=== PATIENT | female | born 1950 | race Caucasian/White ===

== ENCOUNTER 2016-09-27 05:19 | Day surgery (SDC) | payer BC ==
[2016-09-03 08:06] VITALS: BMI 40.0
--- NOTE | 2016-09-03 08:43 | PAT Medication Instructions ---
Service Date Sep 03, 2016. Current Home Medication List Aspirin (Aspirin Ec), 81 MG PO QAM Atenolol (Tenormin), 50 MG PO QAM B-Complex W/ Folic Acid (Super B Complex Maxi), 1 TAB PO QAM Cholecalciferol (Vitamin D-3), 1 TAB PO QPM Cyanocobalamin (Vitamin B-12), 1,000 MCG PO QAM Fexofenadine Hcl (Barb *), 180 MG PO QAM Fish Oil ([place]-3), 1 CAP PO BID Insulin Aspart (Novolog Flexpen), 64-120 UNITS SQ DAILY Insulin Glargine (Lantus Solostar), 65 UNITS SQ HS Insulin Nph (Humulin-N), 50 UNITS SC HS Isosorbide Mononitrate Ext Rel (Imdur Ext Rel), 60 MG PO QAM Levothyroxine Sodium (Synthroid), 175 MCG PO QAM Lisinopril (Prinivil), 10 MG PO QAM Metformin HCL (Glucophage *), 1,000 MG PO BID Multivitamin (Multivitamin), 1 TAB PO QAM Pantoprazole (Protonix), 40 MG PO QAM Venlafaxine Ext Rel (Effexor Extended Rel *), 75 MG PO HS Medication Instructions For Your Scheduled Surgery - Hold the following medications 2 weeks prior to surgery: Fish Oil ([place]-3), 1 CAP PO BID - Hold the following medications 48 hours prior to surgery: Metformin HCL (Glucophage *), 1,000 MG PO BID - Hold the following medications the morning of surgery: B-Complex W/ Folic Acid (Super B Complex Maxi), 1 TAB PO QAM Cyanocobalamin (Vitamin B-12), 1,000 MCG PO QAM Fexofenadine Hcl (Barb *), 180 MG PO QAM Lisinopril (Prinivil), 10 MG PO QAM Multivitamin (Multivitamin), 1 TAB PO QAM Insulin Aspart (Novolog Flexpen), 64-120 UNITS SQ DAILY - Take the following medications the morning of surgery with a sip of water OTHERWISE NOTHING TO EAT OR DRINK AFTER MIDNIGHT: Aspirin (Aspirin Ec), 81 MG PO QAM Atenolol (Tenormin), 50 MG PO QAM Isosorbide Mononitrate Ext Rel (Imdur Ext Rel), 60 MG PO QAM Levothyroxine Sodium (Synthroid), 175 MCG PO QAM Pantoprazole (Protonix), 40 MG PO QAM - Take the following medications as scheduled the night before surgery: Cholecalciferol (Vitamin D-3), 1 TAB PO QPM Venlafaxine Ext Rel (Effexor Extended Rel *), 75 MG PO HS Insulin Glargine (Lantus Solostar), 65 UNITS SQ HS Insulin Nph (Humulin-N), 50 UNITS SC HS If you have any questions please call us at [phone] (Lyn Cesar PA-C ) or [phone] or [phone]
[2016-09-03 09:34] LABS: BASO % 0.4 %; BASO ABS # 0.04 K/uL (0-0.2); COMPLETE YES; EOS % 2.8 %; HEMATOCRIT 42.2 % (37-47); IG% 0.3 %; LYMPH % 29.5 %; LYMPH ABS # 2.68 K/uL (1.2-3.4); MEAN CELL VOLUME 89.8 fL (80-100); MEAN CORPUSCULAR HEMOGLOBIN 30.4 pg (25-34); MEAN CORPUSCULAR HGB CONC 33.9 g/dl (32-36); MEAN PLATELET VOLUME 10.5 fL (7.4-10.4); MONO % 6.6 %; NEUT % 60.4 %; PLATELET COUNT 173 K/uL (130-400); WHITE BLOOD COUNT 9.09 K/uL (4.8-10.8)
[2016-09-03 09:40] LABS: URINE APPEARANCE CLEAR (CLEAR); URINE BILIRUBIN NEG (NEG); URINE COLOR DK YELLOW; URINE EPITHELIAL CELL AUTO >30 /lpf (0-5); URINE NITRITE NEG (NEG); UROBILINOGEN NEG (NEG)
[2016-09-03 09:44] LABS: MANUAL MICROSCOPIC REQUIRED? NO; REVIEW REQ? NO
[2016-09-03 10:15] LABS: CALCIUM 9.2 mg/dl (8.5-10.1); CREATININE 0.85 mg/dl (0.60-1.20); POTASSIUM 4.8 mmol/L (3.5-5.1)
--- NOTE | 2016-09-20 11:09 | HISTORY & PHYSICAL EXAMINATION ---
DATE OF ADMISSION: 09/27/2016 PREOPERATIVE HISTORY AND PHYSICAL EXAMINATION SUBJECTIVE CHIEF COMPLAINT: Left wrist pain. HISTORY OF PRESENT ILLNESS: The patient is a 66-year-old female who has had left hand pain. She states that the pain has been progressively getting worse, symptoms have gone from intermittently to consistent. She describes the pain as being an electrical. 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 She would like to proceed with a carpal tunnel release. PAST MEDICAL HISTORY: Hypertension, hypercholesterolemia, stroke, coronary artery disease, insulin-dependent diabetes, hypothyroidism, osteoarthritis, obesity, kidney stones and fatty liver disease. PAST SURGICAL HISTORY: Significant for cardiac bypass, stent placement, left total knee arthroscopy, carpal tunnel release on the right hand, cataract surgery polypectomy, tubal ligation. SOCIAL HISTORY: She denies alcohol. She denies smoking or tobacco use. She denies IV drug use. She lives in a 2-lesly house. FAMILY HISTORY: She has a history of heart disease. MEDICATIONS: Metformin 1000 mg twice daily, Imdur 60 mg daily, Synthroid 175 mcg daily, Protonix 40 mg daily, lisinopril 10 mg daily, atenolol 50 mg daily, aspirin 81 mg daily, Barb, super B complex, B12, fish oil, Effexor 75 mg. ALLERGIES: CAT HAIR, GLIPIZIDE, AND BACTRIM. REVIEW OF SYSTEMS: She denies fevers, chills, headaches, weight loss, double vision, blurry vision, sore throat, hearing loss, tremors, dizziness, numbness and tingling, tired, thirsty, hot and cold intolerance, abdominal pain, nausea, vomiting, diarrhea, heartburn, chest pain, swelling into the legs or feet, joint pain, back pain, frequency go to the bathroom, pain or burning with urination, incontinence, wheezing, cough, shortness of breath, depression, thoughts of harm herself or harm others, nervousness or anxious. She is positive for stiffness and swelling into the left wrist. OBJECTIVE: GENERAL APPEARANCE: The patient is a 66-year-old female sitting in no acute distress, well dressed, well nourished. She is awake, alert and oriented. VITAL SIGNS: She is 5 foot 2 inches, 220 pounds. HEENT: Extraocular movements are intact. PERRLA. Mucosa is moist. No septal deviation. NECK: Supple with no lymphadenopathy, no JVD, no thyromegaly. HEART: regular rate and rhythm No murmurs or gallops. LUNGS: Clear to auscultation. No wheezing or rhonchi EXTREMITY: paying particular attention to her left wrist. She does have decreased range of motion with flexion, extension, ulnar and radial deviation. She does have a positive Tinel sign at the wrist. She has a positive Phalen test. NEUROLOGIC: Cranial nerves II-XII are intact. Pulses were compared bilaterally and were equal. IMPRESSION: Left carpal tunnel syndrome. PLAN: The patient is scheduled for a left carpal tunnel release. She has failed nocturnal splinting and physical therapy. She wishes to proceed with left carpal tunnel release. Risks and benefits to surgery were discussed that were included but not limited to infection, DVT, pain, stiffness, need for revision surgeries, failure to relieve all symptoms, blood vessel damage, nerve damage and anesthesia risks were all discussed and she wishes to proceed. All questions were answered to her satisfaction. FERMIN
[~2016-09-27] VITALS: Ht 157.5 cm; Wt 100.0 kg
[~2016-09-27 05:19] MED LIST: ALL180 PO; ASPI81TA28 PO; ATEN50TA8 PO; B-CO-25 PO; CHOL200027 PO; CYAN10005 PO; EFFSR75 PO; GLC500 PO; INSDGIPEN SQ; INSUINJ SC; ISOS60TA25 PO; LEVO175T PO; LISI10TA PO; MULT-506 PO; NVLGI/PEN SQ; OMEG10007 PO; PANT40TA PO
[2016-09-27] MEDS ORDERED: CYCL0.052 OP (05:42)
[2016-09-27 05:46] VITALS: BP 119/72; PULSE 76; TEMP 36.6; O2SAT 94; Ht 157.5 cm; Wt 100.0 kg
[2016-09-27] MEDS ORDERED: LACTATED RINGER'S 1000ML 1,000 ML IV SCH (06:00)
[2016-09-27] MEDS ORDERED: FENTANYL CITRATE INJ 50 MCG/1 ML 2 ML VIAL ONE (06:44)
[2016-09-27] MEDS ORDERED: MIDAZOLAM HCL 1 MG/ML 2ML VIAL ONE ×2 (06:44→07:03)
[2016-09-27] MEDS ORDERED: PROPOFOL IV EMULSION 10 MG/ML 20 ML VIAL IV ONE (06:44)
--- NOTE | 2016-09-27 06:52 | History & Physical Bridge Note ---
H&P Re-Evaluation Bridge Note: I have examined the patient, reviewed the History & Physical and in the interval since the performance of the History & Physical I have noted the following changes of clinical significance: No changes noted
[2016-09-27] MEDS ORDERED: ONDANSETRON INJ 2 MG/ML 2 ML VIAL ONE (07:08)
[2016-09-27] MEDS ORDERED: BUPIVACAINE/EPINEPHRINE 0.5% MPF 1:200,000 30 ML VIAL ONE (07:09)
--- NOTE | 2016-09-27 07:47 | [facility] Post Operative Brief Note ---
Immediate Operative Summary Operative Date Sep 27, 2016. Pre-Operative Diagnosis Left wrist carpal tunnel Post-Operative Diagnosis Same as preoperative diagnosis Procedure(s) Performed Left Wrist Carpal Tunnel Release Surgeon Dr Garcia Front Counter Clerk Surgeon(s) Audi Aceves PA-C Estimated Blood Loss min Findings above Specimens 0 Drains 0 Anesthesia local mac Complication(s) None Disposition Recovery Room / PACU
[2016-09-27] MEDS ORDERED: HYDROCODONE/ACETAMOPHEN 5/325MG TAB PO PRN (08:00)
[2016-09-27] MEDS ORDERED: IBUPROFEN 600 MG TAB PO PRN (08:00)
[2016-09-27] MEDS ORDERED: ONDANSETRON INJ 2 MG/ML 2 ML VIAL IV PRN ×2 (08:00→08:15)
[2016-09-27] MEDS ORDERED: HYDR-5688 PO (08:02)
--- NOTE | 2016-09-27 08:06 | Discharge Instructions ---
Discharge Instructions Visit Reason for Visit: Left Wrist Carpal Tunnel Syndrome Discharge Discharge Diagnosis / Problem: Left carpal tunnel release Discharge Goals Goal(s): Decrease discomfort, Improve function Activity Recommendations Activity Limitations: per Instructions/Follow-up section Anesthesia . Post Anesthesia Instructions: If you have had General Anesthesia or IV Sedation: * Do not drive today. * Resume driving when surgeon permits. * Do not make important decisions or sign legal documents today. * Call surgeon for: 1. Temperature elevations greater than 101 degrees F. 2. Uncontrollable pain. 3. Excessive bleeding. 4. Persistent nausea and vomiting. 5. Medication intolerance (nausea, vomiting or rash). * For nausea and vomiting use only clear liquids such as: tea, soda, bouillon until nausea subsides, then gradually increase diet as tolerated. * If you have any concerns or questions, call your surgeon's office. If physician is unavailable and it is an emergency, call 911 or go to the nearest emergency room. . Instructions / Follow-Up Instructions / Follow-Up ACTIVITY RECOMMENDATIONS: * Avoid lifting anything heavier than a medium water glass until your first post operative visit. SPECIAL CARE INSTRUCTIONS: * Your bandage should be left in place for 24-48 hours. Then can be changed daily. * Some drainage onto the dressing may occur. This is normal. * If the bandage feels excessively tight, you may loosen the elastic bandage. Then call the physician's office for further instructions. * If possible, keep your hand elevated above the level of your heart for the first 2 post operative days. You may use a sling if necessary. * You should move your fingers regularly (50-100 motions per hour) unless otherwise instructed. SPECIAL PRECAUTIONS: * If you notice increased drainage, fever over 101 degrees F. or severe, unremitting pain, call your physician/office at . * You may have been prescribed pain medication. If you experience nausea and/or skin rash, discontinue this medication and contact our office for an alternative medication. FOLLOW UP VISIT: FOLLOW UP IN [address] PARKER OR PA TO TO HAVE THE SUTURES REMOVED Please call [facility] to make a follow-up appointment after your surgery at . Diet Recommendations Recommended Home Diet: diabetes diet Procedures Procedures Performed: Left Wrist Carpal Tunnel Release Pending Studies Studies pending at discharge: no Medical Emergencies . Who to Call and When: Medical Emergencies: If at any time you feel your situation is an emergency, please call 911 immediately. . Non-Emergent Contact Non-Emergency issues call your: Surgeon Call Non-Emergent contact if: temperature is above 101.5, your pain is worsening, wound has increased drainage, wound has increased redness, wound has increased pain . . "Provider Documentation" section prepared by Audi Aceves.
[2016-09-27] MEDS ORDERED: ATROPINE SULFATE 0.1 MG/ML 5ML SYR IV PRN (08:15)
[2016-09-27] MEDS ORDERED: FENTANYL CITRATE INJ 50 MCG/1 ML 2 ML VIAL IV PRN (08:15)
--- NOTE | 2016-09-27 08:15 | Anesthesiology Progress Note ---
Anesthesia Post Op Note Date & Time Sep 27, 2016 at 08:14 Vital Signs Pain Intensity: 0 Vital Signs Past 12 Hours Date Time Temp Pulse Resp B/P Pulse Ox O2 Delivery O2 Flow Rate FiO2 09/27/16 08:10 36.3 66 16 125/68 97 Nasal Cannula 09/27/16 08:05 67 16 122/65 97 Nasal Cannula 09/27/16 07:55 69 16 125/63 96 Nasal Cannula 09/27/16 07:53 36.1 71 16 120/62 92 Room Air 09/27/16 05:46 36.6 76 20 119/72 94 Room Air Notes Mental Status: alert / awake / arousable, participated in evaluation Pt Amnestic to Procedure: Yes Nausea / Vomiting: adequately controlled Pain: adequately controlled Airway Patency, RR, SpO2: stable & adequate BP & HR: stable & adequate Hydration State: stable & adequate Anesthetic Complications: no major complications apparent
[2016-09-27 08:20] VITALS: BP 107/43; PULSE 63; TEMP 36.6; O2SAT 92
[2016-09-27 08:50] VITALS: BP 102/52; PULSE 63; TEMP 36.5; O2SAT 95
--- NOTE | 2016-09-28 01:29 | OPERATIVE REPORT ---
DATE OF OPERATION: 09/27/2016 PREOPERATIVE DIAGNOSIS: Left carpal tunnel syndrome. POSTOPERATIVE DIAGNOSIS: Same. PROCEDURE: Left carpal tunnel release. SURGEON: Earle Garcia MD HOME APPLIANCE TECHNICIAN: Audi Aceves PA-C, who was necessary for assistance of procedure with positioning, prepping, draping, retraction and closure. ANESTHESIA: Local MAC. SPECIMENS: None. COMPLICATIONS: None. ESTIMATED BLOOD LOSS: Minimal. INDICATIONS: The patient is a 66-year-old female with longstanding numbness and tingling in the left hand. She has failed conservative measures including nocturnal splinting. EMG confirmed left carpal tunnel syndrome. Failing conservative measures, she wished to proceed with left carpal tunnel release. Risks, benefits, and alternatives of surgery including but not limited to infection, DVT, pain, stiffness, need for revision surgery, failure to relieve all symptoms, damage to blood vessels, damage to nerves, risks of anesthesia discussed with patient and she wished to proceed. DESCRIPTION OF PROCEDURE: The patient was identified, laterality was confirmed and marked. She received preoperative antibiotic. She was transferred to the operating room, placed in the supine position, induced with general endotracheal anesthesia per anesthesia staff. A well-padded tourniquet was placed on the arm. Limb was prepped and draped in usual sterile manner with ChloraPrep. Limb was exsanguinated and tourniquet was inflated. I made a longitudinal incision centered over the radial border of the fourth ray, sharply incising through the skin utilizing Bovie electrocautery to achieve hemostasis. The incision site was anesthetized with Marcaine, dissected through the palmaris fascia. I identified the transverse carpal ligament and incised the transverse carpal ligament sharply with a knife and then completed the release distally with tenotomy scissors. I then released the remaining portion of it proximally with blunt-tipped scissors. The wound was thoroughly irrigated. Subcutaneous tissue was closed with buried 5-0 Monocryl and skin with 4-0 nylon. Sterile dressings applied and tourniquet was released. All needle and sponge counts were correct at the end of the procedure. The patient was transferred to the PACU in stable condition without apparent complication. I attest to the content of the Intraoperative Record and any orders documented therein. Any exceptio ns are noted below.
[2017-04-03] MEDS ORDERED: ACET-1222 (10:36)
[2017-04-03] MEDS ORDERED: ATOR10TA88 PO (10:36)
[2017-04-03] MEDS ORDERED: NTRGSL/4 SL (10:36)
[2017-04-04] MEDS ORDERED: BRL90 PO (13:05)
== END 2016-09-27 09:04 | disposition home or self-care (01) ==
LOC: C.ACU 05:19
PROVIDERS: ATTEND Orthopaedic Surgery
DX: G56.02 Carpal tunnel syndrome, left upper limb (principal); I10 Essential (primary) hypertension; E11.9 Type 2 diabetes mellitus without complications; Z79.4 Long term (current) use of insulin; I25.10 Atherosclerotic heart disease of native coronary artery without angina pectoris; Z79.899 Other long term (current) drug therapy; E03.9 Hypothyroidism, unspecified; E78.00 Pure hypercholesterolemia, unspecified

== ENCOUNTER → 2016-11-15 | Outpatient (CLI) | payer BC ==
[~2016-11-15] MED LIST changes: +ACET-1222; +ATOR10TA82 PO; +BRL90 PO; +CYCL0.052 OP; +HYDR-5688 PO; +NTRGSL/4 SL; +VENL75CA73 PO
--- NOTE | 2016-11-15 13:12 | MAMMOGRAPHY REPORT ---
BILATERAL DIGITAL SCREENING MAMMOGRAM WITH CAD: 11/15/2016 CLINICAL HISTORY: Routine screening. Patient has no complaints. TECHNIQUE: Current study was also evaluated with a Computer Aided Detection (CAD) system. Bilatera l CC and MLO views were obtained. COMPARISON: Comparison is made to exams dated: 11/13/2015 mammogram, 11/10/2014 mammogram, 11/08/2013 mammogram, 09/16/2011 mammogram, and 11/06/2012 mammogram - [facility]. BREAST COMPOSITION: There are scattered areas of fibroglandular density in both breasts. FINDINGS: No suspicious masses, calcifications, or areas of architectural distortion are noted in e ither breast. There has been no significant interval change compared to prior exams. IMPRESSION: ACR BI-RADS CATEGORY 1: NEGATIVE There is no mammographic evidence of malignancy. A 1 year screening mammogram is recommended. The p atient will receive written notification of the results. Approximately 10% of breast cancers are not detected with mammography. A negative mammographic repor t should not delay biopsy if a clinically suggestive mass is present. Melissa Vallejo M.D. ah/:11/15/2016 11:45:52 Regional Driver: Tamika Christian RT(R)(M)(BD), [facility] letter sent: Normal 1/2 BI-RADS Code: ACR BI-RADS Category 1: Negative
== END | disposition home or self-care (01) ==
LOC: C.MAMM 08:52
PROVIDERS: ATTEND Family Medicine
DX: Z12.31 Encounter for screening mammogram for malignant neoplasm of breast (principal)

== ENCOUNTER → 2016-11-21 | Outpatient (CLI) | payer BC ==
[~2016-11-21] MED LIST changes: +REGADENOSON 0.4 MG/5 ML SYR ONE
--- NOTE | 2016-11-21 16:10 | MYOCARDIAL PERFUSION SCAN ---
ORDERING PHYSICIAN: Dr. Miguel Grant. PCP: Dr. Jones TIME: 15:40 p.m. PROCEDURE: 1. Myocardial perfusion study performed in multiple views/images. 2. Lexiscan pharmacologic stress test. INDICATIONS: 1. Chest pain. 2. CAD status post CABG. CONSENT: Informed written consent was obtained. PROCEDURAL DETAILS: For the stress portion of the study, Lexiscan 0.4 mg was intravenously administered over 10-15 seconds followed by saline flush. This was followed by 31.1 mCi of technetium-99m Cardiolite injected intravenously at 10:45 a.m. on 11/21/2016. Thirty minutes following the injection, imaging of the heart was performed in multiple projections. For the rest portion of the study, 10.2 mCi of technetium-99m Cardiolite was injected intravenously at 7:40 a.m. on the same day. One hour following the injection, imaging of the heart was performed in the same projections. ELECTROCARDIOGRAM AND VITALS: Baseline ECG demonstrated sinus rhythm at 60 beats per minute. Lexiscan ECG demonstrated no significant ST changes. No significant pauses. No arrhythmia. There was Lexiscan-induced dyspnea and then nausea with retching. She also developed epistaxis. Symptoms quickly resolved within 1-2 minutes. Peak heart rate was 90 beats per minute representing 59% maximum predicted heart rate. Resting blood pressure was 127/67 mmHg. Maximum blood pressure was 144/65 mmHg. No chest pain. FINDINGS: Rotating raw imaging demonstrated no significant motion artifact. There was no significant lung uptake. Heart size appeared normal. Myocardial perfusion demonstrated a small area of mildly reduced uptake in the lateral wall from base to mid ventricle which was fixed in post-stress and rest imaging. There was no significant reversible defect. Wall motion was normal. Ejection fraction was 70%. IMPRESSION: 1. No significant ischemia suggestive with pharmacologic myocardial perfusion study. 2. Small base to mid lateral wall fixed defect which could suggest a small lateral infarct. With normal wall motion, it could also represent attenuation artifact. 3. Normal wall motion. 4. Normal left ventricular systolic function. Ejection fraction 70%. 5. Lexiscan-induced dyspnea and nausea. 6. Nondiagnostic Lexiscan electrocardiogram. MTDD
== END | disposition home or self-care (01) ==
LOC: C.NUCL 07:11
PROVIDERS: ATTEND Internal Medicine Interventional Cardiology
DX: R07.89 Other chest pain (principal)

== ENCOUNTER → 2017-01-07 | Outpatient (CLI) | payer BC ==
[~2017-01-07] MED LIST changes: -REGADENOSON 0.4 MG/5 ML SYR ONE
[2017-01-07 09:57] LABS: ALT/SGPT 100 U/L (12-78); BLOOD UREA NITROGEN 26 mg/dl (7-18); BUN/CREATININE RATIO 23.7 (10-20); CARBON DIOXIDE 29 mmol/L (21-32); CHLORIDE 103 mmol/L (98-107); CHOLESTEROL 270 mg/dl (0-200); GLUCOSE 118 mg/dl (70-99); POTASSIUM 4.5 mmol/L (3.5-5.1); SODIUM 139 mmol/L (136-145); TRIGLYCERIDES 159 mg/dl (0-150); VERY LOW DENSITY LIPOPROT CALC 32 mg/dl
[2017-01-07 10:00] LABS: ALB/GLOB RATIO 0.9 (0.9-2); ALKALINE PHOSPHATASE 84 U/L (45-117); AST/SGOT 69 U/L (15-37); CHOLESTEROL/HDL RATIO 4.7; HDL CHOLESTEROL 57 mg/dl; LDL CHOLESTEROL CALCULATED 181 mg/dl
[2017-01-07 10:01] LABS: CALCIUM 9.3 mg/dl (8.5-10.1)
[2017-01-07 10:28] LABS: ESTIMATED AVERAGE GLUCOSE 131 mg/dl; HA1C FLAG Normal (Normal)
== END | disposition home or self-care (01) ==
LOC: C.LAB1850 06:55
PROVIDERS: ATTEND Family Medicine
DX: E11.49 Type 2 diabetes mellitus with other diabetic neurological complication (principal); I25.10 Atherosclerotic heart disease of native coronary artery without angina pectoris; E78.00 Pure hypercholesterolemia, unspecified; E03.9 Hypothyroidism, unspecified; R74.8 Abnormal levels of other serum enzymes; I10 Essential (primary) hypertension

== ENCOUNTER → 2017-04-02 | Outpatient (CLI) | payer BC ==
[~2017-04-02] MED LIST changes: -ATOR10TA82 PO; +ATOR10TA88 PO; -HYDR-5688 PO; -VENL75CA73 PO
[2017-04-02 13:30] LABS: PROTHROMBIN TIME (PATIENT) 10.5 SECONDS (9.0-12.0)
[2017-04-02 13:32] LABS: BLOOD UREA NITROGEN 18 mg/dl (7-18); BUN/CREATININE RATIO 20.9 (10-20); CALCIUM 9.1 mg/dl (8.5-10.1); CARBON DIOXIDE 27 mmol/L (21-32); CHLORIDE 105 mmol/L (98-107); CREATININE 0.87 mg/dl (0.60-1.20); GLUCOSE 79 mg/dl (70-99); POTASSIUM 4.3 mmol/L (3.5-5.1); SODIUM 139 mmol/L (136-145)
[2017-04-02 13:36] LABS: HEMATOCRIT 43.6 % (37-47); MEAN CELL VOLUME 93.2 fL (80-100); MEAN CORPUSCULAR HEMOGLOBIN 30.6 pg (25-34); MEAN CORPUSCULAR HGB CONC 32.8 g/dl (32-36); MEAN PLATELET VOLUME 9.9 fL (7.4-10.4); PLATELET COUNT 165 K/uL (130-400); RED BLOOD COUNT 4.68 M/uL (4.2-5.4); WHITE BLOOD COUNT 7.15 K/uL (4.8-10.8)
== END | disposition home or self-care (01) ==
LOC: C.LAB1850 11:53
PROVIDERS: ATTEND Internal Medicine Interventional Cardiology
DX: Z01.810 Encounter for preprocedural cardiovascular examination (principal)

== ENCOUNTER 2017-04-03 10:48 | Observation (INO) | payer BC ==
[~2017-04-03] VITALS: Ht 157.5 cm; Wt 100.5 kg
[2017-04-03] VITALS (12 sets, daily range): BP systolic 108–150; BP diastolic 68–77; PULSE 56–68; TEMP 36.5–36.8; O2SAT 93–98; Ht 157.5 cm; Wt 100.5 kg
[~2017-04-03 10:48] MED LIST changes: -BRL90 PO
[2017-04-03] MEDS ORDERED: HEPARIN SOD (PORCINE) 1000 UNIT/ML 10 ML VIAL ONE ×3 (11:46→14:34)
[2017-04-03] MEDS ORDERED: NiCARDipine HCL INJ 2.5 MG/ML 10 ML AMP ONE ×2 (11:46→13:02)
[2017-04-03] MEDS ORDERED: FENTANYL CITRATE INJ 50 MCG/1 ML 2 ML VIAL ONE (11:47)
[2017-04-03] MEDS ORDERED: NITROGLYCERIN/D5W 100MCG/ML 20ML SYR ONE ×2 (11:47→13:03)
[2017-04-03] MEDS ORDERED: MIDAZOLAM HCL 1 MG/ML 2ML VIAL ONE ×2 (11:47→13:53)
--- NOTE | 2017-04-03 12:04 | History and Physical ---
History & Physical Date Apr 03, 2017. History of Present Illness Mrs. Ahn is a very pleasant 67-year-old woman with a history of coronary artery status post 4 vessel CABG in 1989 (CRANE to LAD known be atretic, SVG to PDA, SVG OM1 and OM2), prior stenting to the mid LAD in 2007 in the setting of unstable angina, diabetes, hypertension, dyslipidemia, hypothyroidism, and obesity who presents today for cardiac catheterization in the setting of recurrent chest pain. Patient was previously followed by Dr. Moss for her cardiovascular care and was last seen by me in July. Approximately 1 month ago had an episode of palpitations with associated chest tightness. Since that time she reports intermittent chest tightness, shortness of breath and decreased exercise tolerance with less and less activity. Reports symptoms are similar to what she had prior to her bypass many years ago. Still endorses occasional palpitations outside of the chest tightness which is similar which she has had recently over the last several years. Denies any orthopnea, PND, lower extremity edema. Denies any recent bleeding. No upcoming procedures. Prior cardiovascular studies: Stress echo (01/2016): Negative stress echo for ischemia at 78 percent max predicted heart rate. exercise for 4 minutes using a Masood protocol, achieved 7 Mets. Resting EF was 60 percent with no regional wall motion abnormalities and no significant valvular pathology Event monitor (09/2012): Showed sinus rhythm with occasional PVCs CABG 1997: CRANE to LAD (found to be atretic in 2007) SVG to PDA Sequential SVG to OM1 and OM 2 Cardiac catheterization 2007 (unstable angina) atretic CRANE to LAD Severe stenosis mid LAD (MARYLOU) Left main trunk 30-50% Dobutamine stress echocardiogram, February 2011: No evidence of ischemia by electrocardiographic or echocardiographic criteria at a suboptimal heart rate. Normal LV size and systolic function ejection fraction 60-65%. Mild left ventricular hypertrophy. Trace mitral, tricuspid, and pulmonic valve regurgitation. Patent foramen ovale Type II diastolic dysfunction May 2011 Cardiolite stress test: LAD territory infarction with mild wilmer-infarct ischemia. Ejection fraction 64%. Normal transient ischemic dilatation ratio Past Medical/Surgical History 1. Anxiety (F41.9) 2. Arteriosclerotic coronary artery disease (I25.10) 3. Asymptomatic Postmenopausal Status 4. Carpal tunnel syndrome of left wrist (G56.02) 5. History of Cath Stent Placement 6. Daytime hypersomnolence (G47.19) 7. Depression (F32.9) 8. 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 Dizziness (R42) 10. Dyspnea on exertion (R06.09) 11. Elevated liver enzymes (R74.8) 12. Elevated transaminase level (R74.0) 13. Encounter for routine pelvic examination (Z01.419) 14. Encounter for screening colonoscopy (Z12.11) 15. Epistaxis (R04.0) 16. Fatigue (R53.83) 17. Fatty (change of) liver, not elsewhere classified (K76.0) 18. Gastric ulcer (K25.9) 19. Hypercholesterolemia (E78.00) 20. Hypertension (I10) 21. Hypothyroidism (E03.9) 22. Lichen sclerosus et atrophicus (L90.0) 23. Nasal polyps (J33.9) 24. Neoplasm of uncertain behavior of skin (D48.5) 25. Obesity (E66.9) 26. Palpitations (R00.2) 27. SOB (shortness of breath) (R06.02) 28. Tachycardia (R00.0) 29. Type 2 diabetes mellitus with diabetic neuropathy (E11.40) 30. Urinary incontinence (R32) 31. Vitamin D deficiency (E55.9) Additional History Hepatic Disease: No Endocrine Disorder: Yes Kidney Disease: No (A) Hypertension: Yes Heart Disease: Yes Bleeding Tendencies: No Infectious Diseases: No (As) Allergies Coded Allergies: Nickel (Verified Allergy, Intermediate, pruritis, 09/27/16) Atorvastatin (Verified Allergy, Mild, poss rash, 09/27/16) Cat Dander (Verified Allergy, Mild, itchy eyes, 09/27/16) Sulfa Antibiotics (Verified Allergy, Mild, HIVES, 09/27/16) Dust (Verified Allergy, Unknown, ITCHY EYES RUNNY NOSE, 09/03/16) Glipizide (Verified Allergy, Unknown, ITCHY,WHEEZING, 09/27/16) Molds and Smuts (Verified Allergy, Unknown, ITCHY EYES RUNNY NOSE, 09/27/16 ) Pioglitazone (Verified Allergy, Unknown, ITCHY WHEEZING, 09/27/16) Adhesives (Verified Adverse Reaction, Unknown, SKIN IRRITATION, 09/27/16) Home Medications Scheduled Aspirin (Aspirin Ec), 81 MG PO QAM Atenolol (Tenormin), 50 MG PO QAM Atorvastatin (Lipitor), 1 TAB PO DAILY B-Complex W/ Folic Acid (Super B Complex Maxi), 1 TAB PO QAM Cholecalciferol (Vitamin D-3), 1 TAB PO QPM Cyanocobalamin (Vitamin B-12), 1,000 MCG PO QAM Cyclosporine (Ophth) (Restasis), 1 DROPS OP BID Fexofenadine Hcl (Barb *), 180 MG PO QAM Fish Oil ([place]-3), 1 CAP PO BID Insulin Aspart (Novolog Flexpen), 64-120 UNITS SQ QID Insulin Glargine (Lantus Solostar), 65 UNITS SQ HS Insulin Nph (Humulin-N), 50 UNITS SC HS Isosorbide Mononitrate Ext Rel (Imdur Ext Rel), 60 MG PO QAM Levothyroxine Sodium (Synthroid), 175 MCG PO QAM Lisinopril (Prinivil), 10 MG PO QAM Metformin HCL (Glucophage *), 1,000 MG PO BID Multivitamin (Multivitamin), 1 TAB PO QAM Nitroglycerin (Nitrostat), 1 TAB SL UD Pantoprazole (Protonix), 20 MG PO QAM Venlafaxine Ext Rel (Effexor Extended Rel *), 75 MG PO HS Scheduled PRN Acetaminophen (Acetaminophen Extra Stren), for Pain Physical Examination Addiitonal Comments: General: Comfortable, no acute distress, obese Eyes: Sclerae anicteric, extraocular movements intact HENT: Oropharynx clear mucous membranes moist Neck: Supple, no lymphadenopathy, no thyromegaly. Lungs: Clear to auscultation bilaterally, no rhonchi or wheezes Cardiac: Distant heart sounds regular rate and rhythm, no murmurs, rubs or gallops. No JVD. No peripheral edema. Extremities well perfused. Vascular: 2+ radial, 1+ femoral, DP and PT pulses. o Abdomen: Soft, nontender, nondistended positive bowel sounds. No hepatosplenomegaly Musculoskeletal: Normal gait. No joint deformities Skin: No rashes or lesions. Neuro: Cranial nerves 2-12 grossly intact, remainder exam nonfocal Psych: Alert orient x3, normal affect and mood Diagnosis Accelerating angina History of CAD s/p CABG and prior PCI with stenting ASA Classification: ASA Class III Plan of Treatment Proceed with cardiac catheterization and possible PCI
--- NOTE | 2017-04-03 12:04 | Procedure Note ---
Pre-Mod Sedation Assessment General Date of Moderate Sedation: Apr 03, 2017. Vital Signs: Vital Signs Past 12 Hours Date Time Temp Pulse Resp B/P (MAP) Pulse Ox O2 Delivery O2 Flow Rate FiO2 04/03/17 11:09 36.8 61 16 120/77 93 Room Air Review Cardiovascular: regular rate, rhythm, no edema Abdomen: normal bowel sounds, non tender Lungs: chest non-tender, lungs clear Airway Class: III Pre-Sedation Airway Assessment Oral Cavity: WNL Able to Visualize Vocal Cords: No Short Thick Neck: Yes Hx of Sleep Apnea: No Smoking Status: Never Smoker Mallampati Classification: Class III ASA Classification: Class III Procedure Planning Contraindications-for Mod Sed: None Yes Notes The planned sedation has been discussed with the patient and consent obtained. I have identified the patient, determined the appropriateness of sedation and have assessed the patient immediately prior to the procedure. All medicine(s) and interventions are by my order.
[2017-04-03] MEDS ORDERED: CLOPIDOGREL BISULFATE 300 MG TAB PO ONE (14:34)
[2017-04-03] MEDS ORDERED: TICAGRELOR 90 MG TAB PO ONE (14:49)
[2017-04-03] MEDS ORDERED: GLUCOSE 10 TABS/TUBE PO PRN (15:15)
[2017-04-03] MEDS ORDERED: GLUCOSE 40% GEL 15 GM TUBE PO PRN (15:15)
[2017-04-03] MEDS ORDERED: ONDANSETRON INJ 2 MG/ML 2 ML VIAL IV PRN (15:15)
[2017-04-03] MEDS ORDERED: DEXTROSE 50% 50 ML SYR IV PRN (15:15)
[2017-04-03] MEDS ORDERED: ACETAMINOPHEN 325 MG TAB PO PRN (15:15)
[2017-04-03] MEDS ORDERED: NITROGLYCERIN 0.4 MG SL PER TAB CHARGE SL PRN (15:15)
[2017-04-03] MEDS ORDERED: GLUCAGON FOR INJ 1 MG VIAL SQ PRN (15:15)
[2017-04-03] MEDS ORDERED: NITROGLYCERIN 0.4 MG SL PER TAB CHARGE SL SCH (15:15)
--- NOTE | 2017-04-03 15:17 | Procedure Note ---
Post-Mod Sedation Assessment General Date of Moderate Sedation Apr 03, 2017. Vital Signs: Vital Signs Past 12 Hours Date Time Temp Pulse Resp B/P (MAP) Pulse Ox O2 Delivery O2 Flow Rate FiO2 04/03/17 15:00 54 16 117/57 (77) 96 Room Air 04/03/17 14:50 54 16 104/57 (73) 96 Room Air 04/03/17 11:09 36.8 61 16 120/77 93 Room Air Review - Discharge Criteria Vital Signs Stable: Yes Alert/Oriented/Conversant: Yes Returned to Baseline Mental St: Yes Nausea Absent/Minimal: Yes Pain/Discomfort/Absent/Minimal: Yes Normal/Baseline Respirations: Yes Active Bleeding?: No Pt Received D/C Instructions: N/A Prescriptions Given: None Specific Proced. D/C Criteria Distal Pulses Present (Cardiac: Yes Groin site assessed-Card Cath: N/A Voided Prior To Discharge: N/A Discharged Patients Adult Escort/Transportation: Yes
[2017-04-03] MEDS ORDERED: IV FLUIDS COMPLETED PRN (16:30)
[2017-04-03] MEDS: SODIUM CHLORIDE 0.9% 1000ML 1,000 ML IV SCH ×2 (16:48→21:16)
[2017-04-03] MEDS ORDERED: VENLAFAXINE HCL XR 75 MG CAPXR PO SCH (21:00)
[2017-04-03] MEDS: INSULIN ASPART 100 UNITS/ML 3 ML PEN SC SCH (21:00)
[2017-04-03] MEDS ORDERED: INSULIN GLARGINE SOLOSTAR 100 UNITS/ML 3 ML PEN SQ SCH (21:00)
[2017-04-03] MEDS: OMEGA-3 (PURIFIED FISH OIL) 1 GM CAP PO SCH (21:09)
[2017-04-03] MEDS: TICAGRELOR 90 MG TAB PO SCH (22:09)
--- NOTE | 2017-04-03 23:23 | Cardiac Catheterization ---
Procedure Note Procedure Date Apr 03, 2017. Pre-Procedure Diagnosis Acute Coronary Syndrome AUC Score 7 Post-Procedure Diagnosis Severe CAD, Successful PCI, Normal Intracardiac Pressures Procedure(s) Performed Coronary Angiography, Drug Eluting Stent, Ultrasound Guided Vascular Access, Femoral Artery Angiography Leadlighter Rudy Belting And Webbing Inspector(s) Shanthi Estimated Blood Loss Medication(s) Fentanyl, Heparin, Nitroglycerin, Versed, Lidocaine 1% Ticagrelor Summary of Findings Indication: Unstable angina Access: 6Fr Right femoral artery; ultrasound guided access Catheters: JL4, JR4; EBU 3.75 Findings: LM - 20% ostial stenosis, 50-60% distal stenosis into ostial LAD LAD - 95% focal hazy proximal stenosis; widely patent mid segment stent; just after stent 95% diffuse calcified disease; diffuse moderate disease in distal LAD as wraps around apex. 2nd diagonal with mild diffuse disease. Circumflex - Occluded proximally RCA - Dominant, 70% mid segment disease, 90% diffuse mid-distal disease. Competitive flow in R-PDA SVG-PDA - Widely patent SVG-OM - Widely patent. Mild diffuse disease distal to anastomosis. Retrofills to mid circumflex. Atretic LIMIA -- PCI -- Antithrombotic therapy: Heparin, Ticagrelor Procedure: LM cannulated with EBU 3.75 guide Monomer Recovery Operator 50 wire passed across lesion into distal vessel with some difficulty. Unable to pass to apical segment. Mid and proximal lesions predilated with 2.0 and 2.5 compliant balloons Dilated mid lesion stented with 2.75 x 18 [place] MARYLOU. Noted to have residual disease immediately before stent. 2nd [place] MARYLOU (2.75 x 12) overlapped with current stent and stent from 2007 proximally. Stents post-dilated with stent balloon 3rd [place] MARYLOU 3.0 x 22 placed from distal LM across proximal LAD stenosis Stent post-dilated with 3.0 NC balloon IC vasodilators administered for spasm Post procedure STALIN 3 flow, stent well expanded with minimal residual stenosis and no apparent cardiac complications. Arterial Closure: AngioSeal Summary: 1. Severe multivessel [place] coronary artery disease - 50-60% distal LM, 95% proximal LAD, diffuse 95% mid LAD lesions - Occluded proximal circumflex - 90% mid to distal RCA stenosis 2. Patent SVG-PDA, SVG-OM. - Known atretic CRANE 3. Successful PCI of distal LM into proximal LAD with 3.0 x 22 [place] MARYLOU and mid LAD with 2 overlapping MARYLOU (2.75 x 12, 2.75 x 18 [place]). Recommendations: To PCU for continued monitoring Loaded with Ticagrelor 180 mg in labor trainer Continue dual-antiplatelet therapy with ASA/Ticagrelor for at least 1 year, possibly indefinitely Continue statin, antihypertensives, and ASCVD risk factor modification Consult cardiac Rehab Hemodynamics Rest Ao: 104/54/77 Final Ao: 92/42/61 LV: -- Recommendations PCI without planned CABG Specimens None Radiation Exposure (mGy) 7451 (Patient counseled on signs and symptoms of radiation injury) Contrast (mls) 320 Visipaque Fluids (cc crystalloids) 200 Drains None Anesthesia Moderate Procedural Complication(s) None Disposition PCU ACC Data Cardiac Status Clinical evaluation leading to the procedure CAD Presntation: Unstable angina Anginal Classification: CCS III Heart Failure: No, NYHA Class: CCS I Cardiogenic Shock w/in 24Hrs: No Cardiac Arrest w/in 24Hrs: No Imaging studies past 6 months: Yes Stress studies past 6 months: Yes Stress Echocardiogram: Yes - Negative Coronary Anatomy Dominant: Right Left Main (% Stenosis): Distal LAD (% Stenosis): Proximal, Mid (95) Circumflex (% Stenosis): Ostial (100) RCA (% Stenosis): Distal (90) Grafts - LAD (%): Ostial (atretic) Grafts - Circumflex (%): Normal Grafts - RCA (%): Normal Closure Device Percutaneous Entry Location: Femoral Closure Device: Angio-Seal Recommendations: PCI without planned CABG PCI Indication: Unstable Angina Lesion Segment Name: Proximal LAD, Mid LAD Culprit Artery: Yes Stenosis Prior to Rx (%): 95 Chronic Total Occlusion: No IVUS: No FFR: No Pre-Procedure STALIN Flow: 3 Previously Treated Lesion: No Lesion Complexity: High/C Lesion Length (mm): 25 Thrombus Present: Yes Bifurcation Lesion: No Guidewire Across Lesion: Yes Guidewire: Stenosis Post-Procedure (%): 0 Post-Procedure STALIN Flow: 3 Device(s) Deployed: Yes Intraprocedure Events Significant Dissection: No Perforation: No
[2017-04-04] VITALS (8 sets, daily range): BP systolic 112–138; BP diastolic 64–89; PULSE 60–73; TEMP 36.6–37; O2SAT 95–98
[2017-04-04] MEDS ORDERED: LEVOTHYROXINE 175 MCG TAB PO SCH (06:00)
[2017-04-04] MEDS: INSULIN ASPART 100 UNITS/ML 3 ML PEN SC SCH ×2 (07:00→11:00)
[2017-04-04 07:24] LABS: BASO % 0.3 %; BASO ABS # 0.02 K/uL (0-0.2); COMPLETE YES; EOS % 2.5 %; HEMATOCRIT 39.2 % (37-47); IG% 0.3 %; LYMPH % 24.1 %; LYMPH ABS # 1.57 K/uL (1.2-3.4); MEAN CELL VOLUME 92.5 fL (80-100); MEAN CORPUSCULAR HEMOGLOBIN 31.6 pg (25-34); MEAN CORPUSCULAR HGB CONC 34.2 g/dl (32-36); MEAN PLATELET VOLUME 9.8 fL (7.4-10.4); MONO % 9.5 %; NEUT % 63.3 %; PLATELET COUNT 121 K/uL (130-400); RED BLOOD COUNT 4.24 M/uL (4.2-5.4); WHITE BLOOD COUNT 6.52 K/uL (4.8-10.8)
[2017-04-04 07:54] LABS: BUN/CREATININE RATIO 24.5 (10-20); CALCIUM 8.4 mg/dl (8.5-10.1); CREATININE 0.77 mg/dl (0.60-1.20); POTASSIUM 4.2 mmol/L (3.5-5.1)
[2017-04-04] MEDS: OMEGA-3 (PURIFIED FISH OIL) 1 GM CAP PO SCH (07:58)
[2017-04-04] MEDS: TICAGRELOR 90 MG TAB PO SCH (08:00)
[2017-04-04] MEDS ORDERED: PANTOprazole SOD 40 MG TAB PO SCH (09:00)
[2017-04-04] MEDS ORDERED: ISOSORBIDE MONONITRATE 60 MG TABCR PO SCH (09:00)
[2017-04-04] MEDS ORDERED: MULTIVITAMIN TAB PO SCH (09:00)
[2017-04-04] MEDS ORDERED: ASPIRIN 81 MG ECTAB PO SCH (09:00)
[2017-04-04] MEDS ORDERED: FEXOFENADINE HCL 180 MG TAB PO SCH (09:00)
[2017-04-04] MEDS ORDERED: ATORVASTATIN 10 MG TAB PO SCH (09:00)
[2017-04-04] MEDS ORDERED: CYANOCOBALAMIN 500 MCG TAB (VIT B-12) PO SCH (09:00)
[2017-04-04] MEDS ORDERED: LISINOPRIL 10 MG TAB PO SCH (09:00)
[2017-04-04] MEDS ORDERED: BRL90 PO ×2 (13:05)
--- NOTE | 2017-04-04 13:08 | Discharge Instructions ---
Discharge Instructions Procedure Procedure Date: Apr 04, 2017. Reason for Visit: Sob, * To Do*. Discharge Discharge Date: Apr 04, 2017. Discharge Diagnosis: Coronary artery disease Last Recorded Wt (Kilograms): 100.500 Anesthesia Post Anesthesia Instructions: If you have had IV Sedation: * Do not drive today. * Resume driving when surgeon permits. * Do not make important decisions or sign legal documents today. * Call surgeon for: 1. Temperature elevations greater than 101 degrees F. 2. Uncontrollable pain. 3. Excessive bleeding. 4. Persistent nausea and vomiting. 5. Medication intolerance (nausea, vomiting or rash). * For nausea and vomiting use only clear liquids such as: tea, soda, bouillon until nausea subsides, then gradually increase diet as tolerated. * If you have any concerns or questions, call your surgeon's office. If physician is unavailable and it is an emergency, call 911 or go to the nearest emergency room. Instructions Activity Recommendations: limitations as noted below Recommended Home Diet: resume previous diet, diabetes diet Allergies: Coded Allergies: Nickel (Verified Allergy, Intermediate, pruritis, 09/27/16) Atorvastatin (Verified Allergy, Mild, poss rash, 09/27/16) Cat Dander (Verified Allergy, Mild, itchy eyes, 09/27/16) Sulfa Antibiotics (Verified Allergy, Mild, HIVES, 09/27/16) Dust (Verified Allergy, Unknown, ITCHY EYES RUNNY NOSE, 09/03/16) Glipizide (Verified Allergy, Unknown, ITCHY,WHEEZING, 09/27/16) Molds and Smuts (Verified Allergy, Unknown, ITCHY EYES RUNNY NOSE, 09/27/16 ) Pioglitazone (Verified Allergy, Unknown, ITCHY WHEEZING, 09/27/16) Adhesives (Verified Adverse Reaction, Unknown, SKIN IRRITATION, 09/27/16) Follow Up Additional Instructions: ACTIVITY RECOMMENDATIONS: It is common to feel weak and fatigue for a few days. * Do not drive or operate any motorized equipment for the next three days. * Limit stair usage (2 or 3 trips a day only) for the next three days. * Do not lift anything heavier than 10 pounds for the next three days. * Do not engage in vigorous exercise or any sports for the next five days. * You may shower the day after your procedure, but do not immerse the area for three days. Cleanse the site gently with soap and water. SPECIAL CARE INSTRUCTIONS: * You may replace the pressure dressing or band-aid the morning after the procedure. * After your procedure, it is normal to have a small bruise or small lump at the site. Examine your site daily for any change in the bruise or lump, redness, swelling, drainage or numbness. Notify your doctor if any change. BLEEDING: * If there is a small amount of bleeding at the site, lie down and apply firm pressure with a clean cloth for ten minutes. When the bleeding stops, lie quietly keeping the procedure limb straight for six hours. Notify your doctor as soon as possible. * If the bleeding does not stop after ten minutes or if there is a large amount of bleeding or spurting, call 911 immediately. Continue to lie down and hold firm pressure until help arrives. SKIN IRRITATION: * You may experience some redness and/or swelling in the area where radiation was administered. If any skin irritation occurs, please contact your family physician. FOLLOW UP VISIT: Keep any scheduled doctor appointments. Follow-up with: Follow-up Dr. Grant in 2-3 weeks. Follow-up lab work with BMP/CBC next week. Cami Means Recommendations: Call your doctor if: * Temperature above 101 degrees * Pain not relieved by pain medicine ordered * There is increased drainage or redness from any incision * You have any unanswered questions or concerns. Your Doctors Instructions noted above were prepared by provider Adrián Grant. Patient Signature Section: Patient Instructions Signature Page Kaylene Ahn Patient (or Guardian) Signature/Date: I have read and understand the instructions given to me by my caregivers. Caregiver/RN/Doctor Signature/Date: The above-named patient and/or guardian has received patient instructions on this date. + Original Patient Signature Page (only) stays with chart. Please make copy for patient.
--- NOTE | 2017-04-04 20:15 | DISCHARGE SUMMARY ---
PRINCIPAL DIAGNOSES: 1. Dyspnea on exertion/chest tightness. 2. Unstable angina. 3. Coronary artery disease status post prior coronary artery bypass grafting and prior percutaneous coronary intervention to left anterior descending artery. 4. Diabetes. PROCEDURES: 1. Coronary angiography. 2. PCI with 3 drug-eluting stents placed from left main into proximal LAD and 2 stents placed into mid LAD. HISTORY OF PRESENT ILLNESS: Ms. Kaylene Ahn is a very pleasant 67-year-old male with a history of coronary artery disease status post 4-vessel CABG in 1989 (CRANE to LAD) know to be atretic, SVG to PDA, SVG to OM1 and OM2, prior stenting to her mid LAD in 2007 in the setting of unstable angina, diabetes, hypertension, dyslipidemia, hypothyroidism and obesity who presented for cardiac catheterization on the day of admission with recurrent chest pain. She reported 1 month of palpitations and associated chest tightness and shortness of breath was increasing and occurring with minimal activity. She stated that the symptoms were similar which she had prior to her bypass many years ago and as a result, decision was made to proceed with cardiac catheterization. HOSPITAL COURSE: Cardiac angiography revealed a 95% focal hazy proximal stenosis in the LAD, a 50-60% distal stenosis in the left main and a diffuse 95% calcified disease in the mid LAD, circumflex was occluded proximally, RCA had 90% diffuse distal disease and compliant flow in the right PDA. Her vein graft to PDA and her vein graft to OM was widely patent and her was CRANE noted to be atretic. Decision was made to proceed with PCI of the LAD where she ended up receiving 3 total stents with 1 from her left main and a proximal LAD and 2 overlapping stents in her mid LAD. A good angiographic result was obtained. The procedure was performed via right femoral artery, which was closed with a closure device. She was admitted to the hospital telemetry unit for observation. She had no events on telemetry overnight. She had no recurrent chest pain. In the morning, her kidney function and blood counts were all stable. She was feeling well with no recurrent chest pain and thought safe for discharge. She was loaded with Brilinta in the cardiac catheterization technician and will plan to continue on aspirin and Brilinta going forward. She will follow up with cardiology clinic in 2-3 weeks. DISCHARGE MEDICATIONS: Include Brilinta 90 mg b.i.d., Tylenol, aspirin 81 mg daily, atenolol 50 mg daily, atorvastatin 10 mg daily, B complex and folic acid 1 tab daily, vitamin D3 2000 units q.p.m., vitamin B12 1000 mcg q.a.m., Restasis 0.05 drops b.i.d., fexofenadine 180 mg p.o. q.a.m., fish oil 1 tab p.o. b.i.d., insulin aspart p.r.n. q.i.d., insulin Glargine 65 units subQ at bedtime, insulin NPH 50 units subQ at bedtime, isosorbide mononitrate 60 mg q.a.m., levothyroxine 175 mcg q.a.m., lisinopril 10 mg q.a.m., multivitamin 1 tab p.o. q.a.m., nitroglycerin sublingual tablets p.r.n., Protonix 20 mg p.o. q.a.m., venlafaxine 75 mg at bedtime, metformin should be held for 48 hours postprocedure.
[2017-04-04] MEDS ORDERED: INSULIN HUMAN NPH SC SCH (21:00)
== END 2017-04-04 14:20 | disposition home or self-care (01) ==
LOC: C.CATH 10:48 → ENRESERV 13:36 → C.2T 15:15 → CANBEDREQ 17:06
PROVIDERS: ADMIT Internal Medicine Interventional Cardiology; ATTEND Internal Medicine Interventional Cardiology
DX: I25.10 Atherosclerotic heart disease of native coronary artery without angina pectoris (principal); E03.9 Hypothyroidism, unspecified; I10 Essential (primary) hypertension; F41.9 Anxiety disorder, unspecified; K76.0 Fatty (change of) liver, not elsewhere classified; E78.00 Pure hypercholesterolemia, unspecified; E66.9 Obesity, unspecified; E11.40 Type 2 diabetes mellitus with diabetic neuropathy, unspecified; E55.9 Vitamin D deficiency, unspecified; Z95.1 Presence of aortocoronary bypass graft; Z95.5 Presence of coronary angioplasty implant and graft; Z79.82 Long term (current) use of aspirin; Z79.4 Long term (current) use of insulin; Z79.899 Other long term (current) drug therapy
CPT/HCPCS: C9600; C9601

== ENCOUNTER → 2017-07-16 | Outpatient (CLI) | payer BC ==
[~2017-07-16] MED LIST changes: +ATOR10TA82 PO; -ATOR10TA88 PO; +BRL90 PO; -EFFSR75 PO; -GLC500 PO; +VENL75CA73 PO
[2017-07-16 09:49] LABS: ALT/SGPT 77 U/L (12-78); AST/SGOT 49 U/L (15-37); BLOOD UREA NITROGEN 26 mg/dl (7-18); BUN/CREATININE RATIO 31.4 (10-20); CALCIUM 9.2 mg/dl (8.5-10.1); CARBON DIOXIDE 28 mmol/L (21-32); CHLORIDE 104 mmol/L (98-107); CREATININE 0.84 mg/dl (0.60-1.20); GLUCOSE 86 mg/dl (70-99); POTASSIUM 4.5 mmol/L (3.5-5.1); SODIUM 138 mmol/L (136-145)
[2017-07-16 10:00] LABS: ALB/GLOB RATIO 0.9 (0.9-2); ALKALINE PHOSPHATASE 101 U/L (45-117); CHOLESTEROL 184 mg/dl (0-200); CHOLESTEROL/HDL RATIO 3.5; HDL CHOLESTEROL 52 mg/dl; LDL CHOLESTEROL CALCULATED 94 mg/dl; THYROID STIMULATING HORMONE 0.365 uIu/ml (0.300-4.500); TRIGLYCERIDES 191 mg/dl (0-150); VERY LOW DENSITY LIPOPROT CALC 38 mg/dl
[2017-07-16 10:01] LABS: ESTIMATED AVERAGE GLUCOSE 123 mg/dl; HA1C FLAG Normal (Normal)
== END | disposition home or self-care (01) ==
LOC: C.LAB1850 08:20
PROVIDERS: ATTEND Nurse Practitioner Family
DX: E78.00 Pure hypercholesterolemia, unspecified (principal); R74.8 Abnormal levels of other serum enzymes; E11.49 Type 2 diabetes mellitus with other diabetic neurological complication; E03.9 Hypothyroidism, unspecified

== ENCOUNTER → 2017-09-25 | Outpatient (CLI) | payer BC | END | disposition home or self-care (01) | LOC: C.LAB1850 07:45 | PROVIDERS: ATTEND Nurse Practitioner Adult Health | DX: E03.9 Hypothyroidism, unspecified (principal) ==

== ENCOUNTER → 2017-11-18 | Outpatient (CLI) | payer BC ==
--- NOTE | 2017-11-19 07:57 | MAMMOGRAPHY REPORT ---
BILATERAL DIGITAL SCREENING MAMMOGRAM TOMOSYNTHESIS WITH CAD: 11/18/2017 CLINICAL HISTORY: Routine screening. TECHNIQUE: Breast tomosynthesis in addition to standard 2D mammography was performed. Current study was also evaluated with a Computer Aided Detection (CAD) system. COMPARISON: Comparison is made to exams dated: 11/15/2016 mammogram, 11/13/2015 mammogram, 11/10/2014 m ammogram, 11/08/2013 mammogram, 11/06/2012 mammogram, and 09/16/2011 mammogram - [facility] enter. BREAST COMPOSITION: There are scattered areas of fibroglandular density in both breasts. FINDINGS: The parenchymal pattern is unchanged. No developing mass, architectural distortion or clus ter of suspicious microcalcifications is seen in either breast. IMPRESSION: ACR BI-RADS CATEGORY 2: BENIGN There is no mammographic evidence of malignancy. A 1 year screening mammogram is recommended. The pa tient will receive written notification of the results. Approximately 10% of breast cancers are not detected with mammography. A negative mammographic report should not delay biopsy if a clinically suggestive mass is present. Altagracia Patel M.D. ay/:11/18/2017 14:55:56 Director Of Home Care Hospice: Radha MARTÍNEZ(Latasha)(M), [facility] letter sent: Normal 1/2 BI-RADS Code: ACR BI-RADS Category 2: Benign
== END | disposition home or self-care (01) ==
LOC: C.MAMM 09:14
PROVIDERS: ATTEND Nurse Practitioner Family
DX: Z12.31 Encounter for screening mammogram for malignant neoplasm of breast (principal)

== ENCOUNTER → 2017-12-03 | Outpatient (CLI) | payer BC ==
[~2017-12-03] MED LIST changes: +RANO500T PO
[2017-12-03 13:15] LABS: BASO % 0.4 %; BASO ABS # 0.03 K/uL (0-0.2); EOS % 2.7 %; EOS ABS # 0.18 K/uL (0-0.5); HEMOGLOBIN 14.4 g/dL (12.0-16.0); IG# 0.03 K/uL (0.00-0.02); LYMPH % 29.4 %; LYMPH ABS # 1.98 K/uL (1.2-3.4); MEAN CELL VOLUME 93.1 fL (80-100); MEAN CORPUSCULAR HEMOGLOBIN 31.2 pg (25-34); MEAN CORPUSCULAR HGB CONC 33.5 g/dl (32-36); MEAN PLATELET VOLUME 9.9 fL (7.4-10.4); MONO % 6.1 %; MONO ABS # 0.41 K/uL (0.11-0.59); PLATELET COUNT 167 K/uL (130-400); RED CELL DISTRIBUTION WIDTH CV 13.7 % (11.5-14.5); RED CELL DISTRIBUTION WIDTH SD 46.2 fL (36.4-46.3); WHITE BLOOD COUNT 6.73 K/uL (4.8-10.8)
[2017-12-03 13:26] LABS: PTT PATIENT 23.5 SECONDS (21.0-31.0)
[2017-12-03 13:56] LABS: BLOOD UREA NITROGEN 18 mg/dl (7-18); CALCIUM 9.3 mg/dl (8.5-10.1); CARBON DIOXIDE 26 mmol/L (21-32); GLUCOSE 121 mg/dl (70-99); POTASSIUM 3.9 mmol/L (3.5-5.1); SODIUM 136 mmol/L (136-145)
[2017-12-04 07:39] LABS: HEMOGLOBIN A1C 5.9 % (4.5-5.6)
== END | disposition home or self-care (01) ==
LOC: C.LAB1850 12:11
PROVIDERS: ATTEND Internal Medicine Interventional Cardiology
DX: E11.49 Type 2 diabetes mellitus with other diabetic neurological complication (principal); F32.9 Major depressive disorder, single episode, unspecified; Z01.810 Encounter for preprocedural cardiovascular examination

== ENCOUNTER → 2017-12-05 | Day surgery (SDC) | payer BC ==
[~2017-12-05] VITALS: Ht 157.5 cm; Wt 102.0 kg
[~2017-12-05] MED LIST changes: +FENTANYL CITRATE INJ 50 MCG/1 ML 2 ML VIAL ONE; +HEPARIN SOD (PORCINE) 1000 UNIT/ML 10 ML VIAL ONE; +LIDOCAINE HCL 1% 20 ML VIAL ONE; +MIDAZOLAM HCL 1 MG/ML 2ML VIAL ONE; +NITROGLYCERIN/D5W 100MCG/ML 20ML SYR ONE; +NiCARDipine HCL INJ 2.5 MG/ML 10 ML AMP ONE
[2017-12-05 08:33] VITALS: BP 132/49; PULSE 52; TEMP 37.1; O2SAT 96; Ht 157.5 cm; Wt 102.0 kg
--- NOTE | 2017-12-05 15:31 | History and Physical ---
History & Physical Date Dec 05, 2017. History of Present Illness Mrs. Ahn is a very pleasant 67-year-old woman with a history of coronary artery status post 4 vessel CABG in 1989 (CRANE to LAD known to be atretic, SVG to PDA, SVG OM1 and OM2), and prior LAD stenting, diabetes, hypertension, dyslipidemia, hypothyroidism, and obesity who returns with progressive shortness of breath. Symptoms have been ongoing for weeks. Unable to exercise with shortness of breath and afterwards feels generalized fatigue which is new since last stents placed. Prior cardiovascular studies: Cardiac catheterization (03/2017): Right femoral; LM 50-60 percent distal into ostial LAD; LAD calcified 95 percent focal hazy proximal widely patent mid segment stent, 95 percent just after prior stent; LCX occluded proximally; RCA dominant, 70 percent mid, 90 percent diffuse mid to distal. SVG to PDA widely patent; SVG to OM widely patent mild diffuse disease distal to anastomosis. Atretic CRANE PCI from distal left main into proximal LAD, and mid LAD (3.0 x 22, 2.75 x 12, 2.75 x 18 on X drug-eluting stents) Pharmacologic SPECT (11/2016): EF 70 percent, no ischemia, small basal to mid lateral fixed defect suspect artifact Event monitor (07/2016): Sinus rhythm no appreciable events. Stress echo (01/2016): Negative stress echo for ischemia at 78 percent max predicted heart rate. exercise for 4 minutes using a Masood protocol, achieved 7 Mets. Resting EF was 60 percent with no regional wall motion abnormalities and no significant valvular pathology Event monitor (09/2012):: Showed sinus rhythm with occasional PVCs CABG 1997: CRANE to LAD (found to be atretic in 2007) SVG to PDA Sequential SVG to OM1 and OM 2 Cardiac catheterization 2007 colon (unstable angina) atretic CRANE to LAD Severe stenosis mid LAD (MARYLOU) Left main trunk 30-50% Dobutamine stress echocardiogram, February 2011: No evidence of ischemia by electrocardiographic or echocardiographic criteria at a suboptimal heart rate. Normal LV size and systolic function ejection fraction 60-65%. Mild left ventricular hypertrophy. Trace mitral, tricuspid, and pulmonic valve regurgitation. Patent foramen ovale Type II diastolic dysfunction May 2011 Cardiolite stress test: LAD territory infarction with mild wilmer-infarct ischemia. Ejection fraction 64%. Normal transient ischemic dilatation ratio Past Medical/Surgical History As discussed above Allergies Coded Allergies: Nickel (Verified Allergy, Intermediate, pruritis, 09/27/16) Atorvastatin (Verified Allergy, Mild, poss rash, 09/27/16) Cat Dander (Verified Allergy, Mild, itchy eyes, 09/27/16) Sulfa Antibiotics (Verified Allergy, Mild, HIVES, 09/27/16) Dust (Verified Allergy, Unknown, ITCHY EYES RUNNY NOSE, 09/03/16) Glipizide (Verified Allergy, Unknown, ITCHY,WHEEZING, 09/27/16) Molds and Smuts (Verified Allergy, Unknown, ITCHY EYES RUNNY NOSE, 09/27/16 ) Pioglitazone (Verified Allergy, Unknown, ITCHY WHEEZING, 09/27/16) Adhesives (Verified Adverse Reaction, Unknown, SKIN IRRITATION, 09/27/16) Home Medications Scheduled Aspirin (Aspirin Ec), 81 MG PO QAM Atenolol (Tenormin), 50 MG PO QAM Atorvastatin (Lipitor), 1 TAB PO DAILY Cholecalciferol (Vitamin D-3), 1 TAB PO QPM Cyclosporine (Ophth) (Restasis), 1 DROPS OP BID Fexofenadine Hcl (Barb *), 180 MG PO QAM Insulin Aspart (Novolog Flexpen), 64-120 UNITS SQ QID Insulin Glargine (Lantus Solostar), 65 UNITS SQ HS Insulin Nph (Humulin-N), 58 UNITS SC HS Isosorbide Mononitrate Ext Rel (Imdur Ext Rel), 60 MG PO QAM Levothyroxine Sodium (Synthroid), 175 MCG PO QAM Lisinopril (Prinivil), 10 MG PO QAM Multivitamin (Multivitamin), 1 TAB PO QAM Nitroglycerin (Nitrostat), 1 TAB SL UD Pantoprazole (Protonix), 20 MG PO QAM Ticagrelor (Brilinta), 90 MG PO BID Venlafaxine Hcl (Venlafaxine Extended Rel), 2 CAP PO DAILY Scheduled PRN Acetaminophen (Acetaminophen Extra Stren), for Pain Physical Examination Skin: warm/dry ENT: normal ENT inspection Neck: supple Respiratory/Chest: lungs clear, normal breath sounds Cardiovascular: regular rate, rhythm, no murmur Abdomen / GI: normal bowel sounds Extremities: normal inspection Neurologic/Psych: alert, oriented x 3 Diagnosis Exertional dyspnea, chest pain. ASA Classification: ASA Class III Plan of Treatment Proceed with left heart catheterization.
--- NOTE | 2017-12-05 15:32 | Pre Sedation Assessment ---
Pre Sedation Assessment General Date of Sedation: Dec 05, 2017. Vital Signs Past 12 Hours Date Time Temp Pulse Resp B/P (MAP) Pulse Ox O2 Delivery O2 Flow Rate FiO2 12/05/17 15:15 52 18 104/52 (69) 99 Room Air 12/05/17 15:00 53 18 107/50 (69) 99 Room Air 12/05/17 14:44 53 18 107/53 (71) 99 Mask 4 12/05/17 11:57 56 16 113/53 (73) 96 Room Air 12/05/17 08:33 37.1 52 16 132/49 (76) 96 Room Air Review Cardiovascular: regular rate, rhythm, no edema Lungs: chest non-tender, lungs clear Pre-Sedation Airway Assessment Smoking Status: Never Smoker Hx of Sleep Apnea: No Hx of difficult intubation: No Short Thick Neck: No Oral Cavity: Capped Teeth Mallampati Classification: Class III ASA Classification: Class III Procedure Planning Contraindications for Sedation: None Current Medications Reviewed: Yes Notes The planned sedation has been discussed with the patient. Informed Consent was obtained. I have identified the patient, determined the appropriateness of sedation and have assessed the patient immediately prior to the procedure. All medicine(s) and interventions are by my order.
--- NOTE | 2017-12-05 15:33 | Post Sedation Assessment ---
Post Sedation Assessment General Date of Sedation Dec 05, 2017. Vital Signs: Vital Signs Past 12 Hours Date Time Temp Pulse Resp B/P (MAP) Pulse Ox O2 Delivery O2 Flow Rate FiO2 12/05/17 15:15 52 18 104/52 (69) 99 Room Air 12/05/17 15:00 53 18 107/50 (69) 99 Room Air 12/05/17 14:44 53 18 107/53 (71) 99 Mask 4 12/05/17 11:57 56 16 113/53 (73) 96 Room Air 12/05/17 08:33 37.1 52 16 132/49 (76) 96 Room Air Post Procedure Recovery Score Activity: (2) Moves 4 extremities * Respiration: (2) Deep breath/cough Circulation: (2) +/-20% PreAnes Value Consciousness: (2) Fully Awake Oxygen Saturation: (1) O2 needed for >90% Post Anesthesia Score: 9 Discharge Sedation Level of Care: Fast Track Phase II Post Sedation Plan On clinical assessment, the patient appears to have tolerated the sedation without complications. Patient is recovering as anticipated. Patient will continue to be monitored by nursing and may be discharged when sedation discharge criteria are met per below protocol. Upon Completions of procedure and additional 15 minutes continue every 5 minute vital signs and the P.A.R. score; then discharge to a Phase I or Fast Track to Phase II per the following guidelines: * Discharge Patient to appropriate Phase II area if PAR is 8 or greater or return to pre- procedure baseline. The post - procedure orders will be as directed. * If PAR score is less than 8 or not return to pre-procedure baseline then patient will follow Phase I monitoring till PAR is reached for Phase II. The Phase I may be done in procedure room or may call to secure a Phase I area. * If naloxone or flumazenil are used for reversal, hold in Phase I for an additional 60 -120 minutes before discharge to Phase II. Please call the Sedation Physician to re-evaluate and complete post-note for discharge to Phase II area. Do NOT discharge from procedure sedation or Phase 1 until post- sedation evaluation note is complete by procedure /sedation MD Sedation Discharge Instructions to be given to the patient at discharge to home.
--- NOTE | 2017-12-05 15:49 | Cardiac Catheterization ---
Procedure Note Procedure Date Dec 05, 2017. Pre-Procedure Diagnosis Angina AUC Score 7 Post-Procedure Diagnosis Severe CAD, Normal Intracardiac Pressures Procedure(s) Performed Coronary Angiography, Left Heart Cath, Bypass Graft Angiography Clerical Administrative Assistant Rudy Machine Operations Supervisor(s) José Estimated Blood Loss 15 Medication(s) Fentanyl, Heparin, Nicardipine, Nitroglycerin, Versed, Lidocaine 1% Summary of Findings Indication: Progressive exertional angina Access: 6 Japanese slender right radial artery disease Catheters: Mcleod, JR4, JL 3.5, Mina all ky Findings: LM - 20-30% ostial stenosis LAD - widely patent stents from left main to mid LAD (unchanged from March 2017 ); 50-60% stenosis after 2nd diagonal than moderate disease in mid to distal LAD as wraps around apex. 2nd diagonal with mild diffuse disease. Circumflex - Occluded proximally RCA - Dominant, 70% mid segment disease, 90% diffuse mid-distal disease. Competitive flow in R-PDA SVG-PDA - Widely patent SVG-OM - Widely patent. Mild diffuse disease distal to anastomosis. Retrofills to mid circumflex. Known atretic LIMIA LVEDP - 8 Arterial Closure: TR Band Summary: 1. Severe multivessel coronary artery disease (largely unchanged from 03/2017) - Widely patent prior left main to mid LAD stents - 50-60% stenosis in small mid LAD 2. Widely patent SVG to PDA, SVG to OM2 3. Normal intracardiac filling pressure Recommendations: Optimize antianginal regimen - will consider ranexa. Evaluate non-cardiac causes of chest pain. If persistent symptoms in the future could consider further evaluation with possible stenting of mid LAD. Continued ASCVD risk factor modification Hemodynamics Rest Ao: 89/43/63 Final Ao: 95/50/69 LV: 95/8 Recommendations Medical therapy and/or Counseling Specimens None Radiation Exposure (mGy) 3778 Contrast (mls) 95 Fluids (cc crystalloids) 175 Drains None Anesthesia Moderate Procedural Complication(s) None Disposition Hot Box Spotter Holding/Recovery ACC Data Cardiac Status Clinical evaluation leading to the procedure CAD Presntation: Unstable angina Anginal Classification: CCS III Heart Failure: No, NYHA Class: CCS I Cardiogenic Shock w/in 24Hrs: No Cardiac Arrest w/in 24Hrs: No Imaging studies past 6 months: No Stress studies past 6 months: No Standard Exercise Stress Test: No Stress Echocardiogram: No Closure Device Percutaneous Entry Location: Radial Closure Device: Radial Band Recommendations: Medical therapy and/or Counseling Intraprocedure Events Significant Dissection: No Perforation: No
--- NOTE | 2017-12-05 16:00 | Discharge Instructions ---
Discharge Instructions Procedure Procedure Date: Dec 05, 2017. Reason for Visit: Shortness Of Breath ,Cad *Grant Doing*. Discharge Discharge Date: Dec 05, 2017. Discharge Diagnosis: Stable coronary artery disease Last Recorded Wt (Kilograms): 102 Anesthesia Post Anesthesia Instructions: If you have had General Anesthesia or IV Sedation: * Do not drive today. * Resume driving when surgeon permits. * Do not make important decisions or sign legal documents today. * Call surgeon for: 1. Temperature elevations greater than 101 degrees F. 2. Uncontrollable pain. 3. Excessive bleeding. 4. Persistent nausea and vomiting. 5. Medication intolerance (nausea, vomiting or rash). * For nausea and vomiting use only clear liquids such as: tea, soda, bouillon until nausea subsides, then gradually increase diet as tolerated. * If you have any concerns or questions, call your surgeon's office. If physician is unavailable and it is an emergency, call 911 or go to the nearest emergency room. Instructions Activity Recommendations: limitations as noted below Recommended Home Diet: resume previous diet, low sodium, low cholesterol Allergies: Coded Allergies: Nickel (Verified Allergy, Intermediate, pruritis, 09/27/16) Atorvastatin (Verified Allergy, Mild, poss rash, 09/27/16) Cat Dander (Verified Allergy, Mild, itchy eyes, 09/27/16) Sulfa Antibiotics (Verified Allergy, Mild, HIVES, 09/27/16) Dust (Verified Allergy, Unknown, ITCHY EYES RUNNY NOSE, 09/03/16) Glipizide (Verified Allergy, Unknown, ITCHY,WHEEZING, 09/27/16) Molds and Smuts (Verified Allergy, Unknown, ITCHY EYES RUNNY NOSE, 09/27/16 ) Pioglitazone (Verified Allergy, Unknown, ITCHY WHEEZING, 09/27/16) Adhesives (Verified Adverse Reaction, Unknown, SKIN IRRITATION, 09/27/16) Follow Up Additional Instructions: ACTIVITY RECOMMENDATIONS: Excess manipulation of the wrist should be avoided for the next 24-48 hours. * No lifting over 2 pounds (approximately a 1/2 gallon of milk) with the utilized arm for 24 hours. * No strenuous activity such as bowling or tennis for 3 days. * Keep the site of the procedure covered with a bandage for 24 hours. *You may shower the day after the procedure. Do not take a tub bath or submerge the puncture site in water for the next 3 days. *Do not operate any motorized equipment for 3 days. SPECIAL CARE INSTRUCTIONS: The site may be slightly bruised and sore following your procedure. Should any of the following occur, contact the Dr. who performed your procedure. 1. Redness/inflammation, swelling, chills, or fever, or colored drainage at procedure site within 3-7 days after your procedure. 2. Coldness, discoloration, ongoing numbness, severe pain, or swelling. Expect mild tingling of hand and tenderness at the puncture site for up to three days. If this persists beyond three days, or other symptoms develop, notify the Dr. who performed your procedure. BLEEDING: If the procedure site on your wrist begins to bleed, do not panic 1. Place 1 or 2 fingers firmly just slightly above the insertion site to stop the bleeding. You may be able to feel your pulse as you hold pressure. 2. Lift your finger after 5 minutes to see if the bleeding has stopped. 3. Once the bleeding has stopped, gently wipe the wrist area clean with a bandage. * If the bleeding from your wrist does not stop after 10 minutes, or if there is a large amount of bleeding or spurting, call 911 (do not drive yourself to the hospital). SKIN IRRITATION: * You may experience some redness and/or swelling in the area where radiation was administered. If any skin irritation occurs, please contact your family physician. FOLLOW UP VISIT: Keep any scheduled doctor appointments. Follow-up with: 3-[address] Rudy Means Recommendations: Call your doctor if: * Temperature above 101 degrees * Pain not relieved by pain medicine ordered * There is increased drainage or redness from any incision * You have any unanswered questions or concerns. Your Doctors Instructions noted above were prepared by provider Adrián Grant. Patient Signature Section: Patient Instructions Signature Page Kaylene Ahn Patient (or Guardian) Signature/Date: I have read and understand the instructions given to me by my caregivers. Caregiver/RN/Doctor Signature/Date: The above-named patient and/or guardian has received patient instructions on this date. + Original Patient Signature Page (only) stays with chart. Please make copy for patient.
[2017-12-05 16:45] VITALS: BP 98/59; PULSE 58; O2SAT 99
== END | disposition home or self-care (01) ==
LOC: C.CATH 08:22
PROVIDERS: ATTEND Internal Medicine Interventional Cardiology
DX: I25.10 Atherosclerotic heart disease of native coronary artery without angina pectoris (principal); E11.9 Type 2 diabetes mellitus without complications; I10 Essential (primary) hypertension; E78.5 Hyperlipidemia, unspecified; E03.9 Hypothyroidism, unspecified; E66.9 Obesity, unspecified; Z88.8 Allergy status to other drugs, medicaments and biological substances; Z88.2 Allergy status to sulfonamides; Z91.048 Other nonmedicinal substance allergy status; Z95.1 Presence of aortocoronary bypass graft; Z79.82 Long term (current) use of aspirin; Z79.899 Other long term (current) drug therapy; Z79.4 Long term (current) use of insulin

== ENCOUNTER → 2017-12-29 | Outpatient (CLI) | payer BC ==
[~2017-12-29] MED LIST changes: -B-CO-25 PO; -CYAN10005 PO; -FENTANYL CITRATE INJ 50 MCG/1 ML 2 ML VIAL ONE; -HEPARIN SOD (PORCINE) 1000 UNIT/ML 10 ML VIAL ONE; -LIDOCAINE HCL 1% 20 ML VIAL ONE; -MIDAZOLAM HCL 1 MG/ML 2ML VIAL ONE; -NITROGLYCERIN/D5W 100MCG/ML 20ML SYR ONE; -NiCARDipine HCL INJ 2.5 MG/ML 10 ML AMP ONE; -OMEG10007 PO
== END | disposition home or self-care (01) ==
LOC: C.LAB1850 07:45
PROVIDERS: ATTEND Nurse Practitioner Family
DX: E11.49 Type 2 diabetes mellitus with other diabetic neurological complication (principal); I25.10 Atherosclerotic heart disease of native coronary artery without angina pectoris; E78.5 Hyperlipidemia, unspecified; R74.8 Abnormal levels of other serum enzymes

== ENCOUNTER 2018-03-10 15:19 | Emergency (ER) | payer BC ==
[~2018-03-10] VITALS: Ht 157.5 cm; Wt 100.6 kg
[~2018-03-10 15:19] MED LIST changes: -ATEN50TA8 PO; -ISOS60TA25 PO
[2018-03-10 15:22] VITALS: TEMP 36.6; Ht 157.5 cm; Wt 100.6 kg
[2018-03-10] MEDS ORDERED: SODIUM CHLORIDE 0.9% 1000ML 2,000 ML IV STA (15:37)
--- NOTE | 2018-03-10 15:54 | DIAGNOSTIC IMAGING REPORT ---
CHEST ONE VIEW PORTABLE CLINICAL HISTORY: fever dyspnea COMPARISON STUDY: 08/16/2014 FINDINGS: The bones soft tissues and hemidiaphragms are normal. The cardiomediastinal silhouette is normal. The lungs are clear. The pulmonary vasculature is normal. IMPRESSION: Negative chest. The above report was generated using voice recognition software. It may contain grammatical, syntax or spelling errors. Electronically signed by: Tommy Keenan M.D. 03/10/2018 3:53 PM Dictated Date/Time: 03/10/2018 3:51 PM
[2018-03-10 15:56] LABS: BASO % 0.5 %; BASO ABS # 0.03 K/uL (0-0.2); EOS % 5.2 %; EOS ABS # 0.32 K/uL (0-0.5); HEMOGLOBIN 15.4 g/dL (12.0-16.0); IG# 0.06 K/uL (0.00-0.02); LYMPH ABS # 1.97 K/uL (1.2-3.4); MEAN CELL VOLUME 91.6 fL (80-100); MEAN CORPUSCULAR HEMOGLOBIN 31.4 pg (25-34); MEAN CORPUSCULAR HGB CONC 34.2 g/dl (32-36); MONO % 10.7 %; MONO ABS # 0.66 K/uL (0.11-0.59); NEUT % 50.6 %; NEUT ABS # 3.11 K/uL (1.4-6.5); PLATELET COUNT 157 K/uL (130-400); RED CELL DISTRIBUTION WIDTH CV 13.5 % (11.5-14.5); RED CELL DISTRIBUTION WIDTH SD 45.4 fL (36.4-46.3); WHITE BLOOD COUNT 6.15 K/uL (4.8-10.8)
[2018-03-10] MEDS ORDERED: CEFTRIAXONE SOD INJ 1 GM ADDVIAL IV STA (16:17)
[2018-03-10 16:20] LABS: ALBUMIN 3.6 gm/dl (3.4-5.0); CALCIUM 9.4 mg/dl (8.5-10.1); CREATININE 1.17 mg/dl (0.60-1.20); POTASSIUM 4.4 mmol/L (3.5-5.1); TOTAL PROTEIN 8.2 gm/dl (6.4-8.2)
[2018-03-10] MEDS ORDERED: RANO1000 PO (17:09)
[2018-03-10] MEDS ORDERED: VENL37.593 PO (17:09)
[2018-03-10] MEDS ORDERED: MULT-612 PO (17:09)
[2018-03-10] MEDS ORDERED: OMEG10007 PO (17:09)
[2018-03-10] MEDS ORDERED: LPT10 PO (17:09)
[2018-03-10] MEDS ORDERED: METF-384 PO (17:09)
[2018-03-10] MEDS ORDERED: TICA1TAB PO (17:09)
[2018-03-10] MEDS ORDERED: INSU1INJ23 SC (17:09)
[2018-03-10] MEDS ORDERED: B-CO1CAP5 PO (17:09)
[2018-03-10] MEDS ORDERED: EFFSR150 PO (17:09)
[2018-03-10] MEDS ORDERED: FEXO1TAB46 PO (17:09)
[2018-03-10] MEDS ORDERED: OPTIRAY 320 IV PRN (18:15)
--- NOTE | 2018-03-10 18:48 | DIAGNOSTIC IMAGING REPORT ---
ABDOMEN AND PELVIS CT WITH IV CONTRAST CT DOSE: 1535.84 mGy.cm HISTORY: Acute generalized abdominal pain with fever abd pain and fever TECHNIQUE: Multiaxial CT images of the abdomen and pelvis were performed following the use of intravenous contrast. A dose lowering technique was utilized adhering to the principles of ALARA. COMPARISON STUDY: CT abdomen and pelvis 06/16/2010. FINDINGS: The lung bases appear generally clear. No pneumatosis or pneumoperitoneum. Imaged inferior cardiac chambers are within the upper limits of normal coronary arterial calcifications are noted. Liver is mildly enlarged. Fatty infiltration of the liver. Spleen is mildly enlarged, 13.6 cm. Mild generalized pancreatic atrophy. Adrenal glands and gallbladder appear unremarkable. Mildly prominent nonenlarged periportal lymph nodes are likely physiologic. Patent portal vein. Mild cortical scarring and parenchymal thinning about the superior pole left kidney. Previously noted bilateral nonobstructing renal calculi are not seen on this study and likely have passed in the interval. There may be a punctate nonobstructing calculus of the interpolar left kidney on image 162 series 3. No ureteral calculi or obstructive uropathy. Mild distention of the urinary bladder. Prior hysterectomy. No adnexal mass lesions identified. Moderate calcification of the aorta. No aneurysm. The IVC is unremarkable. Mildly prominent nonenlarged gastrohepatic lymph nodes are present. There is no bowel obstruction or focal bowel wall thickening. Colonic diverticulosis without diverticulitis. Normal appendix. No ascites or mesenteric inflammatory changes. Subxiphoid ventral abdominal wall hernia is fat-containing, diastases 3.4 cm. Mild stranding and skin thickening about the lower left anterior and right lateral abdominal wall subcutaneous tissues. Bones appear to be intact. Multilevel facet arthropathy of the lower lumbar spine. Grade 1 anterolisthesis L4 on L5, likely degenerative. IMPRESSION: 1. No acute intra-abdominal or intrapelvic abnormality identified. 2. Mild colonic diverticulosis without diverticulitis. 3. Hepatosplenomegaly with hepatic steatosis. 4. Fat-containing subxiphoid ventral upper abdominal wall hernia. 5. Mild subcutaneous stranding and skin thickening about the left anterior and right lateral abdominal wall may reflect cellulitis changes. Correlate with clinical exam. Electronically signed by: Srini Brewer M.D. 03/10/2018 6:47 PM Dictated Date/Time: 03/10/2018 6:39 PM
[2018-03-10] MEDS ORDERED: CEPH500C PO (18:56)
[2018-03-10] MEDS ORDERED: ISOS60TA25 PO (19:05)
[2018-03-10] MEDS ORDERED: ATEN50TA8 PO (19:05)
[2018-03-10 19:09] VITALS: BP 141/90; PULSE 69; O2SAT 96
--- NOTE | 2018-03-10 21:41 | EMERGENCY ROOM VISIT NOTE ---
History Report prepared by Ninoibpina: Elsa Connor Under the Supervision of: Dr. Sylvester Dow D.O. First contact with patient: 15:26 Chief Complaint: ILLNESS Stated Complaint: BELLY PAIN,FEVER,SWEATS,FATIGUE,HEADACHE History of Present Illness The patient is a 67 year old female who presents to the Emergency Room with complaints of a persistent illness for the past 5 days. She states last week she experienced a headache, back pain, fatigue and intermittent abdominal pain. At the end of last week, she experienced constipation, but it has resolved and she had 1 episode of "runny" stools. She reports she has also experienced urinary symptoms including increased frequency and urgency. She admits to shortness of breath while laying down, which she states is unusual for her. She still has both her gallbladder and appendix. She has been nauseous but has not vomited. The patient denies change in vision, fevers above 100.4, chest pain, vomiting, and melena. 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 A total of 10 systems reviewed and were otherwise negative. Past Medical & Surgical Medical Problems: (1) Angina pectoris Social History Smoking Status: Never Smoker Alcohol Use: none Drug Use: none Marital Status: Housing Status: lives with family Occupation Status: retired Current/Historical Medications Scheduled Aspirin (Aspirin Ec), 81 MG PO QAM Atenolol (Tenormin), 50 MG PO QAM Atorvastatin (Lipitor), 10 MG PO HS B-Complex W/Biotin & Folic Aci (Super B-Complex), 1 CAP PO DAILY Cephalexin Monohydrate (Keflex), 500 MG PO TID Cholecalciferol (Vitamin D-3), 2,000 INTER.UNIT PO HS Cyclosporine (Ophth) (Restasis), 1 DROP OP BID Fexofenadine Hcl (Barb), 180 MG PO DAILY Fish Oil ([place]-3), 1 CAP PO BID Insulin Aspart (Novolog Flexpen), 1 DOSE SQ ACHS Insulin Glargine (Lantus Solostar), 65 UNITS SQ HS Insulin Isophane (Human) (Humulin N Kwikpen), 58 UNITS SC HS Isosorbide Mononitrate Ext Rel (Imdur Ext Rel), 60 MG PO QAM Levothyroxine Sodium (Synthroid), 175 MCG PO 6XWK Lisinopril (Prinivil), 10 MG PO QAM Metformin Hcl (Glucophage), 1,000 MG PO BID Multiple Vitamins W/ Minerals (Centrum Ultra Womens), 1 TAB PO DAILY Pantoprazole (Protonix), 40 MG PO QAM Ranolazine (Ranexa), 1,000 MG PO BID Ticagrelor (Brilinta), 90 MG PO BID Venlafaxine Hcl (Effexor Extended Rel), 150 MG PO HS Venlafaxine Hcl (Venlafaxine Extended Rel), 37.5 MG PO HS Allergies Coded Allergies: Nickel (Verified Allergy, Intermediate, pruritis, 09/27/16) Atorvastatin (Verified Allergy, Mild, poss rash, 09/27/16) Cat Dander (Verified Allergy, Mild, itchy eyes, 09/27/16) Sulfa Antibiotics (Verified Allergy, Mild, HIVES, 09/27/16) Dust (Verified Allergy, Unknown, ITCHY EYES RUNNY NOSE, 09/03/16) Glipizide (Verified Allergy, Unknown, ITCHY,WHEEZING, 09/27/16) Molds and Smuts (Verified Allergy, Unknown, ITCHY EYES RUNNY NOSE, 09/27/16 ) Pioglitazone (Verified Allergy, Unknown, ITCHY WHEEZING, 09/27/16) Adhesives (Verified Adverse Reaction, Unknown, SKIN IRRITATION, 09/27/16) Physical Exam Vital Signs Date Time Temp Pulse Resp B/P (MAP) Pulse Ox O2 Delivery O2 Flow Rate FiO2 03/10/18 19:09 69 18 141/90 96 Room Air 03/10/18 18:19 63 96 03/10/18 18:19 63 96 03/10/18 18:01 137/75 03/10/18 18:01 137/75 03/10/18 17:49 62 97 03/10/18 17:49 62 97 03/10/18 17:31 132/81 03/10/18 17:31 132/81 18 17:19 65 97 03/10/18 17:19 65 97 03/10/18 17:01 142/76 03/10/18 17:01 142/76 03/10/18 17:00 67 16 142/76 97 Room Air 03/10/18 16:49 66 19 96 03/10/18 16:49 66 19 96 18 16:31 115/68 03/10/18 16:31 115/68 03/10/18 16:19 64 19 94 03/10/18 16:19 64 19 94 03/10/18 16:13 70 03/10/18 16:01 119/65 03/10/18 16:01 119/65 03/10/18 15:59 67 14 119/65 95 Room Air 03/10/18 15:22 36.6 71 20 121/70 97 Room Air Physical Exam GENERAL: Sitting up in bed, alert, well appearing, well nourished, no distress, non-toxic EYE EXAM: normal conjunctiva. OROPHARYNX: no exudate, no erythema, lips, buccal mucosa, and tongue normal and mucous membranes are moist NECK: supple, no nuchal rigidity, no adenopathy, non-tender LUNGS: Clear to auscultation. Normal chest wall mechanics HEART: no murmurs, S1 normal and S2 normal ABDOMEN: abdomen soft, tenderness to the palpation in the RLQ, normo-active bowel sounds, no masses, no rebound or guarding. BACK: Back is symmetrical on inspection and there is no deformity, no midline tenderness, no CVA tenderness. SKIN: no rashes and no bruising UPPER EXTREMITIES: upper extremities are grossly normal. LOWER EXTREMITIES: No pitting edema. NEURO EXAM: Normal sensorium, cranial nerves II-XII grossly intact, normal speech, no gross weakness of arms, no gross weakness of legs. Gross sensation intact. Ambulates without difficulty. Medical Decision & Procedures ER Provider Diagnostic Interpretation: Radiology results as stated below per my review and the radiologist's interpretation: ABDOMEN AND PELVIS CT WITH IV CONTRAST CT DOSE: 1535.84 mGy.cm HISTORY: Acute generalized abdominal pain with fever abd pain and fever TECHNIQUE: Multiaxial CT images of the abdomen and pelvis were performed following the use of intravenous contrast. A dose lowering technique was utilized adhering to the principles of ALARA. COMPARISON STUDY: CT abdomen and pelvis 06/16/2010. FINDINGS: The lung bases appear generally clear. No pneumatosis or pneumoperitoneum. Imaged inferior cardiac chambers are within the upper limits of normal coronary arterial calcifications are noted. Liver is mildly enlarged. Fatty infiltration of the liver. Spleen is mildly enlarged, 13.6 cm. Mild generalized pancreatic atrophy. Adrenal glands and gallbladder appear unremarkable. Mildly prominent nonenlarged periportal lymph nodes are likely physiologic. Patent portal vein. Mild cortical scarring and parenchymal thinning about the superior pole left kidney. Previously noted bilateral nonobstructing renal calculi are not seen on this study and likely have passed in the interval. There may be a punctate nonobstructing calculus of the interpolar left kidney on image 162 series 3. No ureteral calculi or obstructive uropathy. Mild distention of the urinary bladder. Prior hysterectomy. No adnexal mass lesions identified. Moderate calcification of the aorta. No aneurysm. The IVC is unremarkable. Mildly prominent nonenlarged gastrohepatic lymph nodes are present. There is no bowel obstruction or focal bowel wall thickening. Colonic diverticulosis without diverticulitis. Normal appendix. No ascites or mesenteric inflammatory changes. Subxiphoid ventral abdominal wall hernia is fat-containing, diastases 3.4 cm. Mild stranding and skin thickening about the lower left anterior and right lateral abdominal wall subcutaneous tissues. Bones appear to be intact. Multilevel facet arthropathy of the lower lumbar spine. Grade 1 anterolisthesis L4 on L5, likely degenerative. IMPRESSION: 1. No acute intra-abdominal or intrapelvic abnormality identified. 2. Mild colonic diverticulosis without diverticulitis. 3. Hepatosplenomegaly with hepatic steatosis. 4. Fat-containing subxiphoid ventral upper abdominal wall hernia. 5. Mild subcutaneous stranding and skin thickening about the left anterior and right lateral abdominal wall may reflect cellulitis changes. Correlate with clinical exam. Electronically signed by: Srini Brewer M.D. 03/10/2018 6:47 PM CHEST ONE VIEW PORTABLE CLINICAL HISTORY: fever dyspnea COMPARISON STUDY: 08/16/2014 FINDINGS: The bones soft tissues and hemidiaphragms are normal. The cardiomediastinal silhouette is normal. The lungs are clear. The pulmonary vasculature is normal. IMPRESSION: Negative chest. The above report was generated using voice recognition software. It may contain grammatical, syntax or spelling errors. Electronically signed by: Tommy Keenan M.D. 03/10/2018 3:53 PM Laboratory Results 03/10/18 15:42 Red Blood Count 4.91, Mean Corpuscular Volume 91.6, Mean Corpuscular Hemoglobin 31.4, Mean Corpuscular Hemoglobin Concent 34.2, Mean Platelet Volume 10.0, Neutrophils (%) (Auto) 50.6, Lymphocytes (%) (Auto) 32.0, Monocytes (%) (Auto) 10.7, Eosinophils (%) (Auto) 5.2, Basophils (%) (Auto) 0.5, Neutrophils # (Auto ) 3.11, Lymphocytes # (Auto) 1.97, Monocytes # (Auto) 0.66, Eosinophils # (Auto ) 0.32, Basophils # (Auto) 0.03 03/10/18 15:42 Test 03/10/18 15:35 03/10/18 15:42 Urine Color DK YELLOW Urine Appearance CLOUDY (CLEAR) Urine pH 5.0 (4.5-7.5) Urine Specific [place] 1.017 (1.000-1.030) Urine Protein NEG (NEG) Urine Glucose (UA) NEG (NEG) Urine Ketones NEG (NEG) Urine Occult Blood TRACE (NEG) Urine Nitrite POS (NEG) Urine Bilirubin NEG (NEG) Urine Urobilinogen NEG (NEG) Urine Leukocyte Esterase LARGE (NEG) Urine WBC (Auto) >30 /hpf (0-5) Urine RBC (Auto) 5-10 /hpf (0-4) Urine Hyaline Casts (Auto) 1-5 /lpf (0-5) Urine Epithelial Cells (Auto) >30 /lpf (0-5) Urine Bacteria (Auto) 3+ (NEG) White Blood Count 6.15 K/uL (4.8-10.8) Red Blood Count 4.91 M/uL (4.2-5.4) Hemoglobin 15.4 g/dL (12.0-16.0) Hematocrit 45.0 % (37-47) Mean Corpuscular Volume 91.6 fL (80-100) Mean Corpuscular Hemoglobin 31.4 pg (25-34) Mean Corpuscular Hemoglobin Concent 34.2 g/dl (32-36) Platelet Count 157 K/uL (130-400) Mean Platelet Volume 10.0 fL (7.4-10.4) Neutrophils (%) (Auto) 50.6 % Lymphocytes (%) (Auto) 32.0 % Monocytes (%) (Auto) 10.7 % Eosinophils (%) (Auto) 5.2 % Basophils (%) (Auto) 0.5 % Neutrophils # (Auto) 3.11 K/uL (1.4-6.5) Lymphocytes # (Auto) 1.97 K/uL (1.2-3.4) Monocytes # (Auto) 0.66 K/uL (0.11-0.59) Eosinophils # (Auto) 0.32 K/uL (0-0.5) Basophils # (Auto) 0.03 K/uL (0-0.2) RDW Standard Deviation 45.4 fL (36.4-46.3) RDW Coefficient of Variation 13.5 % (11.5-14.5) Immature Granulocyte % (Auto) 1.0 % Immature Granulocyte # (Auto) 0.06 K/uL (0.00-0.02) Anion Gap 10.0 mmol/L (3-11) Est Creatinine Clear Calc Drug Dose 50.4 ml/min Estimated GFR () 55.1 Estimated GFR (Non- 47.5 BUN/Creatinine Ratio 20.6 (10-20) Calcium Level 9.4 mg/dl (8.5-10.1) Total Bilirubin 0.5 mg/dl (0.2-1) Direct Bilirubin 0.2 mg/dl (0-0.2) Aspartate Amino Transf (AST/SGOT) 63 U/L (15-37) Alanine Aminotransferase (ALT/SGPT) 120 U/L (12-78) Alkaline Phosphatase 90 U/L (45-117) Troponin I < 0.015 ng/ml (0-0.045) Pro-B-Type Natriuretic Peptide 90 pg/ml (0-900) Total Protein 8.2 gm/dl (6.4-8.2) Albumin 3.6 gm/dl (3.4-5.0) Lipase 120 U/L (73-393) Laboratory results per my review. Medications Administered Medications (Trade) Dose Ordered Sig/Avinash Route Start Time Stop Time Status Last Admin Dose Admin Sodium Chloride 2,000 ml @ 999 mls/hr Q2H1M STAT IV 03/10/18 15:37 03/10/18 17:37 DC 03/10/18 15:58 999 MLS/HR Ceftriaxone Sodium (Rocephin Inj) 1 gm NOW STAT IV 03/10/18 16:17 03/10/18 16:18 DC 03/10/18 16:28 1 GM ED Course ED COURSE: Vital signs were reviewed and showed normal vital signs The patients medical record was reviewed The above diagnostic studies were performed and reviewed. ED treatments and interventions as stated above. 1532: The patient was evaluated in room B2. A complete history and physical examination was performed. 1537: NSS 2000 ml @ 999 mls/hr IV. 1617: Rocephin 1 gm IV. 1850: Upon reevaluation, the patient is feeling well and ready to go home. I discussed my findings with the patient and she understands and agrees with the treatment plan. Based on the patients age, coexisting illnesses, exam and lab findings the decision to treat as an outpatient was made. The patient remained stable while under my care. The patient appeared well at the time of discharge. Medical Decision Differential diagnoses includes but is not limited to gastritis, peptic ulcer disease, GERD, gallbladder disease, pancreatitis, small bowel obstruction, acute coronary syndrome, pericarditis, ischemic bowel, irritable bowel disease, irritable bowel syndrome, appendicitis, diverticulitis, malignancy, hernia, urinary tract infection, torsion, perforation, trauma, infectious. Patient is a 67-year-old female who presents the ER referred in by PCP for possible cholecystitis. Patient admits to urinary urgency, and dysuria. Vitals are stable. She is afebrile. CBC along with BMP, LFTs and bilirubin were fairly unremarkable. She had a slight transaminitis. Troponin was negative. Lipase is normal. UA shows a clear UTI. She was given IV Rocephin. She was given fluids. CT abdomen pelvis is unremarkable. Patient was updated in regards to her findings. She was discharged with Keflex to follow with PCP as an outpatient. Discussed with Pt concerning signs and symptoms to watch out for. Pt was instructed to follow up with their PCP and discussed with the patient their option to return to the ED at anytime for persistent or worsening symptoms. The appropriate anticipatory guidance and out-patient management, including indications for return to the emergency department, were explained at length to the patient and understood. Medication Reconcilliation Current Medication List: was personally reviewed by me Blood Pressure Screening Patient's blood pressure: Normal blood pressure Blood pressure disposition: Did not require urgent referral Impression Primary Impression: UTI (urinary tract infection) Scribe Attestation The scribe's documentation has been prepared under my direction and personally reviewed by me in its entirety. I confirm that the note above accurately reflects all work, treatment, procedures, and medical decision making performed by me. Departure Information Dispostion Home / Self-Care Prescriptions Cephalexin Monohydrate (Keflex) 500 Mg Cap 500 MG PO TID for 7 Days, CAP Prov: Sylvester Dow, DO 03/10/18 Referrals Ciaran Berg III, CRNP (PCP) Patient Instructions My [facility] Problem Qualifiers Primary Impression: UTI (urinary tract infection) Urinary tract infection type: acute cystitis Hematuria presence: with hematuria Qualified Codes: N30.01 - Acute cystitis with hematuria
== END 2018-03-10 19:16 | disposition home or self-care (01) ==
LOC: C.EDB 15:21
DX: N39.0 Urinary tract infection, site not specified (principal); I20.9 Angina pectoris, unspecified; Z79.899 Other long term (current) drug therapy; Z79.82 Long term (current) use of aspirin; Z91.09 Other allergy status, other than to drugs and biological substances; Z88.8 Allergy status to other drugs, medicaments and biological substances; Z91.048 Other nonmedicinal substance allergy status; Z88.2 Allergy status to sulfonamides

== ENCOUNTER → 2018-03-20 | Outpatient (CLI) | payer BC ==
[~2018-03-20] MED LIST changes: -ACET-1222; -ALL180 PO; +ATEN50TA8 PO; -ATOR10TA82 PO; +B-CO1CAP5 PO; -BRL90 PO; +EFFSR150 PO; +FEXO1TAB46 PO; +INSU1INJ23 SC; -INSUINJ SC; +ISOS60TA25 PO; +LPT10 PO; +METF-384 PO; -MULT-506 PO; +MULT-612 PO; -NTRGSL/4 SL; +OMEG10007 PO; +RANO1000 PO; -RANO500T PO; +TICA1TAB PO; +VENL37.593 PO; -VENL75CA73 PO
[2018-03-20 12:41] LABS: ALBUMIN 3.7 gm/dl (3.4-5.0); ALKALINE PHOSPHATASE 95 U/L (45-117); ALT/SGPT 97 U/L (12-78); AST/SGOT 73 U/L (15-37); BLOOD UREA NITROGEN 22 mg/dl (7-18); CALCIUM 9.1 mg/dl (8.5-10.1); CARBON DIOXIDE 27 mmol/L (21-32); CREATININE 0.98 mg/dl (0.60-1.20); GLUCOSE 86 mg/dl (70-99); POTASSIUM 4.5 mmol/L (3.5-5.1); SODIUM 138 mmol/L (136-145); TOTAL PROTEIN 7.4 gm/dl (6.4-8.2)
== END | disposition home or self-care (01) ==
LOC: C.LAB1850 11:09
PROVIDERS: ATTEND Internal Medicine
DX: K76.0 Fatty (change of) liver, not elsewhere classified (principal)

== ENCOUNTER 2020-11-06 17:04 | Observation (INO) ==
--- NOTE | 2020-11-06 17:20 | Emergency Department Note ---
Impression & Plan Vertigo, Hyperglycemia ED Provider Note NAME: DI PERALTA AGE: 70 SEX: F : 1950 ARRIVES VIA: Ambulance INFORMANT: Patient, ED PROVIDER(S): Aakash Alcantara MD Chief Complaint: Vertigo, dizziness HPI: Patient does present with the above complaints which she states started around 2 AM last evening after getting up to use the bathroom. The patient did have difficulty with ambulation and did require holding onto the wall in order to maintain her balance. The patient states that patient was persistently dizzy throughout the day. The patient did have an episode of vomiting. The patient does have a known history of CAD does follow with Dr. Grant. The patient states that she has been compliant with her medications and denies any recent changes. Patient denies any recent neck manipulation. Patient denies fevers chills chest pains. Patient does have shortness of breath but this is chronic in nature. The patient denies any cough. The patient did not take any medications prior to arrival in the patient's symptoms have been persistent. Patient states that rest does seem to make it slightly better but that that makes it worse. ROS: See HPI for pertinent positives and negatives. A total of 10 systems were reviewed and otherwise negative. Past medical history: See below Surgical history: See below Social history: See below Physical Exam: GENERAL: Wearing glasses and a mask. NAD, non-toxic. EYE EXAM: Normal conjunctiva. PERRL, no anisocoria and EOM's grossly intact w/o pain. No obvious nystagmus noted. NECK: Supple, no nuchal rigidity, no adenopathy, non-tender. No signs of meningismus. [FROM of the neck with good chin to chest and neck extension. No stridor.] No carotid bruits auscultated. LUNGS: Clear to auscultation. Normal chest wall mechanics. HEART: NSR, no MRG. ABDOMEN: Abdomen soft, non-tender, normo-active bowel sounds, no masses, no rebound or guarding. BACK: No CVA TTP. SKIN: No rashes and no bruising. UPPER EXTREMITIES: Upper extremities are grossly normal. LOWER EXTREMITIES: Grossly normal, no edema. NEURO EXAM: A&O x3, cranial nerves II-XII grossly intact, normal speech, moves all 4 extremities on command w/o issue. [Good finger to nose, no drift, no sensory deficits.] Differential diagnoses: Benign positional vertigo, dehydration, hypovolemia, anemia, tumor, infection, hypoglycemia, electrolyte abnormalities, cardiac sources, intracerebral event, toxicologic, neurologic, as well as other pathologies. Course: Patient was seen and evaluated the bedside. Full history physical exam was performed. EKG: Indication: Dizziness Normal sinus rhythm, rate 82, normal intervals, normal axis, no ST changes or T WI. Imaging Studies: Radiology results as stated below per my review in the radiologist's interpretation: CT head/brain wo con CLINICAL HISTORY: 70 years-old Female with vertigo. Acute dizziness with vertigo TECHNIQUE: Multiple axial CT images of the head were obtained without contrast. A dose lowering technique was utilized adhering to the principles of ALARA. COMPARISON: CTA head and neck of same day FINDINGS: No acute intracranial hemorrhage, midline shift, intracranial mass, hydrocephalus, territorial ischemia or abnormal extra-axial collection. Mild age-related involutional changes. White matter hypodensities suggest chronic microvascular ischemic disease. Cerebral vascular calcifications. The calvarium is intact. The paranasal sinuses, mastoid air cells, and middle ear cavities are clear. IMPRESSION: No acute intracranial abnormality. ACT 112: Negative or not required by law. The above report was generated using voice recognition software. It may contain grammatical, syntax or spelling errors. Electronically signed by: Srini Brewer M.D. 11/06/2020 7:51 PM Dictated: 11/06/201948 Transcribed: 11/06/201948 CT angio neck with con, CT angio head w con CLINICAL HISTORY: 70 years-old Female with vertigo. Acute vertigo with strokelike symptoms COMPARISON STUDY: Head CT of same day TECHNIQUE: Following the IV administration of 1 20 mL of Optiray 320, CT angiogram of the head and neck was performed from the aortic arch to the skull apex. Images are reviewed in the axial, sagittal, and coronal planes. 3-D MIPS images are created and assessed. IV contrast was administered without complication. All measurements were calculated based on NASCET criteria. A dose lowering technique was utilized adhering to the principles of ALARA. CT DOSE: 1424.83 mGy.cm FINDINGS: The imaged opacified pulmonary artery is unremarkable. Three-vessel morphology of the thoracic aortic arch. Patency of the common and internal carotid arteries. Mild mixed plaque of the left carotid bulb and proximal left ICA. Calcified plaque of the cavernous and supraclinoid segments without high-grade stenosis. The middle and anterior cerebral arteries are patent. Dominant left vertebral artery. Atheromatous plaque results in mild luminal narrowing of the distal V2/proximal V3 segments of the left vertebral artery. Calcified plaque results in moderate narrowing of the V4 segment left vertebral artery. Diminutive right vertebral artery is likely on a developmental basis which terminates into the right PICA. Basilar and posterior cerebral arteries are patent. Cerebral venous sinuses are patent. No abnormal intracranial enhancement. No pneumothorax. Intralobular septal thickening with bronchial wall thickening suggests a component of pulmonary edema. Prior median sternotomy. Unremarkable soft tissues. Degenerative changes of the cervical spine. IMPRESSION: 1. No aneurysm, dissection, high-grade stenosis or proximal branch occlusion. 2. Dominant left vertebral artery with calcified plaque involving the V4 segment resulting in moderate luminal narrowing. ACT 112: Negative or not required by law. The above report was generated using voice recognition software. It may contain grammatical, syntax or spelling errors. Electronically signed by: Srini Brewer M.D. 11/06/2020 7:58 PM Dictated: 11/06/201950 Transcribed: 11/06/201950 Cardiac monitoring: An order was placed for continuous cardiac monitoring. The monitor shows a rate of 81 with sinus rhythm. MDM: Patient did present with vertiginous type symptoms. The patient did have blood work completed along with CTs of the head neck. The patient did have an episode of vomiting subsequently was able to take the by mouth meclizine and Tylenol. The patient did receive the IV medications. The patient has a normal white count H&H with mild thrombocytopenia at 122. Patient has elevation in blood glucose and mild elevation in AST and ALT but the patient has not had any abdominal pain. Troponin is detectable but not elevated. Urinalysis does appear possible for infection. The patient was ordered Rocephin for treatment. CT of the head and CT angiography head neck do not show any obvious concerning findings. Patient does have dominant left vert with moderate luminal narrowing but no aneurysm, dissection or high-grade stenosis or proximal branch occlusion. The patient did receive the antibiotics and subsequently the patient was trialed for ambulation. The patient was able unable to do so I do not believe the patient is safe for home. Covid test was ordered. Patient was admitted to [facility] physician group under Dr. Liao. Past Med/Surg History Medical History Anxiety CAD (coronary artery disease) S/P CABG X 4 (1998), CARDIAC STENTS X 4 TOTAL (MOST RECENT 04/2017) Carpal tunnel syndrome on both sides Depression Diabetes mellitus, type 2 IDDM Fatty liver disease, nonalcoholic History of difficult intubation left shoulder arthroscopy, RCR, distal clavicle exicision= 08/26/14= "gentle laryngoscopy with no view of cords/arytenoids, straight to glidescopy 3, ETT passed through open cords with cricoid pressure and increased angle of ETT [7.0]" Hyperlipidemia Hypertension Hypothyroidism Lichen sclerosus et atrophicus Morbid obesity Myocardial Infarction 2010 Osteoarthritis Peptic ulcer disease H/O BLEEDING ULCER (2006) Primary osteoarthritis of right knee Stable angina Stroke 2011= RESIDUAL LEFT FOOT NEUROPATHY Vulvar varicose veins Surgical History H/O elbow surgery LEFT History of adenoidectomy History of cardiac cath S/P CABG X 4 (1997), CARDIAC STENTS X 4 TOTAL (MOST RECENT x 3 04/2017) MOST RECENT CARDIAC CATH 11/2017= NO STENTS History of cataract surgery BILATERAL History of colonoscopy History of coronary artery bypass graft CABG X4 (1997) History of endoscopic sinus surgery History of esophagogastroduodenoscopy (EGD) History of hysterectomy KD W/BSO History of repair of rotator cuff (~2014) LEFT History of tooth extraction History of total knee arthroplasty (~2018) RIGHT History of total knee replacement LEFT History of tubal ligation Family History Father Myocardial infarction Coronary heart disease Brother Arthritis Hx of CABG Sister Arthritis Mother Dementia Heart disease Other Family history non-contributory Denies family history of Liver cancer Ovarian cancer Prostate cancer Crohn's disease Breast cancer Colorectal cancer Inflammatory bowel disease Social History Smoking Status: Never smoker Second Hand Exposure: No; Hx Alcohol Use: No Hx Substance Use: No Preferred Language: Cook Islander Communication Ability: Effective Visual Impairment: No Limitations Hearing Ability: Hard of Hearing Car Usher Required: No Beliefs That Will Affect Care: None marital status: Current Living Situation: Spouse current occupational status: retired Feels Safe at Home: Yes and No Is there a partner from a previous relationship who is making you feel unsafe now?: No Dental Care, Regularly: Yes Physical Activity Frequency: Does not Exercise Seatbelt Use: always Assistive Devices: None Allergies Allergies Allergy/AdvReac Type Severity Reaction Status Date / Time nickel Allergy Intermediate pruritis Verified 11/06/20 20:47 cat dander Allergy Mild itchy eyes Verified 11/06/20 20:47 Sulfa (Sulfonamide Allergy Mild HIVES Verified 11/06/20 20:47 Antibiotics) glipizide Allergy Unknown ITCHY,WHEEZ Verified 11/06/20 20:47 ING mold Allergy Unknown ITCHY EYES Verified 11/06/20 20:47 RUNNY NOSE pioglitazone Allergy Unknown ITCHY Verified 11/06/20 20:47 WHEEZING house dust Allergy Itchy Verified 11/06/20 20:47 eyes, runny nose sulfamethoxazole Allergy Itching, Verified 11/06/20 20:47 [From Bactrim] shortness of breath trimethoprim [From Bactrim] Allergy Itching, Verified 11/06/20 20:47 shortness of breath adhesive AdvReac Unknown SKIN Verified 11/06/20 20:47 IRRITATION Home Meds Home Medications Medication Instructions Recorded Confirmed aspirin [Aspirin Low Dose] 81 mg PO QAM 08/06/18 11/06/20 venlafaxine 37.5 mg PO DAILY 08/06/18 11/06/20 venlafaxine 150 mg PO DAILY 08/06/18 11/06/20 acetaminophen 500 mg tablet 1,000 mg PO Q8H PRN #60 tab 03/23/19 11/06/20 fexofenadine 180 mg tablet 180 mg PO DAILY tab 03/23/19 11/06/20 nitroglycerin 0.4 mg sublingual 0.4 mg SL Q5M PRN #25 tab 03/23/19 11/06/20 tablet cyclosporine 0.05 % eye drops 1 drops OP Q12H 03/29/19 11/06/20 melatonin 10 mg tablet 20 mg PO HS tab 07/13/19 11/06/20 [id number] acid 0.4 1 tab PO DAILY 07/13/19 11/06/20 mg-lycopene 300 mcg-lutein 250 mcg tablet cholecalciferol (vitamin D3) 50 2,000 unit PO BID cap 04/20/20 11/06/20 mcg (2,000 unit) capsule omega 4-gjr-vhu-fish oil 1,000 mg 1 cap PO BID cap 04/20/20 11/06/20 (120 mg-180 mg) capsule flaxseed oil 1,000 mg capsule 1,000 mg PO BID 08/16/20 11/06/20 insulin lispro [Humalog KwikPen 0 unit SQ TIDM 11/06/20 11/06/20 Insulin] Previous Rx's Medication Instructions Recorded B-complex with vitamin C 1 tab PO DAILY #90 tab 05/28/19 Lantus Solostar U-100 Insulin 100 55 units SQ DAILY #60 ml NS 11/23/19 unit/mL (3 mL) subcutaneous pen metoprolol tartrate 50 mg tablet 50 mg PO BID #180 tab 02/08/20 ranolazine 500 mg tablet,extended 500 mg PO BID 90 Days #180 tab 02/15/20 release,12 hr insulin NPH isoph U-100 human 100 24 units SUBCUT HS 90 Days #30 ml 03/02/20 unit/mL (3 mL) subcutaneous pen ticagrelor 90 mg tablet 90 mg PO BID #180 tab 05/22/20 levothyroxine 175 mcg tablet 175 mcg PO QAM #90 tab 05/29/20 lisinopril 10 mg tablet 10 mg PO QAM #90 tab 05/29/20 mecobalamin (vitamin B12) 1,000 1,000 mcg SUBLINGUAL DAILY #30 tab 06/02/20 mcg disintegrating tablet,sublingual metformin 1,000 mg tablet 1,000 mg PO BID #180 tab 07/24/20 pantoprazole 20 mg tablet,delayed 20 mg PO DAILY #90 tab 07/24/20 release isosorbide mononitrate 60 mg 90 mg PO DAILY #135 tab 08/17/20 tablet,extended release 24 hr atorvastatin 20 mg tablet 20 mg PO DAILY #90 tab 08/23/20 Results & Data (ED) Vital Signs Vital Signs - 24 hr 11/06/20 17:09 11/06/20 17:41 11/06/20 17:42 Temperature 37.1 C Temperature Source Oral Pulse Rate - Lying Pulse Rate - Sitting Pulse Rate - Standing Pulse Rate 88 Pulse Rate [Bilateral] 84 Pulse Rhythm [Bilateral] Regular Pulse Strength Normal Pulse Strength [Bilateral] Normal Respiratory Rate 20 Respiratory Effort / Characteristics Non-Labored Spontaneous Non-Labored Respiratory Depth Normal Normal Respiratory Pattern Regular Regular Blood Pressure - Lying Blood Pressure - Sitting Blood Pressure- Standing Blood Pressure 168/83 H Blood Pressure [Left Arm] 173/95 H Blood Pressure Mean 111 Blood Pressure Mean [Left Arm] 121 Blood Pressure Position Lying Blood Pressure Position [Left Arm] Sitting Pulse Oximetry 95 94 Oxygen Delivery Method Room Air Room Air Room Air Sepsis Recent Fever Within 48 Hours No Sepsis New/Unexplained Change in Mental Status N/A Sepsis Action Taken by Nursing No Action Required 11/06/20 17:47 11/06/20 18:13 Temperature Temperature Source Pulse Rate - Lying 87 Pulse Rate - Sitting 84 Pulse Rate - Standing 91 H Pulse Rate 81 Pulse Rate [Bilateral] Pulse Rhythm [Bilateral] Pulse Strength Pulse Strength [Bilateral] Respiratory Rate 20 Respiratory Effort / Characteristics Non-Labored Respiratory Depth Normal Respiratory Pattern Regular Blood Pressure - Lying 155/70 H Blood Pressure - Sitting 174/84 H Blood Pressure- Standing 187/105 H Blood Pressure 176/82 H Blood Pressure [Left Arm] Blood Pressure Mean 113 Blood Pressure Mean [Left Arm] Blood Pressure Position Blood Pressure Position [Left Arm] Pulse Oximetry Oxygen Delivery Method Room Air Sepsis Recent Fever Within 48 Hours No Sepsis New/Unexplained Change in Mental Status No Sepsis Action Taken by Nursing No Action Required Home Medications Current Medication List: was personally reviewed by me Laboratory Data Attestation: I reviewed the patient's lab results. Result diagrams: 11/06/20 Unknown 11/06/20 Unknown Lab Results 11/06/20 11/06/20 11/06/20 Range/Units 18:52 20:50 Unknown WBC 6.04 (4.8-10.8) K/uL RBC 4.52 (4.2-5.4) M/uL Hgb 13.8 (12.0-16.0) g/dL Hct 40.8 (37-47) % MCV 90.3 (80-100) fL MCH 30.5 (25-34) pg MCHC 33.8 (32-36) g/dL RDW Std Deviation 43.9 (36.4-46.3) fL RDW Coeff of Dani 13.4 (11.5-14.5) % Plt Count 122 L (130-400) K/uL MPV 9.8 (7.4-10.4) fL Immature Gran % (Auto) 0.5 % Neut % (Auto) 65.5 % Lymph % (Auto) 21.4 % Gulf % (Auto) 9.8 % Eos % (Auto) 2.5 % Baso % (Auto) 0.3 % Neut # (Auto) 3.96 (1.4-6.5) K/uL Lymph # (Auto) 1.29 (1.2-3.4) K/uL Gulf # (Auto) 0.59 (0.11-0.59) K/uL Eos # (Auto) 0.15 (0-0.5) K/uL Baso # (Auto) 0.02 (0-0.2) K/uL Immature Gran # (Auto) 0.03 H (0.00-0.02) K/uL PT (9.0-12.0) Seconds INR (0.9-1.1) APTT (21.0-31.0) Seconds PTT Ratio Sodium (136-145) mmol/L Potassium (3.5-5.1) mmol/L Chloride (98-107) mmol/L Carbon Dioxide (21-32) mmol/L Anion Gap (3-11) BUN (7-18) mg/dl Creatinine (0.6-1.2) mg/dl Est Cr Clr Drug Dosing ml/min Est GFR ( Amer) Est GFR (Non-Af Amer) BUN/Creatinine Ratio (10-20) Glucose (70-99) mg/dl Calcium (8.5-10.1) mg/dl Total Bilirubin (0.2-1) mg/dl AST (15-37) U/L ALT (12-78) U/L Alkaline Phosphatase (45-117) U/L Troponin I (0-0.045) ng/ml Total Protein (6.4-8.2) gm/dl Albumin (3.4-5.0) gm/dl Globulin (2.5-4.0) gm/dl Albumin/Globulin Ratio (0.9-2) Urine Color Yellow Urine Appearance Cloudy A (Clear) Urine pH 5.0 (4.5-7.5) Ur Specific Holt 1.021 (1.000-1.030) Urine Protein Negative (Negative) Urine Glucose (UA) 2+ H (Negative) Urine Ketones Negative (Negative) Urine Blood Trace H (Negative) Urine Nitrite Positive A (Negative) Urine Bilirubin Negative (Negative) Urine Urobilinogen Negative (Negative) Ur Leukocyte Esterase 2+ H (Negative) Urine WBC (Auto) >30 H (0-5) /hpf Urine RBC (Auto) 0-4 (0-4) /hpf U Hyaline Cast (Auto) 1-5 (0-5) /lpf U Epithel Cells (Auto) 10-20 H (0-5) /lpf Urine Bacteria (Auto) 4+ H (Negative) COVID-19 Eval Order CovFluRsv at [facility] 11/06/20 11/06/20 Range/Units Unknown Unknown WBC (4.8-10.8) K/uL RBC (4.2-5.4) M/uL Hgb (12.0-16.0) g/dL Hct (37-47) % MCV (80-100) fL MCH (25-34) pg MCHC (32-36) g/dL RDW Std Deviation (36.4-46.3) fL RDW Coeff of Dani (11.5-14.5) % Plt Count (130-400) K/uL MPV (7.4-10.4) fL Immature Gran % (Auto) % Neut % (Auto) % Lymph % (Auto) % Gulf % (Auto) % Eos % (Auto) % Baso % (Auto) % Neut # (Auto) (1.4-6.5) K/uL Lymph # (Auto) (1.2-3.4) K/uL Gulf # (Auto) (0.11-0.59) K/uL Eos # (Auto) (0-0.5) K/uL Baso # (Auto) (0-0.2) K/uL Immature Gran # (Auto) (0.00-0.02) K/uL PT 10.3 (9.0-12.0) Seconds INR 1.0 (0.9-1.1) APTT 21.4 (21.0-31.0) Seconds PTT Ratio 0.8 Sodium 140 (136-145) mmol/L Potassium 4.1 (3.5-5.1) mmol/L Chloride 108 H (98-107) mmol/L Carbon Dioxide 24 (21-32) mmol/L Anion Gap 8.0 (3-11) BUN 17 (7-18) mg/dl Creatinine 0.81 (0.6-1.2) mg/dl Est Cr Clr Drug Dosing 72.2 ml/min Est GFR ( Amer) 84.1 Est GFR (Non-Af Amer) 72.6 BUN/Creatinine Ratio 21.5 H (10-20) Glucose 191 H (70-99) mg/dl Calcium 8.8 (8.5-10.1) mg/dl Total Bilirubin 0.4 (0.2-1) mg/dl AST 54 H (15-37) U/L ALT 79 H (12-78) U/L Alkaline Phosphatase 101 (45-117) U/L Troponin I 0.016 (0-0.045) ng/ml Total Protein 7.5 (6.4-8.2) gm/dl Albumin 3.6 (3.4-5.0) gm/dl Globulin 3.9 (2.5-4.0) gm/dl Albumin/Globulin Ratio 0.9 (0.9-2) Urine Color Urine Appearance (Clear) Urine pH (4.5-7.5) Ur Specific Holt (1.000-1.030) Urine Protein (Negative) Urine Glucose (UA) (Negative) Urine Ketones (Negative) Urine Blood (Negative) Urine Nitrite (Negative) Urine Bilirubin (Negative) Urine Urobilinogen (Negative) Ur Leukocyte Esterase (Negative) Urine WBC (Auto) (0-5) /hpf Urine RBC (Auto) (0-4) /hpf U Hyaline Cast (Auto) (0-5) /lpf U Epithel Cells (Auto) (0-5) /lpf Urine Bacteria (Auto) (Negative) COVID-19 Eval Order Administered Medications Discontinued Medications Acetaminophen (Acetaminophen 325 Mg Tab) 650 mg PO NOW STA Stop: 11/06/20 17:43 Last Admin: 11/06/20 18:23 Dose: 650 mg Documented by: [id number] Sodium Chloride (Nss 1000ml) 1,000 mls @ 999 mls/hr IV .Q1H1M ANGELICA Stop: 11/06/20 18:45 Last Infusion: 11/06/20 19:38 Dose: 0 mls/hr Documented by: [id number] Admin: 11/06/20 18:23 Dose: 999 mls/hr Documented by: [id number] Ceftriaxone Sodium (Rocephin) 2,000 mg in 70 mls @ 140 mls/hr IV NOW STA Stop: 11/06/20 20:11 Last Infusion: 11/06/20 20:32 Dose: 0 mls/hr Documented by: [id number] Admin: 11/06/20 19:55 Dose: 140 mls/hr Documented by: [id number] Ioversol (Optiray 320 125ml) 120 ml IV ONCE ONE Stop: 11/06/20 19:40 Last Admin: 11/06/20 19:39 Dose: 120 ml Documented by: [id number] Meclizine HCl (Meclizine Hcl 25 Mg Tab) 25 mg PO NOW STA Stop: 11/06/20 17:43 Last Admin: 11/06/20 18:24 Dose: 25 mg Documented by: [id number] Prochlorperazine (Prochlorperazine 5 Mg/Ml 2 Ml Vial) 5 mg IV NOW STA Stop: 11/06/20 17:43 Last Admin: 11/06/20 18:23 Dose: 5 mg Documented by: [id number] Discharge Plan Visit Data Chief Complaint: Vertigo Stated Complaint: dizzy ED Provider: Aakash Alcantara Discharge Problem: Vertigo, Hyperglycemia Forms Stand Alone Forms: [facility] [employer] Prescriptions Prescriptions: No Action B-complex with vitamin C [Super B Complex-Vitamin C] tablet 1 tab PO DAILY Qty: 90 RF: 1 Lantus Solostar U-100 Insulin 100 unit/mL (3 mL) insulin pen 55 units SQ DAILY Qty: 60 RF: 3 metoprolol tartrate 50 mg tablet 50 mg PO BID Qty: 180 RF: 2 ranolazine [Ranexa] 500 mg tablet extended release 12 hr 500 mg PO BID 90 Days Qty: 180 RF: 3 Humulin N NPH Insulin KwikPen 100 unit/mL (3 mL) insulin pen 24 units SUBCUT HS 90 Days Qty: 30 RF: 3 Brilinta 90 mg tablet 90 mg PO BID Qty: 180 RF: 3 levothyroxine [Synthroid] 175 mcg tablet 175 mcg PO QAM Qty: 90 RF: 1 lisinopril 10 mg tablet 10 mg PO QAM Qty: 90 RF: 1 mecobalamin (vitamin B12) 1,000 mcg tablet,disintegrating 1,000 mcg sublingual DAILY Qty: 30 RF: 0 metformin 1,000 mg tablet 1,000 mg PO BID Qty: 180 RF: 1 pantoprazole 20 mg tablet,delayed release (DR/EC) 20 mg PO DAILY Qty: 90 RF: 1 isosorbide mononitrate 60 mg tablet extended release 24 hr 90 mg PO DAILY Qty: 135 RF: 1 atorvastatin 20 mg tablet 20 mg PO DAILY Qty: 90 RF: 1 Centrum Silver 0.4-300-250 mg-mcg-mcg tablet 1 tab PO DAILY RF: 0 flaxseed oil 1,000 mg capsule 1,000 mg PO BID RF: 0 acetaminophen 500 mg tablet 1,000 mg PO Q8H PRN (Reason: Pain) Qty: 60 RF: 0 fexofenadine 180 mg tablet 180 mg PO DAILY RF: 0 nitroglycerin 0.4 mg tablet, sublingual 0.4 mg SL Q5M PRN (Reason: Pain) Qty: 25 RF: 0 Restasis MultiDose 0.05 % drops 1 drops OP Q12H RF: 0 venlafaxine 37.5 mg Capsule,Extended Release 24hr 37.5 mg PO DAILY RF: 0 venlafaxine 150 mg Capsule,Extended Release 24hr 150 mg PO DAILY RF: 0 aspirin [Aspirin Low Dose] 81 mg Tablet,Delayed Release (Dr/Ec) 81 mg PO QAM RF: 0 melatonin 10 mg tablet 20 mg PO HS RF: 0 cholecalciferol (vitamin D3) [Vitamin D3] 50 mcg (2,000 unit) capsule 2,000 unit PO BID RF: 0 omega 4-cnu-myr-fish oil [Fish Oil] 1,000 mg (120 mg-180 mg) capsule 1 cap PO BID RF: 0 insulin lispro [Humalog KwikPen Insulin] 100 unit/mL insulin pen 0 unit SQ TIDM RF: 0
[2020-11-06] MEDS ORDERED: PROCHLORPERAZINE 5 MG/ML 2 ML VIAL IV STA (17:42)
[2020-11-06] MEDS ORDERED: MECLIZINE HCL 25 MG TAB PO STA (17:42)
[2020-11-06] MEDS ORDERED: ACETAMINOPHEN 325 MG TAB PO STA (17:42)
[2020-11-06] MEDS ORDERED: SODIUM CHLORIDE 0.9% 1000ML 1,000 ML IV SCH (17:45)
[2020-11-06 17:47] LABS: Basophils # (auto) 0.02 K/uL (0-0.2); Basophils % (auto) 0.3 %; Eosinophils # (auto) 0.15 K/uL (0-0.5); Eosinophils % (auto) 2.5 %; Hematocrit (blood only) 40.8 % (37-47); Hemoglobin 13.8 g/dL (12.0-16.0); Immature Granulocytes # (auto) 0.03 K/uL (0.00-0.02); Immature Granulocytes % (auto) 0.5 %; Lymphocytes # (auto) 1.29 K/uL (1.2-3.4); Lymphocytes % (auto) 21.4 %; Mean Corpuscular Hemoglobin 30.5 pg (25-34); Mean Corpuscular Hgb Conc 33.8 g/dL (32-36); Mean Corpuscular Volume 90.3 fL (80-100); Mean Platelet Volume 9.8 fL (7.4-10.4); Monocytes # (auto) 0.59 K/uL (0.11-0.59); Monocytes % (auto) 9.8 %; Neutrophils # (auto) 3.96 K/uL (1.4-6.5); Neutrophils % (auto) 65.5 %; Platelet Count 122 K/uL (130-400); RDW Coefficient of Variation 13.4 % (11.5-14.5); RDW Standard Deviation 43.9 fL (36.4-46.3); Red Blood Count 4.52 M/uL (4.2-5.4); White Blood Count 6.04 K/uL (4.8-10.8)
[2020-11-06 17:59] LABS: Partial Thromboplastin Ratio 0.8; Partial Thromboplastin Time 21.4 Seconds (21.0-31.0); Prothrombin Time 10.3 Seconds (9.0-12.0)
[2020-11-06 18:15] LABS: Albumin Level 3.6 gm/dl (3.4-5.0); BUN Creatinine Ratio 21.5 (10-20); Calcium 8.8 mg/dl (8.5-10.1); Creatinine Clr Calc Pharmacy 72.2 ml/min; Est GFR (African American) 84.1; Est GFR (Non-African American) 72.6; Potassium 4.1 mmol/L (3.5-5.1)
[2020-11-06 18:20] LABS: Albumin Globulin Ratio 0.9 (0.9-2); Bilirubin,Total 0.4 mg/dl (0.2-1); Globulin 3.9 gm/dl (2.5-4.0); Total Protein 7.5 gm/dl (6.4-8.2); Troponin I 0.016 ng/ml (0-0.045)
[2020-11-06 19:28] LABS: Appearance Urine Cloudy (Clear); Bacteria Urine Automated 4+ (Negative); Bilirubin Urine Negative (Negative); Blood Urine Trace (Negative); Color Urine Yellow; Glucose Urine UA 2+ (Negative); Ketones Urine Negative (Negative); Leukocyte Esterase Urine 2+ (Negative); Nitrite Urine Positive (Negative); Protein Urine Negative (Negative); RBC Urine Automated 0-4 /hpf (0-4); Specific Gravity Urine 1.021 (1.000-1.030); Urobilinogen Urine Negative (Negative); WBC Urine Automated >30 /hpf (0-5)
[2020-11-06] MEDS ORDERED: OPTIRAY 320 125ml IV ONE (19:39)
[2020-11-06] MEDS ORDERED: cefTRIAXone SODIUM 2,000 MG/70 ML BAG IV STA (19:42)
--- NOTE | 2020-11-06 19:52 | CT Scan Report ---
CT head/brain wo con CLINICAL HISTORY: 70 years-old Female with vertigo. Acute dizziness with vertigo TECHNIQUE: Multiple axial CT images of the head were obtained without contrast. A dose lowering tech nique was utilized adhering to the principles of ALARA. COMPARISON: CTA head and neck of same day FINDINGS: No acute intracranial hemorrhage, midline shift, intracranial mass, hydrocephalus, territorial ischem ia or abnormal extra-axial collection. Mild age-related involutional changes. White matter hypodensit ies suggest chronic microvascular ischemic disease. Cerebral vascular calcifications. The calvarium is intact. The paranasal sinuses, mastoid air cells, and middle ear cavities are clear . IMPRESSION: No acute intracranial abnormality. ACT 112: Negative or not required by law. The above report was generated using voice recognition software. It may contain grammatical, syntax o r spelling errors. Electronically signed by: Srini Brewer M.D. 11/06/2020 7:51 PM
--- NOTE | 2020-11-06 19:59 | CT Scan Report ---
CT angio neck with con, CT angio head w con CLINICAL HISTORY: 70 years-old Female with vertigo. Acute vertigo with strokelike symptoms COMPARISON STUDY: Head CT of same day TECHNIQUE: Following the IV administration of 1 20 mL of Optiray 320, CT angiogram of the head and ne ck was performed from the aortic arch to the skull apex. Images are reviewed in the axial, sagittal, and coronal planes. 3-D MIPS images are created and assessed. IV contrast was administered without co mplication. All measurements were calculated based on NASCET criteria. A dose lowering technique was utilized adhering to the principles of ALARA. CT DOSE: 1424.83 mGy.cm FINDINGS: The imaged opacified pulmonary artery is unremarkable. Three-vessel morphology of the thoracic aortic arch. Patency of the common and internal carotid arteries. Mild mixed plaque of the left carotid bul b and proximal left ICA. Calcified plaque of the cavernous and supraclinoid segments without high-gra de stenosis. The middle and anterior cerebral arteries are patent. Dominant left vertebral artery. At heromatous plaque results in mild luminal narrowing of the distal V2/proximal V3 segments of the left vertebral artery. Calcified plaque results in moderate narrowing of the V4 segment left vertebral ar yesi. Diminutive right vertebral artery is likely on a developmental basis which terminates into the right PICA. Basilar and posterior cerebral arteries are patent. Cerebral venous sinuses are patent. N o abnormal intracranial enhancement. No pneumothorax. Intralobular septal thickening with bronchial wall thickening suggests a component o f pulmonary edema. Prior median sternotomy. Unremarkable soft tissues. Degenerative changes of the ce rvical spine. IMPRESSION: 1. No aneurysm, dissection, high-grade stenosis or proximal branch occlusion. 2. Dominant left vertebral artery with calcified plaque involving the V4 segment resulting in moderat e luminal narrowing. ACT 112: Negative or not required by law. The above report was generated using voice recognition software. It may contain grammatical, syntax o r spelling errors. Electronically signed by: Srini Brewer M.D. 11/06/2020 7:58 PM
[2020-11-06] MEDS ORDERED: ONDANSETRON INJ 2 MG/ML 2 ML VIAL IV STA (21:43)
[2020-11-06 21:53] LABS: Influenza A virus by PCR Negative (Neg); Influenza B virus by PCR Negative (Neg); RSV by PCR Negative (Neg); SARS CoV2 RNA(COVID-19) InHosp NEGATIVE (Negative)
--- NOTE | 2020-11-06 22:23 | History & Physical Report ---
Date of Service November 06, 2020 Assessment & Plan (1) Refractory nausea and vomiting: Kaylene Ahn is a 70-year-old female with PMH significant for hypothyroidism, hypertension, hyperlipidemia, type 2 diabetes, GERD, anxiety; who presented to the ER this evening for concerns of persistent nausea with positional change and lightheadedness. Refractory nausea: -Likely secondary to positional vertigo with demonstrated physical exam findings as above correlated with positional change -Temporarily improved following administration of Antivert, with minimal control of nausea -CT head demonstrating no acute intracranial abnormality -CTA head and neck demonstrating no aneurysm, dissection, high-grade stenosis or occlusion; does demonstrate dominant left vertebral artery with moderate luminal narrowing due to calcified plaque -Obtain orthostatics -Antivert q6h PRN, Zofran q4h PRN Uncomplicated urinary tract infection: -Urinalysis with 4+ bacteria, 2+ leuk esterase, positive nitrites, trace blood, greater than 30 WBCs -Urine sent for culture -Previous UA in 2018 demonstrating E. coli with relative burkett sensitivity -Patient allergic to Bactrim -Started on cefdinir twice daily (total course 5 days) Type 2 diabetes: -Previously well controlled type II diabetic with last A1c (August) 6.9 -Home regimen including insulin lispro, insulin NPH, and Lantus -Elevated glucose on admission -Monitor BSG's ACHS, correct with sliding scale insulin while inpatient Hypothyroidism: -Last TSH 1.08 -Continue home levothyroxine 175 daily Hypertension: -Continue home lisinopril 10 mg daily, metoprolol 50 twice daily Hyperlipidemia: -Continue atorvastatin 20 daily Diet: Carb consistent CODE STATUS: Full code DVT prophylaxis: Deferred at this time, encourage ambulation (2) Vertigo: (3) Type 2 diabetes mellitus: (4) GERD (gastroesophageal reflux disease): (5) Anxiety: (6) Hypothyroidism: (7) Essential hypertension: (8) Mixed hyperlipidemia: History of Present Illness Primary Care Provider: Ciaran Berg III, UVALDO Kaylene Ahn is a 70-year-old female with PMH significant for hypothyroidism, hypertension, hyperlipidemia, type 2 diabetes, GERD, anxiety; who presented to the ER this evening for concerns of persistent nausea with positional change and lightheadedness. This feeling for started Friday night the patient was awoken feeling dizzy, states that she definitively did not wake up and then become dizzy she woke up dizzy. She does note that she frequently moves around when she is asleep and rolls from side to side. She most noticed the lightheadedness and room spinning, and nausea with subsequent vomiting following having to get up several times in order to the bathroom. This continued throughout the day, with more frequent bathroom trips, and the l ightheadedness frequently required her to hold onto the wall or other items in order to prevent herself from falling. Did not have any discomfort with urination, but did feel like she was going more frequently than normal. Otherwise denies chest pain, shortness breath, abdominal pain, changes in bowel movements, changes in sensation of arms or legs, changes in strength of arms or legs, or slurred speech. Did not fall throughout this time, or lose consciousness. Solely feels nauseous with changes in position, or quickly moving head from side to side. Allergies Allergy/AdvReac Type Severity Reaction Status Date / Time nickel Allergy Intermediate pruritis Verified 11/06/20 20:47 cat dander Allergy Mild itchy eyes Verified 11/06/20 20:47 Sulfa (Sulfonamide Allergy Mild HIVES Verified 11/06/20 20:47 Antibiotics) glipizide Allergy Unknown ITCHY,WHEEZ Verified 11/06/20 20:47 ING mold Allergy Unknown ITCHY EYES Verified 11/06/20 20:47 RUNNY NOSE pioglitazone Allergy Unknown ITCHY Verified 11/06/20 20:47 WHEEZING house dust Allergy Itchy Verified 11/06/20 20:47 eyes, runny nose sulfamethoxazole Allergy Itching, Verified 11/06/20 20:47 [From Bactrim] shortness of breath trimethoprim [From Bactrim] Allergy Itching, Verified 11/06/20 20:47 shortness of breath adhesive AdvReac Unknown SKIN Verified 11/06/20 20:47 IRRITATION Home Medications Medication Instructions Recorded Confirmed Type aspirin [Aspirin Low Dose] 81 mg PO QAM 08/06/18 11/06/20 History venlafaxine 37.5 mg PO DAILY 08/06/18 11/06/20 History venlafaxine 150 mg PO DAILY 08/06/18 11/06/20 History acetaminophen 500 mg tablet 1,000 mg PO Q8H PRN #60 tab 03/23/19 11/06/20 History fexofenadine 180 mg tablet 180 mg PO DAILY tab 03/23/19 11/06/20 History nitroglycerin 0.4 mg sublingual 0.4 mg SL Q5M PRN #25 tab 03/23/19 11/06/20 History tablet cyclosporine 0.05 % eye drops 1 drops OP Q12H 03/29/19 11/06/20 History B-complex with vitamin C 1 tab PO DAILY #90 tab 05/28/19 11/06/20 Rx melatonin 10 mg tablet 20 mg PO HS tab 07/13/19 11/06/20 History nwypbjsu-gsv-vuapp acid 0.4 1 tab PO DAILY 07/13/19 11/06/20 History mg-lycopene 300 mcg-lutein 250 mcg tablet Lantus Solostar U-100 Insulin 100 55 units SQ DAILY #60 ml NS 11/23/19 11/06/20 Rx unit/mL (3 mL) subcutaneous pen metoprolol tartrate 50 mg tablet 50 mg PO BID #180 tab 02/08/20 11/06/20 Rx ranolazine 500 mg tablet,extended 500 mg PO BID 90 Days #180 tab 02/15/20 11/06/20 Rx release,12 hr insulin NPH isoph U-100 human 100 24 units SUBCUT HS 90 Days #30 ml 03/02/20 11/06/20 Rx unit/mL (3 mL) subcutaneous pen cholecalciferol (vitamin D3) 50 2,000 unit PO BID cap 04/20/20 11/06/20 History mcg (2,000 unit) capsule omega 3-tns-mup-fish oil 1,000 mg 1 cap PO BID cap 04/20/20 11/06/20 History (120 mg-180 mg) capsule ticagrelor 90 mg tablet 90 mg PO BID #180 tab 05/22/20 11/06/20 Rx levothyroxine 175 mcg tablet 175 mcg PO QAM #90 tab 05/29/20 11/06/20 Rx lisinopril 10 mg tablet 10 mg PO QAM #90 tab 05/29/20 11/06/20 Rx mecobalamin (vitamin B12) 1,000 1,000 mcg SUBLINGUAL DAILY #30 tab 06/02/20 11/06/20 Rx mcg disintegrating tablet,sublingual metformin 1,000 mg tablet 1,000 mg PO BID #180 tab 07/24/20 11/06/20 Rx pantoprazole 20 mg tablet,delayed 20 mg PO DAILY #90 tab 07/24/20 11/06/20 Rx release flaxseed oil 1,000 mg capsule 1,000 mg PO BID 08/16/20 11/06/20 History isosorbide mononitrate 60 mg 90 mg PO DAILY #135 tab 08/17/20 11/06/20 Rx tablet,extended release 24 hr atorvastatin 20 mg tablet 20 mg PO DAILY #90 tab 08/23/20 11/06/20 Rx insulin lispro [Humalog KwikPen 0 unit SQ TIDM 11/06/20 11/06/20 History Insulin] Past Med/Surg History Medical History Anxiety CAD (coronary artery disease) S/P CABG X 4 (1998), CARDIAC STENTS X 4 TOTAL (MOST RECENT 04/2017) Carpal tunnel syndrome on both sides Depression Diabetes mellitus, type 2 IDDM Fatty liver disease, nonalcoholic History of difficult intubation left shoulder arthroscopy, RCR, distal clavicle exicision= 08/26/14= "gentle laryngoscopy with no view of cords/arytenoids, straight to glidescopy 3, ETT passed through open cords with cricoid pressure and increased angle of ETT [7.0]" Hyperlipidemia Hypertension Hypothyroidism Lichen sclerosus et atrophicus Morbid obesity Myocardial Infarction 2010 Osteoarthritis Peptic ulcer disease H/O BLEEDING ULCER (2006) Primary osteoarthritis of right knee Stable angina Stroke 2011= RESIDUAL LEFT FOOT NEUROPATHY Vulvar varicose veins Surgical History H/O elbow surgery LEFT History of adenoidectomy History of cardiac cath S/P CABG X 4 (1997), CARDIAC STENTS X 4 TOTAL (MOST RECENT x 3 04/2017) MOST RECENT CARDIAC CATH 11/2017= NO STENTS History of cataract surgery BILATERAL History of colonoscopy History of coronary artery bypass graft CABG X4 (1997) History of endoscopic sinus surgery History of esophagogastroduodenoscopy (EGD) History of hysterectomy KD W/BSO History of repair of rotator cuff (~2014) LEFT History of tooth extraction History of total knee arthroplasty (~2019) RIGHT History of total knee replacement LEFT History of tubal ligation Family History Father Myocardial infarction Coronary heart disease Brother Arthritis Hx of CABG Sister Arthritis Mother Dementia Heart disease Other Family history non-contributory Denies family history of Liver cancer Ovarian cancer Prostate cancer Crohn's disease Breast cancer Colorectal cancer Inflammatory bowel disease Social History Smoking Status: Never smoker Second Hand Exposure: No; Hx Alcohol Use: Yes Alcohol type: hard liquor Hx Substance Use: No Preferred Language: Macedonian Communication Ability: Effective Visual Impairment: No Limitations Hearing Ability: Hard of Hearing Cable Driller Required: No Beliefs That Will Affect Care: None marital status: Current Living Situation: Spouse current occupational status: retired Feels Safe at Home: Yes and No Is there a partner from a previous relationship who is making you feel unsafe now?: No Dental Care, Regularly: Yes Physical Activity Frequency: Does not Exercise Seatbelt Use: always Assistive Devices: Glasses Review of Systems Review of Systems: All systems reviewed & are unremarkable except as noted in HPI & below Physical Exam Constitutional: WD/WN, vitals as above Eyes: PERRL, conjunctivae normal, anicteric sclerae ENMT: external ear and nose normal, oropharynx normal Respiratory: normal respiratory effort, lungs clear to auscultation Au scultation: no crackles, no rales, no rhonchi and no wheezes Cardiovascular: RRR, no murmur, no edema Gastrointestinal (Abdomen): normal bowel sounds, soft, nontender, no hepatosplenomegaly Skin: no rashes, warm and dry Neurologic: PERRL, EOMI, accommodation nl, no face palsy, no dysarthria Nystagmus noted with position change from supine to seated, with diplopia and nausea Psychiatric: Orientation: alert and oriented x 3 Lymphatic: no cervical or axillary lymphadenopathy Results & Data Results & Data ([facility]) Vital Signs (Past 12 Hours) Vital Signs Temp Pulse Pulse Resp BP BP Pulse Ox 11/06/20 17:47 81 20 176/82 H 11/06/20 17:41 84 173/95 H 94 11/06/20 17:09 37.1 C 88 20 168/83 H 95 Laboratory Results 11/06/20 11/06/20 11/06/20 Range/Units Unknown Unknown Unknown WBC 6.04 (4.8-10.8) K/uL RBC 4.52 (4.2-5.4) M/uL Hgb 13.8 (12.0-16.0) g/dL Hct 40.8 (37-47) % MCV 90.3 (80-100) fL MCH 30.5 (25-34) pg MCHC 33.8 (32-36) g/dL RDW Std Deviation 43.9 (36.4-46.3) fL RDW Coeff of Dani 13.4 (11.5-14.5) % Plt Count 122 L (130-400) K/uL MPV 9.8 (7.4-10.4) fL Immature Gran % (Auto) 0.5 % Neut % (Auto) 65.5 % Lymph % (Auto) 21.4 % Kendall % (Auto) 9.8 % Eos % (Auto) 2.5 % Baso % (Auto) 0.3 % Neut # (Auto) 3.96 (1.4-6.5) K/uL Lymph # (Auto) 1.29 (1.2-3.4) K/uL Kendall # (Auto) 0.59 (0.11-0.59) K/uL Eos # (Auto) 0.15 (0-0.5) K/uL Baso # (Auto) 0.02 (0-0.2) K/uL Immature Gran # (Auto) 0.03 H (0.00-0.02) K/uL PT 10.3 (9.0-12.0) Seconds INR 1.0 (0.9-1.1) APTT 21.4 (21.0-31.0) Seconds PTT Ratio 0.8 Sodium 140 (136-145) mmol/L Potassium 4.1 (3.5-5.1) mmol/L Chloride 108 H (98-107) mmol/L Carbon Dioxide 24 (21-32) mmol/L Anion Gap 8.0 (3-11) BUN 17 (7-18) mg/dl Creatinine 0.81 (0.6-1.2) mg/dl Est Cr Clr Drug Dosing 72.2 ml/min Est GFR ( Amer) 84.1 Est GFR (Non-Af Amer) 72.6 BUN/Creatinine Ratio 21.5 H (10-20) Glucose 191 H (70-99) mg/dl Calcium 8.8 (8.5-10.1) mg/dl Total Bilirubin 0.4 (0.2-1) mg/dl AST 54 H (15-37) U/L ALT 79 H (12-78) U/L Alkaline Phosphatase 101 (45-117) U/L Troponin I 0.016 (0-0.045) ng/ml Total Protein 7.5 (6.4-8.2) gm/dl Albumin 3.6 (3.4-5.0) gm/dl Globulin 3.9 (2.5-4.0) gm/dl Albumin/Globulin Ratio 0.9 (0.9-2) Urine Color Urine Appearance (Clear) Urine pH (4.5-7.5) Ur Specific [place]enton (1.000-1.030) Urine Protein (Negative) Urine Glucose (UA) (Negative) Urine Ketones (Negative) Urine Blood (Negative) Urine Nitrite (Negative) Urine Bilirubin (Negative) Urine Urobilinogen (Negative) Ur Leukocyte Esterase (Negative) Urine WBC (Auto) (0-5) /hpf Urine RBC (Auto) (0-4) /hpf U Hyaline Cast (Auto) (0-5) /lpf U Epithel Cells (Auto) (0-5) /lpf Urine Bacteria (Auto) (Negative) COVID-19 Eval Order SARS-CoV-2 (PCR) (Negative) Influenza Type A (PCR) (Neg) Influenza Type B (PCR) (Neg) RSV (RT-PCR) (Neg) 11/06/20 11/06/20 11/06/20 Range/Units 20:50 20:50 18:52 WBC (4.8-10.8) K/uL RBC (4.2-5.4) M/uL Hgb (12.0-16.0) g/dL Hct (37-47) % MCV (80-100) fL MCH (25-34) pg MCHC (32-36) g/dL RDW Std Deviation (36.4-46.3) fL RDW Coeff of Dani (11.5-14.5) % Plt Count (130-400) K/uL MPV (7.4-10.4) fL Immature Gran % (Auto) % Neut % (Auto) % Lymph % (Auto) % Kendall % (Auto) % Eos % (Auto) % Baso % (Auto) % Neut # (Auto) (1.4-6.5) K/uL Lymph # (Auto) (1.2-3.4) K/uL Kendall # (Auto) (0.11-0.59) K/uL Eos # (Auto) (0-0.5) K/uL Baso # (Auto) (0-0.2) K/uL Immature Gran # (Auto) (0.00-0.02) K/uL PT (9.0-12.0) Seconds INR (0.9-1.1) APTT (21.0-31.0) Seconds PTT Ratio Sodium (136-145) mmol/L Potassium (3.5-5.1) mmol/L Chloride (98-107) mmol/L Carbon Dioxide (21-32) mmol/L Anion Gap (3-11) BUN (7-18) mg/dl Creatinine (0.6-1.2) mg/dl Est Cr Clr Drug Dosing ml/min Est GFR ( Amer) Est GFR (Non-Af Amer) BUN/Creatinine Ratio (10-20) Glucose (70-99) mg/dl Calcium (8.5-10.1) mg/dl Total Bilirubin (0.2-1) mg/dl AST (15-37) U/L ALT (12-78) U/L Alkaline Phosphatase (45-117) U/L Troponin I (0-0.045) ng/ml Total Protein (6.4-8.2) gm/dl Albumin (3.4-5.0) gm/dl Globulin (2.5-4.0) gm/dl Albumin/Globulin Ratio (0.9-2) Urine Color Yellow Urine Appearance Cloudy A (Clear) Urine pH 5.0 (4.5-7.5) Ur Specific [place] 1.021 (1.000-1.030) Urine Protein Negative (Negative) Urine Glucose (UA) 2+ H (Negative) Urine Ketones Negative (Negative) Urine Blood Trace H (Negative) Urine Nitrite Positive A (Negative) Urine Bilirubin Negative (Negative) Urine Urobilinogen Negative (Negative) Ur Leukocyte Esterase 2+ H (Negative) Urine WBC (Auto) >30 H (0-5) /hpf Urine RBC (Auto) 0-4 (0-4) /hpf U Hyaline Cast (Auto) 1-5 (0-5) /lpf U Epithel Cells (Auto) 10-20 H (0-5) /lpf Urine Bacteria (Auto) 4+ H (Negative) COVID-19 Eval Order CovFluRsv at [facility] SARS-CoV-2 (PCR) NEGATIVE (Negative) Influenza Type A (PCR) Negative (Neg) Influenza Type B (PCR) Negative (Neg) RSV (RT-PCR) Negative (Neg) Supervising Physician Co-Signing Physician Notes Attending addendum: I have physically seen this patient, have supervised the medical residents activities, and agree with the H&P unless as otherwise noted. Assessment and Plan: Intractable nausea and vomiting- CT head without acute event CTA head and neck with moderate luminal narrowing of left vertebral artery This is been an intermittent issue for patient over the past several years Symptomatic treatment with Antivert every 6 hours as needed, and Zofran 4 mg IV every 6 hours as needed. Symptoms may be aggravated by physiologic stress of urinary tract infection Urinary tract infection- Follow urine culture and sensitivity Starting antibiotics as noted Diabetes mellitus- Continue home regimen Placed on Accu-Cheks before meals and at bedtime with NovoLog coverage per scale Remaining orders and notations as noted Resident Activity Tracking Resident Involvement: Resident Care Provided Care Provided: Adult Hospital Medicine
[2020-11-06] MEDS ORDERED: NITROGLYCERIN SL 0.4 MG/TAB TAB SL PRN (23:22)
[2020-11-06] MEDS ORDERED: ONDANSETRON INJ 2 MG/ML 2 ML VIAL IV PRN (23:22)
[2020-11-06] MEDS ORDERED: MAGNESIUM HYDROXIDE SUSP 30 ML UDC PO PRN (23:22)
[2020-11-06] MEDS ORDERED: GLUCAGON FOR INJ 1 MG VIAL SQ PRN (23:22)
[2020-11-06] MEDS ORDERED: POLYETHYLENE (MIRALAX) 17 GM PACK PO PRN (23:22)
[2020-11-06] MEDS ORDERED: CARBOHYDRATES FOR HYPOGLYCEMIA PO PRN (23:22)
[2020-11-06] MEDS ORDERED: GLUCOSE 10 TABS/TUBE PO PRN (23:22)
[2020-11-06] MEDS ORDERED: ALUMINUM/MAGNESIUM SUSP 30 ML UDC PO PRN (23:22)
[2020-11-06] MEDS ORDERED: DEXTROSE 50% 50 ML SYRINGE IV PRN (23:22)
[2020-11-06] MEDS ORDERED: GLUCOSE 40% GEL 15 GM TUBE PO PRN (23:22)
[2020-11-07] MEDS ORDERED: ACETAMINOPHEN 500 MG TAB PO PRN (00:29)
[2020-11-07] MEDS: INSULIN ASPART 100 UNITS/ML 3 ML PEN SC SCH ×5 (02:56→20:55)
[2020-11-07] MEDS: CEFDINIR 300 MG CAP PO SCH ×3 (02:56→20:54)
[2020-11-07] MEDS: LEVOTHYROXINE SODIUM 175 MCG TABLET PO SCH (07:01)
[2020-11-07] MEDS: ASPIRIN 81 MG ECTAB PO SCH (07:46)
[2020-11-07] MEDS: ATORVASTATIN 20 MG TAB PO SCH (07:46)
[2020-11-07] MEDS: FEXOFENADINE HCL 180 MG TAB PO SCH (07:46)
[2020-11-07] MEDS: lisinopril 10 MG TAB PO SCH (07:47)
[2020-11-07] MEDS: ISOSORBIDE MONO EXTENDED REL 30 MG TABCR PO SCH (07:47)
[2020-11-07] MEDS: TICAGRELOR 90 MG TAB PO SCH ×2 (07:48→20:55)
[2020-11-07] MEDS: VENLAFAXINE HCL XR 150 MG CAPXR PO SCH (07:48)
[2020-11-07] MEDS: VENLAFAXINE HCL XR 37.5 MG CAPXR PO SCH (07:48)
[2020-11-07] MEDS: METOPROLOL TARTRATE 50 MG TAB PO SCH ×2 (07:49→20:54)
[2020-11-07] MEDS: PANTOprazole 40 MG TAB PO SCH (07:49)
[2020-11-07] MEDS: RANOLAZINE 500 MG ER TAB PO SCH ×2 (07:49→20:54)
[2020-11-07] MEDS: MECLIZINE HCL 25 MG TAB PO PRN (09:04)
[2020-11-07] MEDS ORDERED: GADOBUTROL 65ML VIAL IV ONE (09:44)
--- NOTE | 2020-11-07 10:02 | Magnetic Resonance Report ---
MR brain wo/w con HISTORY: 70 years-old Female persistent vertigo,r/o CVA acute vertigo with nausea, vomiting acute st rokelike symptoms COMPARISON: CT head, CTA head and neck 11/06/2020, brain MRI 12/25/2011. TECHNIQUE: Multiplanar multisequence MRI of the brain was obtained both with and without the use of 1 0.5 mL Gadavist FINDINGS: The test desk operator localizer images demonstrate no gross extracranial abnormality. There is no restricted diff usion to suggest acute or subacute infarct. 3 mm pineal gland cyst. Hemosiderin within the right mahamed etal lobe near the vertex from chronic intraparenchymal hemorrhage. There is no acute intracranial he morrhage, midline shift, abnormal extra-axial collection, hydrocephalus or intracranial mass. Age-rel ated involutional changes. Mild to moderate T2/FLAIR hyperintensities about the white matter suggest chronic microvascular ischemic disease. There is no abnormal intra-axial or extra-axial enhancement. The cerebral venous sinuses and major arterial flow voids are patent. Trace mastoid effusions. Minima l mucosal thickening of the paranasal sinuses. Prior bilateral lens repair. Skull and orbits are unre markable. IMPRESSION: 1. No acute intracranial abnormality, specifically there is no acute or subacute infarct. 2. Age-related involutional changes with chronic microvascular ischemic disease. 3. No abnormal enhancement. 4. Hemosiderin within the right parietal lobe near the vertex from prior intraparenchymal hemorrhage ACT 112: Negative or not required by law. The above report was generated using voice recognition software. It may contain grammatical, syntax o r spelling errors. Electronically signed by: Srini Brewer M.D. 11/07/2020 10:01 AM
--- NOTE | 2020-11-07 13:26 | Neurology Consultation ---
Date of Consultation November 07, 2020 Assessment & Plan (1) Vertigo: Kaylene Ahn is a 70 yo woman w/ PMH of DM c/b neuropathy, HTN, HLD, depression/anxiety, hypothyroidism, CAD s/p CABG, RUDOLPH with nocturnal hypoxemia, fatty liver disease, obesity and vitamin D deficiency who p/t [facility] with acute onset of vertigo and N/V. # Acute onset vertigo: no stroke noted on MRI brain. Symptoms most c/w BPPV vs migrainous vertigo as it was a/w a headache similar to the migraines that she has had in the past. - recommend PT evaluation for Caroline-Halpike and teaching the Eppley maneuver - would likely benefit from outpatient vestibular rehab - ok to use meclizine prn as this has been helpful for her - no need for neurology f/u as symptoms not related to a stroke, vertebrobasilar insufficiency nor TIA-like in description - continue stroke prevention with PCP (A1c<7, LDL<70, BP<130/80) Thank you reason for consult. Plan of care discussed with primary team. Please call or text with questions. 60 minutes was spent [id number] with patient, with more than 50% spent on counseling/coordination of care/charting/review of records. (2) Refractory nausea and vomiting: (3) Gait abnormality: History of Present Illness Attending Physician: Alyx Venegas MD History of Present Illness Kaylene Ahn is a 70 yo woman w/ PMH of DM c/b neuropathy, HTN, HLD, depression/anxiety, hypothyroidism, CAD s/p CABG, RUDOLPH with nocturnal hypoxemia, fatty liver disease, obesity and vitamin D deficiency who p/t [facility] with acute onset of vertigo and N/V. 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 In the ED, she was afebrile, BP 168/83, HR 88, RR 20, satting 95% on room air. Labs notable for WBC 6.04, Hb 13.8, Plts low at 122, electrolytes within normal, Cr 0.81, glucose 191, UA + for UTI, LFTs mildly elevated, troponin negative, TSH WNL, COVID negative. Imaging independently reviewed. CTH showed no hemorrhage, ? old left cerebellar stroke, +chronic infarct in the right insular region. 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 MRI brain showed no acute infarct, no cerebellar lesions, mild to moderate SVID with noted dilated perivascular spaces in bilateral basal ganglia, and ? right parietal hemosiderin deposition vs slow flow. On examination, she reports that she was in her normal state of health till 11/06 2 AM when she woke up after having acute onset of dizziness. She describes dizziness as a sensation of imbalance as well as lightheadedness with a component of room spinning. This was associated with nausea/vomiting, gait imbalance and intermittent visual symptoms. She also had a mild bifrontal and occipital headache that occurred around the same time. She tried to wait it out for several hours before presenting to the ED for further evaluation. Reports today that most symptoms are improved and have responded well to meclizine as needed, but she still has mild dizziness and nausea from time to time. Reports that symptoms are not clearly positional but does feel that turning her head to the left can aggravate the dizziness, as well as quick head turns or body movements. Patient Features: Admission NIHSS: 2 (for ataxia) Admission Modified Golden Scale: 1 Time patient last seen well: Wake up stroke: Yes Intubation status: Not intubated Stroke Risk Factors: Hypertension: Y Hyperlipidemia: Y Atrial Fib: N Tobacco: N Diabetes: Y Taking NOAC or warfarin: N Allergies Allergy/AdvReac Type Severity Reaction Status Date / Time nickel Allergy Intermediate pruritis Verified 11/06/20 20:47 cat dander Allergy Mild itchy eyes Verified 11/06/20 20:47 Sulfa (Sulfonamide Allergy Mild HIVES Verified 11/06/20 20:47 Antibiotics) glipizide Allergy Unknown ITCHY,WHEEZ Verified 11/06/20 20:47 ING mold Allergy Unknown ITCHY EYES Verified 11/06/20 20:47 RUNNY NOSE pioglitazone Allergy Unknown ITCHY Verified 11/06/20 20:47 WHEEZING house dust Allergy Itchy Verified 11/06/20 20:47 eyes, runny nose sulfamethoxazole Allergy Itching, Verified 11/06/20 20:47 [From Bactrim] shortness of breath trimethoprim [From Bactrim] Allergy Itching, Verified 11/06/20 20:47 shortness of breath adhesive AdvReac Unknown SKIN Verified 11/06/20 20:47 IRRITATION Home Medications Medication Instructions Recorded Confirmed Type aspirin [Aspirin Low Dose] 81 mg PO QAM 08/06/18 11/06/20 History venlafaxine 37.5 mg PO DAILY 08/06/18 11/06/20 History venlafaxine 150 mg PO DAILY 08/06/18 11/06/20 History acetaminophen 500 mg tablet 1,000 mg PO Q8H PRN #60 tab 03/23/19 11/06/20 History fexofenadine 180 mg tablet 180 mg PO DAILY tab 03/23/19 11/06/20 History nitroglycerin 0.4 mg sublingual 0.4 mg SL Q5M PRN #25 tab 03/23/19 11/06/20 History tablet cyclosporine 0.05 % eye drops 1 drops OP Q12H 03/29/19 11/06/20 History B-complex with vitamin C 1 tab PO DAILY #90 tab 05/28/19 11/06/20 Rx melatonin 10 mg tablet 20 mg PO HS tab 07/13/19 11/06/20 History uaqopdrp-xmm-cruiu acid 0.4 1 tab PO DAILY 07/13/19 11/06/20 History mg-lycopene 300 mcg-lutein 250 mcg tablet Lantus Solostar U-100 Insulin 100 55 units SQ DAILY #60 ml NS 11/23/19 11/06/20 Rx unit/mL (3 mL) subcutaneous pen metoprolol tartrate 50 mg tablet 50 mg PO BID #180 tab 02/08/20 11/06/20 Rx ranolazine 500 mg tablet,extended 500 mg PO BID 90 Days #180 tab 02/15/20 11/06/20 Rx release,12 hr insulin NPH isoph U-100 human 100 24 units SUBCUT HS 90 Days #30 ml 03/02/20 11/06/20 Rx unit/mL (3 mL) subcutaneous pen cholecalciferol (vitamin D3) 50 2,000 unit PO BID cap 04/20/20 11/06/20 History mcg (2,000 unit) capsule omega 2-ggx-qcj-fish oil 1,000 mg 1 cap PO BID cap 04/20/20 11/06/20 History (120 mg-180 mg) capsule ticagrelor 90 mg tablet 90 mg PO BID #180 tab 05/22/20 11/06/20 Rx levothyroxine 175 mcg tablet 175 mcg PO QAM #90 tab 05/29/20 11/06/20 Rx lisinopril 10 mg tablet 10 mg PO QAM #90 tab 05/29/20 11/06/20 Rx mecobalamin (vitamin B12) 1,000 1,000 mcg SUBLINGUAL DAILY #30 tab 06/02/20 11/06/20 Rx mcg disintegrating tablet,sublingual metformin 1,000 mg tablet 1,000 mg PO BID #180 tab 07/24/20 11/06/20 Rx pantoprazole 20 mg tablet,delayed 20 mg PO DAILY #90 tab 07/24/20 11/06/20 Rx release flaxseed oil 1,000 mg capsule 1,000 mg PO BID 08/16/20 11/06/20 History isosorbide mononitrate 60 mg 90 mg PO DAILY #135 tab 08/17/20 11/06/20 Rx tablet,extended release 24 hr atorvastatin 20 mg tablet 20 mg PO DAILY #90 tab 08/23/20 11/06/20 Rx insulin lispro [Humalog KwikPen 0 unit SQ TIDM 11/06/20 11/06/20 History Insulin] Patient History Medical History Anxiety CAD (coronary artery disease) S/P CABG X 4 (1998), CARDIAC STENTS X 4 TOTAL (MOST RECENT 04/2017) Carpal tunnel syndrome on both sides Depression Diabetes mellitus, type 2 IDDM Fatty liver disease, nonalcoholic History of difficult intubation left shoulder arthroscopy, RCR, distal clavicle exicision= 08/26/14= "gentle laryngoscopy with no view of cords/arytenoids, straight to glidescopy 3, ETT passed through open cords with cricoid pressure and increased angle of ETT [7.0]" Hyperlipidemia Hypertension Hypothyroidism Lichen sclerosus et atrophicus Morbid obesity Myocardial Infarction 2010 Osteoarthritis Peptic ulcer disease H/O BLEEDING ULCER (2006) Primary osteoarthritis of right knee Stable angina Stroke 2011= RESIDUAL LEFT FOOT NEUROPATHY Vulvar varicose veins Surgical History H/O elbow surgery LEFT History of adenoidectomy History of cardiac cath S/P CABG X 4 (1997), CARDIAC STENTS X 4 TOTAL (MOST RECENT x 3 04/2017) MOST RECENT CARDIAC CATH 11/2017= NO STENTS History of cataract surgery BILATERAL History of colonoscopy History of coronary artery bypass graft CABG X4 (1997) History of endoscopic sinus surgery History of esophagogastroduodenoscopy (EGD) History of hysterectomy KD W/BSO History of repair of rotator cuff (~2014) LEFT History of tooth extraction History of total knee arthroplasty (~2018) RIGHT History of total knee replacement LEFT History of tubal ligation Family History Father Myocardial infarction Coronary heart disease Brother Arthritis Hx of CABG Sister Arthritis Mother Dementia Heart disease Other Family history non-contributory Denies family history of Liver cancer Ovarian cancer Prostate cancer Crohn's disease Breast cancer Colorectal cancer Inflammatory bowel disease Social History Smoking Status: Never smoker Second Hand Exposure: No; Hx Alcohol Use: Yes Alcohol type: hard liquor Hx Substance Use: No Preferred Language: Togolese Communication Ability: Effective Visual Impairment: No Limitations Hearing Ability: Hard of Hearing Skull Splitter Required: No Beliefs That Will Affect Care: None marital status: Current Living Situation: Spouse current occupational status: retired Feels Safe at Home: Yes and No Is there a partner from a previous relationship who is making you feel unsafe now?: No Dental Care, Regularly: Yes Physical Activity Frequency: Does not Exercise Seatbelt Use: always Assistive Devices: Glasses Review of Systems Review of Systems: 14 point review of systems completed and negative except as in HPI. Exam (Neuro) Physical Exam: General Exam: GEN: NAD, sitting down in examination bed. HEENT: No conjunctival injection, no rhinorrhea. CV: RRR on monitor, no significant edema. PULM: Nonlabored respirations on room air. Neuro Exam: MS: Awake and Alert. Oriented to person, place, and date. Speech fluent and appropriate without dysarthria or paraphasic errors. Language intact including naming, comprehension, repetition. Cognition and memory grossly intact. Attention intact. No neglect. CN: Visual clifton full, + blink to threat bilaterally. No extinction to double simultaneous stimuli. Unable to visualize fundi on fundoscopic exam. PERRLA OU. EOMI without significant nystagmus. Facial sensation intact to LT. Facial muscles full and symmetric. Hearing intact to conversation. Shoulder shrug normal. Tongue midline. MOTOR: Normal bulk and tone. No pronator drift. BUE strength 5/5 at deltoids, biceps, triceps, wrist flexors and extensors, and finger flexors bilaterally. BLE strength 5/5 at iliopsoas, hamstrings, quadriceps, tibialis anterior, and gastrocnemius bilaterally. REFLEXES: Trace at biceps, triceps, brachioradialis, absent patella, and absent Achilles bilaterally. Flexor plantar responses bilaterally. SENSORY: Intact to LT/vibration throughout, no extinction to double simultaneous stimuli. COORDINATION: No dysmetria or ataxia on [id number]-iv-nhho bilaterally. Normal René bilaterally. GAIT: Deferred due to physical status. NIH STROKE SCALE 1A. Level of Consciousness (0-3) = 0 1B. LOC Questions (0-2) = 0 1C. LOC Commands (0-2) = 0 2. Best Horizontal Gaze (0-2) = 0 3. Visual Clifton (0-3) = 0 4. Facial Palsy (0-3) = 0 5. Motor Arm Right (0-4) = 0 Left (0-4) = 0 6. Motor Leg Right (0-4) = 0 Left (0-4) = 0 7. Limb Ataxia (0-2) = 0 8. Sensory (0-2) = 0 9. Best Language (0-3) = 0 10. Dysarthria (0-2) = 0 11. Extinction and Inattention (0-2) = 0 NIHSS TOTAL = 0 Results & Data ([facility]) Vital Signs (Past 12 Hours) Vital Signs Temp Pulse Pulse Pulse Resp BP BP 11/07/20 11:33 36.5 C 62 18 120/62 11/07/20 07:30 94 H 11/07/20 07:28 36.7 C 86 18 124/85 11/07/20 02:51 36.7 C 91 H 19 147/72 H Pulse Ox 11/07/20 11:33 97 11/07/20 07:30 11/07/20 07:28 96 11/07/20 02:51 97 PG Care Time/CCT Total # of Minutes Spent Total Time Spent with Patient: Total time spent is greater than 50% in coordination of care (as documented) at patient's floor/unit and/or counseling patient: Coding Level of Care Code 49633 Office/Outpt Visit, New Diagnoses Vertigo R42 Refractory nausea and vomiting R11.2 Gait abnormality R26.9
--- NOTE | 2020-11-07 14:24 | Electrocardiogram Report ---
Test Reason : Blood Pressure : / mmHG Vent. Rate : 082 BPM Atrial Rate : 082 BPM P-R Int : 186 ms QRS Dur : 082 ms QT Int : 392 ms P-R-T Axes : 042 050 054 degrees QTc Int : 457 ms Poor data quality, interpretation may be adversely affected Normal sinus rhythm When compared with ECG of 05-DEC-2017 09:31, Vent. rate has increased BY 30 BPM Confirmed by Miguel Byrd ([id number]) on 11/07/2020 2:24:38 PM Referred By: Ciaran Berg Confirmed By:Nba Byrd
--- NOTE | 2020-11-07 20:22 | Hospitalist Progress Note ---
Date of Service November 07, 2020 Assessment & Plan (1) Vertigo: Kaylene Ahn is a 70-year-old female with PMH significant for CAD status post CABG, RUDOLPH, hypothyroidism, hypertension, hyperlipidemia, type 2 diabetes, GERD, anxiety/depression who presented for concerns of persistent nausea with positional change and lightheadedness. -Had a CT of the head and CT angiogram of the head neck in the ER as part of a stroke work-up -CT head demonstrating no acute intracranial abnormality -CTA head and neck demonstrating no aneurysm, dissection, high-grade stenosis or occlusion; does demonstrate dominant left vertebral artery with moderate luminal narrowing due to calcified plaque MRI of the brain today without acute stroke Appreciate neurology consultation-symptoms most consistent with BPPV versus migrainous vertigo as she has a history of migraines prior to menopause -Awaiting PT evaluation for Sherif maneuver teaching -Could benefit from outpatient vestibular rehab -Continue to use meclizine as needed as this has been quite helpful -This is not related to stroke, vertebrobasilar insufficiency or TIA -She will continue to stay overnight until symptoms are better improved and seen by PT -Sinus bradycardia on the monitor (2) Refractory nausea and vomiting: As above, related to vertigo Improved with meclizine (3) UTI (urinary tract infection): Uncomplicated urinary tract infection: -Urinalysis with 4+ bacteria, 2+ leuk esterase, positive nitrites, trace blood, greater than 30 WBCs -She was symptomatic with this prior to admission -Urine sent for culture-pending -Previous UA in 2018 demonstrating E. coli with relative burkett sensitivity -Patient allergic to Bactrim -Started on cefdinir twice daily (total course 5 days)-symptoms already improving (4) Fatty liver disease, nonalcoholic: AST and ALT are mildly elevated chronically Seen by GI in the past and encouraged alcohol cessation and weight loss Okay to continue statin (5) Type 2 diabetes mellitus: -Previously well controlled type II diabetic with last A1c (August) 6.9 -Home regimen including insulin lispro, insulin NPH, and Lantus -Elevated glucose on admission -Monitor BSG's ACHS, correct with sliding scale insulin while inpatient (6) Moderate obstructive sleep apnea: Will order CPAP at 11 cm H2O nightly (7) Vitamin D deficiency: Continue home vitamin D on discharge (8) GERD (gastroesophageal reflux disease): continue PPI (9) Anxiety: Continue venlafaxine (10) Depression: Continue venlafaxine (11) Obesity: BMI 43.1 Needs weight loss counseling (12) Hypothyroidism: -Last TSH 1.08 -Continue home levothyroxine 175 daily (13) Mixed hyperlipidemia: -Continue atorvastatin 20 daily (14) Essential hypertension: Blood pressures are controlled -Continue home lisinopril 10 mg daily, metoprolol 50 twice daily, isosorbide (15) Coronary artery disease: no acute issues, troponin neg x 1, ECG without ischemic changes acutely - (16) DVT prophylaxis: Diet: Carb consistent CODE STATUS: Full code DVT prophylaxis: Deferred at this time, encourage ambulation Dispo-continued stay but likely dc to home tomorrow Admission and Anticipated Discharge Date Admission Date: November 06, 2020 Subjective Patient reports feeling much improved today, but is still having dizziness especially with looking to the left. She was able to eat today and is not vomiting. The meclizine is helping a lot. She still has not been seen by physical therapy or learned any Sherif maneuvers and would like to do that prior to discharge. She denies any further headache, no chest pain or shortness of breath, no abdominal pains. Otherwise feeling well. She does report that she was having some UTI symptoms but that has now improved. Telemetry with sinus bradycardia with rates in the 50s with some brief sinus tachycardia overnight in the low 100s. Review of Systems Review of Systems: All systems reviewed & are unremarkable except as noted in HPI & below Physical Exam Constitutional: WD/WN, vitals as above Eyes: PERRL, conjunctivae normal, anicteric sclerae EOM intact bilaterally; no nystagmus ENMT: external ear and nose normal, oropharynx normal Neck: trachea midline, no thyromegaly Respiratory: normal respiratory effort, lungs clear to auscultation Cardiovascular: RRR, no murmur, no edema Chest (Breasts): Chest: normal inspection of chest Gastrointestinal (Abdomen): normal bowel sounds, soft, nontender, no hepatosplenomegaly Musculoskeletal: Extremities: extremities normal to inspection; no cyanosis and no clubbing Skin: no rashes, warm and dry Neurologic: PERRL, EOMI, accommodation nl, no face palsy, no dysarthria CN's II-XI intact bilaterally, moves all extremities and awake; no focal motor deficits Psychiatric: A+Ox3, euthymic affect Lymphatic: no lymphedema Results & Data Results & Data ([facility]) Vital Signs (Past 12 Hours) Vital Signs Temp Pulse Pulse Resp BP Pulse Ox 11/07/20 19:52 36.8 C 74 18 118/66 96 11/07/20 16:00 63 11/07/20 15:26 36.4 C L 63 18 132/68 95 11/07/20 11:33 36.5 C 62 18 120/62 97 Laboratory Results 11/07/20 11/07/20 11/07/20 Range/Units 16:43 11:48 07:33 POC Glucose 216 H 258 H 176 H (70-99) mg/dl Troponin I (0-0.045) ng/ml COVID-19 Eval Order SARS-CoV-2 (PCR) (Negative) Influenza Type A (PCR) (Neg) Influenza Type B (PCR) (Neg) RSV (RT-PCR) (Neg) 11/07/20 11/06/20 11/06/20 Range/Units 02:54 23:39 20:50 POC Glucose 147 H (70-99) mg/dl Troponin I 0.022 (0-0.045) ng/ml COVID-19 Eval Order SARS-CoV-2 (PCR) NEGATIVE (Negative) Influenza Type A (PCR) Negative (Neg) Influenza Type B (PCR) Negative (Neg) RSV (RT-PCR) Negative (Neg) 11/06/20 Range/Units 20:50 POC Glucose (70-99) mg/dl Troponin I (0-0.045) ng/ml COVID-19 Eval Order CovFluRsv at [facility] SARS-CoV-2 (PCR) (Negative) Influenza Type A (PCR) (Neg) Influenza Type B (PCR) (Neg) RSV (RT-PCR) (Neg) Diagnostic Findings MR brain wo/w con HISTORY: 70 years-old Female persistent vertigo,r/o CVA acute vertigo with nausea, vomiting acute strokelike symptoms COMPARISON: CT head, CTA head and neck 11/06/2020, brain MRI 12/25/2011. TECHNIQUE: Multiplanar multisequence MRI of the brain was obtained both with and without the use of 10.5 mL Gadavist FINDINGS: The receiving associate localizer images demonstrate no gross extracranial abnormality. There is no restricted diffusion to suggest acute or subacute infarct. 3 mm pineal gland cyst. Hemosiderin within the right parietal lobe near the vertex from chronic intraparenchymal hemorrhage. There is no acute intracranial hemorrhage, midline shift, abnormal extra-axial collection, hydrocephalus or intracranial mass. Age-related involutional changes. Mild to moderate T2/FLAIR hyperintensities about the white matter suggest chronic microvascular ischemic disease. There is no abnormal intra-axial or extra-axial enhancement. The cerebral venous sinuses and major arterial flow voids are patent. Trace mastoid effusions. Minimal mucosal thickening of the paranasal sinuses. Prior bilateral lens repair. Skull and orbits are unremarkable. IMPRESSION: 1. No acute intracranial abnormality, specifically there is no acute or subacute infarct. 2. Age-related involutional changes with chronic microvascular ischemic disease. 3. No abnormal enhancement. 4. Hemosiderin within the right parietal lobe near the vertex from prior intraparenchymal hemorrhage PG Care Time/CCT Total # of Minutes Spent Total Time Spent with Patient: Total time spent is greater than 50% in coordi nation of care (as documented) at patient's floor/unit and/or counseling patient: Coding Level of Care Code 57321 Subseq Obs Care Lvl 3 Diagnoses Vertigo R42 Refractory nausea and vomiting R11.2 UTI (urinary tract infection) N39.0 Fatty liver disease, nonalcoholic K76.0 Type 2 diabetes mellitus E11.9 Moderate obstructive sleep apnea G47.33 Vitamin D deficiency E55.9 GERD (gastroesophageal reflux disease) K21.9 Anxiety F41.9 Depression F32.9 Obesity E66.9 Hypothyroidism E03.9 Mixed hyperlipidemia E78.2 Essential hypertension I10 Coronary artery disease I25.10 DVT prophylaxis Z29.9
--- NOTE | 2020-11-07 22:22 | Billing Data ---
Date of Service November 07, 2020 Coding Level of Care Code 17527 OBS Care - Level 3
[2020-11-08] MEDS: LEVOTHYROXINE SODIUM 175 MCG TABLET PO SCH (06:25)
[2020-11-08] MEDS: PANTOprazole 40 MG TAB PO SCH (08:28)
[2020-11-08] MEDS: MECLIZINE HCL 25 MG TAB PO PRN (08:28)
[2020-11-08] MEDS: ATORVASTATIN 20 MG TAB PO SCH (08:28)
[2020-11-08] MEDS: CEFDINIR 300 MG CAP PO SCH (08:28)
[2020-11-08] MEDS: VENLAFAXINE HCL XR 150 MG CAPXR PO SCH (08:28)
[2020-11-08] MEDS: ASPIRIN 81 MG ECTAB PO SCH (08:28)
[2020-11-08] MEDS: VENLAFAXINE HCL XR 37.5 MG CAPXR PO SCH (08:28)
[2020-11-08] MEDS: lisinopril 10 MG TAB PO SCH (08:28)
[2020-11-08] MEDS: ISOSORBIDE MONO EXTENDED REL 30 MG TABCR PO SCH (08:28)
[2020-11-08] MEDS: FEXOFENADINE HCL 180 MG TAB PO SCH (08:28)
[2020-11-08] MEDS: METOPROLOL TARTRATE 50 MG TAB PO SCH (08:28)
[2020-11-08] MEDS: TICAGRELOR 90 MG TAB PO SCH (08:28)
[2020-11-08] MEDS: INSULIN ASPART 100 UNITS/ML 3 ML PEN SC SCH ×2 (08:28→11:49)
[2020-11-08] MEDS: RANOLAZINE 500 MG ER TAB PO SCH (08:28)
--- NOTE | 2020-11-08 11:16 | Discharge Summary ---
Date of Service November 08, 2020 Admission HPI Per Admitting Provider Kaylene Ahn is a 70-year-old female with PMH significant for hypothyroidism, hypertension, hyperlipidemia, type 2 diabetes, GERD, anxiety; who presented to the ER this evening for concerns of persistent nausea with positional change and lightheadedness. This feeling for started Friday night the patient was awoken feeling dizzy, states that she definitively did not wake up and then become dizzy she woke up dizzy. She does note that she frequently moves around when she is asleep and rolls from side to side. She most noticed the lightheadedness and room spinning, and nausea with subsequent vomiting following having to get up several times in order to the bathroom. This continued throughout the day, with more frequent bathroom trips, and the lightheadedness frequently required her to hold onto the wall or other items in order to prevent herself from falling. Did not have any discomfort with urination, but did feel like she was going more frequently than normal. Otherwise denies chest pain, shortness breath, abdominal pain, changes in bowel movements, changes in sensation of arms or legs, changes in strength of arms or legs, or slurred speech. Did not fall throughout this time, or lose consci ousness. Solely feels nauseous with changes in position, or quickly moving head from side to side. Principal Diagnosis BPPV, UTI Discharge Exam Constitutional WD/WN, vitals as above Eyes + anicteric sclerae and EOM intact bilaterally; no nystagmus Neck trachea midline, no thyromegaly Respiratory normal respiratory effort, lungs clear to auscultation Cardiovascular RRR, no murmur, no edema Musculoskeletal Extremities: extremities normal to inspection; no cyanosis and no clubbing Skin no rashes, warm and dry Neurologic moves all extremities and awake; no focal motor deficits Psychiatric A+Ox3, euthymic affect Lymphatic no lymphedema Discharge Data Allergies Allergy/AdvReac Type Severity Reaction Status Date / Time nickel Allergy Intermediate pruritis Verified 11/06/20 20:47 cat dander Allergy Mild itchy eyes Verified 11/06/20 20:47 Sulfa (Sulfonamide Allergy Mild HIVES Verified 11/06/20 20:47 Antibiotics) glipizide Allergy Unknown ITCHY,WHEEZ Verified 11/06/20 20:47 ING mold Allergy Unknown ITCHY EYES Verified 11/06/20 20:47 RUNNY NOSE pioglitazone Allergy Unknown ITCHY Verified 11/06/20 20:47 WHEEZING house dust Allergy Itchy Verified 11/06/20 20:47 eyes, runny nose sulfamethoxazole Allergy Itching, Verified 11/06/20 20:47 [From Bactrim] shortness of breath trimethoprim [From Bactrim] Allergy Itching, Verified 11/06/20 20:47 shortness of breath adhesive AdvReac Unknown SKIN Verified 11/06/20 20:47 IRRITATION Consultations 11/06/20 21:09 ED Decision to Admit Stat 11/07/20 08:23 Consult Neurology Routine Ordered Studies 11/06/20 17:42 CT angio head w con Stat CT angio neck with con Stat CT head/brain wo con Stat 11/07/20 08:23 MR brain wo/w con Urgent Hospital Course (1) Vertigo: Kaylene Ahn is a 70-year-old female with PMH significant for CAD status post CABG, RUDOLPH, hypothyroidism, hypertension, hyperlipidemia, type 2 diabetes, GERD, anxiety/depression who presented for concerns of persistent nausea with positional change and lightheadedness. -Had a CT of the head and CT angiogram of the head neck in the ER as part of a stroke work-up -CT head demonstrating no acute intracranial abnormality -CTA head and neck demonstrating no aneurysm, dissection, high-grade stenosis or occlusion; does demonstrate dominant left vertebral artery with moderate luminal narrowing due to calcified plaque MRI of the brain without acute stroke Appreciate neurology consultation-symptoms most consistent with BPPV versus migrainous vertigo as she has a history of migraines prior to menopause -appreciate PT evaluation for Sherif maneuver teaching-she will continue this at home -Could benefit from outpatient vestibular rehab if not improving -Continue to use meclizine as needed as this has been quite helpful -This is not related to stroke, vertebrobasilar insufficiency or TIA -Sinus bradycardia on the monitor Stable for dc to home, instructed to use a walker at home until vertigo resolved, no driving (2) Refractory nausea and vomiting: As above, related to vertigo/BPPV Improved with meclizine tolerating reg diet by time of discharge Sherif maneuver's taught by PT (3) Type 2 diabetes mellitus: -Previously well controlled type II diabetic with last A1c (August) 6.9 -Home regimen including insulin lispro, insulin NPH, and Lantus -Elevated glucose on admission -Monitor BSG's ACHS, correct with sliding scale insulin while inpatient with hyperglycemia here as long acting insulins and metformin were held due to N/V and dye load--> can resule all these upon discharge (4) GERD (gastroesophageal reflux disease): continue PPI (5) Anxiety: Continue venlafaxine (6) Hypothyroidism: -Last TSH 1.08 -Continue home levothyroxine 175 daily (7) Essential hypertension: Blood pressures are controlled -Continue home lisinopril 10 mg daily, metoprolol 50 twice daily, isosorbide (8) Mixed hyperlipidemia: -Continue atorvastatin 20 daily Dispo-stable for dc to home Total Time Total Time Spent Total Time Spent (In Minutes): 35 min Total Time Includes: Examination of the Patient, Discharge Planning, Medication Reconciliation and Communication With Other Providers (PT) Discharge Plan Discharge Items Patient Disposition: Home - Self-Care Reason For Visit: REFRACTORY NAUSEA Discharge Diagnosis: Vertigo (BPPV), UTI Condition on Discharge: Good Activity: As commented below Lifting: Gradually increase as tolerated Bathing: No limitations Exercise/Sports: Gradually increase as tolerated Exercise Comment: with walker for assistance until vertigo resolved Driving/Machine Use: No driving until vertigo is resolved Non-emergency contact: Primary Care Provider Call non-emergency contact if: you have any medication questions Follow-up/Referrals: Ciaran Berg III, CRNP [Primary Care Provider] - 11/16/20 9:20 am Diet: Carb Consistent or DM2 and Heart Healthy Addtl Attending Provider Instructions: You were admitted for vertigo and had improvement with taking meclizine and doing Sherif maneuvers. You can continue both of these at home until the vertigo is resolved. You had a workup for stroke which was negative. You were also found to have a UTI and should finish out 1 more day of antibiotics for this. The final urine culture was still pending at the time of discharge; you will be contacted if a bacteria grows out that is resistant to the antibiotic you are on. Please follow up with your PCP as scheduled for you. It was a pleasure taking care of you, Dr. Alyx Venegas Pending Studies at Discharge: Yes Stand-Alone Forms: My [facility] Medications and DC Order Prescriptions: New meclizine 25 mg Tablet 25 mg PO Q6H PRN (Reason: dizziness) Qty: 20 RF: 0 cefdinir 300 mg Capsule 300 mg PO BID Qty: 2 RF: 0 Continued B-complex with vitamin C [Super B Complex-Vitamin C] tablet 1 tab PO DAILY Qty: 90 RF: 1 Lantus Solostar U-100 Insulin 100 unit/mL (3 mL) insulin pen 55 units SQ DAILY Qty: 60 RF: 3 metoprolol tartrate 50 mg tablet 50 mg PO BID Qty: 180 RF: 2 ranolazine [Ranexa] 500 mg tablet extended release 12 hr 500 mg PO BID 90 Days Qty: 180 RF: 3 Humulin N NPH Insulin KwikPen 100 unit/mL (3 mL) insulin pen 24 units SUBCUT HS 90 Days Qty: 30 RF: 3 Brilinta 90 mg tablet 90 mg PO BID Qty: 180 RF: 3 levothyroxine [Synthroid] 175 mcg tablet 175 mcg PO QAM Qty: 90 RF: 1 lisinopril 10 mg tablet 10 mg PO QAM Qty: 90 RF: 1 mecobalamin (vitamin B12) 1,000 mcg tablet,disintegrating 1,000 mcg sublingual DAILY Qty: 30 RF: 0 metformin 1,000 mg tablet 1,000 mg PO BID Qty: 180 RF: 1 pantoprazole 20 mg tablet,delayed release (DR/EC) 20 mg PO DAILY Qty: 90 RF: 1 isosorbide mononitrate 60 mg tablet extended release 24 hr 90 mg PO DAILY Qty: 135 RF: 1 atorvastatin 20 mg tablet 20 mg PO DAILY Qty: 90 RF: 1 Centrum Silver 0.4-300-250 mg-mcg-mcg tablet 1 tab PO DAILY RF: 0 flaxseed oil 1,000 mg capsule 1,000 mg PO BID RF: 0 acetaminophen 500 mg tablet 1,000 mg PO Q8H PRN (Reason: Pain) Qty: 60 RF: 0 fexofenadine 180 mg tablet 180 mg PO DAILY RF: 0 nitroglycerin 0.4 mg tablet, sublingual 0.4 mg SL Q5M PRN (Reason: Pain) Qty: 25 RF: 0 Restasis MultiDose 0.05 % drops 1 drops OP Q12H RF: 0 venlafaxine 37.5 mg Capsule,Extended Release 24hr 37.5 mg PO DAILY RF: 0 venlafaxine 150 mg Capsule,Extended Release 24hr 150 mg PO DAILY RF: 0 aspirin [Aspirin Low Dose] 81 mg Tablet,Delayed Release (Dr/Ec) 81 mg PO QAM RF: 0 melatonin 10 mg tablet 20 mg PO HS RF: 0 cholecalciferol (vitamin D3) [Vitamin D3] 50 mcg (2,000 unit) capsule 2,000 unit PO BID RF: 0 omega 7-vvr-[id number]-fish oil [Fish Oil] 1,000 mg (120 mg-180 mg) capsule 1 cap PO BID RF: 0 insulin lispro [Humalog KwikPen Insulin] 100 unit/mL insulin pen 0 unit SQ TIDM RF: 0 Discharge Orders: Discharge Order (Routine); Ordered 11/08/20 Ordered By: Alyx Venegas Admission Data Admit Date/Time: 11/06/20 22:02 Attending Provider: Alyx Venegas Admit Provider: Chuy Proctor Primary Care Provider: Ciaran Berg III Other Providers: Victor Hugo Jansen Christina R. Coding Level of Care Code 29676 OBS Care - Discharge Diagnoses Vertigo R42 Refractory nausea and vomiting R11.2 Type 2 diabetes mellitus E11.9 GERD (gastroesophageal reflux disease) K21.9 Anxiety F41.9 Hypothyroidism E03.9 Essential hypertension I10 Mixed hyperlipidemia E78.2
--- NOTE | 2020-11-21 09:00 | Coding Query ---
A supporting diagnosis is required for the test/procedure performed on this patient in order for us to be reimbursed by the patient's insurance. Please provide a supporting diagnosis for the following test/procedure listed below next to the test name along with your signature. *If there is no additional diagnosis for this patient that would support the following test/procedure please document that below next to the test/procedure. Test(s)/Procedure(s) that require a supporting diagnosis: CANALITH REPOSITIONING PROC DIAGNOSIS:____BPPV Provider Signature: ____Alyx Venegas M.D. Date: ___11/21/20____ Thank you Bhavana [facility] Health Information Management Once completed, please kindly fax back to [phone] For questions please call [phone] [facility]ER[facility]
== END 2020-11-08 13:29 | disposition home or self-care (01) ==
LOC: ED 17:04 → 2W 17:04 → SUATTDRO 22:02 → 2W 11-07 00:13

== ENCOUNTER 2022-07-14 21:53 | Observation (INO) ==
[2022-07-14 22:44] LABS: Basophils # (auto) 0.06 K/uL (0-0.2); Basophils % (auto) 0.9 %; Eosinophils # (auto) 0.16 K/uL (0-0.50); Eosinophils % (auto) 2.5 %; Hematocrit (blood only) 33.3 % (34.1-44.9); Immature Granulocytes # (auto) 0.04 K/uL (0.00-0.02); Immature Granulocytes % (auto) 0.6 %; Lymphocytes # (auto) 1.89 K/uL (1.2-3.4); Lymphocytes % (auto) 29.9 %; Mean Corpuscular Hemoglobin 22.5 pg (25.0-34.0); Mean Platelet Volume 10.4 fL (9.4-12.3); Monocytes # (auto) 0.44 K/uL (0.24-0.82); Neutrophils # (auto) 3.73 K/uL (1.4-6.5); Neutrophils % (auto) 59.1 %; Platelet Count 168 K/uL (130-400); RDW Coefficient of Variation 17.3 % (11.5-14.5); RDW Standard Deviation 46.8 fL (36.4-46.3); Red Blood Count 4.44 M/uL (3.93-5.22); White Blood Count 6.32 K/ul (4.8-10.8)
[2022-07-14 22:56] LABS: Partial Thromboplastin Ratio 0.8; Partial Thromboplastin Time 22.5 Seconds (21.0-31.0); Prothrombin Time 10.6 Seconds (9.0-12.0)
[2022-07-14 23:09] LABS: Albumin Globulin Ratio 1.4 (0.9-2); Albumin Level 4.1 gm/dl (3.4-5.0); BUN Creatinine Ratio 26.7 (10-20); Bilirubin,Total 0.4 mg/dl (0.2-1.0); Calcium 9.3 mg/dl (8.5-10.1); Creatinine Clr Calc Pharmacy 62.1 ml/min; Potassium 3.6 mmol/L (3.5-5.1); Total Protein 7.1 gm/dl (6.0-8.3)
--- NOTE | 2022-07-14 23:43 | Emergency Department Note ---
History of Present Illness General Chief complaint: Chest Pain Stated complaint: CHEST PAIN/SHORT OF BREATH Time Seen by Provider: 07/14/22 22:45 History of Present Illness 72-year-old female presents to the ED with a chief complaint of chest discomfort. The patient states that she has a history of CAD. She states for the past month she has occasionally had some shortness of breath which is not unusual for her but she is also had some pressure in her left chest and going down the arm. She talked to Dr. Grant and there was some adjustments made in her medications but she was told that if her symptoms were to come back, she were to take nitroglycerin and if it did not improve to call 911. She states th at this occurred tonight around 8 PM. She had some chest discomfort which did not resolved after 2 nitroglycerin. She subsequently called 911. The patient states that she is her symptoms were an aching in the chest and she was also diaphoretic. The patient had some associated shortness of breath. She states that EMS gave her some baby aspirin and oxygen and her symptoms are now gone. She is not having any chest pains or shortness of breath at this time. Home Medications Medication Instructions Recorded Confirmed Type aspirin 81 mg tablet,delayed 81 mg PO QAM 08/06/18 07/03/22 History release (Alexandre Low Dose Aspirin) venlafaxine 150 mg 150 mg PO DAILY 08/06/18 07/03/22 History capsule,extended release 24 hr fexofenadine 180 mg tablet 180 mg PO DAILY 03/23/19 07/03/22 History nitroglycerin 0.4 mg sublingual 0.4 mg sublingual Q5M PRN Pain #25 03/23/19 07/03/22 History tablet tabs cyclosporine 0.05 % eye drops 1 drops ophthalmic (eye) Q12H 03/29/19 07/03/22 History (Restasis MultiDose) B-complex with vitamin C (Super B 1 tab PO DAILY #90 tabs 05/28/19 07/03/22 Rx Complex-Vitamin C tablet) melatonin 10 mg tablet 20 mg PO HS 07/13/19 07/03/22 History gdlzvwlq-xya-pprcr acid 0.4 1 tab PO DAILY 07/13/19 07/03/22 History mg-lycopene 300 mcg-lutein 250 mcg tablet (Centrum Silver) cholecalciferol (vitamin D3) 50 2,000 unit PO BID 04/20/20 07/03/22 History mcg (2,000 unit) capsule (Vitamin D3) omega 6-jel-cly-fish oil 1,000 mg 1 cap PO BID 04/20/20 07/03/22 History (120 mg-180 mg) capsule (Fish Oil) flaxseed oil 1,000 mg capsule 1,000 mg PO BID 08/16/20 07/03/22 History mecobalamin (vitamin B12) 1,000 500 mcg sublingual DAILY 03/08/21 07/03/22 History mcg disintegrating tablet,sublingual venlafaxine 37.5 mg 75 mg PO DAILY 03/08/21 07/03/22 History capsule,extended release 24 hr blood-glucose meter,continuous 03/29/21 07/03/22 History (Dexcom G6 Hypertrichologist misc) blood-glucose sensor (Dexcom G6 03/29/21 07/03/22 History Sensor device) blood-glucose transmitter (Dexcom 03/29/21 07/03/22 History G6 Transmitter device) pen needle, diabetic 31 gauge x 03/29/21 07/03/22 History 10/31" (BD Ultra-Fine Mini Pen Needle) blood sugar diagnostic (OneTouch #100 ea 05/08/21 07/03/22 Rx Ultra Test strips) lorazepam 0.5 mg tablet (Ativan) 0.5 mg PO DAILY PRN 08/01/21 07/03/22 History empagliflozin 10 mg tablet 10 mg PO QAM #90 tabs 08/14/21 07/03/22 Rx (Jardiance) Lantus Solostar U-100 Insulin 100 55 unit (0.55 mL) subcut DAILY #60 11/14/21 07/03/22 Rx unit/mL (3 mL) subcutaneous pen mL (insulin glargine) atorvastatin 20 mg tablet 20 mg PO DAILY #90 tabs 03/01/22 07/03/22 Rx isosorbide mononitrate 60 mg 90 mg PO DAILY #135 tabs 03/01/22 07/03/22 Rx tablet,extended release 24 hr clobetasol 0.05 % topical ointment 1 applic topical BID 2 weeks #30 04/02/22 07/03/22 Rx grams pantoprazole 40 mg tablet,delayed 40 mg PO DAILY #90 tabs 04/03/22 07/03/22 Rx release metoprolol tartrate 50 mg tablet 50 mg PO BID #180 tabs 04/10/22 07/03/22 Rx levothyroxine 175 mcg tablet 175 mcg PO QAM #90 tabs 05/09/22 07/03/22 Rx (Synthroid) ranolazine 500 mg tablet,extended 500 mg PO BID 90 days #180 tabs 05/09/22 07/03/22 Rx release,12 hr (Ranexa) ticagrelor 90 mg tablet (Brilinta) 90 mg PO BID #180 tabs 05/09/22 07/03/22 Rx blood sugar diagnostic #100 ea 05/10/22 07/03/22 Rx insulin NPH isoph U-100 human 100 24 unit (0.24 mL) subcut HS 90 06/03/22 07/03/22 Rx unit/mL (3 mL) subcutaneous pen days #30 mL (Humulin N NPH U-100 Insulin KwikPen) insulin lispro 200 unit/mL (3 mL) See Rx Instructions subcut 06/03/22 07/03/22 Rx subcutaneous pen (Humalog KwikPen .COMPLEX #72 mL U-200 Insulin) amlodipine 5 mg tablet 5 mg PO DAILY #30 tabs 06/20/22 07/03/22 Rx metformin 1,000 mg tablet 1,000 mg PO BID #180 tabs 06/27/22 07/03/22 Rx Allergies Allergy/AdvReac Type Severity Reaction Status Date / Time nickel Allergy Intermediate pruritis Verified 07/03/22 10:11 cat dander Allergy Mild itchy eyes Verified 07/03/22 10:11 Sulfa (Sulfonamide Allergy Mild HIVES Verified 07/03/22 10:11 Antibiotics) glipizide Allergy Unknown ITCHY,WHEEZ Verified 07/03/22 10:11 ING mold Allergy Unknown ITCHY EYES Verified 07/03/22 10:11 RUNNY NOSE pioglitazone Allergy Unknown ITCHY Verified 07/03/22 10:11 WHEEZING house dust Allergy Itchy Verified 07/03/22 10:11 eyes, runny nose sulfamethoxazole Allergy Itching, Verified 07/03/22 10:11 [From Bactrim] shortness of breath trimethoprim [From Bactrim] Allergy Itching, Verified 07/03/22 10:11 shortness of breath adhesive AdvReac Unknown SKIN Verified 07/03/22 10:11 IRRITATION Past Med/Surg History Medical History Anxiety CAD (coronary artery disease) S/P CABG X 4 (1998), CARDIAC STENTS X 4 TOTAL (MOST RECENT 04/2017) Carpal tunnel syndrome on both sides Depression Diabetes mellitus, type 2 IDDM Fatty liver disease, nonalcoholic History of difficult intubation left shoulder arthroscopy, RCR, distal clavicle exicision= 08/26/14= "gentle laryngoscopy with no view of cords/arytenoids, straight to glidescopy 3, ETT passed through open cords with cricoid pressure and increased angle of ETT [7.0]" Hyperlipidemia Hypertension Hypothyroidism Lichen sclerosus et atrophicus Morbid obesity Myocardial Infarction 2010 Osteoarthritis Peptic ulcer disease H/O BLEEDING ULCER (2006) Primary osteoarthritis of right knee Stable angina Stroke 2011= RESIDUAL LEFT FOOT NEUROPATHY Vulvar varicose veins Surgical History H/O elbow surgery LEFT History of adenoidectomy History of cardiac cath S/P CABG X 4 (1997), CARDIAC STENTS X 4 TOTAL (MOST RECENT x 3 04/2017) MOST RECENT CARDIAC CATH 11/2017= NO STENTS History of cataract surgery BILATERAL History of colonoscopy History of coronary artery bypass graft CABG X4 (1997) History of endoscopic sinus surgery History of esophagogastroduodenoscopy (EGD) History of hysterectomy KD W/BSO History of repair of rotator cuff (~2014) LEFT History of tooth extraction History of total knee arthroplasty (~2018) RIGHT History of total knee replacement LEFT History of tubal ligation Family History Father Myocardial infarction Coronary heart disease Brother Arthritis Hx of CABG Sister Arthritis Mother Dementia Heart disease Other Family history non-contributory Denies family history of Liver cancer Ovarian cancer Prostate cancer Crohn's disease Breast cancer Colorectal cancer Inflammatory bowel disease Social History Smoking Status: Never smoker Second Hand Exposure: No; Hx Alcohol Use: Yes Alcohol type: hard liquor Alcohol Intake Frequency: 2-3 x/Week Hx Substance Use: No Preferred Language: Wolof Communication Ability: Effective Visual Impairment: No Limitations Hearing Ability: Hard of Hearing Heating Technician Required: No Beliefs That Will Affect Care: None marital status: Current Living Situation: Spouse current occupational status: retired Feels Safe at Home: Yes Childhood Exposure to Second-Hand Smoke: Yes Dental Care, Regularly: Yes Physical Activity Frequency: 1-2 Times per Week Seatbelt Use: always Sunscreen Use: Yes Assistive Devices: Glasses and Walker Review of Systems A total of 10 systems reviewed and were otherwise negative Physical Exam Vital Signs Vital Signs - 24 hr 07/14/22 21:59 07/14/22 22:03 Temperature 36.6 C Temperature Source Oral Pulse Rate 94 H Pulse Rate [Apical] 94 H Respiratory Rate 22 15 Respiratory Effort / Characteristics Non-Labored Spontaneous Non-Labored Spontaneous Respiratory Depth Normal Normal Respiratory Pattern Regular Regular Blood Pressure [Right Arm] 139/77 Blood Pressure Mean [Right Arm] 97 Pulse Oximetry 96 96 Oxygen Delivery Method Room Air Room Air Sepsis Recent Fever Within 48 Hours No Sepsis New/Unexplained Change in Mental Status No Sepsis Action Taken by Nursing No Action Required CONSTITUTIONAL/VITAL SIGNS: Reviewed / noted above. GENERAL: Non-toxic in appearance. INTEGUMENTARY: Warm, dry, and [place]. HEAD: Normocephalic. EYES: without scleral icterus or trauma. ENT/OROPHARYNX: clear and moist. RESPIRATORY: Clear to auscultation bilaterally. No increased work of breathing. CARDIOVASCULAR: Regular rate and rhythm. GI/ABDOMEN: Soft and nontender. No organomegaly or pulsatile mass. EXTREMITIES: Warm and well perfused. NEUROLOGICAL: Intact without focal deficits. PSYCHIATRIC: normal affect. MUSCULOSKELETAL: Normally developed with good muscle tone. TRIAGE NURSING DOCUMENTATION REVIEWED. Medical Decision Making Differential Diagnosis The differential that was considered includes acute myocardial infarction, acute coronary syndrome, myocarditis, pericarditis, pericardial effusions /tamponade, esophageal perforation, thoracic aortic dissection, pulmonary embolism, pneumonia, pneumothorax, pancreatitis, shingles, acute cholecystitis, perforated abdominal viscus. Medical Records Attestation: I reviewed the patient's medical records. Home Medications Current Medication List: was personally reviewed by me Laboratory Data Attestation: I reviewed the patient's lab results. Result diagrams: 07/14/22 22:09 07/14/22 22:09 Lab Results 11/27/22 11/27/22 11/27/22 Range/Units 22:09 22:09 22:09 WBC 6.32 (4.8-10.8) K/ul RBC 4.44 (3.93-5.22) M/uL Hgb 10.0 L (12.0-16.0) g/dl Hct 33.3 L (34.1-44.9) % MCV 75.0 L (80.0-100.0) fL MCH 22.5 L (25.0-34.0) pg MCHC 30.0 L (32.0-36.0) g/dL RDW Std Deviation 46.8 H (36.4-46.3) fL RDW Coeff of Dani 17.3 H (11.5-14.5) % Plt Count 168 (130-400) K/uL MPV 10.4 (9.4-12.3) fL Immature Gran % (Auto) 0.6 % Neut % (Auto) 59.1 % Lymph % (Auto) 29.9 % [place] % (Auto) 7.0 % Eos % (Auto) 2.5 % Baso % (Auto) 0.9 % Neut # (Auto) 3.73 (1.4-6.5) K/uL Lymph # (Auto) 1.89 (1.2-3.4) K/uL [place] # (Auto) 0.44 (0.24-0.82) K/uL Eos # (Auto) 0.16 (0-0.50) K/uL Baso # (Auto) 0.06 (0-0.2) K/uL Immature Gran # (Auto) 0.04 H (0.00-0.02) K/uL PT 10.6 (9.0-12.0) Seconds INR 1.0 (0.9-1.1) APTT 22.5 (21.0-31.0) Seconds PTT Ratio 0.8 Sodium 138 (136-145) mmol/L Potassium 3.6 (3.5-5.1) mmol/L Chloride 105 (98-107) mmol/L Carbon Dioxide 22 (21-32) mmol/L Anion Gap 11 (3-11) BUN 24 H (6-23) mg/dl Creatinine 0.90 (0.6-1.2) mg/dl Est Cr Clr Drug Dosing 62.1 ml/min Est GFR ( Amer) 73.0 ml/min Est GFR (Non-Af Amer) 63.0 ml/min BUN/Creatinine Ratio 26.7 H (10-20) Glucose 199 H (70-99(Fasting)) mg/dl Calcium 9.3 (8.5-10.1) mg/dl Total Bilirubin 0.4 (0.2-1.0) mg/dl AST 46 H (13-39) U/L ALT 42 (7-52) U/L Alkaline Phosphatase 98 (34-104) U/L Troponin I High Sens 79.0 H* (0-14) pg/ml Total Protein 7.1 (6.0-8.3) gm/dl Albumin 4.1 (3.4-5.0) gm/dl Globulin 3.0 (2.5-4.0) gm/dl Albumin/Globulin Ratio 1.4 (0.9-2) Imaging Data My Impression: Chest x-ray: Per my interpretation shows no acute disease. No pneumonia or pneumothorax. ECG Data Attestation: I personally reviewed and interpreted this ECG as follows: Additional Comments: Twelve-lead EKG: Per my interpretation shows a normal sinus rhythm at a rate of 94. Some ST depressions in the lateral leads. No acute ST elevations. No PVCs. Normal QTC. MDM Narrative 72-year-old female presents with a chief complaint of chest discomfort as detailed above. She is currently not having any chest pains while in the ED. Her troponin is mildly elevated at 79. EKG did not show any acute ischemic changes. CBC and chemistry panel was unremarkable and a chest x-ray was negative for acute disease. Because of her symptoms and elevated troponin and history, she will be seen by the hospitalist for further evaluation and care. Impression & Plan Chest pain, Elevated troponin Discharge Plan Visit Data Chief Complaint: Chest Pain Stated Complaint: CHEST PAIN/SHORT OF BREATH ED Provider: Colt Jones Discharge Problem: Chest pain, Elevated troponin Patient Disposition: Being Evaluated by Hospitalist Forms Stand Alone Forms: My [facility] Prescriptions Prescriptions: No Action B-complex with vitamin C [Super B Complex-Vitamin C] tablet 1 tab PO DAILY Qty: 90 1RF (DME) OneTouch Ultra Test Strip See Rx Instructions .Route Qty: 100 0RF Rx Instructions: Test blood sugars 4 times a day Jardiance 10 mg tablet 10 mg PO QAM Qty: 90 3RF Lantus Solostar U-100 Insulin 100 unit/mL (3 mL) insulin pen 55 unit SQ DAILY Qty: 60 3RF atorvastatin 20 mg tablet 20 mg PO DAILY Qty: 90 1RF isosorbide mononitrate 60 mg tablet extended release 24 hr 90 mg PO DAILY Qty: 135 3RF pantoprazole 40 mg tablet,delayed release (DR/EC) 40 mg PO DAILY Qty: 90 3RF metoprolol tartrate 50 mg tablet 50 mg PO BID Qty: 180 2RF levothyroxine [Synthroid] 175 mcg tablet 175 mcg PO QAM Qty: 90 1RF ranolazine [Ranexa] 500 mg tablet extended release 12 hr 500 mg PO BID 90 Days Qty: 180 3RF Brilinta 90 mg tablet 90 mg PO BID Qty: 180 3RF (DME) blood sugar diagnostic Strip See Rx Instructions .ROUTE .MEDSUPPLY Qty: 100 3RF Rx Instructions: testing 4 X daily; to use to calibrate GCM & when out of GCM supplies Humalog KwikPen Insulin 200 unit/mL (3 mL) insulin pen See Rx Instructions subcut .COMPLEX Qty: 72 5RF Rx Instructions: 140-160 subcut daily; Humulin N NPH Insulin KwikPen 100 unit/mL (3 mL) insulin pen 24 unit SUBCUT HS 90 Days Qty: 30 3RF Rx Instructions: Inject 24 units at bed time metformin 1,000 mg tablet 1,000 mg PO BID Qty: 180 1RF Centrum Silver 0.4-300-250 mg-mcg-mcg tablet 1 tab PO DAILY (DME) pen needle, diabetic [BD Ultra-Fine Mini Pen Needle] 31 gauge x 3/16" needle See Rx Instructions .Route Rx Instructions: Inject insulin four times daily (DME) Dexcom G6 Sensor Device See Rx Instructions .Route Rx Instructions: As directed (DME) Dexcom G6 Hypertrichologist Misc See Rx Instructions .Route Rx Instructions: As directed (DME) Dexcom G6 Transmitter Device See Rx Instructions .Route Rx Instructions: As directed flaxseed oil 1,000 mg capsule 1,000 mg PO BID Rx Instructions: administer with meals clobetasol 0.05 % ointment 1 applic topical BID 14 Days Qty: 30 2RF lorazepam [Ativan] 0.5 mg tablet 0.5 mg PO DAILY PRN mecobalamin (vitamin B12) 1,000 mcg tablet,disintegrating 500 mcg sublingual DAILY Rx Instructions: place tablet under tongue and allow to dissolve for at least30 secs before swallowing fexofenadine 180 mg tablet 180 mg PO DAILY nitroglycerin 0.4 mg tablet, sublingual 0.4 mg SL Q5M PRN (Reason: Pain) Qty: 25 Restasis MultiDose 0.05 % drops 1 drops OP Q12H amlodipine 5 mg tablet 5 mg PO DAILY Qty: 30 6RF venlafaxine 150 mg Capsule,Extended Release 24hr 150 mg PO DAILY Rx Instructions: FOR A TOTAL DOSE OF 187.5MG HS aspirin [Alexandre Low Dose Aspirin] 81 mg Tablet,Delayed Release (Dr/Ec) 81 mg PO QAM melatonin 10 mg tablet 20 mg PO HS cholecalciferol (vitamin D3) [Vitamin D3] 50 mcg (2,000 unit) capsule 2,000 unit PO BID omega 9-crj-nnt-fish oil [Fish Oil] 1,000 mg (120 mg-180 mg) capsule 1 cap PO BID venlafaxine 37.5 mg capsule,extended release 24hr 75 mg PO DAILY Rx Instructions: FOR A TOTAL DOSE OF 187.5MG Referrals Referrals: Ciaran Berg III, CRNP [Primary Care Provider] -
--- NOTE | 2022-07-15 00:48 | History & Physical Report ---
Date of Service July 15, 2022 Assessment & Plan (1) Elevated troponin: Plan: Chest pain/elevated troponin/NSTEMI/CAD/hypertension/status post CABG x4/post complex PCI to distal LM proximal-mid LAD with 3 drug-eluting stents 2017/post PCI mid to distal LAD 2-2019/Class CCS Class angina on 3 antianginals- The patient will be admitted to telemetry for serial cardiac enzymes, serial EKG's, cardiac rhythm monitoring and a 2-D echocardiogram with Dopplers. Troponin 79.0 upon admission, with repeat ordered Chest x-ray without acute findings She did recently have the addition of amlodipine 5 mg p.o. daily to her regimen by Dr. Grant on 06/20/2022. Continue all medications: Amlodipine, aspirin, isosorbide mononitrate, metoprolol tartrate, nitroglycerin sublingual as needed, ranolazine, ticagrelor. Consult her sewing inspector Dr. Miguel Grant If patient develops recurrent symptoms overnight, will start her on heparin drip (2) GERD (gastroesophageal reflux disease): Plan: Continue pantoprazole 40 mg daily (3) Fatty liver disease, nonalcoholic: Plan: AST 46 Follow serially (4) History of cardiac cath: (5) Moderate obstructive sleep apnea: Plan: CPAP adjust as needed (6) Anxiety with depression: Plan: Continue lorazepam, melatonin, venlafaxine (7) Controlled type 2 diabetes mellitus, with long-term current use of insulin: Plan: Hold metformin Continue usual dosing of Lantus and Humulin N, and empagliflozin Placed on Accu-Cheks with NovoLog SSI coverage (8) Hypothyroidism: Plan: Continue levothyroxine 175 mcg every morning (9) Mixed hyperlipidemia: Plan: Continue atorvastatin 20 mg daily, flaxseed oil (10) Essential hypertension: (11) Coronary artery disease: (12) Chest pain: (13) NSTEMI (non-ST elevated myocardial infarction): History of Present Illness Chief Complaint: The patient presents to the emergency department at the direction of a standing order from Dr. Miguel Grant, after having developed chest pain unresponsive to 2 sublingual nitroglycerins Primary Care Provider: Ciaran Berg III, UVALDO The patient is a 72-year-old female with a past medical history including GERD, carotid stenosis, BPPV, UTI, NAFLD, sensory polyneuropathy, moderate RUDOLPH on CPAP, diabetes mellitus type 2 with long-term use of insulin, GERD, anxiety with depression, hypothyroidism, mixed hyperlipidemia, CAD, osteoarthritis, status post CABG x4, status post complex PCI to distal LM/proximal-mid LAD with 3 drug-eluting stents 2016, post PCI mid to distal LAD 09/2019, and CCS class III angina on 3 antianginals. She has been told by Dr. Grant that if she develops recurrent chest pain that she is to take her sublingual nitroglycerin and if not relieved, she used to come to the emergency department, which she has done this evening. She received aspirin and oxygen in route by EMS, and at the time I am seeing her in the ED her symptoms have been resolved without further intervention. She does also report intermittently worsening lower extremity edema over the past week, primarily previously involved just the left lower extremity where vein harvesting was performed, and now intermittently involves the right lower extremity as well Allergies Allergy/AdvReac Type Severity Reaction Status Date / Time nickel Allergy Intermediate pruritis Verified 07/03/22 10:11 cat dander Allergy Mild itchy eyes Verified 07/03/22 10:11 Sulfa (Sulfonamide Allergy Mild HIVES Verified 07/03/22 10:11 Antibiotics) glipizide Allergy Unknown ITCHY,WHEEZ Verified 07/03/22 10:11 ING mold Allergy Unknown ITCHY EYES Verified 07/03/22 10:11 RUNNY NOSE pioglitazone Allergy Unknown ITCHY Verified 07/03/22 10:11 WHEEZING house dust Allergy Itchy Verified 07/03/22 10:11 eyes, runny nose sulfamethoxazole Allergy Itching, Verified 07/03/22 10:11 [From Bactrim] shortness of breath trimethoprim [From Bactrim] Allergy Itching, Verified 07/03/22 10:11 shortness of breath adhesive AdvReac Unknown SKIN Verified 07/03/22 10:11 IRRITATION Home Medications Medication Instructions Recorded Confirmed Type aspirin 81 mg tablet,delayed 81 mg PO QAM 08/06/18 07/14/22 History release (Alexandre Low Dose Aspirin) venlafaxine 150 mg 150 mg PO DAILY 08/06/18 07/14/22 History capsule,extended release 24 hr fexofenadine 180 mg tablet 180 mg PO DAILY 03/23/19 07/14/22 History nitroglycerin 0.4 mg sublingual 0.4 mg sublingual Q5M PRN Pain #25 03/23/19 07/14/22 History tablet tabs cyclosporine 0.05 % eye drops 1 drops ophthalmic (eye) Q12H 03/29/19 07/14/22 History (Restasis MultiDose) B-complex with vitamin C (Super B 1 tab PO DAILY #90 tabs 05/28/19 07/14/22 Rx Complex-Vitamin C tablet) melatonin 10 mg tablet 20 mg PO HS 07/13/19 07/14/22 History pzgcltqo-nbq-lyonc acid 0.4 1 tab PO DAILY 07/13/19 07/14/22 History mg-lycopene 300 mcg-lutein 250 mcg tablet (Centrum Silver) cholecalciferol (vitamin D3) 50 2,000 unit PO BID 04/20/20 07/14/22 History mcg (2,000 unit) capsule (Vitamin D3) omega 2-diu-gzm-fish oil 1,000 mg 1 cap PO BID 04/20/20 07/14/22 History (120 mg-180 mg) capsule (Fish Oil) flaxseed oil 1,000 mg capsule 1,000 mg PO BID 08/16/20 07/14/22 History mecobalamin (vitamin B12) 1,000 500 mcg sublingual DAILY 03/08/21 07/14/22 Hi story mcg disintegrating tablet,sublingual venlafaxine 37.5 mg 75 mg PO DAILY 03/08/21 07/14/22 History capsule,extended release 24 hr blood-glucose meter,continuous 03/29/21 07/14/22 History (Dexcom G6 [employer] misc) blood-glucose sensor (Dexcom G6 03/29/21 07/14/22 History Sensor device) blood-glucose transmitter (Dexcom 03/29/21 07/14/22 History G6 Transmitter device) pen needle, diabetic 31 gauge x 03/29/21 07/14/22 History 3/16" (BD Ultra-Fine Mini Pen Needle) blood sugar diagnostic (OneTouch #100 ea 05/08/21 07/14/22 Rx Ultra Test strips) lorazepam 0.5 mg tablet (Ativan) 0.5 mg PO DAILY PRN Anxiety 08/01/21 07/14/22 History empagliflozin 10 mg tablet 10 mg PO QAM #90 tabs 08/14/21 07/14/22 Rx (Jardiance) Lantus Solostar U-100 Insulin 100 55 unit (0.55 mL) subcut DAILY #60 11/14/21 07/14/22 Rx unit/mL (3 mL) subcutaneous pen mL (insulin glargine) atorvastatin 20 mg tablet 20 mg PO DAILY #90 tabs 03/01/22 07/14/22 Rx isosorbide mononitrate 60 mg 90 mg PO DAILY #135 tabs 03/01/22 07/14/22 Rx tablet,extended release 24 hr clobetasol 0.05 % topical ointment 1 applic topical BID 2 weeks #30 04/02/22 07/14/22 Rx grams pantoprazole 40 mg tablet,delayed 40 mg PO DAILY #90 tabs 04/03/22 07/14/22 Rx release metoprolol tartrate 50 mg tablet 50 mg PO BID #180 tabs 04/10/22 07/14/22 Rx levothyroxine 175 mcg tablet 175 mcg PO QAM #90 tabs 05/09/22 07/14/22 Rx (Synthroid) ranolazine 500 mg tablet,extended 500 mg PO BID 90 days #180 tabs 05/09/22 07/14/22 Rx release,12 hr (Ranexa) ticagrelor 90 mg tablet (Brilinta) 90 mg PO BID #180 tabs 05/09/22 07/14/22 Rx blood sugar diagnostic #100 ea 05/10/22 07/14/22 Rx insulin NPH isoph U-100 human 100 24 unit (0.24 mL) subcut HS 90 06/03/22 07/14/22 Rx unit/mL (3 mL) subcutaneous pen days #30 mL (Humulin N NPH U-100 Insulin KwikPen) insulin lispro 200 unit/mL (3 mL) See Rx Instructions subcut 06/03/22 07/14/22 Rx subcutaneous pen (Humalog KwikPen .COMPLEX #72 mL U-200 Insulin) amlodipine 5 mg tablet 5 mg PO DAILY #30 tabs 06/20/22 07/14/22 Rx metformin 1,000 mg tablet 1,000 mg PO BID #180 tabs 06/27/22 07/14/22 Rx Past Med/Surg History Medical History (Updated 07/15/22 @ 03:44 by Victor Hugo Jansen MD) Anxiety Anxiety with depression CAD (coronary artery disease) S/P CABG X 4 (1998), CARDIAC STENTS X 4 TOTAL (MOST RECENT 04/2017) Carpal tunnel syndrome on both sides Depression Diabetes mellitus, type 2 IDDM Fatty liver disease, nonalcoholic History of difficult intubation left shoulder arthroscopy, RCR, distal clavicle exicision= 08/26/14= "gentle laryngoscopy with no view of cords/arytenoids, straight to glidescopy 3, ETT passed through open cords with cricoid pressure and increased angle of ETT [7.0]" Hyperlipidemia Hypertension Hypothyroidism Lichen sclerosus et atrophicus Morbid obesity Myocardial Infarction 2010 Osteoarthritis Peptic ulcer disease H/O BLEEDING ULCER (2006) Primary osteoarthritis of right knee Stable angina Stroke 2011= RESIDUAL LEFT FOOT NEUROPATHY Vulvar varicose veins Surgical History H/O elbow surgery LEFT History of adenoidectomy History of cardiac cath S/P CABG X 4 (1997), CARDIAC STENTS X 4 TOTAL (MOST RECENT x 3 04/2017) MOST RECENT CARDIAC CATH 11/2017= NO STENTS History of cataract surgery BILATERAL History of colonoscopy History of coronary artery bypass graft CABG X4 (1997) History of endoscopic sinus surgery History of esophagogastroduodenoscopy (EGD) History of hysterectomy KD W/BSO History of repair of rotator cuff (~2014) LEFT History of tooth extraction History of total knee arthroplasty (~2018) RIGHT History of total knee replacement LEFT History of tubal ligation Family History Father Myocardial infarction Coronary heart disease Brother Arthritis Hx of CABG Sister Arthritis Mother Dementia Heart disease Other Family history non-contributory Denies family history of Liver cancer Ovarian cancer Prostate cancer Crohn's disease Breast cancer Colorectal cancer Inflammatory bowel disease Social History Smoking Status: Never smoker Second Hand Exposure: No; Hx Alcohol Use: Yes Alcohol type: hard liquor Alcohol Intake Frequency: 2-3 x/Week Hx Substance Use: No Preferred Language: Upper Sorbian Communication Ability: Effective Visual Impairment: No Limitations Hearing Ability: Hard of Hearing Mop Handle Assembler Required: No Beliefs That Will Affect Care: None marital status: Current Living Situation: Spouse current occupational status: retired Feels Safe at Home: Yes Childhood Exposure to Second-Hand Smoke: Yes Dental Care, Regularly: Yes Physical Activity Frequency: 1-2 Times per Week Seatbelt Use: always Sunscreen Use: Yes Assistive Devices: Glasses and Walker Review of Systems Review of Systems: The patient denies palpitations, cough, sore throat, fevers, chills, sweats, nausea, vomiting, diarrhea , constipation, abdominal pain, pelvic pain, blood in urine or stool, dysuria, urinary frequency or urgency, lightheadedness, dizziness, headache, memory loss, loss of consciousness, rash, abnormal bruis ing or bleeding, imbalance, focal or generalized weakness, numbness or tingling in arms or legs, generalized arthralgias or myalgias, back or neck pain, or night sweats. The review of systems is otherwise negative other than for that already noted above, and at least 10 systems have been reviewed. Physical Exam Physical Exam: The patient is awake, alert and oriented 3, well developed and well nourished, normocephalic and atraumatic, lying in bed and in no acute distress. HEENT--PERRL, EOMI, mucous membranes and oropharynx normal. Neck--supple. No JVD. No bruits. Thyroid normal, trachea midline, no adenopathy. Heart--normal S1 and S2. No murmurs, rubs or gallops. Lungs--clear bilaterally, no respiratory distress, no accessory muscle use. Abdomen--normal bowel sounds and soft. Nontender. Nondistended. Obese. Extremities--no cyanosis or clubbing. Trace bilateral pretibial pitting edema. Left lower vein harvesting scar. there are good distal pulses b/l. Dermatologic--normal skin turgor, normal color, no abnormal lymph nodes, no rash. Neurologic--cranial nerves II through XII grossly intact. Rheumatologic--normal range of motion. Psychiatric--normal affect. Results & Data Results & Data ([facility]) Vital Signs (Past 12 Hours) Vital Signs Temp Pulse Pulse Resp BP Pulse Ox O2 Del Method 07/14/22 22:03 36.6 C 94 H 15 139/77 96 Room Air 07/14/22 21:59 94 H 22 96 Room Air Laboratory Results Laboratory Results WBC 6.32 K/ul (4.8-10.8) 07/14/22 22:09 RBC 4.44 M/uL (3.93-5.22) 07/14/22 22:09 Hgb 10.0 g/dl (12.0-16.0) L 07/14/22 22:09 Hct 33.3 % (34.1-44.9) L 07/14/22 22:09 MCV 75.0 fL (80.0-100.0) L 07/14/22 22:09 MCH 22.5 pg (25.0-34.0) L 07/14/22 22:09 MCHC 30.0 g/dL (32.0-36.0) L 07/14/22 22:09 RDW Std Deviation 46.8 fL (36.4-46.3) H 07/14/22: RDW Coeff of Dani 17.3 % (11.5-14.5) H 07/14/22 22:09 Plt Count 168 K/uL (130-400) 07/14/22 22:09 MPV 10.4 fL (9.4-12.3) 07/14/22 22:09 Immature Gran % (Auto) 0.6 % 07/14/22 22:09 Neut % (Auto) 59.1 % 07/14/22 22:09 Lymph % (Auto) 29.9 % 07/14/22 22:09 [place] % (Auto) 7.0 % 07/14/22 22:09 Eos % (Auto) 2.5 % 07/14/22 22:09 Baso % (Auto) 0.9 % 07/14/22 22:09 Neut # (Auto) 3.73 K/uL (1.4-6.5) 07/14/22 22: Lymph # (Auto) 1.89 K/uL (1.2-3.4) 07/14/22 22:09 [place] # (Auto) 0.44 K/uL (0.24-0.82) 07/14/22 22:09 Eos # (Auto) 0.16 K/uL (0-0.50) 07/14/22 22:09 Baso # (Auto) 0.06 K/uL (0-0.2) 07/14/22 22:09 Immature Gran # (Auto) 0.04 K/uL (0.00-0.02) H 07/14/22 22:09 PT 10.6 Seconds (9.0-12.0) 07/14/22 22:09 INR 1.0 (0.9-1.1) 07/14/22 22:09 APTT 22.5 Seconds (21.0-31.0) 07/14/22 22:09 PTT Ratio 0.8 07/14/22 22:09 Sodium 138 mmol/L (136-145) 07/14/22 22:09 Potassium 3.6 mmol/L (3.5-5.1) 07/14/22 22:09 Chloride 105 mmol/L (98-107) 07/14/22 22:09 Carbon Dioxide 22 mmol/L (21-32) 07/14/22 22:09 Anion Gap 11 (3-11) 07/14/22 22:09 BUN 24 mg/dl (6-23) H 07/14/22 22:09 Creatinine 0.90 mg/dl (0.6-1.2) 07/14/22 22:09 Est Cr Clr Drug Dosing 62.1 ml/min 07/14/22 22:09 Est GFR ( Amer) 73.0 ml/min 07/14/22 22:09 Est GFR (Non-Af Amer) 63.0 ml/min 07/14/22 22:09 BUN/Creatinine Ratio 26.7 (10-20) H 07/14/22 22:09 Glucose 199 mg/dl (70-99(Fasting)) H 07/14/22 22:09 Calcium 9.3 mg/dl (8.5-10.1) 07/14/22 22:09 Total Bilirubin 0.4 mg/dl (0.2-1.0) 07/14/22 22:09 AST 46 U/L (13-39) H 07/14/22 22:09 ALT 42 U/L (7-52) 07/14/22 22:09 Alkaline Phosphatase 98 U/L (34-104) 07/14/22 22:09 Troponin I High Sens 79.0 pg/ml (0-14) H* 07/14/22 22:09 Total Protein 7.1 gm/dl (6.0-8.3) 07/14/22 22:09 Albumin 4.1 gm/dl (3.4-5.0) 07/14/22 22:09 Globulin 3.0 gm/dl (2.5-4.0) 07/14/22 22:09 Albumin/Globulin Ratio 1.4 (0.9-2) 07/14/22 22:09 SARS-CoV-2, RNA, NAAT NEGATIVE (NEGATIVE) 07/14/22 22:12 Code Status & VTE Plan Code Status Full code VTE Prophylaxis Plan VTE Prophylaxis will be ordered: Yes
--- NOTE | 2022-07-15 03:58 | Billing Data ---
Date of Service July 15, 2022 Coding Level of Care Code 48240 Initial Inpt Care Lvl 3
[2022-07-15] MEDS ORDERED: GLUCOSE 10 TAB/TUBE PO PRN (05:21)
[2022-07-15] MEDS ORDERED: LORazepam 0.5 MG TAB PO PRN (05:21)
[2022-07-15] MEDS ORDERED: MoRPHine SULFATE 2 MG/ML CARP IV PRN (05:21)
[2022-07-15] MEDS ORDERED: CARBOHYDRATES FOR HYPOGLYCEMIA PO PRN (05:21)
[2022-07-15] MEDS ORDERED: GLUCAGON FOR INJ 1 MG VIAL SQ PRN (05:21)
[2022-07-15] MEDS ORDERED: GLUCOSE 40% GEL 15 GM TUBE PO PRN (05:21)
[2022-07-15] MEDS ORDERED: DEXTROSE 50% 50 ML SYRINGE IV PRN (05:21)
[2022-07-15] MEDS ORDERED: NITROGLYCERIN SL 0.4 MG/TAB TAB SL PRN (05:21)
[2022-07-15] MEDS ORDERED: ONDANSETRON INJ 2 MG/ML 2 ML VIAL IV PRN (05:21)
[2022-07-15] MEDS ORDERED: ACETAMINOPHEN 325 MG TAB PO PRN (05:21)
[2022-07-15] MEDS ORDERED: MELATONIN 3 MG TAB PO PRN (05:49)
[2022-07-15] MEDS ORDERED: LEVOTHYROXINE SODIUM 175 MCG TABLET PO SCH (06:30)
[2022-07-15] MEDS ORDERED: INSULIN ASPART PER UNIT SC SCH (07:30)
[2022-07-15] MEDS ORDERED: OMEGA-3 (PURIFIED FISH OIL) 1 GM CAP PO SCH (09:00)
[2022-07-15] MEDS ORDERED: TICAGRELOR 90 MG TAB PO SCH (09:00)
[2022-07-15] MEDS ORDERED: CYANOCOBALAMIN (B-12) 500 MCG TABLET PO SCH (09:00)
[2022-07-15] MEDS ORDERED: VENLAFAXINE HCL XR 150 MG CAPXR PO SCH (09:00)
[2022-07-15] MEDS ORDERED: VITAMIN B COMPLEX TAB PO SCH (09:00)
[2022-07-15] MEDS ORDERED: CEROVITE ADV FORMULA TAB PO SCH (09:00)
[2022-07-15] MEDS ORDERED: VENLAFAXINE HCL XR 75 MG CAPXR PO SCH (09:00)
[2022-07-15] MEDS ORDERED: ATORVASTATIN 20 MG TAB PO SCH (09:00)
[2022-07-15] MEDS ORDERED: LANTUS PER UNIT CHARGE SQ SCH (09:00)
[2022-07-15] MEDS ORDERED: CHOLECALCIFEROL 1,000 UNITS 25 MCG TAB PO SCH (09:00)
[2022-07-15] MEDS ORDERED: CLOBETASOL PROPIONATE 0.05% OINT 15 GM TUBE EXT SCH (09:00)
[2022-07-15] MEDS ORDERED: ISOSORBIDE MONO EXTENDED REL 30 MG TABCR PO SCH (09:00)
[2022-07-15] MEDS ORDERED: ASPIRIN 81 MG ECTAB PO SCH (09:00)
[2022-07-15] MEDS ORDERED: NON-FORMULARY MEDICATION (Flaxseed Oil 1,000 mg capsule) PO SCH (09:00)
[2022-07-15] MEDS ORDERED: FEXOFENADINE HCL 180 MG TAB PO SCH (09:00)
[2022-07-15] MEDS ORDERED: amLODIPine BESYLATE 5 MG TAB PO SCH (09:00)
[2022-07-15] MEDS ORDERED: PANTOprazole 40 MG TAB PO SCH (09:00)
[2022-07-15] MEDS: METOPROLOL TARTRATE 50 MG TAB PO SCH ×2 (09:03→09:21)
[2022-07-15] MEDS: RANOLAZINE 500 MG ER TAB PO SCH ×2 (09:03→09:21)
--- NOTE | 2022-07-15 10:12 | XRay Report ---
SINGLE VIEW CHEST CLINICAL HISTORY: Atypical chest pain. FINDINGS: An AP, portable, upright chest radiograph is compared to study dated 01/22/2022. The patient is status post midline sternotomy. The heart is enlarged noting atherosclerotic calcification of the thoracic aorta. There is pulmonary vascular congestion. Chronic interstitial thickening is similar to previous. Scarring/atelectasis is noted at the lung bases. The lungs and pleural spaces are otherwis e clear. No pneumothorax is seen. The skeletal structures are osteopenic. The bony thorax is grossly intact. IMPRESSION: Cardiomegaly with pulmonary vascular congestion. ACT 112: Negative or not required by law. Electronically signed by: Juventino Inman M.D. 07/15/2022 10:11 AM
[2022-07-15] MEDS ORDERED: HEPARIN (PORCINE) 1000 UNIT/ML 10 ML (CATH LAB USE ONLY) ONE (10:42)
[2022-07-15] MEDS ORDERED: niCARdipine HCL INJ 2.5 MG/ML 10 ML AMP ONE (10:42)
[2022-07-15] MEDS ORDERED: NITROGLYCERIN/D5W 100MCG/ML 20ML SYR ONE (10:43)
[2022-07-15] MEDS ORDERED: MIDAZOLAM HCL 1 MG/ML 2ML VIAL ONE (10:44)
[2022-07-15] MEDS ORDERED: fentaNYL citrate 100 MCG/2 ML VIAL ONE (10:44)
--- NOTE | 2022-07-15 10:49 | Electrocardiogram Report ---
Test Reason : Blood Pressure : / mmHG Vent. Rate : 094 BPM Atrial Rate : 094 BPM P-R Int : 168 ms QRS Dur : 098 ms QT Int : 388 ms P-R-T Axes : 024 045 072 degrees QTc Int : 485 ms Normal sinus rhythm Nonspecific ST and T wave abnormality Abnormal ECG When compared with ECG of 06-NOV-2020 17:25, No significant change was found Confirmed by Miguel Byrd ([id number]) on 07/15/2022 10:49:44 AM Referred By: REFERRED SELF Confirmed By:Nba Byrd
--- NOTE | 2022-07-15 11:41 | XCELERA ---
[id number] \\[id number]}___[id number]
--- NOTE | 2022-07-15 12:06 | Pre Anesthesia Assessment ---
Date of Service July 15, 2022 Pre Sedation Assessment Vital Signs Temp Pulse Pulse Resp BP BP Pulse Ox 07/15/22 12:00 69 20 107/47 L 91 07/15/22 11:45 71 20 99/45 L 92 07/15/22 05:00 75 24 153/71 H 97 07/15/22 04:00 83 19 126/51 L 95 07/15/22 03:00 80 17 141/73 H 94 07/15/22 05:21 81 98 07/15/22 02:10 83 18 121/50 L 07/14/22 22:03 36.6 C 94 H 15 139/77 96 07/14/22 21:59 94 H 22 96 O2 Del Method 07/15/22 12:00 Room Air 07/15/22 11:45 Room Air 07/15/22 05:00 07/15/22 04:00 07/15/22 03:00 07/15/22 05:21 Room Air 07/15/22 02:10 07/14/22 22:03 Room Air 07/14/22 21:59 Room Air Pre-Sedation Airway Assessment Smoking Status: Never smoker Hx Sleep Apnea: Yes Hx Difficult Intubation: No Short, Thick Neck: No Thyromental Distance: > or= 3.5 Finger Breadths Oral Cavity: + WNL Mallampati Class: IV ASA: ASA4 NPO Status Date of Last Intake of Fluids: 07/15/22 Time of Last Intake of Fluids: 08:00 Last Oral Intake of Fluids Comment: sip with meds Date of Last Intake of Solid Food: 07/14/22 Time of Last Intake of Solid Foods: 18:30 Notes The planned sedation has been discussed with the patient. Informed Consent was obtained. I have identified the patient, determined the appropriateness of sedation and have assessed the patient immediately prior to the procedure. All medicine(s) and interventions are by my order.
[2022-07-15] MEDS ORDERED: Heparin IV Adult Wt-Based Standard *NO* Bolus Protocol IV STA (12:07)
--- NOTE | 2022-07-15 12:07 | Operative Report ---
PG Post Operative Report Pre & Post Diagnosis Operation Date: 07/15/22 10:30 <No data on this case meets the specified criteria> I identified the patient and participated in the time-out.: Yes Procedure Operation Date: 07/15/22 10:30 Actual Procedures p Cineradiography w/Routine Exam - Giancarlo Diop MD, PhD s Cath, Cors with Grafts (no LV) - Giancarlo Diop MD, PhD s Injection / Imaging Aorta - Giancarlo Diop MD, PhD Surgeon Giancarlo Diop MD, PhD I attest to the content of the Intraoperative Record and any orders documented therein. Any exceptions are noted below.
--- NOTE | 2022-07-15 12:10 | Post Anesthesia Assessment ---
Date of Service July 15, 2022 Post Sedation Assessment Vital Signs Temp Pulse Pulse Resp BP BP Pulse Ox 07/15/22 12:00 69 20 107/47 L 91 07/15/22 11:45 71 20 99/45 L 92 07/15/22 05:00 75 24 153/71 H 97 07/15/22 04:00 83 19 126/51 L 95 07/15/22 03:00 80 17 141/73 H 94 07/15/22 05:21 81 98 07/15/22 02:10 83 18 121/50 L 07/14/22 22:03 36.6 C 94 H 15 139/77 96 07/14/22 21:59 94 H 22 96 O2 Del Method 07/15/22 12:00 Room Air 07/15/22 11:45 Room Air 07/15/22 05:00 07/15/22 04:00 07/15/22 03:00 07/15/22 05:21 Room Air 07/15/22 02:10 07/14/22 22:03 Room Air 07/14/22 21:59 Room Air Recovery Score Activity: Moves 4 extremities Respiration: Deep Breath/Cough Circulation: +/-20% PreAnes Value Consciousness: Fully Awake Oxygen Saturation: > 92% On Room Air Post Anesthesia Score: 10 Discharge Sedation Level of Care: Phase I Post Sedation Plan On clinical assessment, the patient appears to have tolerated the sedation without complications. Patient is recovering as anticipated. Patient will continue to be monitored by nursing and may be discharged when se dation discharge criteria are met per below protocol. Upon Completions of procedure up to 15 minutes continue every 5 minute vital signs and the P.A.R. score; then discharge to a Phase I or Fast Track to Phase II per the following guidelines: * Discharge Patient to appropriate Phase II area if PAR is 8 or greater or return to pre- procedure baseline. The post - procedure orders will be as directed. * If PAR score is less than 8 or not return to pre-procedure baseline then patient will follow Phase I monitoring till PAR is reached for Phase II. The Phase I may be done in procedure room or may call to secure a Phase I area. * If naloxone or flumazenil are used for reversal, hold in Phase I for continued monitoring from when last reversal dose was given for a minimum of 60 minutes or longer pending the nurse and/or physician discretion of patient condition before discharge to Phase II. Please call the Sedation Physician to re-evaluate and complete post-note for discharge to Phase II area. Do NOT discharge from procedure sedation or Phase 1 until post- sedation evaluation note is complete by procedure /sedation MD Sedation Discharge Instructions to be given to the patient at discharge to home. [facility] [place] Procedure Codes (Charges) Indication for Procedure Indication for procedure: NSTEMI Sedation/Anesthesia Procedure 1: Sedation/Anesthesia: 05861 Mod Sedation by the same physician;Init15 Min Child Age 5 & Up (15 mins (total 29 min)) Total Sedation Time (minutes): 29 Procedure 2: Sedation/Anesthesia: 75775 Mod Sedation by the same physician; Ea [id number] Minutes (additional 14 min (total 29 min))
[2022-07-15] MEDS ORDERED: Heparin IV Adult Wt-Based Standard *NO* Bolus Protocol IV SCH (12:30)
--- NOTE | 2022-07-15 12:39 | Cardiac Catheterization ---
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 Cardiac Status Clinical evaluation leading to the procedure CAD Presenation: Non STEMI Anginal Classification: CCS III Heart Failure: No Cardiogenic Shock within 24 Hours: No Cardiac Arrest within 24 Hours: No Imaging Studies Past 6 Months: No Coronary Anatomy Dominant: Right Left Main (% Stenosis): Ostial (99%) LAD (% Stenosis): Proximal (Stent patent), Mid (Stent patent) and Distal (50% in-stent restenosis) D1 (% Stenosis): Ostial (Subtotal occlusion) D2 (% Stenosis): Ostial (Subtotal occlusion) Circumflex (% Stenosis): Ostial (100% chronic total occlusion) OM2 (% Stenosis): Normal (Mild disease) RCA (% Stenosis): Proximal (100% chronic total occlusion) R PDA (% Stenosis): Normal (Mild disease) R PL1 (% Stenosis): Normal (Mild disease) Grafts - LAD (%): Normal (Known to be occluded) Grafts - Circumflex (%): Normal (Widely patent to OM 2. Graft to OM 1 unable to be identified) Grafts - RCA (%): Normal (Widely patent) Aortography Aortic Regurgitation: Mildly dilated ascending Diagnostic Physicians Name: Giancarlo Diop MD, PhD Closure Device Percutaneous Entry Location: Radial Closure Device: Radial Band Recommendations: Medical Therapy and/or Counseling and PCI without planned CABG Intraprocedure Events Significant Disection: No Perforation: No Cardiac Cath Procedure Full Procedure Date July 15, 2022 Pre-Procedure Diagnosis Pre-Procedure Diagnosis: Non STEMI AUC Score AUC Score: 7 Post-Procedure Diagnosis Post-Procedure Diagnosis: Severe CAD Procedure(s) Performed Procedure(s) Performed: Coronary Angiography, Aortography and Bypass Graft Angiography [employer] Information Clerk Giancarlo Diop MD, PhD Estimated Blood Loss Estimated Blood Loss: 10 ml Medication(s) Medication(s): Fentanyl, Heparin, Lidocaine 1%, Nicardipine, Nitroglycerin and Versed Summary of Findings Brief description: Patient was brought to the cardiac catheterization suite where she was shaved and prepped in a sterile fashion. Sedated using IV Versed and fentanyl. Soft tissues of the right wrist were anesthetized using 2 mL of 1% Xylocaine. The right radial artery was accessed with a modified Seldinger technique and a 6 Thai radial artery glide sheath was placed. Patient was provided anticoagulation with IV heparin and antispasmodics including nicardipine and nitroglycerin. All catheters were advanced and exchanged over a 0.035 J-tip wire. Left coronary angiography in orthogonal views with a 5 Thai JL 4 diagnostic catheter followed by a JL 3.5 diagnostic catheter to better evaluate the left main. Right coronary angiography in orthogonal views with a 5 Thai JR4 diagnostic catheter. Vein graft angiography was performed with a 5 Thai multipurpose 1 and a 5 Thai JR4 diagnostic catheter. Supravalvular aortography was performed with a 5 Thai pigtail catheter. All catheters were removed. Radial artery sheath was removed. Hemostasis was obtained using a TR band. Patient remained hemodynamically stable and asymptomatic. She was returned to the recovery area. Supravalvular aortography, coronary and bypass graft angiography findings: LMT: Large-caliber vessel bifurcating into LAD and left circumflex. There is an ostial calcified stenosis of 99%. LAD: Large caliber and transapical. There is extensive stenting of the proximal through the mid to early distal vessel. Diffuse mild in-stent restenosis with up to 40 to 50% in-stent restenosis in the distal segment. There also appears to be 2 long medium caliber diagonal branches which are subtotally occluded. LCx: This is 100% occluded at the ostium. RCA: This is 100% occluded proximally CRANE to LAD: This is known to be atretic and was not visualized. SVG to OM 2: Large caliber patent graft. Distal anastomosis on the proximal [place] vessel is widely patent. There is antegrade flow down to branches of the [place] vessel which show mild diffuse disease. There is also retrograde flow back into the AV groove circumflex which fills to the apparent mid vessel and down the distal AV groove vessel to a small posterolateral branch. SVG to PDA: Large caliber widely patent graft. Distal anastomosis on the proximal PDA. Fills the [place] vessel antegrade and this is seen to be medium caliber providing right to left collateralization. There is also retrograde flow into the distal RCA and into a large branching posterolateral. There is no more than mild disease in these segments. The mid RCA is severely diseased. Supravalvular aortography mild ascending aortic dilatation. [place] of the RCA, left main, and 2 of the 3 vein grafts are identified. Ostium of the third vein graft (SVG to OM1) is not identified. Summary: 1. Severe [place] vessel coronary disease. New finding of severe ostial left main disease. 2. 2 out of 3 SVG bypass grafts remain widely patent. Grafts and [place] vessels supplied by these grafts are angiographically unchanged. 3. CRANE to LAD known to be atretic/occluded. SVG to OM1 appears to be occluded. This has not previously been visualized at this institution and likely has been occluded for 14+ years. We do not have operative report to determine if this is a separate SVG or was a jump graft. 4. We are recommending transfer to tertiary center regarding high risk PCI radha christian redo bypass. To be evaluated by CT surgery and interventional cardiology. Hemodynamics Rest Ao:: 89/57 mmHg, mean 79 mmHg Final Ao: 102/53 mmHg, mean 75 mmHg LV: Not performed Recommendations Recommendations: Medical Therapy and/or Counseling and PCI without planned CABG Radiation Exposure (mGy) 2007 mGy, fluoroscopy time 10.4 minutes Contrast (mls) 167 Anesthesia 1 mg IV Versed, 25 mcg IV fentanyl Procedural Complication(s) None Disposition PCU I attest to the content of the Intraoperative Record and any orders documented therein. Any exceptions are noted below. [facility] [place] Procedure Codes Cardiac Catheterization Procedure 1: Cardiovascular Cath Procedures: 48626 Coronaries and Grafts/IM (venous & atrial) & RHC Procedure 2: Cardiovascular Cath Procedures: 37116 Supravalvular Aortography (Injection during Cardiac Cath) Therapeutic Services & Ancillary Procedure 2: Cardiovascular Tx and Anc Procedures: 84157 Ultrasonic Guidance Vascular Access Moderate Sedation Procedure 1: Sedation/Anesthesia: 43207 Mod Sedation by the same physician;Init15 Min Child Age 5 & Up (15 min (total 29 min)) Procedure 2: Sedation/Anesthesia: 87670 Mod Sedation by the same physician; Ea [id number] Minutes (14 min (total 29 min)) PG Care Time/CCT Total # of Minutes Spent Total Time Spent with Patient: Total time spent is greater than 50% in coordination of care (as documented) at patient's floor/unit and/or counseling patient:
--- NOTE | 2022-07-15 12:47 | Cardiology Consultation ---
Date of Consultation July 15, 2022 Assessment & Plan (1) NSTEMI (non-ST elevated myocardial infarction): 2 out of 3 vein grafts patent. Third graft likely occluded long-term. Occluded/atretic CRANE to LAD. She has a new finding of severe ostial left main disease with calcification. Plan referral to tertiary center for heart team evaluation. Likely PCI a better option than CABG but that will be left to their discretion. In the meantime, she will be placed on heparin drip. Hold antiplatelet therapy. Because she presented with ACS do not believe discharge home and outpatient evaluation is appropriate. We will optimize her guideline directed medical therapy including low-dose aspirin, high intensity statin therapy, beta-panchito, plus or minus SAMREEN inhibitor/ARB. (2) Mixed hyperlipidemia: High risk (coronary disease, PAD, and diabetes). High intensity statin therapy with aggressive LDL reduction is recommended. Previously intolerant to statin but she has been tolerating a atorvastatin 20 mg daily as of late. Would continue this. (3) Essential hypertension: Blood pressure is adequately controlled. Continue current regimen. Plan Requesting transfer to [facility]. Awaiting acceptance. History of Present Illness Reason for Consultation: Chest pain, non-ST elevation [place] Attending Physician: Rupali Douglass, DO History of Present Illness 72-year-old diabetic female with a longstanding history of coronary disease including four-vessel coronary artery bypass grafting in 1997 (performed at ), multiple subsequent PCI's and catheterizations. The LAD has had extensive stenting secondary to an atretic/occluded CRANE to LAD bypass graft. She follows with Dr. Miguel Grant for her cardiac issues. She has been experiencing refractory/progressive class III angina with exertion. She has been on multiple antianginals without significant relief as of late. She is under significant emotional and personal physical stress as she cares for her severely debilitated . Because her chest pain recurred she came to the emergency department where her cardiac troponin was found to be elevated. After discussion with both myself and Dr. Grant she decided to proceed with cardiac catheterization plus or minus PCI as indicated. Of note, patient has had negative stress tests in the past. Patient states that she does not have the chest discomfort at rest. She has longstanding dyspnea on exertion. Denies syncope, near syncope, orthopnea, PND, racing heartbeat, palpitations, or edema. She was taken to the cardiac catheterization suite today where she underwent radial approach angiography of the vein grafts and [place] coronaries. This revealed severe ostial left main disease. There was no angiographic change in her other vessels which include chronic total occlusion of the circumflex, chronic total occlusion of the RCA, known occlusion of the CRANE graft, patent SVG to OM 2, patent SVG to PDA, and patent LAD stents with in-stent restenosis of the distal segment approximately 50%. I discussed the findings with the patient and suggested tertiary center referral to evaluate by "heart team" regarding optimal revascularization strategy (PCI of left main versus redo bypass). Allergies Allergy/AdvReac Type Severity Reaction Status Date / Time nickel Allergy Intermediate pruritis Verified 07/03/22 10:11 cat dander Allergy Mild itchy eyes Verified 07/03/22 10:11 Sulfa (Sulfonamide Allergy Mild HIVES Verified 07/03/22 10:11 Antibiotics) glipizide Allergy Unknown ITCHY,WHEEZ Verified 07/03/22 10:11 ING mold Allergy Unknown ITCHY EYES Verified 07/03/22 10:11 RUNNY NOSE pioglitazone Allergy Unknown ITCHY Verified 07/03/22 10:11 WHEEZING house dust Allergy Itchy Verified 07/03/22 10:11 eyes, runny nose sulfamethoxazole Allergy Itching, Verified 07/03/22 10:11 [From Bactrim] shortness of breath trimethoprim [From Bactrim] Allergy Itching, Verified 07/03/22 10:11 shortness of breath adhesive AdvReac Unknown SKIN Verified 07/03/22 10:11 IRRITATION Home Medications Medication Instructions Recorded Confirmed Type aspirin 81 mg tablet,delayed 81 mg PO QAM 08/06/18 07/14/22 History release (Alexandre Low Dose Aspirin) venlafaxine 150 mg 150 mg PO DAILY 08/06/18 07/14/22 History capsule,extended release 24 hr fexofenadine 180 mg tablet 180 mg PO DAILY 03/23/19 07/14/22 History nitroglycerin 0.4 mg sublingual 0.4 mg sublingual Q5M PRN Pain #25 03/23/19 07/14/22 History tablet tabs cyclosporine 0.05 % eye drops 1 drops ophthalmic (eye) Q12H 03/29/19 07/14/22 History (Restasis MultiDose) B-complex with vitamin C (Super B 1 tab PO DAILY #90 tabs 05/28/19 07/14/22 Rx Complex-Vitamin C tablet) melatonin 10 mg tablet 20 mg PO HS 07/13/19 07/14/22 History hcruvlpb-mdp-mevjy acid 0.4 1 tab PO DAILY 07/13/19 07/14/22 History mg-lycopene 300 mcg-lutein 250 mcg tablet (Centrum Silver) cholecalciferol (vitamin D3) 50 2,000 unit PO BID 04/20/20 07/14/22 History mcg (2,000 unit) capsule (Vitamin D3) omega 6-nls-nea-fish oil 1,000 mg 1 cap PO BID 04/20/20 07/14/22 History (120 mg-180 mg) capsule (Fish Oil) flaxseed oil 1,000 mg capsule 1,000 mg PO BID 08/16/20 07/14/22 History mecobalamin (vitamin B12) 1,000 500 mcg sublingual DAILY 03/08/21 07/14/22 History mcg disintegrating tablet,sublingual venlafaxine 37.5 mg 75 mg PO DAILY 03/08/21 07/14/22 History capsule,extended release 24 hr blood-glucose meter,continuous 03/29/21 07/14/22 History (Dexcom G6 Top Stitcher misc) blood-glucose sensor (Dexcom G6 03/29/21 07/14/22 History Sensor device) blood-glucose transmitter (Dexcom 03/29/21 07/14/22 History G6 Transmitter device) pen needle, diabetic 31 gauge x 03/29/21 07/14/22 History 3/16" (BD Ultra-Fine Mini Pen Needle) blood sugar diagnostic (OneTouch #100 ea 05/08/21 07/14/22 Rx Ultra Test strips) lorazepam 0.5 mg tablet (Ativan) 0.5 mg PO DAILY PRN Anxiety 08/01/21 07/14/22 History empagliflozin 10 mg tablet 10 mg PO QAM #90 tabs 08/14/21 07/14/22 Rx (Jardiance) Lantus Solostar U-100 Insulin 100 55 unit (0.55 mL) subcut DAILY #60 11/14/21 07/14/22 Rx unit/mL (3 mL) subcutaneous pen mL (insulin glargine) atorvastatin 20 mg tablet 20 mg PO DAILY #90 tabs 03/01/22 07/14/22 Rx isosorbide mononitrate 60 mg 90 mg PO DAILY #135 tabs 03/01/22 07/14/22 Rx tablet,extended release 24 hr clobetasol 0.05 % topical ointment 1 applic topical BID 2 weeks #30 04/02/22 07/14/22 Rx grams pantoprazole 40 mg tablet,delayed 40 mg PO DAILY #90 tabs 04/03/22 07/14/22 Rx release metoprolol tartrate 50 mg tablet 50 mg PO BID #180 tabs 04/10/22 07/14/22 Rx levothyroxine 175 mcg tablet 175 mcg PO QAM #90 tabs 05/09/22 07/14/22 Rx (Synthroid) ranolazine 500 mg tablet,extended 500 mg PO BID 90 days #180 tabs 05/09/22 07/14/22 Rx release,12 hr (Ranexa) ticagrelor 90 mg tablet (Brilinta) 90 mg PO BID #180 tabs 05/09/22 07/14/22 Rx blood sugar diagnostic #100 ea 05/10/22 07/14/22 Rx insulin NPH isoph U-100 human 100 24 unit (0.24 mL) subcut HS 90 06/03/22 07/14/22 Rx unit/mL (3 mL) subcutaneous pen days #30 mL (Humulin N NPH U-100 Insulin KwikPen) insulin lispro 200 unit/mL (3 mL) See Rx Instructions subcut 06/03/22 07/14/22 Rx subcutaneous pen (Humalog KwikPen .COMPLEX #72 mL U-200 Insulin) amlodipine 5 mg tablet 5 mg PO DAILY #30 tabs 06/20/22 07/14/22 Rx metformin 1,000 mg tablet 1,000 mg PO BID #180 tabs 06/27/22 07/14/22 Rx Patient History Medical History Anxiety Anxiety with depression CAD (coronary artery disease) S/P CABG X 4 (1998), CARDIAC STENTS X 4 TOTAL (MOST RECENT 04/2017) Carpal tunnel syndrome on both sides Depression Diabetes mellitus, type 2 IDDM Fatty liver disease, nonalcoholic History of difficult intubation left shoulder arthroscopy, RCR, distal clavicle exicision= 1/9/15= "gentle laryngoscopy with no view of cords/arytenoids, straight to glidescopy 3, ETT passed through open cords with cricoid pressure and increased angle of ETT [ 7.0]" Hyperlipidemia Hypertension Hypothyroidism Lichen sclerosus et atrophicus Morbid obesity Myocardial Infarction 2011 Osteoarthritis Peptic ulcer disease H/O BLEEDING ULCER (2006) Primary osteoarthritis of right knee Stable angina Stroke 2011= RESIDUAL LEFT FOOT NEUROPATHY Vulvar varicose veins Surgical History H/O elbow surgery LEFT History of adenoidectomy History of cardiac cath S/P CABG X 4 (1997), CARDIAC STENTS X 4 TOTAL (MOST RECENT x 3 04/2017) MOST RECENT CARDIAC CATH 11/2017= NO STENTS History of cataract surgery BILATERAL History of colonoscopy History of coronary artery bypass graft CABG X4 (1997) History of endoscopic sinus surgery History of esophagogastroduodenoscopy (EGD) History of hysterectomy KD W/BSO History of repair of rotator cuff (~2014) LEFT History of tooth extraction History of total knee arthroplasty (~2018) RIGHT History of total knee replacement LEFT History of tubal ligation Family History Father Myocardial infarction Coronary heart disease Brother Arthritis Hx of CABG Sister Arthritis Mother Dementia Heart disease Other Family history non-contributory Denies family history of Liver cancer Ovarian cancer Prostate cancer Crohn's disease Breast cancer Colorectal cancer Inflammatory bowel disease Social History Smoking Status: Never smoker Second Hand Exposure: No; Hx Alcohol Use: Yes Alcohol type: hard liquor Alcohol Intake Frequency: 2-3 x/Week Hx Substance Use: No Preferred Language: Uzbek Communication Ability: Effective Visual Impairment: No Limitations Hearing Ability: Hard of Hearing Mutton Puncher Required: No Beliefs That Will Affect Care: None marital status: Current Living Situation: Spouse current occupational status: retired Feels Safe at Home: Yes Childhood Exposure to Second-Hand Smoke: Yes Dental Care, Regularly: Yes Physical Activity Frequency: 1-2 Times per Week Seatbelt Use: always Sunscreen Use: Yes Assistive Devices: Glasses and Walker Review of Systems Review of Systems: Groin infection treated with topical. The remainder of her 12 point review of systems is negative except as per HPI. Physical Exam Constitutional: WD/WN, vitals as above (Morbidly obese) Eyes: PERRL, conjunctivae normal, anicteric sclerae ENMT: external ear and nose normal, oropharynx normal Neck: No JVD Respiratory: normal respiratory effort, lungs clear to auscultation (No wheezing, rhonchi, or rales.) Cardiovascular: Regular rate and rhythm. S4 gallop. No murmur. 2+ peripheral pulses. No edema Gastrointestinal (Abdomen): normal bowel sounds, soft, nontender, no hepatosplenomegaly Musculoskeletal: no cyanosis or clubbing, extremities motor strength 5/5 Neurologic: Cognition is intact. Speech is fluent. No focal deficits. No tremor. Psychiatric: A+Ox3, euthymic affect Results & Data ([facility]) Vital Signs (Past 12 Hours) Vital Signs Pulse Pulse Resp BP BP Pulse Ox O2 Del Method 07/15/22 12:30 67 20 126/66 91 Room Air 07/15/22 12:15 66 20 119/58 L 90 Room Air 07/15/22 12:00 69 20 107/47 L 91 Room Air 07/15/22 11:45 71 20 99/45 L 92 Room Air 07/15/22 05:00 75 24 153/71 H 97 07/15/22 04:00 83 19 126/51 L 95 07/15/22 03:00 80 17 141/73 H 94 07/15/22 05:21 81 98 Room Air 07/15/22 02:10 83 18 121/50 L PG Care Time/CCT Total # of Minutes Spent Total Time Spent with Patient: Total time spent is greater than 50% in coordination of care (as documented) at patient's floor/unit and/or counseling patient: [place] [address] Inpt Consult Level 5 Patient Type New Diagnoses NSTEMI (non-ST elevated myocardial infarction) I21.4 Mixed hyperlipidemia E78.2 Essential hypertension I10
--- NOTE | 2022-07-15 14:23 | Discharge Summary ---
Discharge Summary Date of Service July 15, 2022 Admission HPI Per Admitting Provider The patient is a 72-year-old female with a past medical history including GERD, carotid stenosis, BPPV, UTI, NAFLD, sensory polyneuropathy, moderate RUDOLPH on CPAP, diabetes mellitus type 2 with long-term use of insulin, GERD, anxiety with depression, hypothyroidism, mixed hyperlipidemia, CAD, osteoarthritis, status post CABG x4, status post complex PCI to distal LM/proximal-mid LAD with 3 drug- eluting stents 2016, post PCI mid to distal LAD 09/2019, and CCS class III angina on 3 antianginals. She has been told by Dr. Grant that if she develops recurrent chest pain that she is to take her sublingual nitroglycerin and if not relieved, she used to come to the emergency department, which she has done this evening. She received aspirin and oxygen in route by EMS, and at the time I am seeing her in the ED her symptoms have been resolved without further intervention. She does also report intermittently worsening lower extremity edema over the past week, primarily previously involved just the left lower extremity where vein harvesting was performed, and now intermittently involves the right lower extremity as well Admission Exam Per Admitting Provider The patient is awake, alert and oriented 3, well developed and well nourished, normocephalic and atraumatic, lying in bed and in no acute distress. HEENT--PERRL, EOMI, mucous membranes and oropharynx normal. Neck--supple. No JVD. No bruits. Thyroid normal, trachea midline, no adenopathy. Heart--normal S1 and S2. No murmurs, rubs or gallops. Lungs--clear bilaterally, no respiratory distress, no accessory muscle use. Abdomen--normal bowel sounds and soft. Nontender. Nondistended. Obese. Extremities--no cyanosis or clubbing. Trace bilateral pretibial pitting edema. Left lower vein harvesting scar. there are good distal pulses b/l. Dermatologic--normal skin turgor, normal color, no abnormal lymph nodes, no rash. Neurologic--cranial nerves II through XII grossly intact. Rheumatologic--normal range of motion. Psychiatric--normal affect. Principal Dx & Hospital Course #1 = Principal Diagnosis (1) NSTEMI (non-ST elevated myocardial infarction): Chest pain/elevated troponin/NSTEMI/CAD/hypertension/status post CABG x4/post complex PCI to distal LM proximal-mid LAD with 3 drug-eluting stents 2017/post PCI mid to distal LAD 2-2019/Class CCS Class angina on 3 antianginals. Troponin 79 -> 520 -> 670. Catheterization performed today by Dr. Diop, with 2 out of 3 vein grafts patent, and third graft likely occluded long-term. Occluded/atretic CRANE to LAD. She has a new finding of severe ostial left main disease with ca lcification. Tertiary center [facility] contacted for heart team evaluation of PCI vs. CABG in complicated patient due to occluded vein grafts, new occlusion of ostial LM disease. Discharged on heparin drip. Will need optimization with low-dose aspirin, high intensity statin therapy, beta-panchito, plus or minus SAMREEN inhibitor/ARB. (2) Elevated troponin: see above (3) GERD (gastroesophageal reflux disease): Continue pantoprazole 40 mg daily (4) Fatty liver disease, nonalcoholic: AST 46. Follow up outpatient. No abdominal pain. (5) Moderate obstructive sleep apnea: Home CPAP. (6) Anxiety with depression: Continue lorazepam, melatonin, venlafaxine. (7) Controlled type 2 diabetes mellitus, with long-term current use of insulin: Resume home medications on discharge. (8) Hypothyroidism: Continue levothyroxine 175 mcg every morning. (9) Mixed hyperlipidemia: Continue atorvastatin 20 mg daily. (10) Essential hypertension: amlodipine, metoprolol, isosorbide mononitrate. (11) Coronary artery disease: see above. Plan Transfer to [facility] 07/15 Discharge Exam Constitutional WD/WN, vitals as above no acute distress Respiratory normal respiratory effort, lungs clear to auscultation Cardiovascular RRR, no murmur, no edema Psychiatric A+Ox3, euthymic affect Updated Medication List Medication Instructions Recorded Confirmed Type aspirin 81 mg tablet,delayed 81 mg PO QAM 08/06/18 07/14/22 History release (Alexandre Low Dose Aspirin) venlafaxine 150 mg 150 mg PO DAILY 08/06/18 07/14/22 History capsule,extended release 24 hr fexofenadine 180 mg tablet 180 mg PO DAILY 03/23/19 07/14/22 History nitroglycerin 0.4 mg sublingual 0.4 mg sublingual Q5M PRN Pain #25 03/23/19 History tablet tabs cyclosporine 0.05 % eye drops 1 drops ophthalmic (eye) Q12H 03/29/19 07/14/22 History (Restasis MultiDose) B-complex with vitamin C (Super B 1 tab PO DAILY #90 tabs 05/28/19 07/14/22 Rx Complex-Vitamin C tablet) melatonin 10 mg tablet 20 mg PO HS 07/13/19 07/14/22 History eupgvpce-lvk-jzwol acid 0.4 1 tab PO DAILY 07/13/19 07/14/22 History mg-lycopene 300 mcg-lutein 250 mcg tablet (Centrum Silver) cholecalciferol (vitamin D3) 50 2,000 unit PO BID 04/20/20 07/14/22 History mcg (2,000 unit) capsule (Vitamin D3) omega 1-kro-zgz-fish oil 1,000 mg 1 cap PO BID 04/20/20 07/14/22 History (120 mg-180 mg) capsule (Fish Oil) flaxseed oil 1,000 mg capsule 1,000 mg PO BID 08/16/20 07/14/22 History mecobalamin (vitamin B12) 1,000 500 mcg sublingual DAILY 03/08/21 07/14/22 History mcg disintegrating tablet,sublingual venlafaxine 37.5 mg 75 mg PO DAILY 03/08/21 07/14/22 History capsule,extended release 24 hr blood-glucose meter,continuous 03/29/21 07/14/22 History (Dexcom G6 [employer] misc) blood-glucose sensor (Dexcom G6 03/29/21 07/14/22 History Sensor device) blood-glucose transmitter (Dexcom 03/29/21 07/14/22 History G6 Transmitter device) pen needle, diabetic 31 gauge x 03/29/21 07/14/22 History 3/16" (BD Ultra-Fine Mini Pen Needle) blood sugar diagnostic (OneTouch #100 ea 05/08/21 07/14/22 Rx Ultra Test strips) lorazepam 0.5 mg tablet (Ativan) 0.5 mg PO DAILY PRN Anxiety 08/01/21 07/14/22 History empagliflozin 10 mg tablet 10 mg PO QAM #90 tabs 08/14/21 07/14/22 Rx (Jardiance) Lantus Solostar U-100 Insulin 100 55 unit (0.55 mL) subcut DAILY #60 11/14/21 07/14/22 Rx unit/mL (3 mL) subcutaneous pen mL (insulin glargine) atorvastatin 20 mg tablet 20 mg PO DAILY #90 tabs 03/01/22 07/14/22 Rx isosorbide mononitrate 60 mg 90 mg PO DAILY #135 tabs 03/01/22 07/14/22 Rx tablet,extended release 24 hr clobetasol 0.05 % topical ointment 1 applic topical BID 2 weeks #30 04/02/22 07/14/22 Rx grams pantoprazole 40 mg tablet,delayed 40 mg PO DAILY #90 tabs 04/03/22 07/14/22 Rx release metoprolol tartrate 50 mg tablet 50 mg PO BID #180 tabs 04/10/22 07/14/22 Rx levothyroxine 175 mcg tablet 175 mcg PO QAM #90 tabs 05/09/22 07/14/22 Rx (Synthroid) ranolazine 500 mg tablet,extended 500 mg PO BID 90 days #180 tabs 05/09/22 07/14/22 Rx release,12 hr (Ranexa) ticagrelor 90 mg tablet (Brilinta) 90 mg PO BID #180 tabs 05/09/22 07/14/22 Rx blood sugar diagnostic #100 ea 05/10/22 07/14/22 Rx insulin NPH isoph U-100 human 100 24 unit (0.24 mL) subcut HS 90 06/03/22 07/14/22 Rx unit/mL (3 mL) subcutaneous pen days #30 mL (Humulin N NPH U-100 Insulin KwikPen) insulin lispro 200 unit/mL (3 mL) See Rx Instructions subcut 06/03/22 07/14/22 Rx subcutaneous pen (Humalog KwikPen .COMPLEX #72 mL U-200 Insulin) amlodipine 5 mg tablet 5 mg PO DAILY #30 tabs 06/20/22 07/14/22 Rx metformin 1,000 mg tablet 1,000 mg PO BID #180 tabs 06/27/22 07/14/22 Rx Hospital Stay Data Consultations 07/14/22 23:37 ED Decision to Admit Stat 07/15/22 05:21 Consult Cardiology Routine Procedures Performed Operation Date: 07/15/22 10:30 Actual Procedures p Cineradiography w/Routine Exam - Giancarlo Diop MD, PhD s Cath, Cors with Grafts (no LV) - Giancarlo Diop MD, PhD s Injection / Imaging Aorta - Giancarlo Diop MD, PhD Diagnostic Imagining Performed 07/15/22 09:44 CL Cath Imgs for PACS use only Stat Discharge Instructions Given to Patient (Per Discharging Provider) Troponin 79 -> 520 -> 670. Catheterization performed today by Dr. Diop, with 2 out of 3 vein grafts patent. Third graft likely occluded long-term. Occluded/atretic CRANE to LAD. She has a new finding of severe ostial left main disease with calcification. Plan referral to tertiary center for heart team evaluation. Likely PCI a better option than CABG but that will be left to their discretion. In the meantime, she will be placed on heparin drip. Hold antiplatelet therapy. Will need optimization of low-dose aspirin, high intensity statin therapy, beta-panchito, plus or minus SAMREEN inhibitor/ARB. Total Time Total Time Spent Total Time Spent (In Minutes): 45 minutes Coding Level of Care Code D/C DAY MANAGEMENT >30 MINS Diagnoses NSTEMI (non-ST elevated myocardial infarction) I21.4 Elevated troponin R77.8 GERD (gastroesophageal reflux disease) K21.9 Fatty liver disease, nonalcoholic K76.0 Moderate obstructive sleep apnea G47.33 Anxiety with depression F41.8 Controlled type 2 diabetes mellitus, with long-term current use of insulin E11.9; Z79.4 Hypothyroidism E03.9 Mixed hyperlipidemia E78.2 Essential hypertension I10 Coronary artery disease I25.10
[2022-07-15] MEDS ORDERED: HEPARIN SODIUM/DEXTROSE 25,000 UNITS/500 ML BAG IV SCH (14:30)
[2022-07-15] MEDS ORDERED: INSULIN HUMAN NPH SC SCH (21:00)
== END 2022-07-15 17:14 | disposition short-term general hospital (02) | DRG 282 ==
LOC: ED 21:53 → INTOOBSV 07-15 00:48 → EDINP 07-15 00:48 → SUATTDRO 07-15 00:48 → EDINP 07-15 10:46
PROC: CLB.CCG (2022-07-15 10:30)
PROC: CLB.IPA (2022-07-15 10:30)

== ENCOUNTER 2023-08-08 14:12 | Inpatient (IN) ==
--- NOTE | 2023-08-08 16:00 | XRay Report ---
XR knee RT 1 or 2V routine CLINICAL HISTORY: INJURY TECHNIQUE: 2 views of the right knee were obtained. Comparison: Comparison is made to 09/25/2018 FINDINGS: There is no evidence of an acute fracture. Patient is status post total knee arthroplasty. No perihar dware lucency or hardware fracture is seen. No joint effusion is seen. No soft tissue abnormality is seen. IMPRESSION: No evidence of acute osseous injury. ACT 112: Negative or not required by law. Electronically signed by: Rafat Rey M.D. 08/08/2023 3:59 PM
--- NOTE | 2023-08-08 16:01 | XRay Report ---
XR foot LT 2V CLINICAL HISTORY: Injury with left foot pain. COMPARISON STUDY: None. FINDINGS: Nondisplaced fracture through the posterior calcaneus. Soft tissue swelling within the hind foot and midfoot. There is a tiny plantar heel spur. Soft tissue swelling within the ankle with a sma ll fracture at the tip of the distal fibula. The bones are osteopenic. There is a distracted fracture at the base of the fifth metatarsal. This demonstrates up to 4 mm of distraction. The fracture exten ds to the tarsometatarsal joint. No dislocation within the left ankle. The distal tibia is intact. IMPRESSION: 1. Nondisplaced fracture at the posterior calcaneus. 2. Distracted fracture at the lateral base of the fifth metatarsal. 3. Small fracture at the distal fibula. ACT 112: Negative or not required by law. Electronically signed by: Austin Burger M.D. 08/08/2023 4:00 PM
--- NOTE | 2023-08-08 16:01 | XRay Report ---
XR ankle LT 2V CLINICAL HISTORY: Left ankle pain following injury. COMPARISON: Left foot radiographs January 30, 2021. FINDINGS: There is no ankle mortise widening. Note is made of subtle cortical irregularity and lucenc y within the lateral aspect of the fibular tip consistent with a minimally displaced fracture. Latera l ankle soft tissue swelling is present. No acute fracture of the distal left tibia is present. There is a acute nondisplaced fracture of the posterior superior aspect of the calcaneus. There is also an acute slightly distracted fracture of the base of the left fifth metatarsal. IMPRESSION: 1. Acute nondisplaced fracture of the posterior superior calcaneus. 2. Acute slightly distracted fracture of the base of the left fifth metatarsal. 3. Acute minimally displaced fracture of the fibular tip. Lateral ankle soft tissue swelling. No ankl e mortise widening. ACT 112: Negative or not required by law. Electronically signed by: Alessandro Magaña M.D. 08/08/2023 3:59 PM
--- NOTE | 2023-08-08 16:17 | Emergency Department Note ---
Impression & Plan Calcaneal fracture ADMIT ED Provider Note HPI: History obtained from patient. The patient is a 73-year-old female who presents emergency department chief complaint of L ankle pain. Patient states earlier today she had a mechanical fall when she was pivoting on the carpet in her home and felt an acute pain in her left ankle. Patient fell to the ground on her right knee. Patient has full range of motion of the right knee without any evidence of acute traumatic injuries on my exam. Patient does have some swelling and limited range of motion secondary to pain in the left ankle on arrival, no evidence of any open wounds or lacerations. ROS: - Per HPI Differential Diagnosis: Right ankle sprain, right ankle fracture, ankle dislocation, foot fracture, amongst other potential pathologies. *Outpatient medications and allergy history reviewed. PE: General: Alert HEENT: Normocephalic, trachea midline Eyes: Extraocular eye movement is intact, no scleral erythema Pulmonary: Clear to auscultation bilaterally, no wheezing Cardio: Regular rate and rhythm GI: Abdomen is soft to palpation : No suprapubic tenderness MSK: Moderate swelling towards the left aspect of the left ankle over the lateral malleoli without any open wounds or lacerations, there is a palpable dorsalis pedis pulse in the left lower extremity without any cyanosis or discoloration distally in the left foot, range of motion is limited at the left ankle secondary to pain Skin: No evidence of rash Neuro: Alert, no focal deficits Psychiatric: Cooperative INDEPENDENT 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 There are multiple fractures including a calcaneal fracture of the left foot, distal fibula fracture, and fifth metatarsal fracture. I did discuss the patient's imaging findings and mechanism of injury with on-call podiatry, Dr. Ronquillo, who did review the patient's x-ray imaging and also consulted with the patient at the bedside. This consultation, recommendation was made by Dr. Ronquillo for admission for operative intervention for the calcaneal fracture. Given this, IV was established and lab work is obtained, screening EKG was obtained and per my interpretation shows normal sinus rhythm without any ischemic changes or arrhythmia. Chest x-ray does not show any evidence of acute disease per my interpretation. Lab work does show some anemia that is worse than baseline with hemoglobin 8.9, platelet count is slightly reduced as well at 128, white blood cell count is within normal limits. CMP does not show any critical findings, no evidence of DAISY, there is a mild transaminitis that is nonspecific. Patient denies any abdominal pain. This does appear to be chronic in nature. [facility] and the patient was placed for admission in stable condition. Consultants/Discussions held with other healthcare providers: -Podiatry, Dr. Ronquillo -Hospitalist, Dr. Jansen Disposition discussion held by myself with: -Patient Diagnosis: 1. Calcaneal fracture, acute, left-sided, nondisplaced 2. Distal fibula fracture, acute 3. Fifth metatarsal fracture, acute 4. Mechanical fall, acute 5. Anemia, acute on chronic 6. Transaminitis, chronic 7. Thrombocytopenia, acute Disposition: ADMIT Tommy Curry, DO Emergency Medicine Past Med/Surg History Medical History Anxiety Anxiety with depression CAD (coronary artery disease) Carpal tunnel syndrome on both sides Depression Diabetes mellitus, type 2 Elevated troponin Fatty liver disease, nonalcoholic History of difficult intubation Hyperlipidemia Hypertension Hypothyroidism Lichen sclerosus et atrophicus Morbid obesity Myocardial Infarction Osteoarthritis Peptic ulcer disease Primary osteoarthritis of right knee Stable angina Stroke Type 2 diabetes mellitus Vulvar varicose veins Surgical History H/O elbow surgery History of adenoidectomy History of cataract surgery History of colonoscopy History of coronary artery bypass graft History of endoscopic sinus surgery History of esophagogastroduodenoscopy (EGD) History of hysterectomy History of intravascular stent placement History of repair of rotator cuff (~2014) History of tooth extraction History of total knee arthroplasty (~2019) History of total knee replacement History of tubal ligation Family History Father Myocardial infarction Coronary heart disease Brother Arthritis Hx of CABG Sister Arthritis Mother Dementia Heart disease Other Family history non-contributory Denies family history of Liver cancer Ovarian cancer Prostate cancer Crohn's disease Breast cancer Colorectal cancer Inflammatory bowel disease Social History Smoking Status: Never smoker Second Hand Exposure: No; Do You Dip or Chew Tobacco: No; Hx Alcohol Use: Yes (drinks wine, gin and tonic, martini's) Alcohol type: wine, hard liquor and other Alcohol Intake Frequency: 4 or More x per/Week Alcohol Intake Frequency Comment: 3-4X a week Hx Substance Use: No Preferred Language: Albanian Communication Ability: Effective Visual Impairment: No Limitations Hearing Ability: Hard of Hearing Management Professional Required: No Beliefs That Will Affect Care: None marital status: Current Living Situation: Spouse current occupational status: retired current occupation: retired Feels Safe at Home: Yes Childhood Exposure to Second-Hand Smoke: Yes Diet: regular Dental Care, Regularly: Yes Physical Activity Frequency: Daily Seatbelt Use: always Sunscreen Use: Yes Assistive Devices: Glasses and Walker Allergies Allergies Allergy/AdvReac Type Severity Reaction Status Date / Time nickel Allergy Intermediate pruritis Verified 07/30/23 07:50 cat dander Allergy Mild itchy eyes Verified 07/30/23 07:50 Sulfa (Sulfonamide Allergy Mild HIVES Verified 07/30/23 07:50 Antibiotics) glipizide Allergy Unknown ITCHY,WHEEZ Verified 07/30/23 07:50 ING mold Allergy Unknown ITCHY EYES Verified 07/30/23 07:50 RUNNY NOSE pioglitazone Allergy Unknown ITCHY Verified 07/30/23 07:50 WHEEZING house dust Allergy Itchy Verified 07/30/23 07:50 eyes, runny nose sulfamethoxazole Allergy Itching, Verified 07/30/23 07:50 [From Bactrim] shortness of breath trimethoprim [From Bactrim] Allergy Itching, Verified 07/30/23 07:50 shortness of breath adhesive AdvReac Unknown SKIN Verified 07/30/23 07:50 IRRITATION Home Meds Home Medications Medication Instructions Recorded Confirmed aspirin 81 mg tablet,delayed 81 mg PO QAM 08/06/18 08/08/23 release (Alexandre Low Dose Aspirin) venlafaxine 150 mg 150 mg PO DAILY 08/06/18 08/08/23 capsule,extended release 24 hr fexofenadine 180 mg tablet 180 mg PO DAILY 03/23/19 08/08/23 nitroglycerin 0.4 mg sublingual 0.4 mg sublingual Q5M PRN Pain #25 03/23/19 08/08/23 tablet tabs cyclosporine 0.05 % eye drops 1 drops ophthalmic (eye) Q12H 03/29/19 08/08/23 (Restasis MultiDose) melatonin 10 mg tablet 20 mg PO HS 07/13/19 08/08/23 mbzqvknf-vqi-wwnad acid 0.4 1 tab PO DAILY 07/13/19 08/08/23 mg-lycopene 300 mcg-lutein 250 mcg tablet (Centrum Silver) cholecalciferol (vitamin D3) 50 2,000 unit PO BID 04/20/20 08/08/23 mcg (2,000 unit) capsule (Vitamin D3) omega 8-izj-vlu-fish oil 1,000 mg 1 cap PO BID 04/20/20 08/08/23 (120 mg-180 mg) capsule (Fish Oil) flaxseed oil 1,000 mg capsule 1,000 mg PO BID 08/16/20 08/08/23 mecobalamin (vitamin B12) 1,000 500 mcg sublingual DAILY 03/08/21 08/08/23 mcg disintegrating tablet,sublingual venlafaxine 37.5 mg 75 mg PO DAILY 03/08/21 08/08/23 capsule,extended release 24 hr blood-glucose meter,continuous 03/29/21 07/30/23 (ZeePearl G6 Athletic Turf Worker) blood-glucose transmitter (Dexcom 03/29/21 07/30/23 G6 Transmitter device) lorazepam 0.5 mg tablet (Ativan) 0.5 mg PO DAILY PRN Anxiety 08/01/21 08/08/23 lisinopril 10 mg tablet 10 mg PO DAILY 07/22/22 08/08/23 loratadine 10 mg tablet 10 mg PO DAILY 07/22/22 08/08/23 blood-glucose sensor (ZeePearl G6 08/27/22 07/30/23 Sensor device) blood sugar diagnostic (OneTouch 11/14/22 07/30/23 Ultra Test strips) Previous Rx's Medication Instructions Recorded B-complex with vitamin C (Super B 1 tab PO DAILY #90 tabs 05/28/19 Complex-Vitamin C tablet) insulin NPH isoph U-100 human 100 24 unit (0.24 mL) subcut HS 90 06/03/22 unit/mL (3 mL) subcutaneous pen days #30 mL (Humulin N NPH U-100 Insulin KwikPen) meclizine 25 mg tablet 25 mg PO Q6H PRN dizziness #20 tabs 08/16/22 empagliflozin 25 mg tablet 25 mg PO DAILY #90 tabs 11/22/22 (Jardiance) Lantus Solostar U-100 Insulin 100 55 unit (0.55 mL) subcut DAILY #60 11/25/22 unit/mL (3 mL) subcutaneous pen mL (insulin glargine) levothyroxine 150 mcg tablet 150 mcg PO QAM #90 tabs 11/25/22 pen needle, diabetic 31 gauge x #300 ea 01/16/23 3/16" (BD Ultra-Fine Mini Pen Needle) montelukast 10 mg tablet 10 mg PO QPM #90 tabs 01/30/23 (Singulair) metoprolol tartrate 25 mg tablet 25 mg PO BID #180 tabs 03/11/23 clindamycin phosphate 1 % topical 1 applic topical DAILY #60 grams 04/29/23 gel clobetasol 0.05 % topical ointment 1 applic topical BID 2 weeks #30 05/09/23 grams pantoprazole 40 mg tablet,delayed 40 mg PO DAILY #90 tabs 06/16/23 release ranolazine 500 mg tablet,extended 500 mg PO BID 90 days #180 tabs 06/16/23 release,12 hr ticagrelor 90 mg tablet (Brilinta) 90 mg PO BID #180 tabs 06/16/23 metformin 1,000 mg tablet 1,000 mg PO BID #180 tabs 07/07/23 insulin lispro 200 unit/mL (3 mL) See Rx Instructions subcut 07/16/23 subcutaneous pen (Humalog KwikPen .COMPLEX #72 mL U-200 Insulin) amlodipine 5 mg tablet 5 mg PO DAILY #90 tabs 07/21/23 atorvastatin 80 mg tablet 80 mg PO DAILY #90 tabs 07/21/23 Results & Data (ED) Vital Signs Vital Signs - 24 hr 08/08/23 14:20 08/08/23 14:20 08/08/23 18:15 Temperature 36.0 C L 36.0 C L Temperature Source Oral Oral Pulse Rate 78 Pulse Rate [Apical] 78 85 Respiratory Rate 18 18 18 Respiratory Effort / Characteristics Non-Labored Spontaneous Non-Labored Spontaneous Non-Labored Spontaneous Respiratory Depth Normal Normal Normal Respiratory Pattern Regular Regular Blood Pressure 131/60 Blood Pressure [Right Arm] 131/60 139/59 L Blood Pressure Mean 83 Blood Pressure Mean [Right Arm] 83 85 Blood Pressure Position Lying Blood Pressure Position [Right Arm] Lying Sitting Pulse Oximetry 99 99 95 Oxygen Delivery Method Room Air Room Air Room Air Sepsis Recent Fever Within 48 Hours No Sepsis New/Unexplained Change in Mental Status No Sepsis Action Taken by Nursing No Action Required 08/08/23 18:16 08/08/23 18:24 08/08/23 20:00 Temperature Temperature Source Pulse Rate 85 88 Pulse Rate [Apical] 87 Respiratory Rate 18 18 Respiratory Effort / Characteristics Respiratory Depth Normal Respiratory Pattern Blood Pressure Blood Pressure [Right Arm] 175/79 H Blood Pressure Mean Blood Pressure Mean [Right Arm] 111 Blood Pressure Position Blood Pressure Position [Right Arm] Semi-fowlers Pulse Oximetry 95 94 Oxygen Delivery Method Room Air Room Air Sepsis Recent Fever Within 48 Hours Sepsis New/Unexplained Change in Mental Status Sepsis Action Taken by Nursing Laboratory Data 08/08/23 17:36 08/08/23 17:36 Lab Results 08/08/23 Range/Units 17:36 WBC 6.38 (4.8-10.8) K/ul RBC 4.63 (4.20-5.40) M/uL Hgb 8.9 L (12.0-16.0) g/dl Hct 32.2 L (37.0-47.0) % MCV 69.5 L (80.0-100.0) fL MCH 19.2 L (25.0-34.0) pg MCHC 27.6 L (32.0-36.0) g/dL RDW Std Deviation 49.9 H (36.4-46.3) fL RDW Coeff of Dani 20.3 H (11.5-14.5) % Plt Count 120 L (130-400) K/uL MPV 10.2 (9.4-12.4) fL Immature Gran % (Auto) 0.3 % Neut % (Auto) 58.5 % Lymph % (Auto) 25.5 % [place] % (Auto) 9.9 % Eos % (Auto) 4.9 % Baso % (Auto) 0.9 % Neut # (Auto) 3.73 (1.40-6.50) K/uL Lymph # (Auto) 1.63 (1.20-3.40) K/uL [place] # (Auto) 0.63 H (0.11-0.59) K/uL Eos # (Auto) 0.31 (0.00-0.50) K/uL Baso # (Auto) 0.06 (0.00-0.20) K/uL Immature Gran # (Auto) 0.02 (0.01-0.20) K/uL Polychromasia 1+ Hypochromasia Present Anisocytosis Present Microcytosis Present PT 10.9 (9.0-12.0) Seconds INR 1.0 (0.9-1.1) Sodium 136 (136-145) mmol/L Potassium 3.8 (3.5-5.1) mmol/L Chloride 103 (98-107) mmol/L Carbon Dioxide 24 (21-32) mmol/L Anion Gap 9 (3-11) BUN 19 (6-23) mg/dl Creatinine 0.76 (0.6-1.2) mg/dl Est Cr Clr Drug Dosing 73.7 ml/min Est GFR ( Amer) 88.9 ml/min Est GFR (Non-Af Amer) 76.7 ml/min BUN/Creatinine Ratio 25.0 H (10-20) Glucose 143 H (70-99(Fasting)) mg/dl Calcium 9.2 (8.6-10.3) mg/dl Total Bilirubin 0.8 (0.2-1.0) mg/dl AST 85 H (13-39) U/L ALT 65 H (7-52) U/L Alkaline Phosphatase 132 H (34-104) U/L Total Protein 7.8 (6.0-8.3) gm/dl Albumin 4.0 (3.4-5.0) gm/dl Globulin 3.8 (2.5-4.0) gm/dl Albumin/Globulin Ratio 1.1 (0.9-2) Blood Type B Positive Antibody Screen NEGATIVE Administered Medications Discontinued Medications Metoprolol Succinate (Metoprolol Succ 25mg Ext Rel Tab) 25 mg PO ONE ONE Stop: 08/08/23 20:01 Last Admin: 08/08/23 20:39 Dose: 25 mg Documented By: LCD Imaging Data Radiologist's Impression: Ankle X-Ray 08/08/23 14:36 XR ankle LT 2V CLINICAL HISTORY: Left ankle pain following injury. COMPARISON: Left foot radiographs January 30, 2021. FINDINGS: There is no ankle mortise widening. Note is made of subtle cortical irregularity and lucency within the lateral aspect of the fibular tip consistent with a minimally displaced fracture. Lateral ankle soft tissue swelling is present. No acute fracture of the distal left tibia is present. There is a acute nondisplaced fracture of the posterior superior aspect of the calcaneus. There is also an acute slightly distracted fracture of the base of the left fifth metatarsal. IMPRESSION: 1. Acute nondisplaced fracture of the posterior superior calcaneus. 2. Acute slightly distracted fracture of the base of the left fifth metatarsal. 3. Acute minimally displaced fracture of the fibular tip. Lateral ankle soft tissue swelling. No ankle mortise widening. ACT 112: Negative or not required by law. Electronically signed by: Alessandro Magaña M.D. 08/08/2023 3:59 PM Foot X-Ray 08/08/23 14:36 XR foot LT 2V CLINICAL HISTORY: Injury with left foot pain. COMPARISON STUDY: None. FINDINGS: Nondisplaced fracture through the posterior calcaneus. Soft tissue swelling within the hindfoot and midfoot. There is a tiny plantar heel spur. Soft tissue swelling within the ankle with a small fracture at the tip of the distal fibula. The bones are osteopenic. There is a distracted fracture at the base of the fifth metatarsal. This demonstrates up to 4 mm of distraction. The fracture extends to the tarsometatarsal joint. No dislocation within the left ankle. The distal tibia is intact. IMPRESSION: 1. Nondisplaced fracture at the posterior calcaneus. 2. Distracted fracture at the lateral base of the fifth metatarsal. 3. Small fracture at the distal fibula. ACT 112: Negative or not required by law. Electronically signed by: Austin Burger M.D. 08/08/2023 4:00 PM Knee X-Ray 08/08/23 14:36 XR knee RT 1 or 2V routine CLINICAL HISTORY: INJURY TECHNIQUE: 2 views of the right knee were obtained. Comparison: Comparison is made to 09/25/2018 FINDINGS: There is no evidence of an acute fracture. Patient is status post total knee arthroplasty. No perihardware lucency or hardware fracture is seen. No joint effusion is seen. No soft tissue abnormality is seen. IMPRESSION: No evidence of acute osseous injury. ACT 112: Negative or not required by law. Electronically signed by: Rafat Rey M.D. 08/08/2023 3:[address] 08/08/23 17:23 CT tib/fib LT wo con, CT foot LT wo con CLINICAL HISTORY: Eval fracture pattern TECHNIQUE: Multidetector row helical CT of the left tibia and fibula and left foot was performed without intravenous contrast. Coronal and sagittal reformations were obtained. Automated dose lowering techniques and/or adjustment according to patient size were utilized for this examination. CT DOSE: 374.44 mGy.cm Comparison: Comparison is made to ankle radiograph 08/08/2023 FINDINGS: There is a minimally comminuted fracture of the tip of the fibula, well below the tibiofibular syndesmosis. There is a fracture of the posterior superior calcaneus and a mildly distracted fracture of the fifth metatarsal base. There is a bony fragment in the lateral inferior calcaneus which may represent an avulsion fracture. Degenerative changes in the joints. The Lisfranc joints are intact. Soft tissue swelling is seen. IMPRESSION: 1. Mildly distracted fracture of the left fifth metatarsal. 2. Posterior superior calcaneal fracture. There may be a tiny avulsion fracture from the lateral aspect of the calcaneus. 3. Liver a tip fracture. ACT 112: Negative or not required by law. Electronically signed by: Rafat Rey M.D. 08/08/2023 7:[address] 08/08/23 17:23 CT tib/fib LT wo con, CT foot LT wo con CLINICAL HISTORY: Eval fracture pattern TECHNIQUE: Multidetector row helical CT of the left tibia and fibula and left foot was performed without intravenous contrast. Coronal and sagittal reformations were obtained. Automated dose lowering techniques and/or adjustment according to patient size were utilized for this examination. CT DOSE: 374.44 mGy.cm Comparison: Comparison is made to ankle radiograph 08/08/2023 FINDINGS: There is a minimally comminuted fracture of the tip of the fibula, well below the tibiofibular syndesmosis. There is a fracture of the posterior superior calcaneus and a mildly distracted fracture of the fifth metatarsal base. There is a bony fragment in the lateral inferior calcaneus which may represent an avulsion fracture. Degenerative changes in the joints. The Lisfranc joints are intact. Soft tissue swelling is seen. IMPRESSION: 1. Mildly distracted fracture of the left fifth metatarsal. 2. Posterior superior calcaneal fracture. There may be a tiny avulsion fracture from the lateral aspect of the calcaneus. 3. Liver a tip fracture. ACT 112: Negative or not required by law. Electronically signed by: Rafat Rey M.D. 08/08/2023 7:29 PM Chest X-Ray 08/08/23 17:24 XR chest 1V portable CLINICAL HISTORY: clearance TECHNIQUE: Single frontal radiograph of the chest was obtained. Comparison: Comparison is made to chest radiograph 07/14/2022 FINDINGS: Median sternotomy wires are unchanged. Cardiomegaly is noted. The lungs are clear. No evidence of pleural effusion or pneumothorax. IMPRESSION: No acute chest disease. ACT 112: Negative or not required by law. Electronically signed by: Rafat Rey M.D. 08/08/2023 6:05 PM Discharge Plan Visit Data Chief Complaint: Fall ED Provider: Tommy Curry Discharge Problem: Calcaneal fracture Patient Disposition: Admitted As Inpatient Discharge Instructions Interventions: ED Discharge Assessment Last Done: 08/08/23 20:55 Forms Stand Alone Forms: [facility] Prescriptions Prescriptions: No Action B-complex with vitamin C [Super B Complex-Vitamin C] tablet 1 tab PO DAILY Qty: 90 1RF Humulin N NPH Insulin KwikPen 100 unit/mL (3 mL) insulin pen 24 unit SUBCUT HS 90 Days Qty: 30 3RF Rx Instructions: Inject 24 units at bed time meclizine 25 mg tablet 25 mg PO Q6H PRN (Reason: dizziness) Qty: 20 0RF (DME) Dexcom G6 Sensor Device See Rx Instructions .Route Rx Instructions: Change sensor every 10 days Lot# [id number] Exp. 11/16/2023 Jardiance 25 mg tablet 25 mg PO DAILY Qty: 90 3RF levothyroxine 150 mcg tablet 150 mcg PO QAM Qty: 90 3RF insulin glargine [Lantus Solostar U-100 Insulin] 100 unit/mL (3 mL) insulin pen 55 unit SQ DAILY Qty: 60 3RF (DME) pen needle, diabetic [BD Ultra-Fine Mini Pen Needle] 31 gauge x 3/16" needle See Rx Instructions .Route Qty: 300 3RF Rx Instructions: Inject insulin three times daily metoprolol tartrate 25 mg tablet 25 mg PO BID Qty: 180 3RF clindamycin phosphate 1 % gel 1 applic topical DAILY Qty: 60 2RF clobetasol 0.05 % ointment 1 applic topical BID 14 Days Qty: 30 0RF pantoprazole 40 mg tablet,delayed release (DR/EC) 40 mg PO DAILY Qty: 90 3RF ranolazine 500 mg tablet extended release 12 hr 500 mg PO BID 90 Days Qty: 180 3RF Brilinta 90 mg tablet 90 mg PO BID Qty: 180 3RF metformin 1,000 mg tablet 1,000 mg PO BID Qty: 180 1RF Humalog KwikPen Insulin 200 unit/mL (3 mL) insulin pen See Rx Instructions subcut .COMPLEX Qty: 72 5RF Rx Instructions: 140-160 subcut daily amlodipine 5 mg tablet 5 mg PO DAILY Qty: 90 3RF atorvastatin 80 mg tablet 80 mg PO DAILY Qty: 90 3RF Centrum Silver 0.4-300-250 mg-mcg-mcg tablet 1 tab PO DAILY (DME) Dexcom G6 Athletic Turf Worker Misc See Rx Instructions .Route Rx Instructions: As directed (DME) Dexcom G6 Transmitter Device See Rx Instructions .Route Rx Instructions: As directed flaxseed oil 1,000 mg capsule 1,000 mg PO BID Rx Instructions: administer with meals lorazepam [Ativan] 0.5 mg tablet 0.5 mg PO DAILY PRN (Reason: Anxiety) mecobalamin (vitamin B12) 1,000 mcg tablet,disintegrating 500 mcg sublingual DAILY Rx Instructions: place tablet under tongue and allow to dissolve for at least30 secs before swallowing lisinopril 10 mg tablet 10 mg PO DAILY loratadine 10 mg tablet 10 mg PO DAILY montelukast [Singulair] 10 mg tablet 10 mg PO QPM Qty: 90 3RF fexofenadine 180 mg tablet 180 mg PO DAILY nitroglycerin 0.4 mg tablet, sublingual 0.4 mg SL Q5M PRN (Reason: Pain) Qty: 25 Restasis MultiDose 0.05 % drops 1 drops OP Q12H (DME) OneTouch Ultra Test Strip See Rx Instructions .Route Rx Instructions: Test blood sugar once daily PRN- Has Dexcom venlafaxine 150 mg Capsule,Extended Release 24hr 150 mg PO DAILY Rx Instructions: FOR A TOTAL DOSE OF 187.5MG HS aspirin [Alexandre Low Dose Aspirin] 81 mg Tablet,Delayed Release (Dr/Ec) 81 mg PO QAM melatonin 10 mg tablet 20 mg PO HS cholecalciferol (vitamin D3) [Vitamin D3] 50 mcg (2,000 unit) capsule 2,000 unit PO BID omega 1-tnl-zub-fish oil [Fish Oil] 1,000 mg (120 mg-180 mg) capsule 1 cap PO BID venlafaxine 37.5 mg capsule,extended release 24hr 75 mg PO DAILY Rx Instructions: FOR A TOTAL DOSE OF 187.5MG Referrals Referrals: Ciaran Berg III, CRNP [Primary Care Provider] - Discharge Problem: Calcaneal fracture Qualifiers: Encounter type: initial encounter Calcaneus location: unspecified portion of calcaneus Fracture type: closed Fracture alignment: nondisplaced Laterality: l eft Qualified Code(s): S92.002A - Unspecified fracture of left calcaneus, initial encounter for closed fracture
[2023-08-08 17:54] LABS: Hematocrit (blood only) 32.2 % (37.0-47.0); Hemoglobin 8.9 g/dl (12.0-16.0); Mean Corpuscular Hemoglobin 19.2 pg (25.0-34.0); Mean Corpuscular Hgb Conc 27.6 g/dL (32.0-36.0); Mean Corpuscular Volume 69.5 fL (80.0-100.0); Mean Platelet Volume 10.2 fL (9.4-12.4); Platelet Count 120 K/uL (130-400); RDW Coefficient of Variation 20.3 % (11.5-14.5); RDW Standard Deviation 49.9 fL (36.4-46.3); Red Blood Count 4.63 M/uL (4.20-5.40); White Blood Count 6.38 K/ul (4.8-10.8)
[2023-08-08 18:05] LABS: Albumin Globulin Ratio 1.1 (0.9-2); Bilirubin,Total 0.8 mg/dl (0.2-1.0); Calcium 9.2 mg/dl (8.6-10.3); Creatinine Clr Calc Pharmacy 73.7 ml/min; Est GFR (African American) 88.9 ml/min; Est GFR (Non-African American) 76.7 ml/min; Globulin 3.8 gm/dl (2.5-4.0); Potassium 3.8 mmol/L (3.5-5.1); Total Protein 7.8 gm/dl (6.0-8.3)
--- NOTE | 2023-08-08 18:07 | XRay Report ---
XR chest 1V portable CLINICAL HISTORY: clearance TECHNIQUE: Single frontal radiograph of the chest was obtained. Comparison: Comparison is made to chest radiograph 07/14/2022 FINDINGS: Median sternotomy wires are unchanged. Cardiomegaly is noted. The lungs are clear. No evidence of ple ural effusion or pneumothorax. IMPRESSION: No acute chest disease. ACT 112: Negative or not required by law. Electronically signed by: Rafat Rey M.D. 08/08/2023 6:05 PM
[2023-08-08 18:13] LABS: Prothrombin Time 10.9 Seconds (9.0-12.0)
[2023-08-08 18:17] LABS: Anisocytosis Present; Basophils # (auto) 0.06 K/uL (0.00-0.20); Basophils % (auto) 0.9 %; Eosinophils # (auto) 0.31 K/uL (0.00-0.50); Eosinophils % (auto) 4.9 %; Hypochromasia Present; Immature Granulocytes # (auto) 0.02 K/uL (0.01-0.20); Immature Granulocytes % (auto) 0.3 %; Lymphocytes # (auto) 1.63 K/uL (1.20-3.40); Lymphocytes % (auto) 25.5 %; Microcytosis Present; Monocytes # (auto) 0.63 K/uL (0.11-0.59); Monocytes % (auto) 9.9 %; Neutrophils # (auto) 3.73 K/uL (1.40-6.50); Neutrophils % (auto) 58.5 %; Polychromasia 1+
--- NOTE | 2023-08-08 18:50 | History & Physical Report ---
Date of Service August 08, 2023 Assessment & Plan (1) Fall: Plan: Patient sustained a mechanical ground-level fall at her home on 08/08 Left foot/ankle x-ray revealed a nondisplaced fracture of the posterior superior calcaneus, as well as fracture of the fifth metatarsal and fibular tip Plan is to go to the OR with Dr. Ronquillo at 0900 on 08/09 Hgb 8.9 on arrival; follow a.m. CBC Patient reports she is not in pain when she keeps the feet still; declines pain medicine at the time of admission Acetaminophen 650 mg p.o. q4h as needed for pain A.m. CBC, BMP (2) Type 2 diabetes mellitus: Plan: Last A1c 7.0% on 02/19/2023 Hold metformin, Jardiance Patient reports that she is on Lantus 55u and NPH 24u at night Recommend Lantus 20u twice daily while inpatient SSI; target BSG range 110-140mg/dL, CF 20, carb ratio 7 T2DM diet; n.p.o. at midnight BSG [facility] Pharmacy glycemic consult Adjust regimen as needed AM A1c (3) Essential hypertension: Plan: Hold a.m. metoprolol on 08/09 prior to OR, then restart in the p.m. Hold lisinopril x 1 day Hold amlodipine x 1 day (4) Coronary artery disease: Plan: Patient has extensive history of multiple stents placed She is on both aspirin daily and Brilinta twice daily; last taken the morning of 08/08 Hold prior to OR Per podiatry, cardiology consulted, and is amenable to seeing patient prior to procedure (5) Hypothyroidism: Plan: Continue levothyroxine (6) BPPV (benign paroxysmal positional vertigo): Plan: Continue meclizine as needed (7) Anxiety with depression: Plan: Continue venlafaxine (8) GERD (gastroesophageal reflux disease): Plan: Continue pantoprazole Plan Disposition: Admit to [facility] telemetry Full code T2DM diet (n.p.o. at midnight) VTE PPx: Hold chemical DVT PPx for now, then add on postop History of Present Illness Chief Complaint: Fall Primary Care Provider: Ciaran Berg III, UVALDO Kaylene is a pleasant 73-year-old female with PMH of T2DM, CAD, hypertension, hypothyroidism, depression, anxiety, GERD, RUDOLPH, BPPV, OA, NSTEMI, and mixed urge and stress incontinence. She presented after sustaining a mechanical fall at home on 08/08. No dizziness prior to fall. No LOC. No head strike. She reportedly twisted, and felt something give out, but fell to the ground. Her left ankle started swelling immediately. When she got up she noticed that her right knee was very sore. She did not hear a "pop". The pain was 8/10 at its worst in the left ankle, but she reports no pain when she holds it still. Patient declines pain medicine at time of admission. Left foot/ankle x-ray on arrival revealed a nondisplaced fracture of the posterior superior calcaneus, as well as the left fifth metatarsal and fibular tip. The plan is for the patient to go to the OR with Dr. Ronqiullo on 08/09 at 0900. Of note, patient is on aspirin and Brilinta for her 7-8 heart stents. She reports that she took her medications this morning, including insulin, aspirin, and Brilinta. 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 No at home oxygen use. No sick contacts. She reports that she fell in the [place] at age 45 and broke her left ankle in the past; she also broke her left ankle as a child. Patient charlie ls are stable at time of admission. ROS: Patient endorses SALGADO, occasional MACARIO, nausea, and left heel pain with movement. Patient denies fever, chills, night-sweats, SOB at rest, CP, pleuritic CP, vomi ting, and diarrhea. Allergies Allergy/AdvReac Type Severity Reaction Status Date / Time nickel Allergy Intermediate pruritis Verified 07/30/23 07:50 cat dander Allergy Mild itchy eyes Verified 07/30/23 07:50 Sulfa (Sulfonamide Allergy Mild HIVES Verified 07/30/23 07:50 Antibiotics) glipizide Allergy Unknown ITCHY,WHEEZ Verified 07/30/23 07:50 ING mold Allergy Unknown ITCHY EYES Verified 07/30/23 07:50 RUNNY NOSE pioglitazone Allergy Unknown ITCHY Verified 07/30/23 07:50 WHEEZING house dust Allergy Itchy Verified 07/30/23 07:50 eyes, runny nose sulfamethoxazole Allergy Itching, Verified 07/30/23 07:50 [From Bactrim] shortness of breath trimethoprim [From Bactrim] Allergy Itching, Verified 07/30/23 07:50 shortness of breath adhesive AdvReac Unknown SKIN Verified 07/30/23 07:50 IRRITATION Home Medications Medication Instructions Recorded Confirmed Type aspirin 81 mg tablet,delayed 81 mg PO QAM 08/06/18 08/08/23 History release (Alexandre Low Dose Aspirin) venlafaxine 150 mg 150 mg PO DAILY 08/06/18 08/08/23 History capsule,extended release 24 hr fexofenadine 180 mg tablet 180 mg PO DAILY 03/23/19 08/08/23 History nitroglycerin 0.4 mg sublingual 0.4 mg sublingual Q5M PRN Pain #25 03/23/19 08/08/23 History tablet tabs cyclosporine 0.05 % eye drops 1 drops ophthalmic (eye) Q12H 03/29/19 08/08/23 History (Restasis MultiDose) B-complex with vitamin C (Super B 1 tab PO DAILY #90 tabs 05/28/19 08/08/23 Rx Complex-Vitamin C tablet) melatonin 10 mg tablet 20 mg PO HS 07/13/19 08/08/23 History nrpxoqqv-[id number]-mdpfq acid 0.4 1 tab PO DAILY 07/13/19 08/08/23 History mg-lycopene 300 mcg-lutein 250 mcg tablet (Centrum Silver) cholecalciferol (vitamin D3) 50 2,000 unit PO BID 04/20/20 08/08/23 History mcg (2,000 unit) capsule (Vitamin D3) omega 6-ale-ruc-fish oil 1,000 mg 1 cap PO BID 04/20/20 08/08/23 History (120 mg-180 mg) capsule (Fish Oil) flaxseed oil 1,000 mg capsule 1,000 mg PO BID 08/16/20 08/08/23 History mecobalamin (vitamin B12) 1,000 500 mcg sublingual DAILY 03/08/21 08/08/23 History mcg disintegrating tablet,sublingual venlafaxine 37.5 mg 75 mg PO DAILY 03/08/21 08/08/23 History capsule,extended release 24 hr blood-glucose meter,continuous 03/29/21 07/30/23 History (Dexcom G6 Oxygen Furnace Operator) blood-glucose transmitter (Dexcom 03/29/21 07/30/23 History G6 Transmitter device) lorazepam 0.5 mg tablet (Ativan) 0.5 mg PO DAILY PRN Anxiety 08/01/21 08/08/23 History insulin NPH isoph U-100 human 100 24 unit (0.24 mL) subcut HS 90 06/03/22 08/08/23 Rx unit/mL (3 mL) subcutaneous pen days #30 mL (Humulin N NPH U-100 Insulin KwikPen) lisinopril 10 mg tablet 10 mg PO DAILY 07/22/22 08/08/23 History loratadine 10 mg tablet 10 mg PO DAILY 07/22/22 08/08/23 History meclizine 25 mg tablet 25 mg PO Q6H PRN dizziness #20 tabs 08/16/22 08/08/23 Rx blood-glucose sensor (Dexcom G6 08/27/22 07/30/23 History Sensor device) blood sugar diagnostic (Oneuch 11/14/22 07/30/23 History Ultra Test strips) empagliflozin 25 mg tablet 25 mg PO DAILY #90 tabs 11/22/22 08/08/23 Rx (Jardiance) Lantus Solostar U-100 Insulin 100 55 unit (0.55 mL) subcut DAILY #60 11/25/22 08/08/23 Rx unit/mL (3 mL) subcutaneous pen mL (insulin glargine) levothyroxine 150 mcg tablet 150 mcg PO QAM #90 tabs 11/25/22 08/08/23 Rx pen needle, diabetic 31 gauge x #300 ea 01/16/23 07/30/23 Rx 3/16" (BD Ultra-Fine Mini Pen Needle) montelukast 10 mg tablet 10 mg PO QPM #90 tabs 01/30/23 08/08/23 Rx (Singulair) metoprolol tartrate 25 mg tablet 25 mg PO BID #180 tabs 03/11/23 08/08/23 Rx clindamycin phosphate 1 % topical 1 applic topical DAILY #60 grams 04/29/23 08/08/23 Rx gel clobetasol 0.05 % topical ointment 1 applic topical BID 2 weeks #30 05/09/23 08/08/23 Rx grams pantoprazole 40 mg tablet,delayed 40 mg PO DAILY #90 tabs 06/16/23 08/08/23 Rx release ranolazine 500 mg tablet,extended 500 mg PO BID 90 days #180 tabs 06/16/23 08/08/23 Rx release,12 hr ticagrelor 90 mg tablet (Brilinta) 90 mg PO BID #180 tabs 06/16/23 08/08/23 Rx metformin 1,000 mg tablet 1,000 mg PO BID #180 tabs 07/07/23 08/08/23 Rx insulin lispro 200 unit/mL (3 mL) See Rx Instructions subcut 07/16/23 08/08/23 Rx subcutaneous pen (Humalog KwikPen .COMPLEX #72 mL U-200 Insulin) amlodipine 5 mg tablet 5 mg PO DAILY #90 tabs 07/21/23 08/08/23 Rx atorvastatin 80 mg tablet 80 mg PO DAILY #90 tabs 07/21/23 08/08/23 Rx Past Med/Surg History Medical History Anxiety with depression Elevated troponin Lichen sclerosus et atrophicus Vulvar varicose veins Fatty liver disease, nonalcoholic Type 2 diabetes mellitus Carpal tunnel syndrome on both sides Primary osteoarthritis of right knee Morbid obesity History of difficult intubation left shoulder arthroscopy, RCR, distal clavicle exicision= 08/26/14= "gentle laryngoscopy with no view of cords/arytenoids, straight to glidescopy 3, ETT passed through open cords with cricoid pressure and increased angle of ETT [ 7.0]" Osteoarthritis Peptic ulcer disease H/O BLEEDING ULCER (2006) Hypothyroidism Diabetes mellitus, type 2 IDDM Anxiety Depression Stroke 2011= RESIDUAL LEFT FOOT NEUROPATHY Myocardial Infarction 2010 Stable angina Hyperlipidemia Hypertension CAD (coronary artery disease) S/P CABG X 4 (1998), CARDIAC STENTS X 4 TOTAL (MOST RECENT 04/2017) Surgical History History of intravascular stent placement done with Urvashi 07/18/2022, coronary stent, Xience History of tubal ligation History of total knee arthroplasty (~2018) RIGHT History of tooth extraction History of hysterectomy KD W/BSO History of repair of rotator cuff (~2014) LEFT H/O elbow surgery LEFT History of total knee replacement LEFT History of colonoscopy History of esophagogastroduodenoscopy (EGD) History of cataract surgery BILATERAL History of endoscopic sinus surgery History of adenoidectomy History of coronary artery bypass graft CABG X4 (1997) Family History Father Myocardial infarction Coronary heart disease Brother Arthritis Hx of CABG Sister Arthritis Mother Dementia Heart disease Other Family history non-contributory Denies family history of Liver cancer Ovarian cancer Prostate cancer Crohn's disease Breast cancer Colorectal cancer Inflammatory bowel disease Social History Smoking Status: Never smoker Second Hand Exposure: No; Do You Dip or Chew Tobacco: No; Hx Alcohol Use: Yes (drinks wine, gin and tonic, martini's) Alcohol type: wine and hard liquor Alcohol Intake Frequency: 4 or More x per/Week Alcohol Intake Frequency Comment: 3-4X a week Hx Substance Use: Yes Last Used Substance: Days (ago) Substance Use Type Other:: CHG gummies for anxiety Preferred Language: Slovak Communication Ability: Effective Visual Impairment: No Limitations Hearing Ability: Hard of Hearing Stereoplotter Operator Required: No Beliefs That Will Affect Care: None marital status: Current Living Situation: Spouse current occupational status: retired current occupation: retired Other Information That Helps Us Care for You: No Feels Safe at Home: Yes Safety Concerns: Feels Safe At This Time Childhood Exposure to Second-Hand Smoke: Yes Diet: regular Dental Care, Regularly: Yes Physical Activity Frequency: Daily Seatbelt Use: always Sunscreen Use: Yes Assistive Devices: CPAP, Walker and Wheelchair Review of Systems Review of Systems: See HPI above Physical Exam Physical Exam: General: no acute distress; pleasant affect; non-toxic appearing; well- nourished; cooperative; SpO2 95% on RA HEENT: normocephalic, atraumatic; no scleral icterus; PERRLA w/ EOMs intact; moist mucus membrane; vision and hearing grossly intact Neck: supple; no JVD; no lymphadenopathy; trachea midline Skin: warm, dry without signs of tenting; no cyanosis; no rashes, bruising, lesions, or erythema noted CV: chest wall NTP; RRR; S1/S2 normal; no murmurs/rubs/gallops; pulses intact and symmetric at radial, DP, and PT Lungs: no acute respiratory distress; symmetrical chest wall expansion; clear breath sounds across all lung carter w/o adventitious sounds; no wheezing ABD: Soft, NTP; BS present; no rebound/guarding; no ascites; no distention; negative CVA tenderness MSK: no tics or fasciculations; no edema noted in the LEs b/l LEs: Pain with bending right knee; left lateral malleolus is swollen, purple; she endorses pain with attempts to bend left ankle; however, she notes that sensation is intact in the feet bilaterally Neuro: A&Ox3; normal mood and affect; fluent speech; CN2-12 intact; no focal deficits; sensation grossly intact Results & Data Results & Data Vital Signs (Past 12 Hours) Vital Signs Temp Pulse Pulse Resp BP BP Pulse Ox 08/08/23 18:24 88 08/08/23 18:16 85 18 95 08/08/23 18:15 85 18 139/59 L 95 08/08/23 14:20 36.0 C L 78 18 131/60 99 08/08/23 14:20 36.0 C L 78 18 131/60 99 O2 Del Method 08/08/23 18:24 08/08/23 18:16 Room Air 08/08/23 18:15 Room Air 08/08/23 14:20 Room Air 08/08/23 14:20 Room Air Laboratory Results Abnormal lab results 08/08/23 Range/Units 17:36 Hgb 8.9 L (12.0-16.0) g/dl Hct 32.2 L (37.0-47.0) % MCV 69.5 L (80.0-100.0) fL MCH 19.2 L (25.0-34.0) pg MCHC 27.6 L (32.0-36.0) g/dL RDW Std Deviation 49.9 H (36.4-46.3) fL RDW Coeff of Dani 20.3 H (11.5-14.5) % Plt Count 120 L (130-400) K/uL Graves # (Auto) 0.63 H (0.11-0.59) K/uL BUN/Creatinine Ratio 25.0 H (10-20) Glucose 143 H (70-99(Fasting)) mg/dl AST 85 H (13-39) U/L ALT 65 H (7-52) U/L Alkaline Phosphatase 132 H (34-104) U/L Diagnostic Findings Ankle X-Ray 08/08/23 14:36 XR ankle LT 2V CLINICAL HISTORY: Left ankle pain following injury. COMPARISON: Left foot radiographs January 30, 2021. FINDINGS: There is no ankle mortise widening. Note is made of subtle cortical irregularity and lucency within the lateral aspect of the fibular tip consistent with a minimally displaced fracture. Lateral ankle soft tissue swelling is present. No acute fracture of the distal left tibia is present. There is a acute nondisplaced fracture of the posterior superior aspect of the calcaneus. There is also an acute slightly distracted fracture of the base of the left fifth metatarsal. IMPRESSION: 1. Acute nondisplaced fracture of the posterior superior calcaneus. 2. Acute slightly distracted fracture of the base of the left fifth metatarsal. 3. Acute minimally displaced fracture of the fibular tip. Lateral ankle soft tissue swelling. No ankle mortise widening. ACT 112: Negative or not required by law. Electronically signed by: Alessandro Magaña M.D. 08/08/2023 3:59 PM Foot X-Ray 08/08/23 14:36 XR foot LT 2V CLINICAL HISTORY: Injury with left foot pain. COMPARISON STUDY: None. FINDINGS: Nondisplaced fracture through the posterior calcaneus. Soft tissue swelling within the hindfoot and midfoot. There is a tiny plantar heel spur. Soft tissue swelling within the ankle with a small fracture at the tip of the distal fibula. The bones are osteopenic. There is a distracted fracture at the base of the fifth metatarsal. This demonstrates up to 4 mm of distraction. The fracture extends to the tarsometatarsal joint. No dislocation within the left ankle. The distal tibia is intact. IMPRESSION: 1. Nondisplaced fracture at the posterior calcaneus. 2. Distracted fracture at the lateral base of the fifth metatarsal. 3. Small fracture at the distal fibula. ACT 112: Negative or not required by law. Electronically signed by: Austin Burger M.D. 08/08/2023 4:00 PM Knee X-Ray 08/08/23 14:36 XR knee RT 1 or 2V routine CLINICAL HISTORY: INJURY TECHNIQUE: 2 views of the right knee were obtained. Comparison: Comparison is made to 09/25/2018 FINDINGS: There is no evidence of an acute fracture. Patient is status post total knee arthroplasty. No perihardware lucency or hardware fracture is seen. No joint effusion is seen. No soft tissue abnormality is seen. IMPRESSION: No evidence of acute osseous injury. ACT 112: Negative or not required by law. Electronically signed by: Rafat Rey M.D. 08/08/2023 3:59 PM Chest X-Ray 08/08/23 17:24 XR chest 1V portable CLINICAL HISTORY: clearance TECHNIQUE: Single frontal radiograph of the chest was obtained. Comparison: Comparison is made to chest radiograph 07/14/2022 FINDINGS: Median sternotomy wires are unchanged. Cardiomegaly is noted. The lungs are clear. No evidence of pleural effusion or pneumothorax. IMPRESSION: No acute chest disease. ACT 112: Negative or not required by law. Electronically signed by: Rafat Rey M.D. 08/08/2023 6:05 PM Code Status & VTE Plan Code Status Full code VTE Prophylaxis Plan VTE Prophylaxis will be ordered: No Supervising Physician Co-Signing Physician Notes Attending addendum: I have physically seen this patient, have supervised the GREGORIO's activities, and agree with the H&P unless as otherwise noted. Assessment and Plan: Left ankle/foot multiple fractures status post mechanical fall- Nondisplaced fracture of the posterior superior calcaneus, fracture of fifth MTP, and fibula tip Nonweightbearing ED has already consulted Dr. Ronquillo for surgical repair scheduled for 9:00 on 08/09 N.p.o. after midnight Acetaminophen 650 mg by mouth every 4 hours as needed for mild pain or fever Patient reports no more significant pain then as long as she keeps relatively still Diabetes mellitus, well-controlled- Hold metformin and Jardiance for now Glargine dosing reduction as noted with sliding scale insulin coverage Check hemoglobin A1c CAD/hypertension- Continue metoprolol, including in the a.m. prior to OR Hold lisinopril and amlodipine Hold aspirin and Brilinta until after the OR Remaining orders and notations as noted PG Care Time/CCT Total # of Minutes Spent Total Time Spent with Patient: Total time spent is greater than 50% in coordination of care (as documented) at patient's floor/unit and/or counseling patient: Coding [place] [address] INT INP/OBS CARE MIN Patient Type Established Medical Decision Making Moderate Complexity Diagnoses Fall W19.XXXA Type 2 diabetes mellitus E11.9 Essential hypertension I10 Coronary artery disease I25.10 Hypothyroidism E03.9 BPPV (benign paroxysmal positional vertigo) H81.10 Anxiety with depression F41.8 GERD (gastroesophageal reflux disease) K21.9
--- NOTE | 2023-08-08 19:32 | CT Scan Report ---
CT tib/fib LT wo con, CT foot LT wo con CLINICAL HISTORY: Eval fracture pattern TECHNIQUE: Multidetector row helical CT of the left tibia and fibula and left foot was performed with out intravenous contrast. Coronal and sagittal reformations were obtained. Automated dose lowering te chniques and/or adjustment according to patient size were utilized for this examination. CT DOSE: 374.44 mGy.cm Comparison: Comparison is made to ankle radiograph 08/08/2023 FINDINGS: There is a minimally comminuted fracture of the tip of the fibula, well below the tibiofibular syndes mosis. There is a fracture of the posterior superior calcaneus and a mildly distracted fracture of th e fifth metatarsal base. There is a bony fragment in the lateral inferior calcaneus which may represe nt an avulsion fracture. Degenerative changes in the joints. The Lisfranc joints are intact. Soft tis lupis swelling is seen. IMPRESSION: 1. Mildly distracted fracture of the left fifth metatarsal. 2. Posterior superior calcaneal fracture. There may be a tiny avulsion fracture from the lateral asp ect of the calcaneus. 3. Liver a tip fracture. ACT 112: Negative or not required by law. Electronically signed by: Rafat Rey M.D. 08/08/2023 7:29 PM
[2023-08-08] MEDS ORDERED: METOPROLOL SUCC 25MG EXT REL TAB PO ONE (20:00)
--- NOTE | 2023-08-08 20:59 | Orthopedic Consultation ---
Date of Consultation August 08, 2023 Assessment & Plan (1) Calcaneal fracture: Patient seen, evaluated, and treated. Reviewed plain film and CT images and findings. Tongue type fracture pattern of calcaneus does require fixation. 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 Patient admit to medicine and plan for surgical care 08/09/23 9am. Cardiology consult placed for review prior to anesthesia. Thank you for allowing me to participate in the care of this Patient. (2) Foot fracture, left: (3) Fall: (4) Type 2 diabetes mellitus: History of Present Illness History of Present Illness Patient is a 73-year-old female seen at [facility] in room B07 for left foot and ankle fractures. Patient has a past medical history significant for type II diabetes, CAD, hypertension, hypothyroidism, depression, anxiety, GERD, RUDOLPH, BPPV, OA, NSTEMI, and mixed urge and stress incontinence. Patient presented to [facility] ED after fall while at her home earlier today. Patient denies head trauma. She notes right and left foot pain and right knee pain. The pain was 8/10 at its worst in the left ankle. She relates history of lower extremity neuropathy and currently rates pain as minimal. Plain film and CT show left distal fibula fracture, tongue type calcaneal fracture, and fifth metatarsal base fracture. Patient is on aspirin and Brilinta status post 7-8 heart stents. 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 Due to calcaneal fracture Patient would benefit greatly from ORIF. Allergies Allergy/AdvReac Type Severity Reaction Status Date / Time nickel Allergy Intermediate pruritis Verified 07/30/23 07:50 cat dander Allergy Mild itchy eyes Verified 07/30/23 07:50 Sulfa (Sulfonamide Allergy Mild HIVES Verified 07/30/23 07:50 Antibiotics) glipizide Allergy Unknown ITCHY,WHEEZ Verified 07/30/23 07:50 ING mold Allergy Unknown ITCHY EYES Verified 07/30/23 07:50 RUNNY NOSE pioglitazone Allergy Unknown ITCHY Verified 07/30/23 07:50 WHEEZING house dust Allergy Itchy Verified 07/30/23 07:50 eyes, runny nose sulfamethoxazole Allergy Itching, Verified 07/30/23 07:50 [From Bactrim] shortness of breath trimethoprim [From Bactrim] Allergy Itching, Verified 07/30/23 07:50 shortness of breath adhesive AdvReac Unknown SKIN Verified 07/30/23 07:50 IRRITATION Home Medications Medication Instructions Recorded Confirmed Type aspirin 81 mg tablet,delayed 81 mg PO QAM 08/06/18 08/08/23 History release (Alexandre Low Dose Aspirin) venlafaxine 150 mg 150 mg PO DAILY 08/06/18 08/08/23 History capsule,extended release 24 hr fexofenadine 180 mg tablet 180 mg PO DAILY 03/23/19 08/08/23 History nitroglycerin 0.4 mg sublingual 0.4 mg sublingual Q5M PRN Pain #25 03/23/19 08/08/23 History tablet tabs cyclosporine 0.05 % eye drops 1 drops ophthalmic (eye) Q12H 03/29/19 08/08/23 History (Restasis MultiDose) B-complex with vitamin C (Super B 1 tab PO DAILY #90 tabs 05/28/19 08/08/23 Rx Complex-Vitamin C tablet) melatonin 10 mg tablet 20 mg PO HS 07/13/19 08/08/23 History qzwtektq-tsa-fcukm acid 0.4 1 tab PO DAILY 07/13/19 08/08/23 History mg-lycopene 300 mcg-lutein 250 mcg tablet (Centrum Silver) cholecalciferol (vitamin D3) 50 2,000 unit PO BID 04/20/20 08/08/23 History mcg (2,000 unit) capsule (Vitamin D3) omega 1-hvz-dkf-fish oil 1,000 mg 1 cap PO BID 04/20/20 08/08/23 History (120 mg-180 mg) capsule (Fish Oil) flaxseed oil 1,000 mg capsule 1,000 mg PO BID 08/16/20 08/08/23 History mecobalamin (vitamin B12) 1,000 500 mcg sublingual DAILY 03/08/21 08/08/23 History mcg disintegrating tablet,sublingual venlafaxine 37.5 mg 75 mg PO DAILY 03/08/21 08/08/23 History capsule,extended release 24 hr blood-glucose meter,continuous 03/29/21 07/30/23 History (Dexcom G6 Immigration Paralegal) blood-glucose transmitter (Dexcom 03/29/21 07/30/23 History G6 Transmitter device) lorazepam 0.5 mg tablet (Ativan) 0.5 mg PO DAILY PRN Anxiety 08/01/21 08/08/23 History insulin NPH isoph U-100 human 100 24 unit (0.24 mL) subcut HS 90 06/03/22 08/08/23 Rx unit/mL (3 mL) subcutaneous pen days #30 mL (Humulin N NPH U-100 Insulin KwikPen) lisinopril 10 mg tablet 10 mg PO DAILY 07/22/22 08/08/23 History loratadine 10 mg tablet 10 mg PO DAILY 07/22/22 08/08/23 History meclizine 25 mg tablet 25 mg PO Q6H PRN dizziness #20 tabs 08/16/22 08/08/23 Rx blood-glucose sensor (Dexcom G6 08/27/22 07/30/23 History Sensor device) blood sugar diagnostic (OneTouch 11/14/22 07/30/23 History Ultra Test strips) empagliflozin 25 mg tablet 25 mg PO DAILY #90 tabs 11/22/22 08/08/23 Rx (Jardiance) Lantus Solostar U-100 Insulin 100 55 unit (0.55 mL) subcut DAILY #60 11/25/22 08/08/23 Rx unit/mL (3 mL) subcutaneous pen mL (insulin glargine) levothyroxine 150 mcg tablet 150 mcg PO QAM #90 tabs 11/25/22 08/08/23 Rx pen needle, diabetic 31 gauge x #300 ea 01/16/23 07/30/23 Rx 3/16" (BD Ultra-Fine Mini Pen Needle) montelukast 10 mg tablet 10 mg PO QPM #90 tabs 01/30/23 08/08/23 Rx (Singulair) metoprolol tartrate 25 mg tablet 25 mg PO BID #180 tabs 03/11/23 08/08/23 Rx clindamycin phosphate 1 % topical 1 applic topical DAILY #60 grams 04/29/23 08/08/23 Rx gel clobetasol 0.05 % topical ointment 1 applic topical BID 2 weeks #30 05/09/23 08/08/23 Rx grams pantoprazole 40 mg tablet,delayed 40 mg PO DAILY #90 tabs 06/16/23 08/08/23 Rx release ranolazine 500 mg tablet,extended 500 mg PO BID 90 days #180 tabs 06/16/23 08/08/23 Rx release,12 hr ticagrelor 90 mg tablet (Brilinta) 90 mg PO BID #180 tabs 06/16/23 08/08/23 Rx metformin 1,000 mg tablet 1,000 mg PO BID #180 tabs 07/07/23 08/08/23 Rx insulin lispro 200 unit/mL (3 mL) See Rx Instructions subcut 07/16/23 08/08/23 Rx subcutaneous pen (Humalog KwikPen .COMPLEX #72 mL U-200 Insulin) amlodipine 5 mg tablet 5 mg PO DAILY #90 tabs 07/21/23 08/08/23 Rx atorvastatin 80 mg tablet 80 mg PO DAILY #90 tabs 07/21/23 08/08/23 Rx Patient History Medical History Anxiety with depression Elevated troponin Lichen sclerosus et atrophicus Vulvar varicose veins Fatty liver disease, nonalcoholic Type 2 diabetes mellitus Carpal tunnel syndrome on both sides Primary osteoarthritis of right knee Morbid obesity History of difficult intubation left shoulder arthroscopy, RCR, distal clavicle exicision= 08/26/14= "gentle laryngoscopy with no view of cords/arytenoids, straight to glidescopy 3, ETT passed through open cords with cricoid pressure and increased angle of ETT [7.0]" Osteoarthritis Peptic ulcer disease H/O BLEEDING ULCER (2006) Hypothyroidism Diabetes mellitus, type 2 IDDM Anxiety Depression Stroke 2011= RESIDUAL LEFT FOOT NEUROPATHY Myocardial Infarction 2010 Stable angina Hyperlipidemia Hypertension CAD (coronary artery disease) S/P CABG X 4 (1998), CARDIAC STENTS X 4 TOTAL (MOST RECENT 04/2017) Surgical History History of intravascular stent placement done with Urvashi 07/18/2022, coronary stent, Xience History of tubal ligation History of total knee arthroplasty (~2018) RIGHT History of tooth extraction History of hysterectomy KD W/BSO History of repair of rotator cuff (~2014) LEFT H/O elbow surgery LEFT History of total knee replacement LEFT History of colonoscopy History of esophagogastroduodenoscopy (EGD) History of cataract surgery BILATERAL History of endoscopic sinus surgery History of adenoidectomy History of coronary artery bypass graft CABG X4 (1997) Family History Father Myocardial infarction Coronary heart disease Brother Arthritis Hx of CABG Sister Arthritis Mother Dementia Heart disease Other Family history non-contributory Denies family history of Liver cancer Ovarian cancer Prostate cancer Crohn's disease Breast cancer Colorectal cancer Inflammatory bowel disease Social History Smoking Status: Never smoker Second Hand Exposure: No; Do You Dip or Chew Tobacco: No; Hx Alcohol Use: Yes (drinks wine, gin and tonic, martini's) Alcohol type: wine, hard liquor and other Alcohol Intake Frequency: 4 or More x per/Week Alcohol Intake Frequency Comment: 3-4X a week Hx Substance Use: No Preferred Language: Yi Communication Ability: Effective Visual Impairment: No Limitations Hearing Ability: Hard of Hearing 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 Required: No Beliefs That Will Affect Care: None marital status: Current Living Situation: Spouse current occupational status: retired current occupation: retired Feels Safe at Home: Yes Childhood Exposure to Second-Hand Smoke: Yes Diet: regular Dental Care, Regularly: Yes Physical Activity Frequency: Daily Seatbelt Use: always Sunscreen Use: Yes Assistive Devices: Glasses and Walker Review of Systems Review of Systems: All systems reviewed & are unremarkable except as noted in HPI & below Physical Exam Constitutional: cooperative and comfortable Eyes: normal visual carter by confrontation Neck: normal visual inspection Respiratory: normal respiratory effort Cardiovascular: Rate/Rhythm: regular rate and regular rhythm Musculoskeletal: Extremities: extremities normal to inspection Ankle: + ecchymosis (Left foot and ankle) Diffuse left foot and ankle pain on palpation. Mild tenderness to right foot and right knee. Skin: There are no open lesions. No signs of infection. Neurologic: moves all extremities (Decreased epicritic sensation) Psychiatric: Orientation: alert and oriented x 3 Results & Data Vital Signs (Past 12 Hours) Vital Signs Temp Pulse Pulse Resp BP BP Pulse Ox 08/08/23 20:00 87 18 175/79 H 94 08/08/23 18:24 88 08/08/23 18:16 85 18 95 08/08/23 18:15 85 18 139/59 L 95 08/08/23 14:20 36.0 C L 78 18 131/60 99 08/08/23 14:20 36.0 C L 78 18 131/60 99 O2 Del Method 08/08/23 20:00 Room Air 08/08/23 18:24 08/08/23 18:16 Room Air 08/08/23 18:15 Room Air 08/08/23 14:20 Room Air 08/08/23 14:20 Room Air Diagnostic Findings [place], [place] [phone] CT Scan Report Patient: DI PERALTA I Admit Date: 08/08/23 MR#: [id number] Address1: [address] [place] [address] Acct ID:[id number] Address2: Date: 1950 [facility] Zip: [place] [address] Age: 73 Location: ED Sex: F Room/Bed: Att Phy: Diagnosis: FALL Kanika Phy: Ciaran Berg, III, UVALDO Service Date: 08/08/23 [facility] Phy: Interpreting Phy: Rafat Rey MDAdmit Phy: Ordering Phy: Tommy Curry DO cc: ~ CT tib/fib LT wo con, CT foot LT wo con CLINICAL HISTORY: Eval fracture pattern TECHNIQUE: Multidetector row helical CT of the left tibia and fibula and left foot was performed without intravenous contrast. Coronal and sagittal reformations were obtained. Automated dose lowering techniques and/or adjustment according to patient size were utilized for this examination. CT DOSE: 374.44 mGy.cm Comparison: Comparison is made to ankle radiograph 08/08/2023 FINDINGS: There is a minimally comminuted fracture of the tip of the fibula, well below the tibiofibular syndesmosis. There is a fracture of the posterior superior calcaneus and a mildly distracted fracture of the fifth metatarsal base. There is a bony fragment in the lateral inferior calcaneus which may represent an avulsion fracture. Degenerative changes in the joints. The Lisfranc joints are intact. Soft tissue swelling is seen. IMPRESSION: 1. Mildly distracted fracture of the left fifth metatarsal. 2. Posterior superior calcaneal fracture. There may be a tiny avulsion fracture from the lateral aspect of the calcaneus. 3. Liver a tip fracture. ACT 112: Negative or not required by law. Electronically signed by: Rafat Rey M.D. 08/08/2023 7:29 PM Dictated: 08/08/231904 Transcribed: 08/08/231904 (1) Calcaneal fracture Calcaneus location: unspecified portion of calcaneus Encounter type: initial encounter Fracture alignment: nondisplaced Fracture type: closed Laterality: left Qualified Code(s): S92.002A - Unspecified fracture of left calcaneus, initial encounter for closed fracture
[2023-08-08] MEDS ORDERED: CARBOHYDRATES FOR HYPOGLYCEMIA PO PRN (21:17)
[2023-08-08] MEDS ORDERED: GLUCOSE 10 TAB/TUBE PO PRN (21:17)
[2023-08-08] MEDS ORDERED: INSULIN ASPART PER UNIT CHARGE SC SCH (21:17)
[2023-08-08] MEDS ORDERED: GLUCAGON FOR INJ 1 MG VIAL SQ PRN (21:17)
[2023-08-08] MEDS ORDERED: MECLIZINE HCL 25 MG TAB PO PRN (21:17)
[2023-08-08] MEDS ORDERED: NITROGLYCERIN SL 0.4 MG/TAB TAB SL PRN (21:17)
[2023-08-08] MEDS ORDERED: PHARMACY GLYCEMIC MGMT CONSULT PRN (21:17)
[2023-08-08] MEDS ORDERED: LANTUS PER UNIT CHARGE SQ SCH (21:17)
[2023-08-08] MEDS ORDERED: DEXTROSE 50% 50 ML SYRINGE IV PRN (21:17)
[2023-08-08] MEDS ORDERED: GLUCOSE 40% GEL 15 GM TUBE PO PRN (21:17)
[2023-08-08] MEDS ORDERED: LANTUS PER UNIT CHARGE SC ONE (22:00)
[2023-08-08] MEDS: CLOBETASOL PROPIONATE 0.05% OINT 15 GM TUBE EXT SCH (22:19)
[2023-08-08] MEDS: MELATONIN 3 MG TAB PO SCH (22:20)
[2023-08-08] MEDS: RANOLAZINE 500 MG ER TAB PO SCH (22:20)
[2023-08-08] MEDS: MONTELUKAST SODIUM 10 MG TABLET PO SCH (22:20)
[2023-08-08] MEDS: INSULIN ASPART PER UNIT CHARGE SC SCH (23:48)
[2023-08-09] MEDS ORDERED: INSULIN ASPART PER UNIT CHARGE SC SCH (03:00)
[2023-08-09] MEDS: LEVOTHYROXINE SODIUM 150 MCG TABLET PO SCH (06:09)
[2023-08-09] MEDS: INSULIN ASPART PER UNIT CHARGE SC SCH ×5 (06:10→20:38)
--- NOTE | 2023-08-09 07:52 | Hospitalist Progress Note ---
Date of Service August 09, 2023 Assessment & Plan (1) Foot fracture, left: Plan: POD #0 Nonweightbearing to left foot Pain generally controlled Further management per Dr. Ronquillo Will order tramadol 50 mg p.o. for pain 2 through 5/10 and oxycodone 5 mg p.o. for pain 6-10/10 as needed Currently patient has been using Tylenol and this seems to be effective Consider premedication prior to physical therapy tomorrow (2) Calcaneal fracture: Plan: Secondary to mechanical fall Operative repair today Further management per Dr. Ronquillo below (3) Fall: Plan: Mechanical fall No arrhythmias on telemetry PT/OT evaluation (4) Venous insufficiency of both lower extremities: Plan: SCDs as tolerated to the right leg. No SCDs to left leg as she has cast in place Continue aspirin 81 mg p.o. daily (5) Type 2 diabetes mellitus: Plan: Continue Lantus with sliding scale insulin Patient did receive some steroids and this may put sugar up. Currently sugars well-controlled (6) Nocturnal hypoxemia: Plan: Supplemental oxygen as needed (7) GERD (gastroesophageal reflux disease): Plan: Continue pantoprazole (8) Obesity: Plan: Secondary to excess calories and activity BMI 40.3 kg/m Patient encouraged to discuss with primary care physician regarding weight loss plan (9) Coronary artery disease: Plan: No chest pain or tightness. Continue home medications including metoprolol, aspirin Continue to monitor on telemetry Plan Patient would like to be discharged home. Consult case management for assistance with discharge planning PT/OT evaluations prior to discharge Admission and Anticipated Discharge Date Admission Date: August 08, 2023 Subjective Attending: Dr. Barnhart This is a 73-year-old female that was admitted yesterday for fall and nondisplaced fracture of the posterior superior calcaneus as well as a fracture of the fifth metatarsal and fibular tip. Patient was seen by Dr. Ronquillo and it is anticipated that she will go for open reduction and internal fixation on 08/09/2023. Patient was noted to have anemia on admission with a hemoglobin of 8.6. This has improved slightly to 8.9 g/Orlin today without transfusion. Antoinette montelongo does have CAD and is on aspirin and Brilinta for 7-8 heart stents. She also is diabetic and is on insulin and receives dialysis. Hemoglobin A1c was 7% on 02/19/2023. Currently metformin and Jardiance is on hold. Patient seen at bedside. She is very pleasant and in good spirits. Pain is generally controlled. Postoperative recovery going well. Patient is nonweightbearing on the left foot. Requests case management assistance and recommendations for nursing care at home for her recovery. Patient reiterates mechanical fall at home. No other concerns or acute complaints Review of Systems Review of Systems: A total of 10 systems was reviewed and is negative other than as listed in the HPI Physical Exam Physical Exam: GENERAL : No acute distress EYES: No icterus, gaze conjugate NOSE: No evidence of epistaxis MOUTH: No lesions or candidiasis NECK: Supple LUNGS: CTA B/L, no wheezes, rales or rhonchi HEART: Regular, rate controlled ABDOMEN: Soft, NT, ND, BS Present EXTREMITIES: Left foot with cast and dressing. Pedal pulses intact. Capillary refill to left toes < 2 seconds NEURO: A&OX3 Results & Data Results & Data Vital Signs (Past 12 Hours) Vital Signs Temp Pulse Pulse Pulse Resp BP BP 08/09/23 07:32 36.4 C L 86 18 147/73 H 08/09/23 05:08 36.6 C 89 20 115/61 08/09/23 01:24 37.3 C 90 20 159/70 H 08/09/23 01:02 89 08/08/23 21:50 08/08/23 21:50 36.6 C 94 H 15 171/79 H 08/08/23 21:48 36.6 C 94 H 16 171/79 H 08/08/23 20:00 87 18 175/79 H Pulse Ox O2 Del Method 08/09/23 07:32 97 Room Air 08/09/23 05:08 95 Room Air 08/09/23 01:24 96 Room Air 08/09/23 01:02 08/08/23 21:50 Room Air 08/08/23 21:50 96 Room Air 08/08/23 21:48 96 Room Air 08/08/23 20:00 94 Room Air Laboratory Results Abnormal lab results 08/08/23 08/08/23 Range/Units 17:36 21:35 Hgb 8.9 L (12.0-16.0) g/dl Hct 32.2 L (37.0-47.0) % MCV 69.5 L (80.0-100.0) fL MCH 19.2 L (25.0-34.0) pg MCHC 27.6 L (32.0-36.0) g/dL RDW Std Deviation 49.9 H (36.4-46.3) fL RDW Coeff of Dani 20.3 H (11.5-14.5) % Plt Count 120 L (130-400) K/uL Turner # (Auto) 0.63 H (0.11-0.59) K/uL BUN/Creatinine Ratio 25.0 H (10-20) Glucose 143 H (70-99(Fasting)) mg/dl POC Glucose 172 H (70-99) mg/dl AST 85 H (13-39) U/L ALT 65 H (7-52) U/L Alkaline Phosphatase 132 H (34-104) U/L PG Care Time/CCT Total # of Minutes Spent Total Time Spent with Patient: Total time spent is greater than 50% in coordination of care (as documented) at patient's floor/unit and/or counseling patient: 30 minutes [id number] with patient plus chart review and discussion with attending physician Coding Level of Care Code 67533 SUB INP/OBS CARE 2/35MIN Diagnoses Foot fracture, left S92.902A Calcaneal fracture S92.002A Calcaneus location: unspecified portion of calcaneus Encounter type: initial encounter Fracture alignment: nondisplaced Fracture type: closed Laterality: left Fall W19.XXXA Venous insufficiency of both lower extremities I87.2 Type 2 diabetes mellitus E11.9 Nocturnal hypoxemia G47.34 GERD (gastroesophageal reflux disease) K21.9 Obesity E66.9 Coronary artery disease I25.10 Time Spent (min) 40 (2) Calcaneal fracture Calcaneus location: unspecified portion of calcaneus Encounter type: initial encounter Fracture alignment: nondisplaced Fracture type: closed Laterality: left Qualified Code(s): S92.002A - Unspecified fracture of left calcaneus, initial encounter for closed fracture
[2023-08-09 08:24] LABS: BUN Creatinine Ratio 21.1 (10-20); Calcium 8.9 mg/dl (8.6-10.3); Creatinine Clr Calc Pharmacy 70.7 ml/min; Est GFR (African American) 88.9 ml/min; Est GFR (Non-African American) 76.7 ml/min
--- NOTE | 2023-08-09 08:35 | Anesthesiology Consultation ---
Date of Service August 09, 2023 Assessment & Plan Chart Review Chart Review: Acceptable Risk for Surgery and Patient NOT seen in Pre Admission Testing Consults Requested none ASA ASA3 Proposed Anesthesia Anesthesia Type: General Risk / Benefits Reviewed With: PT / POA / Parent / Guardian, Accepts Plan and Informed Consent Obtained History Surgery Operation Date: 08/09/23 09:00 Proposed Procedures p Open Reduction Internal Fixation Foot - Silviano Ronquillo, DPM, MS Height/Weight Height: 5 ft 2 in Weight: 100 kg Allergies Allergy/AdvReac Type Severity Reaction Status Date / Time nickel Allergy Intermediate pruritis Verified 07/30/23 07:50 cat dander Allergy Mild itchy eyes Verified 07/30/23 07:50 Sulfa (Sulfonamide Allergy Mild HIVES Verified 07/30/23 07:50 Antibiotics) glipizide Allergy Unknown ITCHY,WHEEZ Verified 07/30/23 07:50 ING mold Allergy Unknown ITCHY EYES Verified 07/30/23 07:50 RUNNY NOSE pioglitazone Allergy Unknown ITCHY Verified 07/30/23 07:50 WHEEZING house dust Allergy Itchy Verified 07/30/23 07:50 eyes, runny nose sulfamethoxazole Allergy Itching, Verified 07/30/23 07:50 [From Bactrim] shortness of breath trimethoprim [From Bactrim] Allergy Itching, Verified 07/30/23 07:50 shortness of breath adhesive AdvReac Unknown SKIN Verified 07/30/23 07:50 IRRITATION Medications Home Medications Medication Instructions Recorded Confirmed Last Taken aspirin 81 mg tablet,delayed 81 mg PO QAM 08/06/18 08/08/23 08/04/19 release (Alexandre Low Dose Aspirin) venlafaxine 150 mg 150 mg PO DAILY 08/06/18 08/08/23 09/24/18 19:45 capsule,extended release 24 hr fexofenadine 180 mg tablet 180 mg PO DAILY 03/23/19 08/08/23 Unknown nitroglycerin 0.4 mg sublingual 0.4 mg sublingual Q5M PRN Pain #25 03/23/19 08/08/23 Unknown tablet tabs cyclosporine 0.05 % eye drops 1 drops ophthalmic (eye) Q12H 03/29/19 08/08/23 08/04/19 (Restasis MultiDose) B-complex with vitamin C (Super B 1 tab PO DAILY #90 tabs 05/28/19 08/08/23 Unknown Complex-Vitamin C tablet) melatonin 10 mg tablet 20 mg PO HS 07/13/19 08/08/23 Unknown mvqhebiy-fik-uvgsq acid 0.4 1 tab PO DAILY 07/13/19 08/08/23 Unknown mg-lycopene 300 mcg-lutein 250 mcg tablet (Centrum Silver) cholecalciferol (vitamin D3) 50 2,000 unit PO BID 04/20/20 08/08/23 Unknown mcg (2,000 unit) capsule (Vitamin D3) omega 5-rco-mlk-fish oil 1,000 mg 1 cap PO BID 04/20/20 08/08/23 Unknown (120 mg-180 mg) capsule (Fish Oil) flaxseed oil 1,000 mg capsule 1,000 mg PO BID 08/16/20 08/08/23 Unknown mecobalamin (vitamin B12) 1,000 500 mcg sublingual DAILY 03/08/21 08/08/23 Unknown mcg disintegrating tablet,sublingual venlafaxine 37.5 mg 75 mg PO DAILY 03/08/21 08/08/23 Unknown capsule,extended release 24 hr blood-glucose meter,continuous 03/29/21 07/30/23 Unknown ([place] G6 Nurse Clinician) blood-glucose transmitter (Dexcom 03/29/21 07/30/23 Unknown G6 Transmitter device) lorazepam 0.5 mg tablet (Ativan) 0.5 mg PO DAILY PRN Anxiety 08/01/21 08/08/23 Unknown insulin NPH isoph U-100 human 100 24 unit (0.24 mL) subcut HS 90 06/03/22 08/08/23 Unknown unit/mL (3 mL) subcutaneous pen days #30 mL (Humulin N NPH U-100 Insulin KwikPen) lisinopril 10 mg tablet 10 mg PO DAILY 07/22/22 08/08/23 Unknown loratadine 10 mg tablet 10 mg PO DAILY 07/22/22 08/08/23 Unknown meclizine 25 mg tablet 25 mg PO Q6H PRN dizziness #20 tabs 08/16/22 08/08/23 Unknown blood-glucose sensor (Dexcom G6 08/27/22 07/30/23 Unknown Sensor device) blood sugar diagnostic (OneTouch 11/14/22 07/30/23 Unknown Ultra Test strips) empagliflozin 25 mg tablet 25 mg PO DAILY #90 tabs 04/07/23 12/22/23 Unknown (Jardiance) Lantus Solostar U-100 Insulin 100 55 unit (0.55 mL) subcut DAILY #60 11/25/22 08/08/23 Unknown unit/mL (3 mL) subcutaneous pen mL (insulin glargine) levothyroxine 150 mcg tablet 150 mcg PO QAM #90 tabs 11/25/22 08/08/23 Unknown pen needle, diabetic 31 gauge x #300 ea 01/16/23 07/30/23 Unknown 3/16" (BD Ultra-Fine Mini Pen Needle) montelukast 10 mg tablet 10 mg PO QPM #90 tabs 01/30/23 08/08/23 Unknown (Singulair) metoprolol tartrate 25 mg tablet 25 mg PO BID #180 tabs 03/11/23 08/08/23 Unknown clindamycin phosphate 1 % topical 1 applic topical DAILY #60 grams 04/29/23 08/08/23 Unknown gel clobetasol 0.05 % topical ointment 1 applic topical BID 2 weeks #30 05/09/23 08/08/23 Unknown grams pantoprazole 40 mg tablet,delayed 40 mg PO DAILY #90 tabs 06/16/23 08/08/23 Unknown release ranolazine 500 mg tablet,extended 500 mg PO BID 90 days #180 tabs 06/16/23 08/08/23 Unknown release,12 hr ticagrelor 90 mg tablet (Brilinta) 90 mg PO BID #180 tabs 06/16/23 08/08/23 Unknown metformin 1,000 mg tablet 1,000 mg PO BID #180 tabs 07/07/23 08/08/23 Unknown insulin lispro 200 unit/mL (3 mL) See Rx Instructions subcut 07/16/23 08/08/23 Unknown subcutaneous pen (Humalog KwikPen .COMPLEX #72 mL U-200 Insulin) amlodipine 5 mg tablet 5 mg PO DAILY #90 tabs 07/21/23 08/08/23 Unknown atorvastatin 80 mg tablet 80 mg PO DAILY #90 tabs 07/21/23 08/08/23 Unknown Active Medications Generic Name Dose Route Start Last Admin Trade Name Freq PRN Reason Stop Dose Admin Atorvastatin Calcium 80 mg 08/09/23 09:00 08/09/23 08:51 Atorvastatin 40 Mg Tab PO 09/08/23 08:59 80 mg DAILY ANGELICA Administration Clobetasol Propionate 1 appln 08/08/23 21:17 08/09/23 08:52 Clobetasol Propionate 0.05% Oint 15 Gm Tube EXT 09/07/23 21:16 1 appln BID ANGELICA Administration Fexofenadine HCl 180 mg 08/09/23 09:00 08/09/23 08:51 Fexofenadine Hcl 180 Mg Tab PO 09/08/23 08:59 180 mg DAILY ANGELICA Administration Insulin Aspart 0 units 08/09/23 00:00 08/09/23 06:10 Insulin Aspart Per Unit Charge SC 09/08/23 00:00 Not Given Q6 ANGELICA Insulin Glargine 10 units 08/09/23 09:00 08/09/23 08:51 Lantus Per Unit Charge SC 09/08/23 08:59 10 units BID ANGELICA Administration Protocol Levothyroxine Sodium 150 mcg 08/09/23 06:30 08/09/23 06:09 Levothyroxine Sodium 150 Mcg Tablet PO 09/08/23 06:29 150 mcg TODAY@0630 ANGELICA Administration Loratadine 10 mg 08/09/23 09:00 08/09/23 08:51 Loratadine 10 Mg Tab PO 09/08/23 08:59 10 mg DAILY ANGELICA Administration Melatonin 9 mg 08/08/23 21:40 08/08/23 22:20 Melatonin 3 Mg Tab PO 09/07/23 21:39 9 mg HS ANGELICA Administration Miscellaneous 1 each 08/09/23 00:00 08/09/23 08:52 Clindamycin Phosphate 1 % Gel- Order Awaiting Action N/A 09/08/23 00:00 Not Given QS ANGELICA Montelukast Sodium 10 mg 08/08/23 21:17 08/08/23 22:20 Montelukast Sodium 10 Mg Tablet PO 09/07/23 21:16 10 mg QPM ANGELICA Administration Pantoprazole Sodium 40 mg 08/09/23 09:00 08/09/23 08:51 Pantoprazole 40 Mg Tab PO 09/08/23 08:59 40 mg DAILY ANGELICA Administration Ranolazine 500 mg 08/08/23 21:45 08/09/23 08:51 Ranolazine 500 Mg Er Tab PO 09/07/23 21:44 500 mg BID ANGELICA Administration Venlafaxine HCl 37.5 mg 08/09/23 09:00 08/09/23 08:51 Venlafaxine Hcl Xr 37.5 Mg Capxr PO 09/08/23 08:59 37.5 mg DAILY ANGELICA Administration Venlafaxine HCl 150 mg 08/09/23 09:00 08/09/23 08:51 Venlafaxine Hcl Xr 150 Mg Capxr PO 09/08/23 08:59 150 mg DAILY ANGELICA Administration NPO Date Last Intake of Fluids: 08/08/23 Date Last Intake of Solids: 08/08/23 Past Medical History Medical History Anxiety with depression Elevated troponin Lichen sclerosus et atrophicus Vulvar varicose veins Fatty liver disease, nonalcoholic Type 2 diabetes mellitus Carpal tunnel syndrome on both sides Primary osteoarthritis of right knee Morbid obesity History of difficult intubation left shoulder arthroscopy, RCR, distal clavicle exicision= 08/26/14= "gentle laryngoscopy with no view of cords/arytenoids, straight to glidescopy 3, ETT passed through open cords with cricoid pressure and increased angle of ETT [7.0]" Osteoarthritis Peptic ulcer disease H/O BLEEDING ULCER (2006) Hypothyroidism Diabetes mellitus, type 2 IDDM Anxiety Depression Stroke 2011= RESIDUAL LEFT FOOT NEUROPATHY Myocardial Infarction 2010 Stable angina Hyperlipidemia Hypertension CAD (coronary artery disease) S/P CABG X 4 (1998), CARDIAC STENTS X 4 TOTAL (MOST RECENT 04/2017) Exercise / Class Metabolic Activity II 4-5 Yardwork/Stairs/Walk up hill Past Family History Family History Father Myocardial infarction Coronary heart disease Brother Arthritis Hx of CABG Sister Arthritis Mother Dementia Heart disease Other Family history non-contributory Denies family history of Liver cancer Ovarian cancer Prostate cancer Crohn's disease Breast cancer Colorectal cancer Inflammatory bowel disease Past Surgical History Surgical History History of intravascular stent placement done with [place] 07/18/2022, coronary stent, Xience History of tubal ligation History of total knee arthroplasty (~2019) RIGHT History of tooth extraction History of hysterectomy KD W/BSO History of repair of rotator cuff (~2014) LEFT H/O elbow surgery LEFT History of total knee replacement LEFT History of colonoscopy History of esophagogastroduodenoscopy (EGD) History of cataract surgery BILATERAL History of endoscopic sinus surgery History of adenoidectomy History of coronary artery bypass graft CABG X4 (1997) Past Anesthesia History No Hx of Anesthesia Complications and No Family Hx of Anesthesia Complications History of PONV No Hx of PONV and No Hx of Motion Sickness Social History Smoking Status: Never smoker Do You Dip or Chew Tobacco: No Hx Alcohol Use: Yes (drinks wine, gin and tonic, martini's) Alcohol type: wine and hard liquor alcohol intake frequency: a few times a week Hx Substance Use: Yes substance use type: other Substance Use Type Other:: CHG gummies for anxiety Last Used Substance: Days (ago) Review of Systems ROS Unobtainable: All systems reviewed & are unremarkable except as noted in HPI & below Physical Exam Vital Signs Last Vital Signs Temp 36.4 C L 08/09/23 07:32 Pulse 88 08/09/23 09:35 Resp 18 08/09/23 07:32 BP 147/73 H 08/09/23 07:32 Pulse Ox 97 08/09/23 07:32 O2 Del Method Room Air 08/09/23 07:32 Constitutional no acute distress ENMT Mouth: no TMJ abnormality Thyromental Distance: > or= 3.5 Finger Breadths Mallampati Class: III Neck normal visual inspection and trachea midline; neck extension not limited Respiratory normal respiratory effort Auscultation: lungs clear to auscultation bilaterally Cardiovascular Rate/Rhythm: regular rate and regular rhythm Heart Sounds: no murmur Musculoskeletal Spine: normal cervical ROM Extremities: full ROM of extremities Neurologic moves all extremities Psychiatric Orientation: alert and oriented x 3 Testing Laboratory Results 08/09/23 07:23 08/09/23 07:23 PT 10.9 Seconds (9.0-12.0) 08/08/23 17:36 INR 1.0 (0.9-1.1) 08/08/23 17:36 Hemoglobin A1c 6.8 % (4.5-5.6) H 08/09/23 07:23 Blood Type B Positive 08/08/23 17:36 Antibody Screen NEGATIVE 08/08/23 17:36 08/08/23 21:35 POC Glucose 172 H Electrocardiogram Date: 08/08/23 Findings: + NSR @; no AFIB @ Chest X-Ray Date: 08/08/23 Findings: + NAD Echocardiogram Date: 04/15/23 EF: 55-60 LV Function: normal grade II diastolic dysfunction Cardiac Catheterization Date: 07/18/22 Location: PCI to left main
[2023-08-09 08:47] LABS: Anisocytosis Present; Basophils # (auto) 0.05 K/uL (0.00-0.20); Basophils % (auto) 0.8 %; Eosinophils # (auto) 0.24 K/uL (0.00-0.50); Eosinophils % (auto) 3.7 %; Hemoglobin 8.7 g/dl (12.0-16.0); Hypochromasia Present; Immature Granulocytes # (auto) 0.03 K/uL (0.01-0.20); Immature Granulocytes % (auto) 0.5 %; Lymphocytes # (auto) 1.22 K/uL (1.20-3.40); Mean Corpuscular Hemoglobin 18.9 pg (25.0-34.0); Mean Corpuscular Hgb Conc 27.2 g/dL (32.0-36.0); Mean Corpuscular Volume 69.6 fL (80.0-100.0); Mean Platelet Volume 10.3 fL (9.4-12.4); Microcytosis Present; Monocytes % (auto) 12.5 %; Neutrophils # (auto) 4.08 K/uL (1.40-6.50); Neutrophils % (auto) 63.5 %; Ovalocytes 1+; Platelet Count 117 K/uL (130-400); Polychromasia 1+; RDW Coefficient of Variation 20.5 % (11.5-14.5); Tear Drop Cells 1+; White Blood Count 6.42 K/ul (4.8-10.8)
[2023-08-09] MEDS ORDERED: DEXAMETHASONE SOD INJ 4 MG/ML VIAL ONE (08:48)
[2023-08-09] MEDS ORDERED: LIDOCAINE 2% 2 ML VIAL/AMP(20MG/ML) INFIL ONE (08:48)
[2023-08-09] MEDS ORDERED: ONDANSETRON INJ 2 MG/ML 2 ML VIAL ONE (08:48)
[2023-08-09] MEDS ORDERED: PROPOFOL IV EMULSION 10 MG/ML 20 ML VIAL IV ONE (08:48)
[2023-08-09] MEDS ORDERED: ROCURONIUM BROMIDE 10 MG/ML 5 ML VIAL IV ONE ×2 (08:48→11:32)
[2023-08-09] MEDS ORDERED: fentaNYL citrate PF 100 MCG/2 ML VIAL ONE ×2 (08:49→10:56)
[2023-08-09] MEDS: VENLAFAXINE HCL XR 150 MG CAPXR PO SCH (08:51)
[2023-08-09] MEDS: ATORVASTATIN 40 MG TAB PO SCH (08:51)
[2023-08-09] MEDS: RANOLAZINE 500 MG ER TAB PO SCH ×2 (08:51→20:41)
[2023-08-09] MEDS: LORATADINE 10 MG TAB PO SCH (08:51)
[2023-08-09] MEDS: VENLAFAXINE HCL XR 37.5 MG CAPXR PO SCH (08:51)
[2023-08-09] MEDS: PANTOprazole 40 MG TAB PO SCH (08:51)
[2023-08-09] MEDS: FEXOFENADINE HCL 180 MG TAB PO SCH (08:51)
[2023-08-09] MEDS: CLOBETASOL PROPIONATE 0.05% OINT 15 GM TUBE EXT SCH ×2 (08:52→20:40)
[2023-08-09] MEDS ORDERED: LANTUS PER UNIT CHARGE SC SCH (09:00)
[2023-08-09] MEDS ORDERED: ePHEDrine sulfate 50 MG/ML AMP IV PRN (09:22)
[2023-08-09] MEDS ORDERED: ONDANSETRON INJ 2 MG/ML 2 ML VIAL IV PRN (09:22)
[2023-08-09] MEDS ORDERED: fentaNYL citrate PF 100 MCG/2 ML VIAL IV PRN (09:22)
[2023-08-09] MEDS ORDERED: ATROPINE SULFATE 0.1 MG/ML 10ML SYR IV PRN (09:22)
--- NOTE | 2023-08-09 09:24 | Cardiology Consultation ---
Date of Consultation August 09, 2023 Assessment & Plan (1) Fall: (2) Coronary artery disease: Plan 1. Fall: It sounds as though her fall was clearly mechanical, she remembers that vividly and it does not sound like an arrhythmia. Her rhythm has been stable throughout her time on telemetry. 2. Coronary disease: She does have significant known coronary artery disease, she has not had a catheterization or stress test for some time but does not have symptoms to suggest angina. She does have dyspnea on exertion which she feels that is not an anginal equivalent and she does have other reasons to have that. She has been undergoing cardiac rehab and apparently doing well with that. I think therefore that there is nothing acute related to her coronary disease. At this point I do not think we should perform any further evaluation prior to surgery. History of Present Illness Reason for Consultation: Fall, preoperative visit Attending Physician: Paul Barnhart MD History of Present Illness This is a 73-year-old woman with a complex medical history which includes diabetes mellitus, dyslipidemia, hypertension and coronary artery disease. Her coronary artery disease is notable for bypass surgery in 1989 as well as multiple stents subsequently. Most recently in June 2022 she had left main stenosis and was transferred to [facility] where PCI was performed July 18, 2022. At that time her left ventricle showed normal ejection fraction of 55 to 60% with mild mitral regurgitation mild left ventricular hypertrophy. This was repeated April 15, 2023 with similar findings. I believe that is the last echocardiogram that she has had. She was last seen in our office April 24, 2023. She presents now with a mechanical fall and has left ankle and foot fractures. She is planned for surgery this morning. Her electrocardiogram on presentation shows sinus rhythm with a possible old septal infarct but nothing acute. Her laboratory studies are notable for anemia with a hemoglobin in the mid 8 range, her electrolytes are unr markable including her creatinine. Liver function tests were elevated on presentation but have been. I do not believe a troponin has been done. On discussing this presenting event with her it sounds as though it was clearly tripping over a rug and not related to an arrhythmia. She denies symptoms of palpitations, lightheadedness or dizziness either related to this episode or at other times. She has been fairly active, both taking care of her and involved in cardiac rehab, and although she has significant but stable dyspnea on exertion (which could be due to obesity and deconditioning) she has not had exertional chest discomfort and the symptoms are not worsening. She has no orthopnea or PND. Allergies Allergy/AdvReac Type Severity Reaction Status Date / Time nickel Allergy Intermediate pruritis Verified 07/30/23 07:50 cat dander Allergy Mild itchy eyes Verified 07/30/23 07:50 Sulfa (Sulfonamide Allergy Mild HIVES Verified 07/30/23 07:50 Antibiotics) glipizide Allergy Unknown ITCHY,WHEEZ Verified 07/30/23 07:50 ING mold Allergy Unknown ITCHY EYES Verified 07/30/23 07:50 RUNNY NOSE pioglitazone Allergy Unknown ITCHY Verified 07/30/23 07:50 WHEEZING house dust Allergy Itchy Verified 07/30/23 07:50 eyes, runny nose sulfamethoxazole Allergy Itching, Verified 07/30/23 07:50 [From Bactrim] shortness of breath trimethoprim [From Bactrim] Allergy Itching, Verified 07/30/23 07:50 shortness of breath adhesive AdvReac Unknown SKIN Verified 07/30/23 07:50 IRRITATION Home Medications Medication Instructions Recorded Confirmed Type aspirin 81 mg tablet,delayed 81 mg PO QAM 08/06/18 08/08/23 History release (Alexandre Low Dose Aspirin) venlafaxine 150 mg 150 mg PO DAILY 08/06/18 08/08/23 History capsule,extended release 24 hr fexofenadine 180 mg tablet 180 mg PO DAILY 03/23/19 08/08/23 History nitroglycerin 0.4 mg sublingual 0.4 mg sublingual Q5M PRN Pain #25 03/23/19 08/08/23 History tablet tabs cyclosporine 0.05 % eye drops 1 drops ophthalmic (eye) Q12H 03/29/19 08/08/23 History (Restasis MultiDose) B-complex with vitamin C (Super B 1 tab PO DAILY #90 tabs 05/28/19 08/08/23 Rx Complex-Vitamin C tablet) melatonin 10 mg tablet 20 mg PO HS 07/13/19 08/08/23 History opgayswn-lrp-folef acid 0.4 1 tab PO DAILY 07/13/19 08/08/23 History mg-lycopene 300 mcg-lutein 250 mcg tablet (Centrum Silver) cholecalciferol (vitamin D3) 50 2,000 unit PO BID 04/20/20 08/08/23 History mcg (2,000 unit) capsule (Vitamin D3) omega 4-cmz-ehz-fish oil 1,000 mg 1 cap PO BID 04/20/20 08/08/23 History (120 mg-180 mg) capsule (Fish Oil) flaxseed oil 1,000 mg capsule 1,000 mg PO BID 08/16/20 08/08/23 History mecobalamin (vitamin B12) 1,000 500 mcg sublingual DAILY 03/08/21 08/08/23 History mcg disintegrating tablet,sublingual venlafaxine 37.5 mg 75 mg PO DAILY 03/08/21 08/08/23 History capsule,extended release 24 hr blood-glucose meter,continuous 03/29/21 07/30/23 History (Dexcom G6 Statistical Modeler) blood-glucose transmitter (Dexcom 03/29/21 07/30/23 History G6 Transmitter device) lorazepam 0.5 mg tablet (Ativan) 0.5 mg PO DAILY PRN Anxiety 08/01/21 08/08/23 History insulin NPH isoph U-100 human 100 24 unit (0.24 mL) subcut HS 90 06/03/22 08/08/23 Rx unit/mL (3 mL) subcutaneous pen days #30 mL (Humulin N NPH U-100 Insulin KwikPen) lisinopril 10 mg tablet 10 mg PO DAILY 07/22/22 08/08/23 History loratadine 10 mg tablet 10 mg PO DAILY 07/22/22 08/08/23 History meclizine 25 mg tablet 25 mg PO Q6H PRN dizziness #20 tabs 08/16/22 08/08/23 Rx blood-glucose sensor (Dexcom G6 08/27/22 07/30/23 History Sensor device) blood sugar diagnostic (OneTouch 11/14/22 07/30/23 History Ultra Test strips) empagliflozin 25 mg tablet 25 mg PO DAILY #90 tabs 11/22/22 08/08/23 Rx (Jardiance) Lantus Solostar U-100 Insulin 100 55 unit (0.55 mL) subcut DAILY #60 11/25/22 08/08/23 Rx unit/mL (3 mL) subcutaneous pen mL (insulin glargine) levothyroxine 150 mcg tablet 150 mcg PO QAM #90 tabs 11/25/22 08/08/23 Rx pen needle, diabetic 31 gauge x #300 ea 01/16/23 07/30/23 Rx 10/31" (BD Ultra-Fine Mini Pen Needle) montelukast 10 mg tablet 10 mg PO QPM #90 tabs 01/30/23 08/08/23 Rx (Singulair) metoprolol tartrate 25 mg tablet 25 mg PO BID #180 tabs 03/11/23 08/08/23 Rx clindamycin phosphate 1 % topical 1 applic topical DAILY #60 grams 04/29/23 08/08/23 Rx gel clobetasol 0.05 % topical ointment 1 applic topical BID 2 weeks #30 05/09/23 08/08/23 Rx grams pantoprazole 40 mg tablet,delayed 40 mg PO DAILY #90 tabs 06/16/23 08/08/23 Rx release ranolazine 500 mg tablet,extended 500 mg PO BID 90 days #180 tabs 06/16/23 08/08/23 Rx release,12 hr ticagrelor 90 mg tablet (Brilinta) 90 mg PO BID #180 tabs 06/16/23 08/08/23 Rx metformin 1,000 mg tablet 1,000 mg PO BID #180 tabs 07/07/23 08/08/23 Rx insulin lispro 200 unit/mL (3 mL) See Rx Instructions subcut 07/16/23 08/08/23 Rx subcutaneous pen (Humalog KwikPen .COMPLEX #72 mL U-200 Insulin) amlodipine 5 mg tablet 5 mg PO DAILY #90 tabs 07/21/23 08/08/23 Rx atorvastatin 80 mg tablet 80 mg PO DAILY #90 tabs 07/21/23 08/08/23 Rx Patient History Medical History Anxiety with depression Elevated troponin Lichen sclerosus et atrophicus Vulvar varicose veins Fatty liver disease, nonalcoholic Type 2 diabetes mellitus Carpal tunnel syndrome on both sides Primary osteoarthritis of right knee Morbid obesity History of difficult intubation left shoulder arthroscopy, RCR, distal clavicle exicision= 08/26/14= "gentle laryngoscopy with no view of cords/arytenoids, straight to glidescopy 3, ETT passed through open cords with cricoid pressure and increased angle of ETT [7.0]" Osteoarthritis Peptic ulcer disease H/O BLEEDING ULCER (2006) Hypothyroidism Diabetes mellitus, type 2 IDDM Anxiety Depression Stroke 2011= RESIDUAL LEFT FOOT NEUROPATHY Myocardial Infarction 2010 Stable angina Hyperlipidemia Hypertension CAD (coronary artery disease) S/P CABG X 4 (1998), CARDIAC STENTS X 4 TOTAL (MOST RECENT 04/2017) Surgical History History of intravascular stent placement done with [facility] 07/18/2022, coronary stent, Xience History of tubal ligation History of total knee arthroplasty (~2018) RIGHT History of tooth extraction History of hysterectomy KD W/BSO History of repair of rotator cuff (~2014) LEFT H/O elbow surgery LEFT History of total knee replacement LEFT History of colonoscopy History of esophagogastroduodenoscopy (EGD) History of cataract surgery BILATERAL History of endoscopic sinus surgery History of adenoidectomy History of coronary artery bypass graft CABG X4 (1997) Family History Father Myocardial infarction Coronary heart disease Brother Arthritis Hx of CABG Sister Arthritis Mother Dementia Heart disease Other Family history non-contributory Denies family history of Liver cancer Ovarian cancer Prostate cancer Crohn's disease Breast cancer Colorectal cancer Inflammatory bowel disease Social History Smoking Status: Never smoker Second Hand Exposure: No; Do You Dip or Chew Tobacco: No; Hx Alcohol Use: Yes (drinks wine, gin and tonic, martini's) Alcohol type: wine and hard liquor Alcohol Intake Frequency: 4 or More x per/Week Alcohol Intake Frequency Comment: 3-4X a week Hx Substance Use: Yes Last Used Substance: Days (ago) Substance Use Type Other:: CHG gummies for anxiety Preferred Language: Turkmen Communication Ability: Effective Visual Impairment: No Limitations Hearing Ability: Hard of Hearing Medical Instructor Required: No Beliefs That Will Affect Care: None marital status: Current Living Situation: Spouse current occupational status: retired current occupation: retired Other Information That Helps Us Care for You: No Feels Safe at Home: Yes Safety Concerns: Feels Safe At This Time Childhood Exposure to Second-Hand Smoke: Yes Diet: regular Dental Care, Regularly: Yes Physical Activity Frequency: Daily Seatbelt Use: always Sunscreen Use: Yes Assistive Devices: CPAP, Glasses and Walker Review of Systems Review of Systems: All systems reviewed & are unremarkable except as noted in HPI & below Physical Exam Physical Exam: Constitutional: Alert, cooperative and in no distress. She is sitting in bed. HEENT: Unremarkable Neck: No jugular venous distention, carotid pulses are normal and equal bilaterally without bruits. Pulmonary: Clear to auscultation bilaterally. Cardiac: Regular rhythm with no murmur, gallop or rub. Abdomen: Soft, nontender with normal bowel sounds. Extremities: No edema. I did not examine her fractured foot. Neurologic: No focal findings. Gait was not tested. Skin: No rash, ecchymoses or petechiae. Results & Data Vital Signs (Past 12 Hours) Vital Signs Temp Pulse Pulse Pulse Resp BP BP 08/09/23 07:32 36.4 C L 86 18 147/73 H 08/09/23 05:08 36.6 C 89 20 115/61 08/09/23 01:24 37.3 C 90 20 159/70 H 08/09/23 01:02 89 08/08/23 21:50 08/08/23 21:50 36.6 C 94 H 15 171/79 H 08/08/23 21:48 36.6 C 94 H 16 171/79 H Pulse Ox O2 Del Method 08/09/23 07:32 97 Room Air 08/09/23 05:08 95 Room Air 08/09/23 01:24 96 Room Air 08/09/23 01:02 08/08/23 21:50 Room Air 08/08/23 21:50 96 Room Air 08/08/23 21:48 96 Room Air Laboratory Results Cardiac Enzymes 08/08/23 Range/Units 17:36 AST 85 H (13-39) U/L Coagulation 08/08/23 Range/Units 17:36 PT 10.9 (9.0-12.0) Seconds CBC 08/08/23 08/09/23 Range/Units 17:36 07:23 WBC 6.38 6.42 (4.8-10.8) K/ul RBC 4.63 4.60 (4.20-5.40) M/uL Hgb 8.9 L 8.7 L (12.0-16.0) g/dl Hct 32.2 L 32.0 L (37.0-47.0) % Plt Count 120 L 117 L (130-400) K/uL Neut # (Auto) 3.73 4.08 (1.40-6.50) K/uL Lymph # (Auto) 1.63 1.22 (1.20-3.40) K/uL [place] # (Auto) 0.63 H 0.80 H (0.11-0.59) K/uL Eos # (Auto) 0.31 0.24 (0.00-0.50) K/uL Baso # (Auto) 0.06 0.05 (0.00-0.20) K/uL Comprehensive Metabolic Panel 08/08/23 08/09/23 Range/Units 17:36 07:23 Sodium 136 139 (136-145) mmol/L Potassium 3.8 4.0 (3.5-5.1) mmol/L Chloride 103 106 (98-107) mmol/L Carbon Dioxide 24 24 (21-32) mmol/L BUN 19 16 (6-23) mg/dl Creatinine 0.76 0.76 (0.6-1.2) mg/dl Glucose 143 H 141 H (70-99(Fasting)) mg/dl Calcium 9.2 8.9 (8.6-10.3) mg/dl AST 85 H (13-39) U/L ALT 65 H (7-52) U/L Alkaline Phosphatase 132 H (34-104) U/L Total Protein 7.8 (6.0-8.3) gm/dl Albumin 4.0 (3.4-5.0) gm/dl Intake and Output 08/08/23 08/09/23 08/09/23 22:59 06:59 14:59 Other: Other Intake Source npo # Unmeasured Voids 1 Weight 106.3 kg 100 kg 100 kg Weight Measurement Method Built in Bedscale Built in Bedscale Patient Weight 08/10/23 06:59 Weight 100 kg Diagnostic Findings Telemetry: Sinus rhythm, no significant arrhythmia. PG Care Time/CCT Total # of Minutes Spent Total Time Spent with Patient: Total time spent is greater than 50% in coordination of care (as documented) at patient's floor/unit and/or counseling patient: Coding Level of Care Code 48517 INT INP/OBS CARE MIN Diagnoses Fall, initial encounter W19.XXXA Encounter type: initial encounter Coronary artery disease involving autologous artery coronary bypass graft without angina pectoris I25.810 Coronary Disease-Associated Artery/Lesion type: bypass graft, autologous artery Associated angina: without angina (1) Fall Encounter type: initial encounter Qualified Code(s): W19.XXXA - Unspecified fall, initial encounter (2) Coronary artery disease Coronary Disease-Associated Artery/Lesion type: bypass graft, autologous artery Associated angina: without angina Qualified Code(s): I25.810 - Atherosclerosis of coronary artery bypass graft(s) without angina pectoris
[2023-08-09 09:32] LABS: Estimated Average Glucose 148 mg/dl; Hemoglobin A1C 6.8 % (4.5-5.6)
--- NOTE | 2023-08-09 10:04 | History & Physical Bridge Note ---
Date of Service August 09, 2023 History & Physical Bridge Note I have examined the patient, reviewed the History & Physical and in the interval since the performance of the History & Physical I have noted the following changes of clinical significance: no changes noted
[2023-08-09] MEDS ORDERED: LIDOCAINE 1%/EPINEPHRINE 1:100,000 20 ML VIAL ONE (10:13)
[2023-08-09] MEDS ORDERED: ceFAZolin 330 MG/ML 1 GM VIAL ONE (10:56)
[2023-08-09] MEDS ORDERED: SUGAMMADEX SODIUM 200 MG/2 ML VIAL IV ONE ×2 (11:14→11:32)
[2023-08-09] MEDS ORDERED: ceFAZolin 2000MG 2,000 MG/15 ML SYR IV ONE (12:07)
--- NOTE | 2023-08-09 12:20 | Fluoroscopy Report ---
FL foot LT 2V CLINICAL HISTORY: Left calcaneal internal fixation. COMPARISON STUDY: Left ankle radiographs and CT of the left foot August 08, 2023. FLUOROSCOPY TIME: 23 seconds. FLUOROSCOPIC IMAGES: 1 FINDINGS: Fluoroscopy was provided during internal fixation of the left calcaneal and left fifth meta tarsal fractures. Fracture alignment appears anatomic. Hardware is intact. No unexpected radiopaque f oreign bodies are present. IMPRESSION: Fluoroscopy provided during internal fixation of the left calcaneal and left fifth metat arsal fractures. ACT 112: Negative or not required by law. Electronically signed by: Alessandro Magaña M.D. 08/09/2023 12:19 PM
--- NOTE | 2023-08-09 12:21 | Post Operative Brief Note ---
Immediate Post Op Note v1 Date of Surgery August 09, 2023 Pre & Post Diagnosis Operation Date: 08/09/23 09:00 <No data on this case meets the specified criteria> I identified the patient and participated in the time-out.: Yes Procedure Operation Date: 08/09/23 09:00 <No data on this case meets the specified criteria> Surgeon Silviano Ronquillo, CLOTILDE, MS Delicatessen Store Manager None Estimated Blood Loss 2 Findings Consistent with Post-Op Diagnosis Consistent with pre operative diagnosis
[2023-08-09] MEDS ORDERED: LANTUS PER UNIT CHARGE SC ONE (13:00)
--- NOTE | 2023-08-09 13:31 | Pharmacy Report ---
Pharmacy Glycemic Short Note 2 - Date of Service August 09, 2023 - Glycemic Short BSG Results (Last 24 hours): 08/08/23 08/08/23 08/09/23 17:36 21:35 07:23 Glucose 143 H 141 H POC Glucose 172 H 08/09/23 12:27 Glucose POC Glucose 198 H OUTPATIENT ANTIDIABETIC REGIMEN: * Lantus 55 units daily * NPH 24 units HS * HumaLog 140-160 units/day * Empagliflozin 25mg PO daily * Metformin 1000mg PO BID ASSESSMENT: * 73 yo female, type 2 DM, s/p fall, foot surgery w/ Dr Ronquillo today. On very high doses of insulin at home, currently NPO today. * Using lower doses of insulin at this time - will increase as diet resumes. PLAN FOR INPATIENT GLYCEMIC CONTROL: * Hold outpatient oral diabetes medications * Basal insulin * Lantus 10 units SQ this AM, then 10 units this afternoon, followed by 10-30 units BID starting HS based on BSG * Bolus insulin * NovoLog per scale ACHS or Q6hrs while NPO * Goal Range: Low 110 mg/dL - High 140 mg/dL * Correction Factor: 10 mg/dL/unit * Nutritional / Prandial insulin per carb ratio of 1 unit per 3 grams CHO consumed
[2023-08-09] MEDS ORDERED: Nursing to Pharmacy Communication SCH (14:30)
[2023-08-09] MEDS: ACETAMINOPHEN 325 MG TAB PO PRN (17:18)
--- NOTE | 2023-08-09 17:41 | Operative Report ---
Post Operative Report Pre & Post Diagnosis Operation Date: 08/09/23 09:00 Pre-Op Diagnosis: Left Calcaneal Fracture Post-Op Diagnosis: Left Calcaneal Fracture I identified the patient and participated in the time-out.: Yes Procedure Operation Date: 08/09/23 09:00 Actual Procedures p Open Reduction Internal Fixation Left Calcaneus and Left Fifth Metatarsal(Le ft) - Silviano Ronquillo DPM, MS Surgeon Silviano Ronquillo DPM, MS Ict Teacher None Estimated Blood Loss 2 Findings Consistent with Post-Op Diagnosis Consistent with pre operative diagnosis Specimens None Description of Procedure History of present illness: Patient is a 73-year-old female who was seen for left distal fibula fracture, left calcaneus fracture, and left fifth metatarsal fracture.Patient requests surgical care and denies conservative treatment. Discussed conservative immobilization versus ORIF. Patient denies conservative immobilization. Patient chooses open reduction internal fixation for left calcaneus and fifth metatarsal fracture.Discussed procedure in detail as well as postoperative recovery.All potential risks, benefits, complications, alternatives, rehab, potential for incomplete relief of symptoms, need for further surgery, DVT, PE, , persistent pain, swelling, scarring, weakness, neurovascular, wound complications and potential for amputations were discussed with patient. Unwanted outcomes such as, but not limited to were reviewed including under correction, overcorrection, return of deformity, infection.All questions were answered.Patient has decided to proceed with procedure as indicated. Preoperative diagnosis: 1.) Left calcaneus fracture 2.) Left foot metatarsal fracture Postoperative diagnosis: Same Name of operation: 1.) Open reduction internal fixation left calcaneus 2.) Open reduction internal fixation left calcaneus fracture Surgeon: Dr. Ronquillo Ict Teacher: None Anesthesia: General Estimated blood loss: 2 ml Procedure in detail: Under mild sedation the patient was brought in the operating room placed on the operating table in supine position.She was then converted to prone. A Pneumatic calf tourniquet was then placed about the patient's left ankle.Following sedation, local anesthesia was obtained about the left ankle utilizing 1% lidocaine 1:200,000 with Epinephrine.The foot and ankle was then prepped, scrubbed, and draped, in the usual aseptic manner.An Esmarch bandage utilized examining the patient's left foot and ankle and the pneumatic calf tourniquet was inflated. At this time utilizing a sharp, sterile, 15 blade, an incision was placed over the posterior aspect of the patient's left calcaneus. The incision was deepened through subcutaneous tissue using sharp blunt dissection. Care was taken to identify and retract all vital neurovascular structures bleeders.All bleeders were ligated as necessary.At this time the posterior prominence of the calcaneus was located and utilizing standard AO principles two K- wires were placed posterior proximal to the posterior distal aspect of the calcaneus perpendicular to the fracture pattern. Intraoperative mini C arm was utilized to evaluate the correction.At this time a 48 and 50 mm 5.5 mm Synthes screw was placed across the fracture site.C-arm was again utilized to visualize correction and placement of hardware.The remaining K wires were removed without incident. Next utilizing a sharp, sterile, 15 blade, an incision was placed over the lateral aspect of the patient's left fifth metatarsal base. The incision was deepened through subcutaneous tissue using sharp blunt dissection. Care was taken to identify and retract all vital neurovascular structures bleeders.All bleeders were ligated as necessary.At this time the fifth metatarsal prominence was located and utilizing standard AO principles a K- wire was placed down the intramedullary canal of the left fifth metatarsal.Intraoperative C arm was utilized to evaluate the correction.At this time a 4.0mm Synthes mm screw was placed across the fracture site.C-arm was again utilized to visualize co rrection and placement of hardware.The remaining K wire was removed without incident. Copious amounts of sterile normal saline was utilized to flush the wound.The deep structures were coapted utilizing 3-0 PDS and the skin was reapproximated coapted utilizing horizontal suture technique with 3-0 nylon.Upon completion of the procedure the incision was dressed with Adaptic followed by sterile compressive dressing consisting of 4 x 4's and Luis.The pneumatic calf tourniquet was deflated and a prompt hyperemic response was noted to all digits of the left foot. A posterior splint, Rio wrap were then applied. Patient tolerated procedure and anesthesia well.Patient was transferred to recovery room with vital signs stable and vascular status intact all toes of the left foot. Following a period ofPostoperative monitoring the patient will be re-admitted to the floor resuming all preoperative orders.Contact Dr. Ronquillo for all postoperative care if any problems arise. I attest to the content of the Intraoperative Record and any orders documented therein. Any exceptions are noted below.
[2023-08-09] MEDS ORDERED: traMADol HCL 50 MG TABLET PO PRN (19:44)
[2023-08-09] MEDS ORDERED: oxyCODONE HCL IR 5 MG TAB (IMMEDIATE RELEASE) PO PRN (19:44)
[2023-08-09] MEDS: LANTUS PER UNIT CHARGE SC SCH (20:39)
[2023-08-09] MEDS: MONTELUKAST SODIUM 10 MG TABLET PO SCH (20:40)
[2023-08-09] MEDS: METOPROLOL TARTRATE 25 MG TAB PO SCH (20:40)
[2023-08-09] MEDS: MELATONIN 3 MG TAB PO SCH (20:40)
[2023-08-10] MEDS: LEVOTHYROXINE SODIUM 150 MCG TABLET PO SCH (05:45)
[2023-08-10 07:30] LABS: BUN Creatinine Ratio 24.4 (10-20); Calcium 8.8 mg/dl (8.6-10.3); Creatinine Clr Calc Pharmacy 68.8 ml/min; Est GFR (African American) 86.2 ml/min; Est GFR (Non-African American) 74.4 ml/min; Potassium 4.3 mmol/L (3.5-5.1)
[2023-08-10 07:40] LABS: Hematocrit (blood only) 30.1 % (37.0-47.0); Hemoglobin 8.1 g/dl (12.0-16.0); Mean Corpuscular Hemoglobin 18.8 pg (25.0-34.0); Mean Corpuscular Hgb Conc 26.9 g/dL (32.0-36.0); Mean Corpuscular Volume 69.8 fL (80.0-100.0); Mean Platelet Volume 9.8 fL (9.4-12.4); Platelet Count 146 K/uL (130-400); RDW Coefficient of Variation 20.4 % (11.5-14.5); RDW Standard Deviation 50.8 fL (36.4-46.3); Red Blood Count 4.31 M/uL (4.20-5.40); White Blood Count 6.99 K/ul (4.8-10.8)
[2023-08-10 07:41] LABS: Anisocytosis Present; Basophils # (auto) 0.03 K/uL (0.00-0.20); Basophils % (auto) 0.4 %; Eosinophils # (auto) 0.11 K/uL (0.00-0.50); Eosinophils % (auto) 1.6 %; Hypochromasia Present; Immature Granulocytes # (auto) 0.04 K/uL (0.01-0.20); Immature Granulocytes % (auto) 0.6 %; Lymphocytes # (auto) 1.67 K/uL (1.20-3.40); Lymphocytes % (auto) 23.9 %; Microcytosis Present; Monocytes % (auto) 14.3 %; Neutrophils # (auto) 4.14 K/uL (1.40-6.50); Neutrophils % (auto) 59.2 %; Tear Drop Cells 1+
[2023-08-10] MEDS: amLODIPine BESYLATE 5 MG TAB PO SCH (08:27)
[2023-08-10] MEDS: VENLAFAXINE HCL XR 37.5 MG CAPXR PO SCH (08:27)
[2023-08-10] MEDS: METOPROLOL TARTRATE 25 MG TAB PO SCH ×2 (08:27→20:12)
[2023-08-10] MEDS: PANTOprazole 40 MG TAB PO SCH (08:27)
[2023-08-10] MEDS: LORATADINE 10 MG TAB PO SCH (08:27)
[2023-08-10] MEDS: ATORVASTATIN 40 MG TAB PO SCH (08:27)
[2023-08-10] MEDS: CLOBETASOL PROPIONATE 0.05% OINT 15 GM TUBE EXT SCH ×2 (08:27→20:11)
[2023-08-10] MEDS: RANOLAZINE 500 MG ER TAB PO SCH ×2 (08:27→20:13)
[2023-08-10] MEDS: FEXOFENADINE HCL 180 MG TAB PO SCH (08:28)
[2023-08-10] MEDS: VENLAFAXINE HCL XR 150 MG CAPXR PO SCH (08:28)
[2023-08-10] MEDS: INSULIN ASPART PER UNIT CHARGE SC SCH ×4 (09:14→20:31)
[2023-08-10] MEDS: LANTUS PER UNIT CHARGE SC SCH ×2 (09:14→20:33)
--- NOTE | 2023-08-10 09:26 | Electrocardiogram Report ---
Test Reason : Blood Pressure : / mmHG Vent. Rate : 082 BPM Atrial Rate : 082 BPM P-R Int : 166 ms QRS Dur : 078 ms QT Int : 426 ms P-R-T Axes : 070 064 097 degrees QTc Int : 497 ms Poor data quality, interpretation may be adversely affected Normal sinus rhythm Normal ECG When compared with ECG of 14-JUL-2022 22:01, Nonspecific T wave abnormality, worse in Lateral leads Confirmed by Afshin Kan ([id number]) on 08/10/2023 9:25:27 AM Referred By: REFERRED SELF Confirmed By:Afshin Kan
--- NOTE | 2023-08-10 09:56 | XRay Report ---
XR foot RT min 3V routine CLINICAL HISTORY: S/P fall. Increased pain. Rx of left ft with fall. Right foot pain. COMPARISON STUDY: None. FINDINGS: Small plantar heel spur. Soft tissues are unremarkable. No fracture or dislocation. The Lis franc joint is intact. [id number]-[id number]-[id number] degenerative changes within the right foot most pronounced at the first MTP joint. IMPRESSION: No fracture or dislocation within the right foot. ACT 112: Negative or not required by law. Electronically signed by: Austin Burger M.D. 08/10/2023 9:54 AM
--- NOTE | 2023-08-10 13:02 | Orthopedic Progress Note ---
Date of Service August 10, 2023 Assessment & Plan (1) Calcaneal fracture: Plan: Patient seen and evaluated in 287-2. Patient status post Day #1 ORIF left foot. Patient worked with PT this am. Concern over Patient's ability to manage non weight bearing instructions to left lower extremity. Patient currently working with casework manager Yee who I did speak with about placement in SNF. Thank you for allowing me to participate in the care of this Patient. (2) Foot fracture, left: (3) Fall: (4) Type 2 diabetes mellitus: Admission and Anticipated Discharge Date Admission Date: August 08, 2023 Subjective Patient seen and examined at bedside in 287-2. Patient relates concern over post operative instructions for non weight bearing status. Requests case management assistance and recommendations for nursing care at home for her recovery. She has no other complaints. Physical Exam Constitutional: cooperative and comfortable Eyes: normal visual carter by confrontation Neck: normal visual inspection Respiratory: normal respiratory effort Cardiovascular: Rate/Rhythm: regular rate and regular rhythm Musculoskeletal: Extremities: extremities normal to inspection Neurologic: moves all extremities (Decreased epicritic sensation) Psychiatric: Orientation: alert and oriented x 3 Results & Data Vital Signs (Past 12 Hours) Vital Signs Temp Pulse Pulse Resp BP Pulse Ox O2 Del Method 08/10/23 07:54 36.8 C 78 16 109/63 92 Room Air 08/10/23 07:18 77 08/10/23 03:54 36.8 C 80 18 126/66 92 Room Air 08/10/23 02:36 79 (1) Calcaneal fracture Calcaneus location: unspecified portion of calcaneus Encounter type: initial encounter Fracture alignment: nondisplaced Fracture type: closed Laterality: left Qualified Code(s): S92.002A - Unspecified fracture of left calcaneus, initial encounter for closed fracture (3) Fall Encounter type: initial encounter Qualified Code(s): W19.XXXA - Unspecified fall, initial encounter
--- NOTE | 2023-08-10 17:44 | Hospitalist Progress Note ---
Date of Service August 10, 2023 Assessment & Plan (1) Fall: Plan: POD# 1 Patient sustained a mechanical ground-level fall at her home on 08/08 Left foot/ankle x-ray revealed a nondisplaced fracture of the posterior superior calcaneus, as well as fracture of the fifth metatarsal and fibular tip Surgical reduction and fixation with Dr. Ronquillo 08/09/2023 Pain generally controlled. Continue Tylenol and as needed tramadol 50 mg p.o. for pain 2 through 5/10 and oxycodone 5 mg p.o. for pain 6-10/10 as needed PT/OT consulted. Evaluations completed. Patient does have recommendation for inpatient rehabilitation as she has limited weightbearing and has balance issue s. No concerns for occupational therapy Patient agrees to inpatient rehab. Referrals been placed to [facility]. Although they have beds available, insurance authorization will not be available until after the holidays. Continue inpatient stay at this time (2) Type 2 diabetes mellitus: Plan: Last A1c 7.0% on 02/19/2023 Hold metforminAngy Patient reports that she is on Lantus 55u and NPH 24u at night Recommend Lantus 20u twice daily while inpatient SSI; target BSG range 110-140mg/dL, CF 20, carb ratio 7 T2DM diet; n.p.o. at midnight [facility] Pharmacy glycemic consult Adjust regimen as needed (3) Essential hypertension: Plan: Continue metoprolol, lisinopril, amlodipine (4) Coronary artery disease: Plan: Patient has extensive history of multiple stents placed She is on both aspirin daily and Brilinta twice daily; last taken the morning of 08/08 Continue on telemetry (5) Hypothyroidism: Plan: Continue levothyroxine (6) BPPV (benign paroxysmal positional vertigo): Plan: Continue meclizine as needed No complaints today (7) Anxiety with depression: Plan: Continue venlafaxine (8) GERD (gastroesophageal reflux disease): Plan: Continue pantoprazole (9) Venous insufficiency of both lower extremities: Plan: Continue aspirin and Brilinta Plan Disposition: Admit to [facility] telemetry Full code T2DM diet (n.p.o. at midnight) VTE PPx: Hold chemical DVT PPx for now, then add on postop Admission and Anticipated Discharge Date Admission Date: August 08, 2023 Subjective Attending: Dr. Barnhart Patient seen and examined in room 287 bed 2 on 2 occasions today. Second visit was with patient's present. Patient states that pain is generally well-controlled except with ambulation. She does have toe-touch restrictions on left foot. She is also having increased pain with her right foot and is having difficulty with balance. occupational therapy aides teacher apy is recommending inpatient rehab. After lengthy discussion, patient is agreeable to this and referral will be placed to [facility]. Patient denies any lightheadedness or dizziness. No chest pain or tightness. No shortness of breath. No fever, sweats, rigors. No other acute complaints at this time. Review of Systems Review of Systems: A total of 10 systems was reviewed and is negative other than as listed in the HPI Physical Exam Physical Exam: GENERAL : No acute distress EYES: No icterus, gaze conjugate NOSE: No evidence of epistaxis MOUTH: No lesions or candidiasis NECK: Supple LUNGS: CTA B/L, no wheezes, rales or rhonchi HEART: Regular, rate controlled ABDOMEN: Soft, NT, ND, BS Present EXTREMITIES: No LE edema, pedal pulses intact and equal bilaterally. I am able to palpate a pulse underneath the dressing of the left foot. Capillary refill is less than 2 seconds. NEURO: A&OX3 Results & Data Results & Data Vital Signs (Past 12 Hours) Vital Signs Temp Pulse Pulse Resp BP Pulse Ox O2 Del Method 08/10/23 15:31 82 08/10/23 07:54 36.8 C 78 16 109/63 92 Room Air 08/10/23 07:18 77 Laboratory Results Laboratory Results WBC 6.99 K/ul (4.8-10.8) 08/10/23 06:56 RBC 4.31 M/uL (4.20-5.40) 08/10/23 06:56 Hgb 8.1 g/dl (12.0-16.0) L 08/10/23 06:56 Hct 30.1 % (37.0-47.0) L 08/10/23 06:56 MCV 69.8 fL (80.0-100.0) L 08/10/23 06:56 MCH 18.8 pg (25.0-34.0) L 08/10/23 06:56 MCHC 26.9 g/dL (32.0-36.0) L 08/10/23 06:56 RDW Std Deviation 50.8 fL (36.4-46.3) H 08/10/23 06:56 RDW Coeff of Dani 20.4 % (11.5-14.5) H 08/10/23 06:56 Plt Count 146 K/uL (130-400) 08/10/23 06:56 MPV 9.8 fL (9.4-12.4) 08/10/23 06:56 Immature Gran % (Auto) 0.6 % 08/10/23 06:56 Neut % (Auto) 59.2 % 08/10/23 06:56 Lymph % (Auto) 23.9 % 08/10/23 06:56 Randolph % (Auto) 14.3 % 08/10/23 06:56 Eos % (Auto) 1.6 % 08/10/23 06:56 Baso % (Auto) 0.4 % 08/10/23 06:56 Neut # (Auto) 4.14 K/uL (1.40-6.50) 08/10/23 06:56 Lymph # (Auto) 1.67 K/uL (1.20-3.40) 08/10/23 06:56 Randolph # (Auto) 1.00 K/uL (0.11-0.59) H 08/10/23 06:56 Eos # (Auto) 0.11 K/uL (0.00-0.50) 08/10/23 06:56 Baso # (Auto) 0.03 K/uL (0.00-0.20) 08/10/23 06:56 Immature Gran # (Auto) 0.04 K/uL (0.01-0.20) 08/10/23 06:56 Polychromasia 1+ 08/09/23 07:23 Hypochromasia Present 08/10/23 06:56 Anisocytosis Present 08/10/23 06:56 Microcytosis Present 08/10/23 06:56 Tear Drop Cells 1+ 08/10/23 06:56 Ovalocytes 1+ 08/09/23 07:23 PT 10.9 Seconds (9.0-12.0) 08/08/23 17:36 INR 1.0 (0.9-1.1) 08/08/23 17:36 Sodium 137 mmol/L (136-145) 08/10/23 06:56 Potassium 4.3 mmol/L (3.5-5.1) 08/10/23 06:56 Chloride 105 mmol/L (98-107) 08/10/23 06:56 Carbon Dioxide 25 mmol/L (21-32) 08/10/23 06:56 Anion Gap 7 (3-11) 08/10/23 06:56 BUN 19 mg/dl (6-23) 08/10/23 06:56 Creatinine 0.78 mg/dl (0.6-1.2) 08/10/23 06:56 Est Cr Clr Drug Dosing 68.8 ml/min 08/10/23 06:56 Est GFR ( Amer) 86.2 ml/min 08/10/23 06:56 Est GFR (Non-Af Amer) 74.4 ml/min 08/10/23 06:56 BUN/Creatinine Ratio 24.4 (10-20) H 08/10/23 06:56 Glucose 174 mg/dl (70-99(Fasting)) H 08/10/23 06:56 POC Glucose 135 mg/dl (70-99) H 08/10/23 17:13 Estimat Average Glucose 148 mg/dl 08/09/23 07:23 Hemoglobin A1c 6.8 % (4.5-5.6) H 08/09/23 07:23 Calcium 8.8 mg/dl (8.6-10.3) 08/10/23 06:56 Total Bilirubin 0.8 mg/dl (0.2-1.0) 08/08/23 17:36 AST 85 U/L (13-39) H 08/08/23 17:36 ALT 65 U/L (7-52) H 08/08/23 17:36 Alkaline Phosphatase 132 U/L (34-104) H 08/08/23 17:36 Total Protein 7.8 gm/dl (6.0-8.3) 08/08/23 17:36 Albumin 4.0 gm/dl (3.4-5.0) 08/08/23 17:36 Globulin 3.8 gm/dl (2.5-4.0) 08/08/23 17:36 Albumin/Globulin Ratio 1.1 (0.9-2) 08/08/23 17:36 Blood Type B Positive 08/08/23 17:36 Antibody Screen NEGATIVE 08/08/23 17:36 Impressions Ankle X-Ray 08/08/23 14:36 XR ankle LT 2V CLINICAL HISTORY: Left ankle pain following injury. COMPARISON: Left foot radiographs January 30, 2021. FINDINGS: There is no ankle mortise widening. Note is made of subtle cortical irregularity and lucency within the lateral aspect of the fibular tip consistent with a minimally displaced fracture. Lateral ankle soft tissue swelling is present. No acute fracture of the distal left tibia is present. There is a acute nondisplaced fracture of the posterior superior aspect of the calcaneus. There is also an acute slightly distracted fracture of the base of the left fifth metatarsal. IMPRESSION: 1. Acute nondisplaced fracture of the posterior superior calcaneus. 2. Acute slightly distracted fracture of the base of the left fifth metatarsal. 3. Acute minimally displaced fracture of the fibular tip. Lateral ankle soft tissue swelling. No ankle mortise widening. ACT 112: Negative or not required by law. Electronically signed by: Alessandro Magaña M.D. 08/08/2023 3:59 PM Knee X-Ray 08/08/23 14:36 XR knee RT 1 or 2V routine CLINICAL HISTORY: INJURY TECHNIQUE: 2 views of the right knee were obtained. Comparison: Comparison is made to 09/25/2018 FINDINGS: There is no evidence of an acute fracture. Patient is status post total knee arthroplasty. No perihardware lucency or hardware fracture is seen. No joint effusion is seen. No soft tissue abnormality is seen. IMPRESSION: No evidence of acute osseous injury. ACT 112: Negative or not required by law. Electronically signed by: Rafat Rey M.D. 08/08/2023 3:[address] 08/08/23 17:23 CT tib/fib LT wo con, CT foot LT wo con CLINICAL HISTORY: Eval fracture pattern TECHNIQUE: Multidetector row helical CT of the left tibia and fibula and left foot was performed without intravenous contrast. Coronal and sagittal reformations were obtained. Automated dose lowering techniques and/or adjustment according to patient size were utilized for this examination. CT DOSE: 374.44 mGy.cm Comparison: Comparison is made to ankle radiograph 08/08/2023 FINDINGS: There is a minimally comminuted fracture of the tip of the fibula, well below the tibiofibular syndesmosis. There is a fracture of the posterior superior calcaneus and a mildly distracted fracture of the fifth metatarsal base. There is a bony fragment in the lateral inferior calcaneus which may represent an avulsion fracture. Degenerative changes in the joints. The Lisfranc joints are i ntact. Soft tissue swelling is seen. IMPRESSION: 1. Mildly distracted fracture of the left fifth metatarsal. 2. Posterior superior calcaneal fracture. There may be a tiny avulsion fracture from the lateral aspect of the calcaneus. 3. Liver a tip fracture. ACT 112: Negative or not required by law. Electronically signed by: Rafat Rey M.D. 08/08/2023 7:[address] 08/08/23 17:23 CT tib/fib LT wo con, CT foot LT wo con CLINICAL HISTORY: Eval fracture pattern TECHNIQUE: Multidetector row helical CT of the left tibia and fibula and left foot was performed without intravenous contrast. Coronal and sagittal reformations were obtained. Automated dose lowering techniques and/or adjustment according to patient size were utilized for this examination. CT DOSE: 374.44 mGy.cm Comparison: Comparison is made to ankle radiograph 08/08/2023 FINDINGS: There is a minimally comminuted fracture of the tip of the fibula, well below the tibiofibular syndesmosis. There is a fracture of the posterior superior calcaneus and a mildly distracted fracture of the fifth metatarsal base. There is a bony fragment in the lateral inferior calcaneus which may represent an avulsion fracture. Degenerative changes in the joints. The Lisfranc joints are intact. Soft tissue swelling is seen. IMPRESSION: 1. Mildly distracted fracture of the left fifth metatarsal. 2. Posterior superior calcaneal fracture. There may be a tiny avulsion fracture from the lateral aspect of the calcaneus. 3. Liver a tip fracture. ACT 112: Negative or not required by law. Electronically signed by: Rafat Rey M.D. 08/08/2023 7:29 PM Chest X-Ray 08/08/23 17:24 XR chest 1V portable CLINICAL HISTORY: clearance TECHNIQUE: Single frontal radiograph of the chest was obtained. Comparison: Comparison is made to chest radiograph 07/14/2022 FINDINGS: Median sternotomy wires are unchanged. Cardiomegaly is noted. The lungs are clear. No evidence of pleural effusion or pneumothorax. IMPRESSION: No acute chest disease. ACT 112: Negative or not required by law. Electronically signed by: Rafat Rey M.D. 08/08/2023 6:05 PM Foot X-Ray 08/10/23 08:59 XR foot RT min 3V routine CLINICAL HISTORY: S/P fall. Increased pain. Rx of left ft with fall. Right foot pain. COMPARISON STUDY: None. FINDINGS: Small plantar heel spur. Soft tissues are unremarkable. No fracture or dislocation. The Lisfranc joint is intact. [id number] degenerative changes within the right foot most pronounced at the first MTP joint. IMPRESSION: No fracture or dislocation within the right foot. ACT 112: Negative or not required by law. Electronically signed by: Austin Burger M.D. 08/10/2023 9:54 AM PG Care Time/CCT Total # of Minutes Spent Total Time Spent with Patient: Total time spent is greater than 50% in coordination of care (as documented) at patient's floor/unit and/or counseling patient:50 minutes over two visits to discuss results and plan of care plus chart review and discharge planning with Case Management Coding Level of Care Code 89867 SUB INP/OBS CARE 3/50MIN Diagnoses Fall, initial encounter W19.XXXA Encounter type: initial encounter Type 2 diabetes mellitus E11.9 Essential hypertension I10 Coronary artery disease involving autologous artery coronary bypass graft without angina pectoris I25.810 Coronary Disease-Associated Artery/Lesion type: bypass graft, autologous artery Associated angina: without angina Hypothyroidism E03.9 BPPV (benign paroxysmal positional vertigo) H81.10 Anxiety with depression F41.8 GERD (gastroesophageal reflux disease) K21.9 Venous insufficiency of both lower extremities I87.2 Time Spent (min) 50 (1) Fall Encounter type: initial encounter Qualified Code(s): W19.XXXA - Unspecified fall, initial encounter (4) Coronary artery disease Coronary Disease-Associated Artery/Lesion type: bypass graft, autologous artery Associated angina: without angina Qualified Code(s): I25.810 - Atherosclerosis of coronary artery bypass graft(s) without angina pectoris
[2023-08-10] MEDS: MELATONIN 3 MG TAB PO SCH (20:11)
[2023-08-10] MEDS: MONTELUKAST SODIUM 10 MG TABLET PO SCH (20:13)
[2023-08-11] MEDS: LEVOTHYROXINE SODIUM 150 MCG TABLET PO SCH (05:57)
[2023-08-11 07:57] LABS: Calcium 8.6 mg/dl (8.6-10.3); Creatinine Clr Calc Pharmacy 65.3 ml/min; Est GFR (African American) 81.1 ml/min; Potassium 4.3 mmol/L (3.5-5.1)
[2023-08-11] MEDS: METOPROLOL TARTRATE 25 MG TAB PO SCH ×2 (08:00→20:54)
[2023-08-11] MEDS: RANOLAZINE 500 MG ER TAB PO SCH ×2 (08:03→20:54)
[2023-08-11] MEDS: VENLAFAXINE HCL XR 37.5 MG CAPXR PO SCH (08:04)
[2023-08-11] MEDS: amLODIPine BESYLATE 5 MG TAB PO SCH (08:04)
[2023-08-11] MEDS: LORATADINE 10 MG TAB PO SCH (08:04)
[2023-08-11] MEDS: PANTOprazole 40 MG TAB PO SCH (08:04)
[2023-08-11] MEDS: VENLAFAXINE HCL XR 150 MG CAPXR PO SCH (08:04)
[2023-08-11] MEDS: ATORVASTATIN 40 MG TAB PO SCH (08:04)
[2023-08-11] MEDS: CLOBETASOL PROPIONATE 0.05% OINT 15 GM TUBE EXT SCH ×2 (08:05→21:03)
[2023-08-11] MEDS: FEXOFENADINE HCL 180 MG TAB PO SCH (08:06)
[2023-08-11 08:07] LABS: Basophils # (auto) 0.04 K/uL (0.00-0.20); Basophils % (auto) 0.7 %; Eosinophils # (auto) 0.32 K/uL (0.00-0.50); Eosinophils % (auto) 5.4 %; Hematocrit (blood only) 30.4 % (37.0-47.0); Hemoglobin 8.3 g/dl (12.0-16.0); Hypochromasia Present; Immature Granulocytes # (auto) 0.04 K/uL (0.01-0.20); Immature Granulocytes % (auto) 0.7 %; Lymphocytes # (auto) 1.17 K/uL (1.20-3.40); Lymphocytes % (auto) 19.8 %; Mean Corpuscular Hgb Conc 27.3 g/dL (32.0-36.0); Mean Corpuscular Volume 69.7 fL (80.0-100.0); Mean Platelet Volume 10.1 fL (9.4-12.4); Microcytosis Present; Monocytes # (auto) 0.73 K/uL (0.11-0.59); Monocytes % (auto) 12.4 %; Neutrophils # (auto) 3.61 K/uL (1.40-6.50); Nucleated RBC # (auto) 0.03 K/uL (0.00-0.12); Nucleated RBC % (auto) 0.5 %; Platelet Count 145 K/uL (130-400); Polychromasia 1+; RDW Coefficient of Variation 20.6 % (11.5-14.5); RDW Standard Deviation 50.2 fL (36.4-46.3); Red Blood Count 4.36 M/uL (4.20-5.40); Tear Drop Cells 1+; White Blood Count 5.91 K/ul (4.8-10.8)
[2023-08-11] MEDS: INSULIN ASPART PER UNIT CHARGE SC SCH ×4 (08:53→20:56)
[2023-08-11] MEDS: LANTUS PER UNIT CHARGE SC SCH ×2 (08:53→20:57)
--- NOTE | 2023-08-11 14:21 | Pharmacy Report ---
Pharmacy Glycemic Short Note 2 - Date of Service August 11, 2023 - Glycemic Short BSG Results (Last 24 hours): 08/10/23 08/10/23 08/11/23 17:13 20:04 07:15 Glucose 175 H POC Glucose 135 H 194 H 08/11/23 08/11/23 08:14 12:21 Glucose POC Glucose 182 H 173 H OUTPATIENT ANTIDIABETIC REGIMEN: * Lantus 55 units SC daily * NPH 24 units SC HS * HumaLog SC 140-160 units/day * Empagliflozin 25 mg PO daily * Metformin 1000 mg PO BID * HbA1c: 6.8% (08/09/23) ASSESSMENT: 08/11: * Ketty received 132 units of insulin yesterday: 60 units basal + 72 units bolus. BSGs were: 274-266-115-194 mg/dL. * Fasting BSG increased to 182 mg/dL this AM. Will increase basal by ~15% today. This will likely need reduced in the coming days once dexamethasone wears off. * Have been tightening Novolog over the weekend since patient's PO intake has improved. Lunchtime BSG trending down so will back off on carb ratio this evening. 08/09: * 73 yo female, type 2 DM, s/p fall, foot surgery w/ Dr Ronquillo today. On very high doses of insulin at home, currently NPO today. * Using lower doses of insulin at this time - will increase as diet resumes. PLAN FOR INPATIENT GLYCEMIC CONTROL: * Hold outpatient oral diabetes medications * Basal insulin * Lantus 35 units SC BID * Bolus insulin * NovoLog per scale ACHS or Q6hrs while NPO * Goal Range: Low 110 mg/dL - High 140 mg/dL * Correction Factor: 8 mg/dL/unit * Nutritional / Prandial insulin per carb ratio of 1 unit per 3 grams CHO consumed
--- NOTE | 2023-08-11 16:00 | Hospitalist Progress Note ---
Date of Service August 11, 2023 Assessment & Plan (1) Fall: Plan: POD# 2 Patient sustained a mechanical ground-level fall at her home on 08/08 Left foot/ankle x-ray revealed a nondisplaced fracture of the posterior superior calcaneus, as well as fracture of the fifth metatarsal and fibular tip Surgical reduction and fixation with Dr. Ronquillo 08/09/2023 Pain generally controlled. Continue Tylenol and as needed tramadol 50 mg p.o. for pain 2 through 5/10 and oxycodone 5 mg p.o. for pain 6-10/10 as needed PT/OT consulted. Evaluations completed. Patient does have recommendation for inpatient rehabilitation as she has limited weightbearing and has balance issues. No concerns for occupational therapy Patient agrees to inpatient rehab. Referrals been placed to [facility]. Although they have beds available, insurance authorization will not be available until after the holidays. Continue inpatient stay at this time Continue with daily physical therapy while inpatient. Patient confirmed to be on their schedule for today. (2) Type 2 diabetes mellitus: Plan: Last A1c 7.0% on 02/19/2023 Hold metforminAngy Patient reports that she is on Lantus 55u and NPH 24u at night Recommend Lantus 20u twice daily while inpatient SSI; target BSG range 110-140mg/dL, CF 20, carb ratio 7 T2DM diet; n.p.o. at midnight [facility] Pharmacy glycemic consult Adjust regimen as needed (3) Essential hypertension: Plan: Continue metoprolol, lisinopril, amlodipine (4) Coronary artery disease: Plan: Patient has extensive history of multiple stents placed She is on both aspirin daily and Brilinta twice daily; last taken the morning of 08/08 Continue on telemetry No reports of chest pain or tightness or other cardiac symptoms. (5) Hypothyroidism: Plan: Continue levothyroxine (6) BPPV (benign paroxysmal positional vertigo): Plan: Continue meclizine as needed No complaints today (7) Anxiety with depression: Plan: Continue venlafaxine (8) GERD (gastroesophageal reflux disease): Plan: Continue pantoprazole (9) Venous insufficiency of both lower extremities: Plan: Continue aspirin and Brilinta Plan Disposition: Awaiting discharge to inpatient rehabilitation Full code T2DM diet (n.p.o. at midnight) VTE PPx: Continue Brilinta Admission and Anticipated Discharge Date Admission Date: August 08, 2023 Supervising Physician Co-Signing Physician Notes The patient was not seen by me. The chart was reviewed. Case discussed with SOWMYA Lugo. Agree with assessment and plan Subjective Attending: No events in the last 24 hours. Patient still reports the pain is generally controlled. Still endorses difficulty with ambulation. Physical therapy continues to work with the patient daily. Their help is appreciated. Awaiting placement at [facility] Review of Systems 2 Review of Systems: A total of 10 systems was reviewed and is negative other than as listed in the HPI Physical Exam 2 Physical Exam: GENERAL : No acute distress EYES: No icterus, gaze conjugate NOSE: No evidence of epistaxis MOUTH: No lesions or candidiasis NECK: Supple LUNGS: CTA B/L, no wheezes, rales or rhonchi HEART: Regular, rate controlled ABDOMEN: Soft, NT, ND, BS Present EXTREMITIES: No LE edema, pedal pulses intact and equal bilaterally. Soft cast in place over left foot NEURO: A&OX3 Results & Data Results & Data Vital Signs (Past 12 Hours) Vital Signs Temp Pulse Pulse Resp BP Pulse Ox O2 Del Method 08/11/23 15:25 79 08/11/23 11:46 37.3 C 77 16 117/67 95 Room Air 08/11/23 07:57 36.7 C 69 16 134/66 95 Room Air 08/11/23 07:34 84 08/11/23 03:55 36.9 C 80 18 113/61 90 Room Air Laboratory Results 08/11/23 07:15 08/11/23 07:15 PG Care Time/CCT Total # of Minutes Spent Total Time Spent with Patient: Total time spent is greater than 50% in coordination of care (as documented) at patient's floor/unit and/or counseling patient:25 minutes Coding Level of Care Code 83836 SUB INP/OBS CARE 09/11MIN Diagnoses Fall, initial encounter W19.XXXA Encounter type: initial encounter Type 2 diabetes mellitus E11.9 Essential hypertension I10 Coronary artery disease involving autologous artery coronary bypass graft without angina pectoris I25.810 Associated angina: without angina Coronary Disease-Associated Artery/Lesion type: bypass graft, autologous artery Hypothyroidism E03.9 BPPV (benign paroxysmal positional vertigo) H81.10 Anxiety with depression F41.8 GERD (gastroesophageal reflux disease) K21.9 Venous insufficiency of both lower extremities I87.2 Time Spent (min) 25 (1) Fall Encounter type: initial encounter Qualified Code(s): W19.XXXA - Unspecified fall, initial encounter (4) Coronary artery disease Associated angina: without angina Coronary Disease-Associated Artery/Lesion type: bypass graft, autologous artery Qualified Code(s): I25.810 - Atherosclerosis of coronary artery bypass graft(s) without angina pectoris
--- NOTE | 2023-08-11 16:28 | Hospitalist Progress Note ---
Date of Service August 11, 2023 Assessment & Plan Admission and Anticipated Discharge Date Admission Date: August 08, 2023 Results & Data Results & Data Vital Signs (Past 12 Hours) Vital Signs Temp Pulse Pulse Resp BP Pulse Ox O2 Del Method 08/11/23 15:25 79 08/11/23 11:46 37.3 C 77 16 117/67 95 Room Air 08/11/23 07:57 36.7 C 69 16 134/66 95 Room Air 08/11/23 07:34 84 PG Care Time/CCT Total # of Minutes Spent Total Time Spent with Patient: Total time spent is greater than 50% in coordination of care (as documented) at patient's floor/unit and/or counseling patient: Coding
[2023-08-11] MEDS: TICAGRELOR 90 MG TAB PO SCH (17:49)
[2023-08-11] MEDS: MELATONIN 3 MG TAB PO SCH (20:54)
[2023-08-11] MEDS: MONTELUKAST SODIUM 10 MG TABLET PO SCH (20:54)
[2023-08-12] MEDS: LEVOTHYROXINE SODIUM 150 MCG TABLET PO SCH (06:16)
[2023-08-12] MEDS: ATORVASTATIN 40 MG TAB PO SCH (07:53)
[2023-08-12] MEDS: amLODIPine BESYLATE 5 MG TAB PO SCH (07:53)
[2023-08-12] MEDS: VENLAFAXINE HCL XR 37.5 MG CAPXR PO SCH (07:54)
[2023-08-12] MEDS: VENLAFAXINE HCL XR 150 MG CAPXR PO SCH (07:54)
[2023-08-12] MEDS: FEXOFENADINE HCL 180 MG TAB PO SCH (07:54)
[2023-08-12] MEDS: METOPROLOL TARTRATE 25 MG TAB PO SCH ×2 (07:55→20:45)
[2023-08-12] MEDS: PANTOprazole 40 MG TAB PO SCH (07:55)
[2023-08-12] MEDS: RANOLAZINE 500 MG ER TAB PO SCH ×2 (07:55→20:46)
[2023-08-12] MEDS: TICAGRELOR 90 MG TAB PO SCH ×2 (07:55→20:46)
[2023-08-12] MEDS: LORATADINE 10 MG TAB PO SCH (07:56)
[2023-08-12] MEDS: CLOBETASOL PROPIONATE 0.05% OINT 15 GM TUBE EXT SCH ×2 (07:56→20:47)
--- NOTE | 2023-08-12 08:08 | Hospitalist Progress Note ---
Date of Service August 12, 2023 Assessment & Plan (1) Fall: Plan: S/P ORIF left calcaneus and fifth metatarsal Dr Ronquillo 08/09/23 Secondary to a mechanical ground-level fall at her home on 08/08 Pain controlled with Tylenol and as needed tramadol and oxycodone 5 mg p.o. for pain 6-10/10 as needed PT/OT consulted, recommendation for inpatient rehabilitation as she has limited weightbearing and has balance issues. No concerns for occupational therapy Patient agrees to inpatient rehab. Referrals been placed to [facility]. (2) Type 2 diabetes mellitus: Plan: Last A1c 7.0% on 02/19/2023 Hold metformin, Jardiance Patient reports that she is on Lantus 55u and NPH 24u at night Recommend Lantus 35u twice daily with pharmacy consult SSI; BSG ACHS (3) Essential hypertension: Plan: Chronic stable Continue metoprolol, lisinopril, amlodipine (4) Coronary artery disease: Plan: Patient has extensive history of multiple stents placed She is on both aspirin daily and Brilinta twice daily; held pre op 08/08 Brillinta restarted 08/11 GBMT, metoprolol (5) Hypothyroidism: Plan: Continue levothyroxine (6) Anxiety with depression: Plan: Continue venlafaxine (7) GERD (gastroesophageal reflux disease): Plan: Continue pantoprazole Plan Disposition: Awaiting discharge to inpatient rehabilitation Full code VTE PPx: Continue Brilinta Admission and Anticipated Discharge Date Admission Date: August 08, 2023 Subjective Patient is pleasant anticipating rehab. Difficult to ambulate with large cast on her left leg her upper body strength is not appropriate for this at this time Physical Exam Physical Exam: Right lower leg with cast and knee good distal sensation and ability to wiggle toes. Capillary refill is present Cardiopulmonary exam is stable Results & Data Results & Data Vital Signs (Past 12 Hours) Vital Signs Temp Pulse Pulse Resp BP Pulse Ox O2 Del Method 08/12/23 07:46 88 08/12/23 07:44 98.8 F 90 18 122/59 L 95 Room Air 08/12/23 04:01 99.5 F 101 H 18 156/66 H 93 Room Air 08/11/23 23:29 98.8 F 101 H 18 145/60 H 92 Room Air 08/11/23 22:04 100 H PG Care Time/CCT Total # of Minutes Spent Total Time Spent with Patient: Total time spent is greater than 50% in coordination of care (as documented) at patient's floor/unit and/or counseling patient: Coding Level of Care Code 18914 SUB INP/OBS CARE 09/11MIN Diagnoses Fall, initial encounter W19.XXXA Encounter type: initial encounter Type 2 diabetes mellitus E11.9 Essential hypertension I10 Coronary artery disease involving autologous artery coronary bypass graft without angina pectoris I25.810 Associated angina: without angina Coronary Disease-Associated Artery/Lesion type: bypass graft, autologous artery Hypothyroidism E03.9 Anxiety with depression F41.8 GERD (gastroesophageal reflux disease) K21.9 (1) Fall Encounter type: initial encounter Qualified Code(s): W19.XXXA - Unspecified fall, initial encounter (4) Coronary artery disease Associated angina: without angina Coronary Disease-Associated Artery/Lesion type: bypass graft, autologous artery Qualified Code(s): I25.810 - Athe rosclerosis of coronary artery bypass graft(s) without angina pectoris
[2023-08-12] MEDS: LANTUS PER UNIT CHARGE SC SCH ×2 (08:38→20:48)
[2023-08-12] MEDS: INSULIN ASPART PER UNIT CHARGE SC SCH ×4 (08:39→20:47)
--- NOTE | 2023-08-12 09:36 | Orthopedic Progress Note ---
Date of Service August 11, 2023 Assessment & Plan (1) Calcaneal fracture: Plan: Patient seen and evaluated in 287-2. Patient status post Day #2 ORIF left foot. Patient currently working with clinical case manager Yee who I did speak with about placement in SNF. 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 Thank you for allowing me to participate in the care of this Patient. (2) Foot fracture, left: (3) Fall: (4) Type 2 diabetes mellitus: Admission and Anticipated Discharge Date Admission Date: August 08, 2023 Subjective Patient seen and evaluated in 287-2. Patient status post Day #2 ORIF left foot. Physical Exam Constitutional: cooperative and comfortable Eyes: normal visual carter by confrontation Neck: normal visual inspection Respiratory: normal respiratory effort Cardiovascular: Rate/Rhythm: regular rate and regular rhythm Musculoskeletal: Extremities: extremities normal to inspection Left LE posterior splint intact. Neurologic: moves all extremities (Decreased epicritic sensation) Psychiatric: Orientation: alert and oriented x 3 Results & Data Vital Signs (Past 12 Hours) Vital Signs Temp Pulse Pulse Resp BP Pulse Ox O2 Del Method 08/12/23 07:46 88 08/12/23 07:44 37.1 C 90 18 122/59 L 95 Room Air 08/12/23 04:01 37.5 C 101 H 18 156/66 H 93 Room Air 08/11/23 23:29 37.1 C 101 H 18 145/60 H 92 Room Air 08/11/23 22:04 100 H (1) Calcaneal fracture Calcaneus location: unspecified portion of calcaneus Encounter type: initial encounter Fracture alignment: nondisplaced Fracture type: closed Laterality: left Qualified Code(s): S92.002A - Unspecified fracture of left calcaneus, initial encounter for closed fracture (3) Fall Encounter type: initial encounter Qualified Code(s): W19.XXXA - Unspecified fall, initial encounter
[2023-08-12] MEDS: MONTELUKAST SODIUM 10 MG TABLET PO SCH (20:45)
[2023-08-12] MEDS: MELATONIN 3 MG TAB PO SCH (20:45)
[2023-08-13] MEDS: CLOBETASOL PROPIONATE 0.05% OINT 15 GM TUBE EXT SCH ×2 (06:58→20:16)
[2023-08-13] MEDS: LEVOTHYROXINE SODIUM 150 MCG TABLET PO SCH (06:59)
[2023-08-13] MEDS: TICAGRELOR 90 MG TAB PO SCH ×2 (08:14→20:12)
[2023-08-13] MEDS: RANOLAZINE 500 MG ER TAB PO SCH ×2 (08:14→20:11)
[2023-08-13] MEDS: amLODIPine BESYLATE 5 MG TAB PO SCH (08:14)
[2023-08-13] MEDS: VENLAFAXINE HCL XR 37.5 MG CAPXR PO SCH (08:15)
[2023-08-13] MEDS: FEXOFENADINE HCL 180 MG TAB PO SCH (08:15)
[2023-08-13] MEDS: METOPROLOL TARTRATE 25 MG TAB PO SCH ×2 (08:15→20:11)
[2023-08-13] MEDS: ATORVASTATIN 40 MG TAB PO SCH (08:15)
[2023-08-13] MEDS: PANTOprazole 40 MG TAB PO SCH (08:16)
[2023-08-13] MEDS: VENLAFAXINE HCL XR 150 MG CAPXR PO SCH (08:16)
[2023-08-13] MEDS: LORATADINE 10 MG TAB PO SCH (08:16)
[2023-08-13] MEDS: INSULIN ASPART PER UNIT CHARGE SC SCH ×4 (08:49→20:27)
[2023-08-13] MEDS: LANTUS PER UNIT CHARGE SC SCH ×2 (08:50→20:27)
--- NOTE | 2023-08-13 14:14 | Pharmacy Report ---
Pharmacy Glycemic Short Note 2 - Date of Service August 13, 2023 - Glycemic Short BSG Results (Last 24 hours): 08/12/23 08/12/23 08/13/23 17:10 20:28 08:33 POC Glucose 235 H 240 H 199 H 08/13/23 12:15 POC Glucose 218 H OUTPATIENT ANTIDIABETIC REGIMEN: * Lantus 55 units SC daily * NPH 24 units SC HS * HumaLog SC 140-160 units/day * Empagliflozin 25 mg PO daily * Metformin 1000 mg PO BID * HbA1c: 6.8% (08/09/23) ASSESSMENT: 08/13/23 * BSGs yesterday were [phone] mg/dL. Patient received 172 units of insulin (70 units of basal and 102 units of bolus). * Fasting today was 199 mg/dL. * Continue Lantus as fasting is starting to trend downwards. Tighten Novolog as BSGs elevated during the hiram. 08/11: * Ketty received 132 units of insulin yesterday: 60 units basal + 72 units bolus. BSGs were: [phone] mg/dL. * Fasting BSG increased to 182 mg/dL this AM. Will increase basal by ~15% today. This will likely need reduced in the coming days once dexamethasone wears off. * Have been tightening Novolog over the weekend since patient's PO intake has improved. Lunchtime BSG trending down so will back off on carb ratio this evening. 08/09: * 73 yo female, type 2 DM, s/p fall, foot surgery w/ Dr Ronquillo today. On very high doses of insulin at home, currently NPO today. * Using lower doses of insulin at this time - will increase as diet resumes. PLAN FOR INPATIENT GLYCEMIC CONTROL: * Hold outpatient oral diabetes medications * Basal insulin * Lantus 35 units SC BID * Bolus insulin * NovoLog per scale ACHS or Q6hrs while NPO * Goal Range: Low 110 mg/dL - High 140 mg/dL * Correction Factor: 8 mg/dL/unit * Nutritional / Prandial insulin per carb ratio of 1 unit per 2 grams CHO consumed
--- NOTE | 2023-08-13 17:02 | Hospitalist Progress Note ---
Date of Service August 13, 2023 Assessment & Plan (1) Fall: Plan: S/P ORIF left calcaneus and fifth metatarsal Dr Ronquillo 08/09/23 Secondary to a mechanical ground-level fall at her home on 08/08 Pain controlled with Tylenol and as needed tramadol and oxycodone 5 mg p.o. for pain 6-10/10 as needed PT/OT consulted, recommendation for inpatient rehabilitation as she has limited weightbearing and has balance issues. No concerns for occupational therapy Patient agrees to inpatient rehab. Referrals been placed to [facility]. (2) Type 2 diabetes mellitus: Plan: Last A1c 7.0% on 02/19/2023 Hold metformin, Jardiance Patient reports that she is on Lantus 55u and NPH 24u at night continue Lantus 35u twice daily with pharmacy consult SSI; BSG ACHS (3) Essential hypertension: Plan: Chronic stable Continue metoprolol, lisinopril, amlodipine (4) Coronary artery disease: Plan: Patient has extensive history of multiple stents placed She is on both aspirin daily and Brilinta twice daily; held pre op 08/08 Brillinta restarted 08/11 GBMT, metoprolol (5) Hypothyroidism: Plan: Continue levothyroxine (6) Anxiety with depression: Plan: Continue venlafaxine (7) GERD (gastroesophageal reflux disease): Plan: Continue pantoprazole Plan Disposition: Awaiting discharge to inpatient rehabilitation Full code VTE PPx: Continue Brilinta Admission and Anticipated Discharge Date Admission Date: August 08, 2023 Subjective Patient is pleasant anticipating rehab. informed of denial from insurance for acute rehab, applying to subacute rehab Difficult to ambulate with large cast on her left leg her upper body strength is not appropriate for this at this time Physical Exam Physical Exam: Right lower leg with cast and knee good distal sensation and ability to wiggle toes. Capillary refill is present Cardiopulmonary exam remains stable Results & Data Results & Data Vital Signs (Past 12 Hours) Vital Signs Temp Pulse Pulse Resp BP Pulse Ox O2 Del Method 08/13/23 15:53 98.2 F 85 14 150/72 H 94 Room Air 08/13/23 15:02 79 08/13/23 12:04 97.7 F 74 15 109/65 96 Room Air 08/13/23 09:09 98.6 F 84 15 145/75 H 95 Room Air 08/13/23 06:54 76 PG Care Time/CCT Total # of Minutes Spent Total Time Spent with Patient: Total time spent is greater than 50% in coordination of care (as documented) at patient's floor/unit and/or counseling patient: Coding Level of Care Code 85114 SUB INP/OBS CARE 2/35MIN Diagnoses Fall, initial encounter W19.XXXA Encounter type: initial encounter Type 2 diabetes mellitus E11.9 Essential hypertension I10 Coronary artery disease involving autologous artery coronary bypass graft without angina pectoris I25.810 Coronary Disease-Associated Artery/Lesion type: bypass graft, autologous artery Associated angina: without angina Hypothyroidism E03.9 Anxiety with depression F41.8 GERD (gastroesophageal reflux disease) K21.9 (1) Fall Encounter type: initial encounter Qualified Code(s): W19.XXXA - Unspecified fall, initial encounter (4) Coronary artery disease Coronary Disease-Associated Artery/Lesion type: bypass graft, autologous artery Associated angina: without angina Qualified Code(s): I25.810 - Atherosclerosis of coronary artery bypass graft(s) without angina pectoris
[2023-08-13] MEDS: MELATONIN 3 MG TAB PO SCH (20:11)
[2023-08-13] MEDS: MONTELUKAST SODIUM 10 MG TABLET PO SCH (20:12)
[2023-08-14] MEDS: LEVOTHYROXINE SODIUM 150 MCG TABLET PO SCH (06:13)
[2023-08-14] MEDS: RANOLAZINE 500 MG ER TAB PO SCH (07:52)
[2023-08-14] MEDS: METOPROLOL TARTRATE 25 MG TAB PO SCH (07:53)
[2023-08-14] MEDS: VENLAFAXINE HCL XR 37.5 MG CAPXR PO SCH (07:53)
[2023-08-14] MEDS: VENLAFAXINE HCL XR 150 MG CAPXR PO SCH (07:53)
[2023-08-14] MEDS: PANTOprazole 40 MG TAB PO SCH (07:53)
[2023-08-14] MEDS: TICAGRELOR 90 MG TAB PO SCH (07:53)
[2023-08-14] MEDS: amLODIPine BESYLATE 5 MG TAB PO SCH (07:53)
[2023-08-14] MEDS: ATORVASTATIN 40 MG TAB PO SCH (07:53)
[2023-08-14] MEDS: LORATADINE 10 MG TAB PO SCH (07:54)
[2023-08-14] MEDS: CLOBETASOL PROPIONATE 0.05% OINT 15 GM TUBE EXT SCH (07:54)
[2023-08-14] MEDS: FEXOFENADINE HCL 180 MG TAB PO SCH (07:56)
[2023-08-14] MEDS ORDERED: LANTUS PER UNIT CHARGE SC SCH (09:00)
[2023-08-14] MEDS: INSULIN ASPART PER UNIT CHARGE SC SCH ×2 (09:28→12:59)
[2023-08-14] MEDS: ACETAMINOPHEN 325 MG TAB PO PRN (13:33)
--- NOTE | 2023-08-14 13:42 | Discharge Summary ---
Date of Service August 14, 2023 Admission HPI Per Admitting Provider Kaylene is a pleasant 73-year-old female with PMH of T2DM, CAD, hypertension, hypothyroidism, depression, anxiety, GERD, RUDOLPH, BPPV, OA, NSTEMI, and mixed urge and stress incontinence. She presented after sustaining a mechanical fall at home on 08/08. No dizziness prior to fall. No LOC. No head strike. She reportedly twisted, and felt something give out, but fell to the ground. Her left ankle started swelling immediately. When she got up she noticed that her right knee was very sore. She did not hear a "pop". The pain was 8/10 at its worst in the left ankle, but she reports no pain when she holds it still. Patient declines pain medicine at time of admission. Left foot/ankle x-ray on arrival revealed a nondisplaced fracture of the posterior superior calcaneus, as well as the left fifth metatarsal and fibular tip. The plan is for the patient to go to the OR with Dr. Ronquillo on 08/09 at 0900. Of note, patient is on aspirin and Brilinta for her 7-8 heart stents. She reports that she took her medications this morning, including insulin, aspirin, and Brilinta. 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 No at home oxygen use. No sick contacts. She reports that she fell in the [place] at age 45 and broke her left ankle in the past; she also broke her left ankle as a child. Patient vitals are stable at time of admission. ROS: Patient endorses SALGADO, occasional MACARIO, nausea, and left heel pain with movement. Patient denies fever, chills, night-sweats, SOB at rest, CP, pleuritic CP, vomiting, and diarrhea. Principal Diagnosis Left foot calcaneus and 5h met fracture s/p surgical repair Dr ronquillo Discharge Exam Distal sensation to her feet good capillary refill patient is awake alert card exam is regular lungs are clear Discharge Data Allergies Allergy/AdvReac Type Severity Reaction Status Date / Time nickel Allergy Intermediate pruritis Verified 07/30/23 07:50 cat dander Allergy Mild itchy eyes Verified 07/30/23 07:50 Sulfa (Sulfonamide Allergy Mild HIVES Verified 07/30/23 07:50 Antibiotics) glipizide Allergy Unknown ITCHY,WHEEZ Verified 07/30/23 07:50 ING mold Allergy Unknown ITCHY EYES Verified 07/30/23 07:50 RUNNY NOSE pioglitazone Allergy Unknown ITCHY Verified 07/30/23 07:50 WHEEZING house dust Allergy Itchy Verified 07/30/23 07:50 eyes, runny nose sulfamethoxazole Allergy Itching, Verified 07/30/23 07:50 [From Bactrim] shortness of breath trimethoprim [From Bactrim] Allergy Itching, Verified 07/30/23 07:50 shortness of breath adhesive AdvReac Unknown SKIN Verified 07/30/23 07:50 IRRITATION Consultations 08/08/23 17:24 Consult Podiatry Stat 08/08/23 18:16 ED Decision to Admit Stat 08/08/23 21:33 Consult Cardiology Routine Procedures Performed Operation Date: 08/09/23 09:00 Actual Procedures p Open Reduction Internal Fixation Left Calcaneus and Left Fifth Metatarsal(Left) - Silviano Ronquillo, DPM, MS Ordered Studies 08/08/23 17:23 CT foot LT wo con Stat CT tib/fib LT wo con Stat 08/09/23 FL foot LT 2V Routine Hospital Course (1) Fall: S/P ORIF left calcaneus and fifth metatarsal Dr Ronquillo 08/09/23 Secondary to a mechanical ground-level fall at her home on 08/08 Pain controlled with Tylenol has not required tramadol or oxycodone PT/OT consulted, recommendation for inpatient rehabilitation as she has limited weightbearing and has balance issues. No concerns for occupational therapy Patient agrees to inpatient rehab. (2) Type 2 diabetes mellitus: Last A1c 7.0% on 02/19/2023 May resume metformin, Jardiance Patient reports that she is on Lantus 55u and NPH 24u at night SSI coverage and support from senior living facility based upon their prefere nce; (3) Essential hypertension: Chronic stable Continue metoprolol amlodipine Lisinopril has been on hold for postoperative hypotension this likely could be restarted in the next few weeks as renal protective effects for diabetes (4) Coronary artery disease: Patient has extensive history of multiple stents placed She is on both aspirin daily and Brilinta twice daily; held pre op 08/08 Brillinta restarted 08/11 metoprolol (5) Hypothyroidism: Continue levothyroxine (6) Anxiety with depression: Continue venlafaxine (7) GERD (gastroesophageal reflux disease): Continue pantoprazole Plan Full code Total Time Total Time Spent Total Time Spent (In Minutes): It required greater than 30 minutes to prepare this patient for discharge. Discharge Plan Discharge Items Patient Disposition: Transfer [facility] Fac Reason For Visit: FALL, L FOOT/ANKLE INJURY Discharge Diagnosis: Open reduction internal fixation left calcaneus and left fifth metatarsal by Dr. Ronquillo on 08/09/2023 Activity: Per Instructions section Activity Comment: Patient is currently nonweightbearing Non-emergency contact: Primary Care Provider Call non-emergency contact if: your symptoms worsen Follow-up/Referrals: Ciaran Berg III, CRNP [Primary Care Provider] - Silviano Ronquillo DPM, MS [Physician] - (please call office to coordinate follow up) Diet: Carb Consistent or DM2 Addtl Attending Provider Instructions: Please contact Dr. Ronquillo's office for further instruction follow-up and when to transition the patient from her nonweightbearing status Patient is only been requiring Tylenol for pain Care with transition to patient's home diabetic regimen Patient is lisinopril is on hold at this time due to lower blood pressures this likely be restarted in the next 1 week or so Pending Studies at Discharge: No Stand-Alone Forms: My [facility] Skilled Items Patient informed of condition?: Yes DNR: No Discharge Level of Care: Skilled Communicable Disease: No Discharge Prognosis: Stable Lines: None Urinary Catheter: No Medications and DC Order Prescriptions: Continued B-complex with vitamin C [Super B Complex-Vitamin C] tablet 1 tab PO DAILY Qty: 90 1RF Humulin N NPH Insulin KwikPen 100 unit/mL (3 mL) insulin pen 24 unit SUBCUT HS 90 Days Qty: 30 3RF Rx Instructions: Inject 24 units at bed time meclizine 25 mg tablet 25 mg PO Q6H PRN (Reason: dizziness) Qty: 20 0RF (DME) Dexcom G6 Sensor Device See Rx Instructions .Route Rx Instructions: Change sensor every 10 days Lot# [id number] Exp. 11/16/2023 Jardiance 25 mg tablet 25 mg PO DAILY Qty: 90 3RF levothyroxine 150 mcg tablet 150 mcg PO QAM Qty: 90 3RF insulin glargine [Lantus Solostar U-100 Insulin] 100 unit/mL (3 mL) insulin pen 55 unit SQ DAILY Qty: 60 3RF (DME) pen needle, diabetic [BD Ultra-Fine Mini Pen Needle] 31 gauge x 3/16" needle See Rx Instructions .Route Qty: 300 3RF Rx Instructions: Inject insulin three times daily metoprolol tartrate 25 mg tablet 25 mg PO BID Qty: 180 3RF clindamycin phosphate 1 % gel 1 applic topical DAILY Qty: 60 2RF clobetasol 0.05 % ointment 1 applic topical BID 14 Days Qty: 30 0RF pantoprazole 40 mg tablet,delayed release (DR/EC) 40 mg PO DAILY Qty: 90 3RF ranolazine 500 mg tablet extended release 12 hr 500 mg PO BID 90 Days Qty: 180 3RF Brilinta 90 mg tablet 90 mg PO BID Qty: 180 3RF metformin 1,000 mg tablet 1,000 mg PO BID Qty: 180 1RF Humalog KwikPen Insulin 200 unit/mL (3 mL) insulin pen See Rx Instructions subcut .COMPLEX Qty: 72 5RF Rx Instructions: 140-160 subcut daily amlodipine 5 mg tablet 5 mg PO DAILY Qty: 90 3RF atorvastatin 80 mg tablet 80 mg PO DAILY Qty: 90 3RF Centrum Silver 0.4-300-250 mg-mcg-mcg tablet 1 tab PO DAILY (DME) Dexcom G6 Certified Lactation Educator Misc See Rx Instructions .Route Rx Instructions: As directed (DME) Dexcom G6 Transmitter Device See Rx Instructions .Route Rx Instructions: As directed flaxseed oil 1,000 mg capsule 1,000 mg PO BID Rx Instructions: administer with meals lorazepam [Ativan] 0.5 mg tablet 0.5 mg PO DAILY PRN (Reason: Anxiety) mecobalamin (vitamin B12) 1,000 mcg tablet,disintegrating 500 mcg sublingual DAILY Rx Instructions: place tablet under tongue and allow to dissolve for at least30 secs before swallowing loratadine 10 mg tablet 10 mg PO DAILY montelukast [Singulair] 10 mg tablet 10 mg PO QPM Qty: 90 3RF fexofenadine 180 mg tablet 180 mg PO DAILY nitroglycerin 0.4 mg tablet, sublingual 0.4 mg SL Q5M PRN (Reason: Pain) Qty: 25 Restasis MultiDose 0.05 % drops 1 drops OP Q12H (DME) OneTouch Ultra Test Strip See Rx Instructions .Route Rx Instructions: Test blood sugar once daily PRN- Has Dexcom venlafaxine 150 mg Capsule,Extended Release 24hr 150 mg PO DAILY Rx Instructions: FOR A TOTAL DOSE OF 187.5MG HS aspirin [Alexandre Low Dose Aspirin] 81 mg Tablet,Delayed Release (Dr/Ec) 81 mg PO QAM melatonin 10 mg tablet 20 mg PO HS cholecalciferol (vitamin D3) [Vitamin D3] 50 mcg (2,000 unit) capsule 2,000 unit PO BID omega 2-pge-yuq-fish oil [Fish Oil] 1,000 mg (120 mg-180 mg) capsule 1 cap PO BID venlafaxine 37.5 mg capsule,extended release 24hr 75 mg PO DAILY Rx Instructions: FOR A TOTAL DOSE OF 187.5MG Held lisinopril 10 mg tablet 10 mg PO DAILY Hold Instructions: Resume on 08/20/23. Discharge Orders: Discharge Order (Routine); Ordered 08/14/23 Ordered By: Paul Barnhart Admission Data Admit Date/Time: 08/08/23 19:43 Attending Provider: Paul Barnhart Admit Provider: Victor Hugo Jansen Primary Care Provider: Ciaran Berg III Other Providers: Silviano Ronquillo; Victor Hugo Jansen; Santino Ozuna; Ney Caldwell; Rodrigo Devine; Giancarlo Diop; Afshin Kan; Adriel Sutton Jr; Gómez Alarcon; Madeline Campuzano; Altagracia Garcia; Miguel Grant; Miguel Byrd; Audi Dia; Светлана Wilks; Pauline Guerrero; Shun Bass; Radhames Finch; Wang Cason; [facility]; [facility]; [facility]; [place],[facility] Coding Level of Care Code 23092 INP/OBS DISCH >30 MIN Diagnoses Fall, initial encounter W19.XXXA Encounter type: initial encounter Type 2 diabetes mellitus E11.9 Essential hypertension I10 Coronary artery disease involving autologous artery coronary bypass graft without angina pectoris I25.810 Coronary Disease-Associated Artery/Lesion type: bypass graft, autologous artery Associated angina: without angina Hypothyroidism E03.9 Anxiety with depression F41.8 GERD (gastroesophageal reflux disease) K21.9
== END 2023-08-14 14:09 | DRG 504 ==
LOC: ED 14:12 → 2N 19:43 → SUATTDRO 19:43 → 2N 20:55

== ENCOUNTER 2023-12-12 14:58 | Observation (INO) ==
--- NOTE | 2023-12-12 15:35 | Emergency Department Note ---
History of Present Illness General Chief complaint: Cardiac Assessment Stated complaint: CHEST PRESSURE, L ARM NUMBNESS,SOB, CHEST PAIN Time Seen by Provider: 12/12/23 15:20 Source: patient, RN notes reviewed and old records reviewed (08/08/23-cardiology outpatient visit) Mode of arrival: ambulatory Limitations: no limitations History of Present Illness This patient is a 73-year-old female who has a history of coronary artery disease comes in after having several episodes of chest pain. The first 1 happened the week before last when she was doing yard work she has baseline dyspnea on exertion but lately has been more dyspneic on exertion has increasing frequency as well as severity. She had episode where she had chest pain going down her left arm felt very short of breath. She also had 2 episodes where she woke up at night this past week including 1 last night where she had sharp left- sided chest pain that lasted less than 10 minutes the first 1 when she was on the local ER last about 15 minutes these do feel similar to her previous cardiac chest pain. she has not had a recent cardiac stress test or cath with exception of she did have a stent placed at [facility] about a year ago. At present, she feels okay she had no fever chills no fall or trauma. No lower extremity pain or swelling. No blood or melena in her stool. Home Medications Medication Instructions Recorded Confirmed Type aspirin 81 mg tablet,delayed 81 mg PO QAM 08/06/18 12/12/23 History release (Alexandre Low Dose Aspirin) venlafaxine 150 mg 150 mg PO DAILY 08/06/18 12/12/23 History capsule,extended release 24 hr fexofenadine 180 mg tablet 180 mg PO DAILY 03/23/19 12/12/23 History nitroglycerin 0.4 mg sublingual 0.4 mg sublingual Q5M PRN Pain #25 03/23/19 12/12/23 History tablet tabs cyclosporine 0.05 % eye drops 1 drops ophthalmic (eye) Q12H 03/29/19 12/12/23 History (Restasis MultiDose) B-complex with vitamin C (Super B 1 tab PO DAILY #90 tabs 05/28/19 12/12/23 Rx Complex-Vitamin C tablet) melatonin 10 mg tablet 20 mg PO HS 07/13/19 12/12/23 History crucwhax-jdy-iidwd acid 0.4 1 tab PO DAILY 07/13/19 12/12/23 History mg-lycopene 300 mcg-lutein 250 mcg tablet (Centrum Silver) cholecalciferol (vitamin D3) 50 2,000 unit PO BID 04/20/20 12/12/23 History mcg (2,000 unit) capsule (Vitamin D3) omega 0-eqi-zbf-fish oil 1,000 mg 1 cap PO BID 04/20/20 12/12/23 History (120 mg-180 mg) capsule (Fish Oil) flaxseed oil 1,000 mg capsule 1,000 mg PO BID 08/16/20 12/12/23 History mecobalamin (vitamin B12) 1,000 500 mcg sublingual DAILY 03/08/21 12/12/23 History mcg disintegrating tablet,sublingual venlafaxine 37.5 mg 75 mg PO DAILY 03/08/21 12/12/23 History capsule,extended release 24 hr blood-glucose meter,continuous 03/29/21 12/04/23 History (Dexcom G6 Forensic Science Technician) blood-glucose transmitter (Dexcom 03/29/21 12/04/23 History G6 Transmitter device) lisinopril 10 mg tablet 10 mg PO DAILY 07/22/22 12/12/23 History loratadine 10 mg tablet 10 mg PO DAILY 07/22/22 12/12/23 History meclizine 25 mg tablet 25 mg PO Q6H PRN dizziness #20 tabs 08/16/22 12/12/23 Rx blood-glucose sensor (Dexcom G6 08/27/22 12/04/23 History Sensor device) blood sugar diagnostic (OneTouch 11/14/22 12/04/23 History Ultra Test strips) Lantus Solostar U-100 Insulin 100 55 unit (0.55 mL) subcut DAILY #60 11/25/22 12/12/23 Rx unit/mL (3 mL) subcutaneous pen mL (insulin glargine) pen needle, diabetic 31 gauge x #300 ea 01/16/23 12/04/23 Rx 3/16" (BD Ultra-Fine Mini Pen Needle) montelukast 10 mg tablet 10 mg PO QPM #90 tabs 01/30/23 12/12/23 Rx (Singulair) metoprolol tartrate 25 mg tablet 25 mg PO BID #180 tabs 03/11/23 12/12/23 Rx clindamycin phosphate 1 % topical 1 applic topical DAILY #60 grams 04/29/23 12/12/23 Rx gel pantoprazole 40 mg tablet,delayed 40 mg PO DAILY #90 tabs 06/16/23 12/12/23 Rx release ticagrelor 90 mg tablet (Brilinta) 90 mg PO BID #180 tabs 06/16/23 12/12/23 Rx metformin 1,000 mg tablet 1,000 mg PO BID #180 tabs 07/07/23 12/12/23 Rx amlodipine 5 mg tablet 5 mg PO DAILY #90 tabs 07/21/23 12/12/23 Rx atorvastatin 80 mg tablet 80 mg PO DAILY #90 tabs 07/21/23 12/12/23 Rx insulin NPH isoph U-100 human 100 24 unit (0.24 mL) subcut HS 90 09/15/23 12/12/23 Rx unit/mL (3 mL) subcutaneous pen days #30 mL (Humulin N NPH U-100 Insulin KwikPen) clobetasol 0.05 % topical ointment 1 applic topical BID 2 weeks #30 10/09/23 12/12/23 Rx grams insulin lispro 200 unit/mL (3 mL) See Rx Instructions subcut 11/14/23 12/12/23 Rx subcutaneous pen (Humalog KwikPen .COMPLEX #72 mL U-200 Insulin) empagliflozin 25 mg tablet 25 mg PO DAILY #90 tabs 11/17/23 12/12/23 Rx (Jardiance) levothyroxine 150 mcg tablet 150 mcg PO QAM #90 tabs 11/17/23 12/12/23 Rx vibegron 75 mg tablet (Gemtesa) 75 mg PO DAILY #90 tabs 11/24/23 12/12/23 Rx ranolazine 500 mg tablet,extended 500 mg PO BID 12/02/23 12/12/23 History release,12 hr Allergies Allergy/AdvReac Type Severity Reaction Status Date / Time nickel Allergy Intermediate pruritis Verified 12/04/23 10:07 cat dander Allergy Mild itchy eyes Verified 12/04/23 10:07 Sulfa (Sulfonamide Allergy Mild HIVES Verified 12/04/23 10:07 Antibiotics) glipizide Allergy Unknown ITCHY,WHEEZ Verified 12/04/23 10:07 ING mold Allergy Unknown ITCHY EYES Verified 12/04/23 10:07 RUNNY NOSE pioglitazone Allergy Unknown ITCHY Verified 12/04/23 10:07 WHEEZING house dust Allergy Itchy Verified 12/04/23 10:07 eyes, runny nose sulfamethoxazole Allergy Itching, Verified 12/04/23 10:07 [From Bactrim] shortness of breath trimethoprim [From Bactrim] Allergy Itching, Verified 12/04/23 10:07 shortness of breath adhesive AdvReac Unknown SKIN Verified 12/04/23 10:07 IRRITATION Past Med/Surg History Medical History Foot fracture, left (08/08/23) Angina pectoris NSTEMI (non-ST elevated myocardial infarction) Anxiety with depression Elevated troponin Lichen sclerosus et atrophicus Vulvar varicose veins Fatty liver disease, nonalcoholic Type 2 diabetes mellitus Carpal tunnel syndrome on both sides Primary osteoarthritis of right knee Morbid obesity History of difficult intubation left shoulder arthroscopy, RCR, distal clavicle exicision= 08/26/14= "gentle laryngoscopy with no view of cords/arytenoids, straight to glidescopy 3, ETT passed through open cords with cricoid pressure and increased angle of ETT [7.0]" Osteoarthritis Peptic ulcer disease H/O BLEEDING ULCER (2006) Hypothyroidism Diabetes mellitus, type 2 IDDM Anxiety Depression Stroke 2011= RESIDUAL LEFT FOOT NEUROPATHY Myocardial Infarction 2010 Stable angina Hyperlipidemia Hypertension CAD (coronary artery disease) S/P CABG X 4 (1998), CARDIAC STENTS X 4 TOTAL (MOST RECENT 04/2017) Surgical History S/P foot surgery, left foot fracture 07/2023, repair of foot History of intravascular stent placement done with [facility] 07/18/2022, coronary stent, [facility] History of tubal ligation History of total knee arthroplasty (~2018) RIGHT History of tooth extraction History of hysterectomy KD W/BSO History of repair of rotator cuff (~2014) LEFT H/O elbow surgery LEFT History of total knee replacement LEFT History of colonoscopy History of esophagogastroduodenoscopy (EGD) History of cataract surgery BILATERAL History of endoscopic sinus surgery History of adenoidectomy History of coronary artery bypass graft CABG X4 (1997) Family History Father Myocardial infarction Coronary heart disease Brother Arthritis Hx of CABG Sister Arthritis Mother Dementia Heart disease Other Family history non-contributory Denies family history of Liver cancer Ovarian cancer Prostate cancer Crohn's disease Breast cancer Colorectal cancer Inflammatory bowel disease Social History Smoking Status: Never smoker Second Hand Exposure: No; Do You Dip or Chew Tobacco: No; Hx Alcohol Use: Yes (drinks wine, gin and tonic, martini's) Alcohol type: wine and hard liquor Alcohol Intake Frequency: 4 or More x per/Week Alcohol Intake Frequency Comment: 3-4X a week Hx Substance Use: Yes Prescribed Medications: Other Substance Use Type Other:: THC gummies for anxiety Preferred Language: Maori Communication Ability: Effective Visual Impairment: No Limitations Hearing Ability: Hard of Hearing Process Analyst Required: No Beliefs That Will Affect Care: None marital status: Current Living Situation: Spouse current occupational status: retired current occupation: retired Feels Safe at Home: Yes Childhood Exposure to Second-Hand Smoke: Yes Diet: regular Dental Care, Regularly: Yes Physical Activity Frequency: Daily Seatbelt Use: always Sunscreen Use: Yes Assistive Devices: CPAP, Walker and Wheelchair Review of Systems A total of 10 systems reviewed and were otherwise negative Physical Exam Vital Signs Vital Signs - 24 hr 12/12/23 15:02 12/12/23 15:02 12/12/23 16:45 Temperature 36.7 C Temperature Source Temporal Artery Scan Pulse Rate 80 Pulse Rate [Apical] 73 Respiratory Rate 19 18 Respiratory Effort / Characteristics Short of Breath SOB on Exertion Blood Pressure 152/72 H Blood Pressure [Left Arm] 129/71 Blood Pressure Mean 98 Blood Pressure Mean [Left Arm] 90 Pulse Oximetry 98 95 Oxygen Delivery Method Room Air Room Air Sepsis Recent Fever Within 48 Hours No Sepsis New/Unexplained Change in Mental Status N/A Sepsis Action Taken by Nursing No Action Required 12/12/23 17:16 Temperature Temperature Source Pulse Rate 77 Pulse Rate [Apical] Respiratory Rate Respiratory Effort / Characteristics Blood Pressure Blood Pressure [Left Arm] Blood Pressure Mean Blood Pressure Mean [Left Arm] Pulse Oximetry Oxygen Delivery Method Sepsis Recent Fever Within 48 Hours Sepsis New/Unexplained Change in Mental Status Sepsis Action Taken by Nursing General: Well developed well nourished older female who appears in no acute distress, breathing comfortably on room air. Normal speech HEENT: Normal cephalic atraumatic. Pupils are equal round and reactive to light. Extraocular movements are intact. Oropharynx is pink with moist mucous membranes. No swelling of the mouth lips or tongue. Neck: Supple with a midline trachea. No meningeal signs or stiffness, no JVD or bruits. No Stridor. Chest: Clear to auscultation bilaterally. No wheezes or rhonchi. No increased work of breathing. Heart: Regular rate and rhythm without murmurs or gallops. Abdomen: Soft nontender, nondistended without rebound guarding or rigidity. Extremities: No cyanosis clubbing or edema. No calf tenderness or assymetry Spine/Back. Non tender to palpation. No CVA tenderness Skin: Good turgor without rashes. Neurologic exam: Cranial nerves two through 12 are intact. Motor and sensation are intact and symmetrical throughout. Medical Decision Making Differential Diagnosis Acute coronary syndrome, OR, unstable angina, GERD, arrhythmia, musculoskeletal, infection, pneumonia, CHF Medical Records Attestation: I reviewed the patient's medical records. Home Medications Current Medication List: was personally reviewed by me Laboratory Data Attestation: I reviewed the patient's lab results. 12/12/23 15:15 12/12/23 15:15 Lab Results 12/12/23 Range/Units 15:15 WBC 7.55 (4.8-10.8) K/ul RBC 4.35 (4.20-5.40) M/uL Hgb 8.1 L (12.0-16.0) g/dl Hct 29.4 L (37.0-47.0) % MCV 67.6 L (80.0-100.0) fL MCH 18.6 L (25.0-34.0) pg MCHC 27.6 L (32.0-36.0) g/dL RDW Std Deviation 46.1 (36.4-46.3) fL RDW Coeff of Dani 19.3 H (11.5-14.5) % Plt Count 149 (130-400) K/uL MPV 10.2 (9.4-12.4) fL Immature Gran % (Auto) 0.5 % Neut % (Auto) 64.8 % Lymph % (Auto) 22.6 % [place] % (Auto) 8.3 % Eos % (Auto) 2.9 % Baso % (Auto) 0.9 % Neut # (Auto) 4.88 (1.40-6.50) K/uL Lymph # (Auto) 1.71 (1.20-3.40) K/uL [place] # (Auto) 0.63 H (0.11-0.59) K/uL Eos # (Auto) 0.22 (0.00-0.50) K/uL Baso # (Auto) 0.07 (0.00-0.20) K/uL Immature Gran # (Auto) 0.04 (0.01-0.20) K/uL Tear Drop Cells 2+ Ovalocytes 1+ PT 11.0 (9.0-12.0) Seconds INR 1.0 (0.9-1.1) APTT 25 (21-31) Seconds PTT Ratio 0.9 Sodium 135 L (136-145) mmol/L Potassium 4.1 (3.5-5.1) mmol/L Chloride 104 (98-107) mmol/L Carbon Dioxide 22 (21-32) mmol/L Anion Gap 9 (3-11) BUN 19 (6-23) mg/dl Creatinine 0.68 (0.6-1.2) mg/dl Est Cr Clr Drug Dosing Not Reportable Est GFR ( Amer) 99.2 ml/min Est GFR (Non-Af Amer) 85.6 ml/min BUN/Creatinine Ratio 27.9 H (10-20) Glucose 202 H (70-99(Fasting)) mg/dl Calcium 8.5 L (8.6-10.3) mg/dl Total Bilirubin 0.4 (0.2-1.0) mg/dl AST 64 H (13-39) U/L ALT 54 H (7-52) U/L Alkaline Phosphatase 119 H (34-104) U/L Troponin I High Sens 6.9 (0-14) pg/ml Total Protein 7.3 (6.0-8.3) gm/dl Albumin 3.9 (3.4-5.0) gm/dl Globulin 3.4 (2.5-4.0) gm/dl Albumin/Globulin Ratio 1.1 (0.9-2) Imaging Data Attestation: I personally reviewed and interpreted this imaging study as follows: My Impression: Chest x-ray -no acute infiltrate, failure, pneumothorax seen Radiologist's Impression: Chest X-Ray 12/12/23 15:06 XR chest 1V not portable CLINICAL HISTORY: Chest pain, nonspecific COMPARISON STUDY: Chest radiograph August 08, 2023. FINDINGS: There are median sternotomy wires and mediastinal surgical clips. Mild cardiomegaly is unchanged. There is no evidence for pulmonary edema. No pneumothorax or pleural effusion is present. There is no consolidation to suggest pneumonia. IMPRESSION: No acute cardiopulmonary findings. No change in appearance of the chest. ACT 112: Negative or not required by law. Electronically signed by: Alessandro Magaña M.D. 12/12/2023 3:57 PM ECG Data Attestation: I personally reviewed and interpreted this ECG as follows: Indication: + chest pain Rate (beats per minute): 76 Rhythm: + normal sinus ECG Intervals/blocks: + Normal QRS, + Normal QT and + Normal AL ECG [place]: + Normal ECG ST segments: + Normal ST segments ECG Findings: + Poor R wave progression Comparison ECG Date: from (08/08/23) Change: no significant change MDM Narrative This patient comes in described above she has had intermittent chest pain for the last week or so she has a long history of cardiac disease she is also at increased dyspnea on exertion. I did see her out in triage to help expedite her care. Multiple blood testing was ordered as well as EKG and chest x-ray EKG shows no acute ischemic changes or ectopy. Chest x-ray does not show congestive heart failure, pneumonia, pneumothorax. The patient already taking aspirin. I did talk to the charge nurse about trying to get her back in the monitored bed expeditiously given her history of cardiac disease. Her EKG shows no acute ischemic changes when compared to old her initial troponin is negative. Chest x-ray does not show congestive heart failure, pneumonia, pneumothorax. She has baseline anemia at 8.1. No white count or fevers suggest infection. She has no significant acrylate or metabolic abnormalities with exception of a mildly elevated blood sugar in the 200s. She is a diabetic and says she just ate prior to coming there is nothing she has DKA or acute diabetic emergency. Her liver functions are mildly elevated but in line with her chronic elevation she tells me she does have a fatty liver and they are always elevated. She is certainly high risk given her previous cardiac disease stents and bypass. Although she looks well now and her workup is unremarkable I do think she warrants further cardiac evaluation and workup I have discussed the case with an consulted Dr. Castro, the [facility] hospitalist, to come see the patient in the ER for further treatment and evaluation and likely admission/observation Continuous environmental monitoring specialist: An order was placed in the EMR for continuous environmental monitoring specialist: Upon my evaluation she was noted to be in normal sinus rhythm with a rate of 78. Impression & Plan Chest pain, Hx of coronary artery disease, FHx: heart disease, MACARIO (dyspnea on exertion) Discharge Plan Visit Data Chief Complaint: Cardiac Assessment Stated Complaint: CHEST PRESSURE, L ARM NUMBNESS,SOB, CHEST PAIN ED Provider: Derick Lopez Discharge Problem: Chest pain, Hx of coronary artery disease, FHx: heart disease, MACARIO (dyspnea on exertion) Forms Stand Alone Forms: My [facility] Prescriptions Prescriptions: No Action B-complex with vitamin C [Super B Complex-Vitamin C] tablet 1 tab PO DAILY Qty: 90 1RF meclizine 25 mg tablet 25 mg PO Q6H PRN (Reason: dizziness) Qty: 20 0RF (DME) Dexcom G6 Sensor Device See Rx Instructions .Route Rx Instructions: Change sensor every 10 days Lot# [id number] Exp. 11/16/2023 insulin glargine [Lantus Solostar U-100 Insulin] 100 unit/mL (3 mL) insulin pen 55 unit SQ DAILY Qty: 60 3RF (DME) pen needle, diabetic [BD Ultra-Fine Mini Pen Needle] 31 gauge x 3/16" needle See Rx Instructions .Route Qty: 300 3RF Rx Instructions: Inject insulin three times daily metoprolol tartrate 25 mg tablet 25 mg PO BID Qty: 180 3RF clindamycin phosphate 1 % gel 1 applic topical DAILY Qty: 60 2RF pantoprazole 40 mg tablet,delayed release (DR/EC) 40 mg PO DAILY Qty: 90 3RF Brilinta 90 mg tablet 90 mg PO BID Qty: 180 3RF metformin 1,000 mg tablet 1,000 mg PO BID Qty: 180 1RF amlodipine 5 mg tablet 5 mg PO DAILY Qty: 90 3RF atorvastatin 80 mg tablet 80 mg PO DAILY Qty: 90 3RF Humulin N NPH Insulin KwikPen 100 unit/mL (3 mL) insulin pen 24 unit SUBCUT HS 90 Days Qty: 30 3RF Rx Instructions: Inject 24 units at bed time clobetasol 0.05 % ointment 1 applic topical BID 14 Days Qty: 30 0RF Humalog KwikPen Insulin 200 unit/mL (3 mL) insulin pen See Rx Instructions subcut .COMPLEX Qty: 72 5RF Rx Instructions: 140-160 subcut daily levothyroxine 150 mcg tablet 150 mcg PO QAM Qty: 90 3RF Jardiance 25 mg tablet 25 mg PO DAILY Qty: 90 3RF Gemtesa 75 mg tablet 75 mg PO DAILY Qty: 90 2RF Centrum Silver 0.4-300-250 mg-mcg-mcg tablet 1 tab PO DAILY (DME) Dexcom G6 Forensic Science Technician Misc See Rx Instructions .Route Rx Instructions: As directed (DME) Cellmax G6 Transmitter Device See Rx Instructions .Route Rx Instructions: As directed flaxseed oil 1,000 mg capsule 1,000 mg PO BID Rx Instructions: administer with meals mecobalamin (vitamin B12) 1,000 mcg tablet,disintegrating 500 mcg sublingual DAILY Rx Instructions: place tablet under tongue and allow to dissolve for at least30 secs before swallowing lisinopril 10 mg tablet 10 mg PO DAILY Hold Instructions: Resume on 08/20/23. loratadine 10 mg tablet 10 mg PO DAILY montelukast [Singulair] 10 mg tablet 10 mg PO QPM Qty: 90 3RF ranolazine 500 mg tablet extended release 12 hr 500 mg PO BID fexofenadine 180 mg tablet 180 mg PO DAILY nitroglycerin 0.4 mg tablet, sublingual 0.4 mg SL Q5M PRN (Reason: Pain) Qty: 25 Restasis MultiDose 0.05 % drops 1 drops OP Q12H (DME) OneTouch Ultra Test Strip See Rx Instructions .Route Rx Instructions: Test blood sugar once daily PRN- Has Dexcom venlafaxine 150 mg Capsule,Extended Release 24hr 150 mg PO DAILY Rx Instructions: FOR A TOTAL DOSE OF 187.5MG HS aspirin [Alexandre Low Dose Aspirin] 81 mg Tablet,Delayed Release (Dr/Ec) 81 mg PO QAM melatonin 10 mg tablet 20 mg PO HS cholecalciferol (vitamin D3) [Vitamin D3] 50 mcg (2,000 unit) capsule 2,000 unit PO BID omega 2-xli-ktj-fish oil [Fish Oil] 1,000 mg (120 mg-180 mg) capsule 1 cap PO BID venlafaxine 37.5 mg capsule,extended release 24hr 75 mg PO DAILY Rx Instructions: FOR A TOTAL DOSE OF 187.5MG Referrals Referrals: Ciaran Berg III, CRNP [Primary Care Provider] - Discharge Problem: Chest pain Qualifiers: Chest pain type: unspecified Qualified Code(s): R07.9 - Chest pain, unspecified
[2023-12-12 15:47] LABS: Alanine Aminotransferase 54 U/L (7-52); Albumin Globulin Ratio 1.1 (0.9-2); Albumin Level 3.9 gm/dl (3.4-5.0); Alkaline Phosphatase 119 U/L (34-104); Anion Gap 9 (3-11); Aspartate Aminotransferase 64 U/L (13-39); BUN Creatinine Ratio 27.9 (10-20); Bilirubin,Total 0.4 mg/dl (0.2-1.0); Blood Urea Nitrogen 19 mg/dl (6-23); Calcium 8.5 mg/dl (8.6-10.3); Carbon Dioxide 22 mmol/L (21-32); Chloride 104 mmol/L (98-107); Est GFR (African American) 99.2 ml/min; Est GFR (Non-African American) 85.6 ml/min; Globulin 3.4 gm/dl (2.5-4.0); Glucose 202 mg/dl (70-99(Fasting)); Potassium 4.1 mmol/L (3.5-5.1); Sodium 135 mmol/L (136-145); Total Protein 7.3 gm/dl (6.0-8.3)
[2023-12-12 15:53] LABS: Troponin I High Sensitivity 6.9 pg/ml (0-14)
--- NOTE | 2023-12-12 15:58 | XRay Report ---
XR chest 1V not portable CLINICAL HISTORY: Chest pain, nonspecific COMPARISON STUDY: Chest radiograph August 08, 2023. FINDINGS: There are median sternotomy wires and mediastinal surgical clips. Mild cardiomegaly is unch anged. There is no evidence for pulmonary edema. No pneumothorax or pleural effusion is present. Ther e is no consolidation to suggest pneumonia. IMPRESSION: No acute cardiopulmonary findings. No change in appearance of the chest. ACT 112: Negative or not required by law. Electronically signed by: Alessandro Magaña M.D. 12/12/2023 3:57 PM
[2023-12-12 16:00] LABS: Partial Thromboplastin Ratio 0.9; Partial Thromboplastin Time 25 Seconds (21-31)
[2023-12-12 16:02] LABS: Basophils # (auto) 0.07 K/uL (0.00-0.20); Basophils % (auto) 0.9 %; Eosinophils # (auto) 0.22 K/uL (0.00-0.50); Eosinophils % (auto) 2.9 %; Hematocrit (blood only) 29.4 % (37.0-47.0); Hemoglobin 8.1 g/dl (12.0-16.0); Immature Granulocytes # (auto) 0.04 K/uL (0.01-0.20); Immature Granulocytes % (auto) 0.5 %; Lymphocytes # (auto) 1.71 K/uL (1.20-3.40); Lymphocytes % (auto) 22.6 %; Mean Corpuscular Hemoglobin 18.6 pg (25.0-34.0); Mean Corpuscular Hgb Conc 27.6 g/dL (32.0-36.0); Mean Corpuscular Volume 67.6 fL (80.0-100.0); Mean Platelet Volume 10.2 fL (9.4-12.4); Monocytes # (auto) 0.63 K/uL (0.11-0.59); Monocytes % (auto) 8.3 %; Neutrophils # (auto) 4.88 K/uL (1.40-6.50); Neutrophils % (auto) 64.8 %; Ovalocytes 1+; Platelet Count 149 K/uL (130-400); RDW Coefficient of Variation 19.3 % (11.5-14.5); RDW Standard Deviation 46.1 fL (36.4-46.3); Red Blood Count 4.35 M/uL (4.20-5.40); Tear Drop Cells 2+; White Blood Count 7.55 K/ul (4.8-10.8)
[2023-12-12] MEDS ORDERED: GLUCOSE 10 TAB/TUBE PO PRN (18:25)
[2023-12-12] MEDS ORDERED: ACETAMINOPHEN 325 MG TAB PO PRN (18:25)
[2023-12-12] MEDS ORDERED: GLUCAGON FOR INJ 1 MG VIAL SQ PRN (18:25)
[2023-12-12] MEDS ORDERED: POLYETHYLENE (MIRALAX) 17 GM PACK PO PRN (18:25)
[2023-12-12] MEDS ORDERED: DEXTROSE 50% 50 ML SYRINGE IV PRN (18:25)
[2023-12-12] MEDS ORDERED: ONDANSETRON INJ 2 MG/ML 2 ML VIAL IV PRN (18:25)
[2023-12-12] MEDS ORDERED: CARBOHYDRATES FOR HYPOGLYCEMIA PO PRN (18:25)
[2023-12-12] MEDS ORDERED: GLUCOSE 40% GEL 15 GM TUBE PO PRN (18:25)
--- NOTE | 2023-12-12 19:03 | History & Physical Report ---
Date of Service December 12, 2023 Assessment & Plan (1) MACARIO (dyspnea on exertion): (2) Hx of coronary artery disease: (3) Chest pain: (4) Urge incontinence: (5) Anxiety with depression: (6) Osteoarthritis: (7) GERD (gastroesophageal reflux disease): (8) Carotid stenosis: (9) Moderate obstructive sleep apnea: (10) Obesity: (11) Hypothyroidism: (12) Controlled type 2 diabetes mellitus, with long-term current use of insulin: Plan 73 yo female with h/o CAD, h/o CABG, multiple stents, DM type 2, dyslipidemia, HTN , carotid artery stenosis, anemia presents with chest pain at rest and exertion, dyspnea, worsening anemia, HGb 8.1 last one 8.8 , on PPI # CAD with stable angina? initial trop is negative, EKG no change , no signs of CHF clinically obtain another trop continue home meds , ASA, Plavix, statins, B-blockers, SAMREEN, calcium channel blockers consult cardiology obtain D-dimer , recent Sx , but active now lipid profile, Hgb A1C npo after midnight # DM type 2, continue long acting insulin, hold tonight dose, in case of intervention tomorrow # anemia , chronic , worse 8.8 -> 8.1 , iron study , B12, folate, continue PPI , consider iron infusion , monitor CBC # HTN stable , continue home meds # Dm type 2 , Hgb A1C 7.1 , continue insulins, hold Metformin # Hypothyroidism , continue Synthroid # elevated LFTs due to Fatty liver diseases , monitor CMP # OA # anxiety, depression , continue home meds # carotid artery stenosis , monitored as outpatient # GERD , continue PPI History of Present Illness Chief Complaint: chest pain, SOB Primary Care Provider: Ciaran Berg, III, INCLUSION MANAGER This patient is a 73-year-old female who has a history of coronary artery disease , DM type 2, hyperlipidemia, HTN , CABG 25 years ago, multiple stents , last one 1 year ago at [place], comes in after having several episodes of chest pain. The first one happened when she was doing yard work she has baseline dyspnea on exertion but lately has been more dyspneic on exertion has increasing frequency as well as severity. She had episode where she had chest pain going down her left arm felt very short of breath. She also had 2 episodes where she woke up at night this past week including one last night where she had sharp left-sided chest pain that lasted less than 10 minutes . Patient had recent left ankle fx and surgery and was doing PT , had chest pain and SOB during PT, nurse called bread wrapper and she was recommended to go to ER. Her initial trop is negative, EKG no significant change compared to previous EKG. She is currently chest pain free, denies cough, fever, chills, nausea, vomiting, abdominal pain, dysuria, has urinary incontinence, constipation. Allergies Allergy/AdvReac Type Severity Reaction Status Date / Time nickel Allergy Intermediate pruritis Verified 12/04/23 10:07 cat dander Allergy Mild itchy eyes Verified 12/04/23 10:07 Sulfa (Sulfonamide Allergy Mild HIVES Verified 12/04/23 10:07 Antibiotics) glipizide Allergy Unknown ITCHY,WHEEZ Verified 12/04/23 10:07 ING mold Allergy Unknown ITCHY EYES Verified 12/04/23 10:07 RUNNY NOSE pioglitazone Allergy Unknown ITCHY Verified 12/04/23 10:07 WHEEZING house dust Allergy Itchy Verified 12/04/23 10:07 eyes, runny nose sulfamethoxazole Allergy Itching, Verified 12/04/23 10:07 [From Bactrim] shortness of breath trimethoprim [From Bactrim] Allergy Itching, Verified 12/04/23 10:07 shortness of breath adhesive AdvReac Unknown SKIN Verified 12/04/23 10:07 IRRITATION Home Medications Medication Instructions Recorded Confirmed Type aspirin 81 mg tablet,delayed 81 mg PO QAM 08/06/18 12/12/23 History release (Alexandre Low Dose Aspirin) venlafaxine 150 mg 150 mg PO DAILY 08/06/18 12/12/23 History capsule,extended release 24 hr fexofenadine 180 mg tablet 180 mg PO DAILY 03/23/19 12/12/23 History nitroglycerin 0.4 mg sublingual 0.4 mg sublingual Q5M PRN Pain #25 03/23/19 12/12/23 History tablet tabs cyclosporine 0.05 % eye drops 1 drops ophthalmic (eye) Q12H 03/29/19 12/12/23 History (Restasis MultiDose) B-complex with vitamin C (Super B 1 tab PO DAILY #90 tabs 05/28/19 12/12/23 Rx Complex-Vitamin C tablet) melatonin 10 mg tablet 20 mg PO HS 07/13/19 12/12/23 History edsunsev-cfi-pvugk acid 0.4 1 tab PO DAILY 07/13/19 12/12/23 History mg-lycopene 300 mcg-lutein 250 mcg tablet (Centrum Silver) cholecalciferol (vitamin D3) 50 2,000 unit PO BID 04/20/20 12/12/23 History mcg (2,000 unit) capsule (Vitamin D3) omega 1-hci-ghe-fish oil 1,000 mg 1 cap PO BID 04/20/20 12/12/23 History (120 mg-180 mg) capsule (Fish Oil) flaxseed oil 1,000 mg capsule 1,000 mg PO BID 08/16/20 12/12/23 History mecobalamin (vitamin B12) 1,000 500 mcg sublingual DAILY 03/08/21 12/12/23 History mcg disintegrating tablet,sublingual venlafaxine 37.5 mg 75 mg PO DAILY 03/08/21 12/12/23 History capsule,extended release 24 hr blood-glucose meter,continuous 03/29/21 12/04/23 History (Dexcom G6 Disc Pad Knockout Worker) blood-glucose transmitter (Dexcom 03/29/21 12/04/23 History G6 Transmitter device) lisinopril 10 mg tablet 10 mg PO DAILY 07/22/22 12/12/23 History loratadine 10 mg tablet 10 mg PO DAILY 07/22/22 12/12/23 History meclizine 25 mg tablet 25 mg PO Q6H PRN dizziness #20 tabs 08/16/22 12/12/23 Rx blood-glucose sensor (Dexcom G6 08/27/22 12/04/23 History Sensor device) blood sugar diagnostic (OneTouch 11/14/22 12/04/23 History Ultra Test strips) Lantus Solostar U-100 Insulin 100 55 unit (0.55 mL) subcut DAILY #60 11/25/22 12/12/23 Rx unit/mL (3 mL) subcutaneous pen mL (insulin glargine) pen needle, diabetic 31 gauge x #300 ea 01/16/23 12/04/23 Rx 3/16" (BD Ultra-Fine Mini Pen Needle) montelukast 10 mg tablet 10 mg PO QPM #90 tabs 01/30/23 12/12/23 Rx (Singulair) metoprolol tartrate 25 mg tablet 25 mg PO BID #180 tabs 03/11/23 12/12/23 Rx clindamycin phosphate 1 % topical 1 applic topical DAILY #60 grams 04/29/23 12/12/23 Rx gel pantoprazole 40 mg tablet,delayed 40 mg PO DAILY #90 tabs 06/16/23 12/12/23 Rx release ticagrelor 90 mg tablet (Brilinta) 90 mg PO BID #180 tabs 06/16/23 12/12/23 Rx metformin 1,000 mg tablet 1,000 mg PO BID #180 tabs 07/07/23 12/12/23 Rx amlodipine 5 mg tablet 5 mg PO DAILY #90 tabs 07/21/23 12/12/23 Rx atorvastatin 80 mg tablet 80 mg PO DAILY #90 tabs 07/21/23 12/12/23 Rx insulin NPH isoph U-100 human 100 24 unit (0.24 mL) subcut HS 90 09/15/23 12/12/23 Rx unit/mL (3 mL) subcutaneous pen days #30 mL (Humulin N NPH U-100 Insulin KwikPen) clobetasol 0.05 % topical ointment 1 applic topical BID 2 weeks #30 10/09/23 12/12/23 Rx grams insulin lispro 200 unit/mL (3 mL) See Rx Instructions subcut 11/14/23 12/12/23 Rx subcutaneous pen (Humalog KwikPen .COMPLEX #72 mL U-200 Insulin) empagliflozin 25 mg tablet 25 mg PO DAILY #90 tabs 11/17/23 12/12/23 Rx (Jardiance) levothyroxine 150 mcg tablet 150 mcg PO QAM #90 tabs 11/17/23 12/12/23 Rx vibegron 75 mg tablet (Gemtesa) 75 mg PO DAILY #90 tabs 11/24/23 12/12/23 Rx ranolazine 500 mg tablet,extended 500 mg PO BID 12/02/23 12/12/23 History release,12 hr Past Med/Surg History Medical History Foot fracture, left (08/08/23) Angina pectoris NSTEMI (non-ST elevated myocardial infarction) Anxiety with depression Elevated troponin Lichen sclerosus et atrophicus Vulvar varicose veins Fatty liver disease, nonalcoholic Type 2 diabetes mellitus Carpal tunnel syndrome on both sides Primary osteoarthritis of right knee Morbid obesity History of difficult intubation left shoulder arthroscopy, RCR, distal clavicle exicision= 08/26/14= "gentle laryngoscopy with no view of cords/arytenoids, straight to glidescopy 3, ETT passed through open cords with cricoid pressure and increased angle of ETT [7.0]" Osteoarthritis Peptic ulcer disease H/O BLEEDING ULCER (2006) Hypothyroidism Diabetes mellitus, type 2 IDDM Anxiety Depression Stroke 2011= RESIDUAL LEFT FOOT NEUROPATHY Myocardial Infarction 2010 Stable angina Hyperlipidemia Hypertension CAD (coronary artery disease) S/P CABG X 4 (1998), CARDIAC STENTS X 4 TOTAL (MOST RECENT 04/2017) Surgical History S/P foot surgery, left foot fracture 07/2023, repair of foot History of intravascular stent placement done with Urvashi 07/18/2022, coronary stent, Xience History of tubal ligation History of total knee arthroplasty (~2018) RIGHT History of tooth extraction History of hysterectomy KD W/BSO History of repair of rotator cuff (~2014) LEFT H/O elbow surgery LEFT History of total knee replacement LEFT History of colonoscopy History of esophagogastroduodenoscopy (EGD) History of cataract surgery BILATERAL History of endoscopic sinus surgery History of adenoidectomy History of coronary artery bypass graft CABG X4 (1997) Family History Father Myocardial infarction Coronary heart disease Brother Arthritis Hx of CABG Sister Arthritis Mother Dementia Heart disease Other Family history non-contributory Denies family history of Liver cancer Ovarian cancer Prostate cancer Crohn's disease Breast cancer Colorectal cancer Inflammatory bowel disease Social History Smoking Status: Never smoker Second Hand Exposure: No; Do You Dip or Chew Tobacco: No; Hx Alcohol Use: Yes (drinks wine, gin and tonic, martini's) Alcohol type: wine and hard liquor Alcohol Intake Frequency: 4 or More x per/Week Alcohol Intake Frequency Comment: 3-4X a week Hx Substance Use: Yes Prescribed Medications: Other Substance Use Type Other:: THC gummies for anxiety Preferred Language: [place] Communication Ability: Effective Visual Impairment: No Limitations Hearing Ability: Hard of Hearing Computer Operations Technician Required: No Beliefs That Will Affect Care: None marital status: Current Living Situation: Spouse current occupational status: retired current occupation: retired Feels Safe at Home: Yes Childhood Exposure to Second-Hand Smoke: Yes Diet: regular Dental Care, Regularly: Yes Physical Activity Frequency: Daily Seatbelt Use: always Sunscreen Use: Yes Assistive Devices: CPAP, Walker and Wheelchair Review of Systems Review of Systems: All systems reviewed & are unremarkable except as noted in HPI & below Physical Exam Physical Exam: head atrumatic, normocephalic neck supple chest CTA b/l, midline scar Heart S1S2 regular, no murmurs, gallops Abdomen soft, nt, nd , bs present extremities no edema, pulses diminished neuro AAO times 3, no focal deficit Results & Data Results & Data Vital Signs (Past 12 Hours) Vital Signs Temp Pulse Pulse Resp BP BP Pulse Ox 12/12/23 18:35 75 18 130/66 95 12/12/23 17:16 77 12/12/23 16:45 73 18 129/71 95 12/12/23 15:02 36.7 C 80 19 152/72 H 98 O2 Del Method 12/12/23 18:35 Room Air 12/12/23 17:16 12/12/23 16:45 Room Air 12/12/23 15:02 Room Air Laboratory Results Abnormal lab results 12/12/23 Range/Units 15:15 Hgb 8.1 L (12.0-16.0) g/dl Hct 29.4 L (37.0-47.0) % MCV 67.6 L (80.0-100.0) fL MCH 18.6 L (25.0-34.0) pg MCHC 27.6 L (32.0-36.0) g/dL RDW Coeff of Dani 19.3 H (11.5-14.5) % [place] # (Auto) 0.63 H (0.11-0.59) K/uL Sodium 135 L (136-145) mmol/L BUN/Creatinine Ratio 27.9 H (10-20) Glucose 202 H (70-99(Fasting)) mg/dl Calcium 8.5 L (8.6-10.3) mg/dl AST 64 H (13-39) U/L ALT 54 H (7-52) U/L Alkaline Phosphatase 119 H (34-104) U/L Diagnostic Findings Chest X-Ray 12/12/23 15:06 XR chest 1V not portable CLINICAL HISTORY: Chest pain, nonspecific COMPARISON STUDY: Chest radiograph August 08, 2023. FINDINGS: There are median sternotomy wires and mediastinal surgical clips. Mild cardiomegaly is unchanged. There is no evidence for pulmonary edema. No pneumothorax or pleural effusion is present. There is no consolidation to suggest pneumonia. IMPRESSION: No acute cardiopulmonary findings. No change in appearance of the chest. ACT 112: Negative or not required by law. Electronically signed by: Alessandro Magaña M.D. 12/12/2023 3:57 PM ECG Additional Comments: Rate (beats per minute): 76 Rhythm: + normal sinus ECG Intervals/blocks: + Normal QRS, + Normal QT and + Normal [place] ECG [place]: + Normal ECG ST segments: + Normal ST segments ECG Findings: + Poor R wave progression Comparison ECG Date: from (08/08/23) Change: no significant change Code Status & VTE Plan Code Status full PG Care Time/CCT Total # of Minutes Spent Total Time Spent with Patient: Total time spent is greater than 50% in coordination of care (as documented) at patient's floor/unit and/or counseling patient: Coding Level of Care Code 80212 INT INP/OBS CARE 3/75MIN Diagnoses MACARIO (dyspnea on exertion) R06.09 Hx of coronary artery disease Z86.79 Chest pain R07.9 Chest pain type: unspecified Urge incontinence N39.41 Anxiety with depression F41.8 Osteoarthritis M19.90 GERD (gastroesophageal reflux disease) K21.9 Carotid stenosis I65.29 Moderate obstructive sleep apnea G47.33 Obesity E66.9 Hypothyroidism E03.9 Controlled type 2 diabetes mellitus with other circulatory complication, with long-term current use of insulin E11.59; Z79.4 Diabetes mellitus complication status: with circulatory complication Diabetes mellitus complication detail: with other circulatory complications (3) Chest pain Chest pain type: unspecified Qualified Code(s): R07.9 - Chest pain, unspecified (12) Controlled type 2 diabetes mellitus, with long-term current use of insulin Diabetes mellitus complication status: with circulatory complication Diabetes mellitus complication detail: with other circulatory complications Qualified Code(s): E11.59 - Type 2 diabetes mellitus with other circulatory complications; Z79.4 - FPC (current) use of insulin
[2023-12-12 19:20] LABS: D Dimer 460 ug/L FEU (0-500)
[2023-12-12 19:38] LABS: Estimated Average Glucose 140 mg/dl; Hemoglobin A1C 6.5 % (4.5-5.6)
[2023-12-12 19:42] LABS: Folate (Folic Acid),Ser orPlas > 22.30 ng/ml (>5.38)
[2023-12-12 19:43] LABS: Vitamin B12 997 pg/ml (180-914)
[2023-12-12] MEDS ORDERED: MAGNESIUM HYDROXIDE SUSP 30 ML UDC PO PRN (19:55)
[2023-12-12 20:04] LABS: Troponin I High Sensitivity 6.4 pg/ml (0-14)
[2023-12-12] MEDS ORDERED: NITROGLYCERIN SL 0.4 MG/TAB TAB SL PRN (21:47)
[2023-12-12] MEDS ORDERED: [UNRECOGNIZED DRUG - OTHER] SQ SCH (21:47)
[2023-12-12] MEDS ORDERED: INSU SQ SCH (21:47)
[2023-12-12] MEDS ORDERED: INSULIN LISPRO 200 UNIT/ML SQ SCH (21:47)
[2023-12-12] MEDS: INSULIN ASPART PER UNIT CHARGE SC SCH (23:11)
[2023-12-12] MEDS: MELATONIN 3 MG TAB PO SCH (23:12)
[2023-12-12] MEDS: CHOLECALCIFEROL 25 MCG (1000 UNITS) TAB PO SCH (23:13)
[2023-12-12] MEDS: CLOBETASOL PROPIONATE 0.05% OINT 15 GM TUBE EXT SCH (23:14)
[2023-12-12] MEDS: MONTELUKAST SODIUM 10 MG TABLET PO SCH (23:15)
[2023-12-12] MEDS: RANOLAZINE 500 MG ER TAB PO SCH (23:16)
[2023-12-12] MEDS: METOPROLOL TARTRATE 25 MG TAB PO SCH (23:16)
[2023-12-12] MEDS: TICAGRELOR 90 MG TAB PO SCH (23:17)
[2023-12-12] MEDS: HEPARIN SOD 5,000 UNIT/0.5 ML VIAL SQ SCH (23:18)
[2023-12-12] MEDS: ARTIFICIAL TEARS OP SCH (23:20)
[2023-12-13 06:22] LABS: Hematocrit (blood only) 29.9 % (37.0-47.0); Hemoglobin 8.5 g/dl (12.0-16.0); Mean Corpuscular Hemoglobin 18.9 pg (25.0-34.0); Mean Corpuscular Hgb Conc 28.4 g/dL (32.0-36.0); Mean Corpuscular Volume 66.6 fL (80.0-100.0); Mean Platelet Volume 9.4 fL (9.4-12.4); Platelet Count 141 K/uL (130-400); RDW Standard Deviation 44.3 fL (36.4-46.3); Red Blood Count 4.49 M/uL (4.20-5.40)
[2023-12-13] MEDS: LEVOTHYROXINE SODIUM 150 MCG TABLET PO SCH (06:26)
[2023-12-13 06:50] LABS: Albumin Globulin Ratio 1.2 (0.9-2); Albumin Level 3.8 gm/dl (3.4-5.0); BUN Creatinine Ratio 21.4 (10-20); Bilirubin,Total 0.6 mg/dl (0.2-1.0); Calcium 8.6 mg/dl (8.6-10.3); Chol HDL Ratio 2.3 (0-5); Creatinine Clr Calc Pharmacy 75.4 ml/min; Est GFR (African American) 98.2 ml/min; Est GFR (Non-African American) 84.8 ml/min; Globulin 3.2 gm/dl (2.5-4.0)
[2023-12-13] MEDS: PANTOprazole 40 MG TAB PO SCH (08:39)
[2023-12-13] MEDS: ASPIRIN 81 MG ECTAB PO SCH (08:39)
[2023-12-13] MEDS: ATORVASTATIN 40 MG TAB PO SCH (08:39)
[2023-12-13] MEDS: VENLAFAXINE HCL XR 75 MG CAPXR PO SCH (08:40)
[2023-12-13] MEDS: amLODIPine BESYLATE 5 MG TAB PO SCH (08:40)
[2023-12-13] MEDS: VIBEGRON 75 MG TAB PO SCH (08:40)
[2023-12-13] MEDS: VENLAFAXINE HCL XR 150 MG CAPXR PO SCH (08:40)
[2023-12-13] MEDS: lisinopril 10 MG TAB PO SCH (08:40)
[2023-12-13] MEDS: VITAMIN B COMPLEX TAB PO SCH (08:40)
[2023-12-13] MEDS: LANTUS PER UNIT CHARGE SQ SCH (08:52)
[2023-12-13] MEDS ORDERED: PANTOprazole 40 MG TAB PO SCH (09:00)
--- NOTE | 2023-12-13 11:53 | Electrocardiogram Report ---
Test Reason : Blood Pressure : / mmHG Vent. Rate : 076 BPM Atrial Rate : 076 BPM P-R Int : 190 ms QRS Dur : 086 ms QT Int : 414 ms P-R-T Axes : 031 053 083 degrees QTc Int : 465 ms Normal sinus rhythm Septal infarct (cited on or before 12-DEC-2023) Abnormal ECG When compared with ECG of 08-AUG-2023 17:51, No significant change was found Confirmed by Rodrigo Devine ([id number]) on 12/13/2023 11:52:43 AM Referred By: REFERRED SELF Confirmed By:Rodrigo Devnie
--- NOTE | 2023-12-13 14:11 | Discharge Summary ---
Date of Service December 13, 2023 Admission HPI Per Admitting Provider This patient is a 73-year-old female who has a history of coronary artery disease , DM type 2, hyperlipidemia, HTN , CABG 25 years ago, multiple stents , last one 1 year ago at [place], comes in after having several episodes of chest pain. The first one happened when she was doing yard work she has baseline dyspnea on exertion but lately has been more dyspneic on exertion has increasing frequency as well as severity. She had episode where she had chest pain going down her left arm felt very short of breath. She also had 2 episodes where she woke up at night this past week including one last night where she had sharp left-sided chest pain that lasted less than 10 minutes . Patient had recent left ankle fx and surgery and was doing PT , had chest pain and SOB during PT, nurse called gas golf cart repairer and she was recommended to go to ER. Her initial trop is negative, EKG no significant change compared to previous EKG. She is currently chest pain free, denies cough, fever, chills, nausea, vomiting, abdominal pain, dysuria, has urinary incontinence, constipation. Admission Exam Per Admitting Provider head atrumatic, normocephalic neck supple chest CTA b/l, midline scar Heart S1S2 regular, no murmurs, gallops Abdomen soft, nt, nd , bs present extremities no edema, pulses diminished neuro AAO times 3, no focal deficit Principal Diagnosis Exertional chest pain due to anemia Likely iron deficiency anemia Discharge Exam General: Awake, conversant Heart: S1, S2/regular rate and rhythm, no murmur rubs or gallops Lungs: Clear to auscultation bilaterally. Normal effort Abdomen: Soft/nontender/nondistended. No hepatosplenomegaly Extremities: No clubbing/cyanosis. No edema Behavior: Appropriate, cooperative Discharge Data Allergies Allergy/AdvReac Type Severity Reaction Status Date / Time nickel Allergy Intermediate pruritis Verified 12/04/23 10:07 cat dander Allergy Mild itchy eyes Verified 12/04/23 10:07 Sulfa (Sulfonamide Allergy Mild HIVES Verified 12/04/23 10:07 Antibiotics) glipizide Allergy Unknown ITCHY,WHEEZ Verified 12/04/23 10:07 ING mold Allergy Unknown ITCHY EYES Verified 12/04/23 10:07 RUNNY NOSE pioglitazone Allergy Unknown ITCHY Verified 12/04/23 10:07 WHEEZING house dust Allergy Itchy Verified 12/04/23 10:07 eyes, runny nose sulfamethoxazole Allergy Itching, Verified 12/04/23 10:07 [From Bactrim] shortness of breath trimethoprim [From Bactrim] Allergy Itching, Verified 12/04/23 10:07 shortness of breath adhesive AdvReac Unknown SKIN Verified 12/04/23 10:07 IRRITATION Consultations 12/12/23 17:30 ED Decision to Admit Stat 12/12/23 18:25 Consult Cardiology Routine Hospital Course (1) MACARIO (dyspnea on exertion): (2) Hx of coronary artery disease: (3) Chest pain: (4) Urge incontinence: (5) Anxiety with depression: (6) Osteoarthritis: (7) GERD (gastroesophageal reflux disease): (8) Carotid stenosis: (9) Moderate obstructive sleep apnea: (10) Obesity: (11) Hypothyroidism: (12) Controlled type 2 diabetes mellitus, with long-term current use of insulin: Plan 73 yo female with h/o CAD, h/o CABG, multiple stents, DM type 2, dyslipidemia, HTN , carotid artery stenosis, anemia presents with chest pain at rest and exertion, dyspnea, worsening anemia, HGb 8.1 last one 8.8 , on PPI # CAD with stable angina Troponins negative times 2, EKG no change , no signs of CHF clinically continue home meds , ASA, Plavix, statins, B-blockers, SAMREEN, calcium channel blockers Cardiology cleared the patient for discharge and did not recommend any further cardiac workup. I personally communicated with Dr. Miguel Grant from cardiology, pending official note angina is most likely related to anemia D-dimer negative # DM type 2, continue home regimen # anemia , chronic , worse 8.8 -> 8.1 , iron study suggestive of iron deficiency anemia Iron infusion ordered P.o. iron ordered to take at home Advised to follow-up with PCP for further workup of iron deficiency anemia # HTN stable , continue home meds # Hypothyroidism , continue Synthroid # elevated LFTs due to Fatty liver diseases , monitor CMP # OA # anxiety, depression , continue home meds # carotid artery stenosis , monitored as outpatient # GERD , continue PPI Plan is to discharge patient to home after iron infusion completed Total Time Total Time Spent Total Time Spent (In Minutes): 35 Discharge Plan Discharge Items Patient Disposition: Home - Self-Care Reason For Visit: CHEST PRESSURE, L ARM NUMBNESS,SOB, CHEST PAIN Discharge Diagnosis: Exertional chest pain due to anemia Likely iron deficiency anemia Activity: Resume your previous activity Non-emergency contact: Primary Care Provider Call non-emergency contact if: you have any medication questions and your symptoms worsen Follow-up/Referrals: Ciaran Berg III, CRNP [Primary Care Provider] - Diet: Carb Consistent or DM2 and Heart Healthy Addtl Attending Provider Instructions: Advised to follow-up with PCP in 1 week Pending Studies at Discharge: No Stand-Alone Forms: [facility] Medications and DC Order Prescriptions: New ferrous sulfate [iron] 325 mg (65 mg iron) tablet 325 mg PO DAILY Qty: 30 0RF Continued B-complex with vitamin C [Super B Complex-Vitamin C] tablet 1 tab PO DAILY Qty: 90 1RF meclizine 25 mg tablet 25 mg PO Q6H PRN (Reason: dizziness) Qty: 20 0RF (DME) Dexcom G6 Sensor Device See Rx Instructions .Route Rx Instructions: Change sensor every 10 days Lot# [id number] Exp. 11/16/2023 insulin glargine [Lantus Solostar U-100 Insulin] 100 unit/mL (3 mL) insulin pen 55 unit SQ DAILY Qty: 60 3RF (DME) pen needle, diabetic [BD Ultra-Fine Mini Pen Needle] 31 gauge x 3/16" needle See Rx Instructions .Route Qty: 300 3RF Rx Instructions: Inject insulin three times daily metoprolol tartrate 25 mg tablet 25 mg PO BID Qty: 180 3RF clindamycin phosphate 1 % gel 1 applic topical DAILY Qty: 60 2RF pantoprazole 40 mg tablet,delayed release (DR/EC) 40 mg PO DAILY Qty: 90 3RF Brilinta 90 mg tablet 90 mg PO BID Qty: 180 3RF metformin 1,000 mg tablet 1,000 mg PO BID Qty: 180 1RF amlodipine 5 mg tablet 5 mg PO DAILY Qty: 90 3RF atorvastatin 80 mg tablet 80 mg PO DAILY Qty: 90 3RF Humulin N NPH Insulin KwikPen 100 unit/mL (3 mL) insulin pen 24 unit SUBCUT HS 90 Days Qty: 30 3RF Rx Instructions: Inject 24 units at bed time clobetasol 0.05 % ointment 1 applic topical BID 14 Days Qty: 30 0RF Humalog KwikPen Insulin 200 unit/mL (3 mL) insulin pen See Rx Instructions subcut .COMPLEX Qty: 72 5RF Rx Instructions: 140-160 subcut daily levothyroxine 150 mcg tablet 150 mcg PO QAM Qty: 90 3RF Jardiance 25 mg tablet 25 mg PO DAILY Qty: 90 3RF Gemtesa 75 mg tablet 75 mg PO DAILY Qty: 90 2RF Centrum Silver 0.4-300-250 mg-mcg-mcg tablet 1 tab PO DAILY (DME) Dexcom G6 [employer] Fuel Injection Servicer Misc See Rx Instructions .Route Rx Instructions: As directed (DME) Dexcom G6 Transmitter Device See Rx Instructions .Route Rx Instructions: As directed flaxseed oil 1,000 mg capsule 1,000 mg PO BID Rx Instructions: administer with meals mecobalamin (vitamin B12) 1,000 mcg tablet,disintegrating 500 mcg sublingual DAILY Rx Instructions: place tablet under tongue and allow to dissolve for at least30 secs before swallowing lisinopril 10 mg tablet 10 mg PO DAILY Hold Instructions: Resume on 08/20/23. loratadine 10 mg tablet 10 mg PO DAILY montelukast [Singulair] 10 mg tablet 10 mg PO QPM Qty: 90 3RF ranolazine 500 mg tablet extended release 12 hr 500 mg PO BID fexofenadine 180 mg tablet 180 mg PO DAILY nitroglycerin 0.4 mg tablet, sublingual 0.4 mg SL Q5M PRN (Reason: Pain) Qty: 25 Restasis MultiDose 0.05 % drops 1 drops OP Q12H (DME) OneTouch Ultra Test Strip See Rx Instructions .Route Rx Instructions: Test blood sugar once daily PRN- Has Dexcom venlafaxine 150 mg Capsule,Extended Release 24hr 150 mg PO DAILY Rx Instructions: FOR A TOTAL DOSE OF 187.5MG HS aspirin [Alexandre Low Dose Aspirin] 81 mg Tablet,Delayed Release (Dr/Ec) 81 mg PO QAM melatonin 10 mg tablet 20 mg PO HS cholecalciferol (vitamin D3) [Vitamin D3] 50 mcg (2,000 unit) capsule 2,000 unit PO BID omega 2-ann-pll-fish oil [Fish Oil] 1,000 mg (120 mg-180 mg) capsule 1 cap PO BID venlafaxine 37.5 mg capsule,extended release 24hr 75 mg PO DAILY Rx Instructions: FOR A TOTAL DOSE OF 187.5MG Discharge Orders: Discharge Order (Routine); Ordered 12/13/23 Ordered By: Germán Smalls Admission Data Admit Date/Time: 12/12/23 19:42 Attending Provider: Germán Smalls Admit Provider: Dasha Taylor Primary Care Provider: Ciaran Berg III Other Providers: Dasha Taylor; Rodrigo Devine Coding Level of Care Code 14741 INP/OBS DISCH >30 MIN Diagnoses MACARIO (dyspnea on exertion) R06.09 Hx of coronary artery disease Z86.79 Chest pain R07.9 Chest pain type: unspecified Urge incontinence N39.41 Anxiety with depression F41.8 Osteoarthritis M19.90 GERD (gastroesophageal reflux disease) K21.9 Carotid stenosis I65.29 Moderate obstructive sleep apnea G47.33 Obesity E66.9 Hypothyroidism E03.9 Controlled type 2 diabetes mellitus with other circulatory complication, with long-term current use of insulin E11.59; Z79.4 Diabetes mellitus complication detail: with other circulatory complications Diabetes mellitus complication status: with circulatory complication
[2023-12-13] MEDS: IRON SUCROSE 200 MG in 0.9 % SODIUM CHLORIDE 100 ML IV ONE (14:24)
--- NOTE | 2023-12-13 20:59 | Cardiology Consultation ---
Date of Consultation December 13, 2023 Assessment & Plan (1) Coronary artery disease: -- post 4 vessel CABG -- post complex PCI to distal LM/proximal-mid LAD with 3 drug-eluting stents 2016 -- post PCI mid to distal LAD 09/2019 -- PCI to ostial LM into LAD with [place] [facility] [place] [facility] [place] -- CCS class III angina on 3 antianginals 2. Dyslipidemia--previously off statin due to transaminitis; restarted in January 2017 3. Hypertension 4. Type 2 diabetes 5. Osteoarthritis 6. RUDOLPH on Cpap 7. Iron deficiency anemia Patient here with exertional dyspnea and episode of chest discomfort reminiscent of prior angina. HS TropI negative and ECG unchanged. No recurrent chest pain since admission. No signs of heart failure on exam. Very low suspicion current symptoms represent ACS. Suspect exertional dyspnea multifactorial in the setting of deconditioning, long-term chronic angina and relatively new iron deficiency anemia over the last 3 months. Do not feel patient needs additional ischemic testing at this time. Continue current antianginal therapy, Ranexa, metoprolol, amlodipine. Agree with iron supplementation and anemia workup with primary care/hematology as an outpatient. Continue DAPT with aspirin, ticagrelor Continue current statin, SGLT2 From a cardiac standpoint okay with discharge today. Follow-up with me in 1 month when back from trip to [facility]. History of Present Illness Attending Physician: Germán Smalls MD History of Present Illness Mrs. Ahn is a very pleasant 73-year-old with history of complex coronary disease admitted with exertional shortness of breath chest discomfort. Patient is well-known to me from outpatient setting with prior hospitalizations. She is post four-vessel CABG and multiple prior PCI most recently with MARYLOU to l eft main at [facility] [place]. She has been maintained on multiple antianginals. Patient was hospitalized 07/2023 after left ankle fracture requiring ORIF. Ambulation limited until October of this year. More recently has been trying to increase her activities including working with physical therapy. Limiting shortness of breath intermittently with PT. Yesterday had episode of shortness of breath/chest tightness radiating down her left arm while was in her yard picking up sticks. Does state this was more exertion than she has done recently. Symptoms resolved with rest did not have to take additional nitro. In the ED HS TropI negative x 2. ECG unchanged. She has been chest pain-free since admission. Hemodynamically stable. Of note hemoglobin down to 8.1. Previously around 10 but has been down in the 8 since July. Additional labs suggest iron deficiency. Allergies Allergy/AdvReac Type Severity Reaction Status Date / Time nickel Allergy Intermediate pruritis Verified 12/04/23 10:07 cat dander Allergy Mild itchy eyes Verified 12/04/23 10:07 Sulfa (Sulfonamide Allergy Mild HIVES Verified 12/04/23 10:07 Antibiotics) glipizide Allergy Unknown ITCHY,WHEEZ Verified 12/04/23 10:07 ING mold Allergy Unknown ITCHY EYES Verified 12/04/23 10:07 RUNNY NOSE pioglitazone Allergy Unknown ITCHY Verified 12/04/23 10:07 WHEEZING house dust Allergy Itchy Verified 12/04/23 10:07 eyes, runny nose sulfamethoxazole Allergy Itching, Verified 12/04/23 10:07 [From Bactrim] shortness of breath trimethoprim [From Bactrim] Allergy Itching, Verified 12/04/23 10:07 shortness of breath adhesive AdvReac Unknown SKIN Verified 12/04/23 10:07 IRRITATION Home Medications Medication Instructions Recorded Confirmed Type aspirin 81 mg tablet,delayed 81 mg PO QAM 08/06/18 12/12/23 History release (Alexandre Low Dose Aspirin) venlafaxine 150 mg 150 mg PO DAILY 08/06/18 12/12/23 History capsule,extended release 24 hr fexofenadine 180 mg tablet 180 mg PO DAILY 03/23/19 12/12/23 History nitroglycerin 0.4 mg sublingual 0.4 mg sublingual Q5M PRN Pain #25 03/23/19 12/12/23 History tablet tabs cyclosporine 0.05 % eye drops 1 drops ophthalmic (eye) Q12H 03/29/19 12/12/23 History (Restasis MultiDose) B-complex with vitamin C (Super B 1 tab PO DAILY #90 tabs 05/28/19 12/12/23 Rx Complex-Vitamin C tablet) melatonin 10 mg tablet 20 mg PO HS 07/13/19 12/12/23 History yykxxkwo-hhs-uichm acid 0.4 1 tab PO DAILY 07/13/19 12/12/23 History mg-lycopene 300 mcg-lutein 250 mcg tablet (Centrum Silver) cholecalciferol (vitamin D3) 50 2,000 unit PO BID 04/20/20 12/12/23 History mcg (2,000 unit) capsule (Vitamin D3) omega 6-lfj-xpm-fish oil 1,000 mg 1 cap PO BID 04/20/20 12/12/23 History (120 mg-180 mg) capsule (Fish Oil) flaxseed oil 1,000 mg capsule 1,000 mg PO BID 08/16/20 12/12/23 History mecobalamin (vitamin B12) 1,000 500 mcg sublingual DAILY 03/08/21 12/12/23 History mcg disintegrating tablet,sublingual venlafaxine 37.5 mg 75 mg PO DAILY 03/08/21 12/12/23 History capsule,extended release 24 hr blood-glucose meter,continuous 03/29/21 12/04/23 History (Dexcom G6 [employer]) blood-glucose transmitter (Dexcom 03/29/21 12/04/23 History G6 Transmitter device) lisinopril 10 mg tablet 10 mg PO DAILY 07/22/22 12/12/23 History loratadine 10 mg tablet 10 mg PO DAILY 07/22/22 12/12/23 History meclizine 25 mg tablet 25 mg PO Q6H PRN dizziness #20 tabs 08/16/22 12/12/23 Rx blood-glucose sensor (Dexcom G6 08/27/22 12/04/23 History Sensor device) blood sugar diagnostic (OneTouch 11/14/22 12/04/23 History Ultra Test strips) Langmus Nickar U-100 Insulin 100 55 unit (0.55 mL) subcut DAILY #60 11/25/22 12/12/23 Rx unit/mL (3 mL) subcutaneous pen mL (insulin glargine) pen needle, diabetic 31 gauge x #300 ea 01/16/23 12/04/23 Rx 3/16" (BD Ultra-Fine Mini Pen Needle) montelukast 10 mg tablet 10 mg PO QPM #90 tabs 01/30/23 12/12/23 Rx (Singulair) metoprolol tartrate 25 mg tablet 25 mg PO BID #180 tabs 03/11/23 12/12/23 Rx clindamycin phosphate 1 % topical 1 applic topical DAILY #60 grams 04/29/23 12/12/23 Rx gel pantoprazole 40 mg tablet,delayed 40 mg PO DAILY #90 tabs 06/16/23 12/12/23 Rx release ticagrelor 90 mg tablet (Brilinta) 90 mg PO BID #180 tabs 06/16/23 12/12/23 Rx metformin 1,000 mg tablet 1,000 mg PO BID #180 tabs 07/07/23 12/12/23 Rx amlodipine 5 mg tablet 5 mg PO DAILY #90 tabs 07/21/23 12/12/23 Rx atorvastatin 80 mg tablet 80 mg PO DAILY #90 tabs 07/21/23 12/12/23 Rx insulin NPH isoph U-100 human 100 24 unit (0.24 mL) subcut HS 90 09/15/23 12/12/23 Rx unit/mL (3 mL) subcutaneous pen days #30 mL (Humulin N NPH U-100 Insulin KwikPen) clobetasol 0.05 % topical ointment 1 applic topical BID 2 weeks #30 10/09/23 12/12/23 Rx grams insulin lispro 200 unit/mL (3 mL) See Rx Instructions subcut 11/14/23 12/12/23 Rx subcutaneous pen (Humalog KwikPen .COMPLEX #72 mL U-200 Insulin) empagliflozin 25 mg tablet 25 mg PO DAILY #90 tabs 11/17/23 12/12/23 Rx (Jardiance) levothyroxine 150 mcg tablet 150 mcg PO QAM #90 tabs 11/17/23 12/12/23 Rx vibegron 75 mg tablet (Gemtesa) 75 mg PO DAILY #90 tabs 11/24/23 12/12/23 Rx ranolazine 500 mg tablet,extended 500 mg PO BID 12/02/23 12/12/23 History release,12 hr ferrous sulfate 325 mg (65 mg 325 mg PO DAILY #30 tabs 12/13/23 Rx iron) tablet (iron) Patient History Medical History Foot fracture, left (08/08/23) Angina pectoris NSTEMI (non-ST elevated myocardial infarction) Anxiety with depression Elevated troponin Lichen sclerosus et atrophicus Vulvar varicose veins Fatty liver disease, nonalcoholic Type 2 diabetes mellitus Carpal tunnel syndrome on both sides Primary osteoarthritis of right knee Morbid obesity History of difficult intubation left shoulder arthroscopy, RCR, distal clavicle exicision= 08/26/14= "gentle laryngoscopy with no view of cords/arytenoids, straight to glidescopy 3, ETT passed through open cords with cricoid pressure and increased angle of ETT [7.0]" Osteoarthritis Peptic ulcer disease H/O BLEEDING ULCER (2006) Hypothyroidism Diabetes mellitus, type 2 IDDM Anxiety Depression Stroke 2011= RESIDUAL LEFT FOOT NEUROPATHY Myocardial Infarction 2010 Stable angina Hyperlipidemia Hypertension CAD (coronary artery disease) S/P CABG X 4 (1998), CARDIAC STENTS X 4 TOTAL (MOST RECENT 04/2017) Surgical History S/P foot surgery, left foot fracture 07/2023, repair of foot History of intravascular stent placement done with Urvashi 07/18/2022, coronary stent, Xience History of tubal ligation History of total knee arthroplasty (~2018) RIGHT History of tooth extraction History of hysterectomy KD W/BSO History of repair of rotator cuff (~2014) LEFT H/O elbow surgery LEFT History of total knee replacement LEFT History of colonoscopy History of esophagogastroduodenoscopy (EGD) History of cataract surgery BILATERAL History of endoscopic sinus surgery History of adenoidectomy History of coronary artery bypass graft CABG X4 (1997) Family History Father Myocardial infarction Coronary heart disease Brother Arthritis Hx of CABG Sister Arthritis Mother Dementia Heart disease Other Family history non-contributory Denies family history of Liver cancer Ovarian cancer Prostate cancer Crohn's disease Breast cancer Colorectal cancer Inflammatory bowel disease Social History Smoking Status: Never smoker Second Hand Exposure: No; Do You Dip or Chew Tobacco: No; Hx Alcohol Use: Yes Alcohol type: hard liquor Alcohol Intake Frequency: 4 or More x per/Week Alcohol Intake Frequency Comment: 3-4X a week Hx Substance Use: Yes Prescribed Medications: Other Last Used Substance: Unknown Substance Use Type Other:: THC gummies Preferred Language: Icelandic Communication Ability: Effective Visual Impairment: No Limitations Hearing Ability: Hard of Hearing Photovoltaic Subcontractor Required: No Beliefs That Will Affect Care: None marital status: Current Living Situation: Spouse current occupational status: retired current occupation: retired Feels Safe at Home: Yes Childhood Exposure to Second-Hand Smoke: Yes Diet: regular Dental Care, Regularly: Yes Physical Activity Frequency: Daily Seatbelt Use: always Sunscreen Use: Yes Assistive Devices: Raised Toilet Seat and Other Review of Systems Review of Systems: All systems reviewed & are unremarkable except as noted in HPI & below Physical Exam Physical Exam: General: Comfortable HEENT: Sclerae anicteric Lungs: Clear to auscultation bilaterally Cardiac: Regular rate and rhythm, 2 out of 6 systolic ejection murmur Vascular: 2+ radial Abdomen: Soft, nontender Extremities: Well perfused, no peripheral edema Neuro: Nonfocal Psych: Alert orient x3, normal affect and mood Results & Data Vital Signs (Past 12 Hours) Vital Signs Temp Pulse Pulse Resp BP Pulse Ox O2 Del Method 12/13/23 15:00 62 12/13/23 14:30 98.1 F 67 20 110/63 94 12/13/23 12:02 98.1 F 67 20 110/63 94 Room Air PG Care Time/CCT Total # of Minutes Spent Total Time Spent with Patient: Total time spent is greater than 50% in coordination of care (as documented) at patient's floor/unit and/or counseling patient: Coding Level of Care Code 40673 INT INP/OBS CARE MIN Diagnoses Coronary artery disease involving autologous artery coronary bypass graft without angina pectoris I25.810 Coronary Disease-Associated Artery/Lesion type: bypass graft, autologous artery Associated angina: without angina (1) Coronary artery disease Coronary Disease-Associated Artery/Lesion type: bypass graft, autologous artery Associated angina: without angina Qualified Code(s): I25.810 - Atherosclerosis of coronary artery bypass graft(s) without angina pectoris
== END 2023-12-13 15:10 | disposition home or self-care (01) ==
LOC: ED 14:58 → 2N 14:58 → SUATTDRO 19:42 → 2N 21:34
DX: E66.9 Obesity, unspecified; I10 Essential (primary) hypertension; F41.9 Anxiety disorder, unspecified; Z79.899 Other long term (current) drug therapy; Z68.39 Body mass index [BMI] 39.0-39.9, adult; Z79.84 Long term (current) use of oral hypoglycemic drugs; R94.5 Abnormal results of liver function studies; I65.29 Occlusion and stenosis of unspecified carotid artery; Z95.1 Presence of aortocoronary bypass graft; F32.A Depression, unspecified; R06.09 Other forms of dyspnea; K21.9 Gastro-esophageal reflux disease without esophagitis; Z79.82 Long term (current) use of aspirin; I25.118 Atherosclerotic heart disease of native coronary artery with other forms of angina pectoris; Z95.5 Presence of coronary angioplasty implant and graft; E03.9 Hypothyroidism, unspecified; G47.33 Obstructive sleep apnea (adult) (pediatric); E11.9 Type 2 diabetes mellitus without complications; M19.90 Unspecified osteoarthritis, unspecified site; Z79.4 Long term (current) use of insulin; N39.41 Urge incontinence